=== PATIENT | female | born 1955 | race Caucasian/White ===

== ENCOUNTER 2018-10-10 10:03 | Inpatient (IN) ==
[2018-10-10] MEDS ORDERED: methylPREDNISolone 125 MG/2 ML VIAL IV STA (10:51)
[2018-10-10] MEDS ORDERED: SODIUM CHLORIDE 0.9% 1000ML 1,000 ML IV ONE (10:51)
--- NOTE | 2018-10-10 10:59 | XRay Report ---
XR chest 1V portable CLINICAL HISTORY: rule out difficulty breathing dyspnea COMPARISON STUDY: 10/27/2013 FINDINGS: Mild cardia megaly. Small hiatal hernia. Lungs are clear. IMPRESSION: No acute process. The lungs are clear. The above report was generated using voice recognition software. It may contain grammatical, syntax or spelling errors. Electronically signed by: Kody Molina M.D. 10/10/2018 10:58 AM
[2018-10-10 11:04] LABS: Partial Thromboplastin Time 27.6 Seconds (21.0-31.0); Prothrombin Time 10.6 Seconds (9.0-12.0)
[2018-10-10 11:09] LABS: Alanine Aminotransferase 10 U/L (12-78); Albumin Level 3.2 gm/dl (3.4-5.0); Aspartate Aminotransferase 7 U/L (15-37); BUN Creatinine Ratio 11.6 (10-20); Blood Urea Nitrogen 5 mg/dl (7-18); Calcium 8.3 mg/dl (8.5-10.1); Carbon Dioxide 34 mmol/L (21-32); Chloride 100 mmol/L (98-107); Creatinine Clr Calc Pharmacy 128.2 ml/min; Est GFR (African American) 125.3; Est GFR (Non-African American) 108.1; Glucose 105 mg/dl (70-99); Potassium 3.4 mmol/L (3.5-5.1); Sodium 136 mmol/L (136-145)
[2018-10-10 11:14] LABS: Albumin Globulin Ratio 0.8 (0.9-2); Alkaline Phosphatase 116 U/L (45-117); Bilirubin,Total 0.5 mg/dl (0.2-1); Globulin 3.8 gm/dl (2.5-4.0); Troponin I < 0.015 ng/ml (0-0.045)
[2018-10-10 11:23] LABS: Hematocrit (blood only) 31.2 % (37-47); Hemoglobin 7.7 g/dL (12.0-16.0); Mean Corpuscular Hgb Conc 24.7 g/dL (32-36); Mean Corpuscular Volume 62.7 fL (80-100); Platelet Count 250 K/uL (130-400); RDW Coefficient of Variation 20.6 % (11.5-14.5); RDW Standard Deviation 46.1 fL (36.4-46.3); Red Blood Count 4.98 M/uL (4.2-5.4); White Blood Count 6.99 K/uL (4.8-10.8)
[2018-10-10 11:25] LABS: Anisocytosis Present; Basophils # (auto) 0.01 K/uL (0-0.2); Basophils % (auto) 0.1 %; Eosinophils # (auto) 0.04 K/uL (0-0.5); Eosinophils % (auto) 0.6 %; Hypochromasia Present; Immature Granulocytes # (auto) 0.03 K/uL (0.00-0.02); Immature Granulocytes % (auto) 0.4 %; Lymphocytes # (auto) 0.85 K/uL (1.2-3.4); Lymphocytes % (auto) 12.2 %; Microcytosis Present; Monocytes % (auto) 8.6 %; Neutrophils # (auto) 5.46 K/uL (1.4-6.5); Neutrophils % (auto) 78.1 %; Ovalocytes 2+
[2018-10-10] MEDS ORDERED: ALBUT/IPRATROP 3MG/0.5MG NEB 3 ML VIAL NEB ONE ×2 (11:58→13:20)
[2018-10-10] MEDS ORDERED: ONDANSETRON INJ 2 MG/ML 2 ML VIAL IV STA (12:10)
[2018-10-10 13:33] LABS: HCO3 ABG 32 mmol/L (19-24); Oxygen Saturation ABG 85.5 % (90-95); PCO2 ABG 65 mmHg (35-46); PO2 ABG 59 mm/Hg (80-95); pH ABG 7.31 (7.35-7.45)
[2018-10-10 13:36] LABS: Allen Test Pos (Pos)
[2018-10-10] MEDS ORDERED: ACETAMINOPHEN 325 MG TAB PO PRN (14:04)
[2018-10-10] MEDS ORDERED: SODIUM CHLORIDE 0.9% 250 ML IV PRN (14:04)
[2018-10-10] MEDS: SODIUM CHLORIDE 0.9% 1000ML 1,000 ML IV SCH (14:22)
[2018-10-10 14:28] LABS: Reticulocytes # 0.1 10^6/uL (0.02-0.10)
[2018-10-10] MEDS: ALBUT/IPRATROP 3MG/0.5MG NEB 3 ML VIAL NEB SCH ×3 (14:33→23:08)
--- NOTE | 2018-10-10 14:36 | Emergency Department Note ---
History of Present Illness General Chief Complaint: Respiratory Problems Stated Complaint: cough/congestion Source: patient Mode of arrival: ambulatory Limitations: no limitations History of Present Illness Provider Complaint: shortness of breath Onset (ago): week(s) (2) Severity: severe Consistency/Duration: + constant and + progressively worsening Current Pain Intensity: 0 Relieved By: + rest, + bronchodilators and + upright position Exacerbated By: + lying flat, + exertion, + movement, + coughing, + inspiration and + talking Context: + recent illness Known history of: COPD Associated symptoms: + chest pain, + pain with inspiration, + fever (s ubjective), + cough, + wheezing and + orthopnea Treatment prior to arrival: bronchodilator This 62-year-old female patient presents emergency department today via ambulance complaining of 2-week long history of cough, congestion, difficulty breathing, and subjective fever. The patient states 5 days ago, she began feeling worse, and states the dyspnea, weakness, and fatigue have been progre ssively worsening throughout the week. She has been taking OTC Tessalon without relief. She does report a history of COPD, but has not seen her PCP or any other doctor in greater than 5 years. She states she has a history of chronic anemia, and reports history of needing blood transfusions, but states her hemoglobin was 4 when this occurred, and this was approximately 5 or 6 years ago. The patient did have a complete GI work-up at that time which was negative. The patient reports subjective fever in addition to her other symptoms as well as chest pain, worse with coughing. She states she is coughing up green sputum. She denies any lower extremity edema. The patient has a 1 to 1/2 pack/day smoker. She is on no chronic inhalers, nebulizers, or other medications. She denies abdominal pain, nausea, vomiting, headache, numbness or tingling, dizziness, weakness, or other associated symptoms. She denies any hemoptysis, hematochezia, or hematuria. Apparently, upon EMS arrival, the patient was attempting to meet the crew at the door. They noted she was having extreme difficulty breathing, checked her O2 sat and noted it was 83% on room air. EMS assisted the patient to the ambulance and provided a DuoNeb treatment prior to arrival, which did seem to help with the patient's symptoms. She was placed on 4 L of oxygen via nasal cannula at that time. Related Data Home oxygen amount: none Home Medications Home Medications Medication Instructions Recorded Confirmed Type No Known Home Medications 10/10/18 10/10/18 History Allergies Allergy/AdvReac Type Severity Reaction Status Date / Time No Known Allergies Allergy Unverified 10/10/18 10:47 Past Med/Surg History Medical History Tobacco abuse (Chronic) Anemia (Acute) COPD (chronic obstructive pulmonary disease) Surgical History History of cholecystectomy (Resolved) Hx of appendectomy (Resolved) S/P removal of right ovary (Resolved) H/O colonoscopy (Resolved) "2007, patient reports normal findings" Social History Preferred Language: [place] Communication Ability: Effective Media Executive Required: No Beliefs That Will Affect Care: None Current Living Situation: Alone Other Information That Helps Us Care for You: No Feels Safe at Home: Yes Safety Concerns: Feels Safe At This Time Smoking Status: Current every day smoker Tobacco Type: cigarettes Cigarettes Per Day: 25 Do You Dip or Chew Tobacco: No Second Hand Exposure: No Tobacco Cessation Education Requested by Patient: No Hx Alcohol Use: No Hx Substance Use: No Review of Systems A total of 10 systems reviewed and were otherwise negative Physical Exam Vital Signs: Vital Signs - 24 hr 10/10/18 10:02 10/10/18 10:18 10/10/18 10:36 Temperature 36.7 C Temperature Source Oral Sepsis Recent Feve r Within 48 Hours No Sepsis Action Take n by Nursing No Action Required Pulse Rate 95 H Pulse Rate [Apical ] Pulse Rhythm [Apic al] Pulse Strength [Ap ical] Respiratory Rate 24 Respiratory Effort / Characteristics Respiratory Depth Respiratory Patter n Blood Pressure 126/73 Blood Pressure [Le ft Arm] Blood Pressure Vielka n 90 Blood Pressure Vielka n [Left Arm] Blood Pressure Pos ition [Left Arm] Pulse Oximetry 100 83 L Oxygen Delivery Me thod Nebulizer Nasal Cannula Nasal Cannula Oxygen Flow Rate 4 Fraction of Inspir ed Oxygen 10/10/18 11:29 10/10/18 11:43 10/10/18 12:07 Temperature Temperature Source Sepsis Recent Feve r Within 48 Hours Sepsis Action Take n by Nursing Pulse Rate Pulse Rate [Apical ] 83 95 H Pulse Rhythm [Apic al] Pulse Strength [Ap ical] Respiratory Rate 22 18 Respiratory Effort / Characteristics Spontaneous Grunti ng Respiratory Depth Respiratory Patter n Blood Pressure Blood Pressure [Le ft Arm] 115/69 Blood Pressure Vielka n Blood Pressure Vielka n [Left Arm] 84 Blood Pressure Pos ition [Left Arm] Lying Pulse Oximetry 97 92 95 Oxygen Delivery Me thod Nasal Cannula Nasal Cannula Nasal Cannula Oxygen Flow Rate 4 2 2 Fraction of Inspir ed Oxygen 10/10/18 12:25 10/10/18 12:50 10/10/18 12:52 Temperature Temperature Source Sepsis Recent Feve r Within 48 Hours Sepsis Action Take n by Nursing Pulse Rate Pulse Rate [Apical ] 111 H Pulse Rhythm [Apic al] Pulse Strength [Ap ical] Respiratory Rate 22 Respiratory Effort / Characteristics Spontaneous SOB on Exertion Respiratory Depth Normal Respiratory Patter n Regular Blood Pressure Blood Pressure [Le ft Arm] 116/62 Blood Pressure Vielka n Blood Pressure Vielka n [Left Arm] 80 Blood Pressure Pos ition [Left Arm] Lying Pulse Oximetry 90 97 Oxygen Delivery Me thod Nasal Cannula Nasal Cannula Nebu lizer Nasal Cannula Nebu lizer Oxygen Flow Rate 2 2 4 Fraction of Inspir ed Oxygen 10/10/18 13:27 10/10/18 13:33 10/10/18 13:35 Temperature Temperature Source Sepsis Recent Feve r Within 48 Hours Sepsis Action Take n by Nursing Pulse Rate 103 H Pulse Rate [Apical ] 102 H Pulse Rhythm [Apic al] Pulse Strength [Ap ical] Respiratory Rate 26 H 22 Respiratory Effort / Characteristics Respiratory Depth Respiratory Patter n Blood Pressure Blood Pressure [Le ft Arm] 103/49 L Blood Pressure Vielka n Blood Pressure Vielka n [Left Arm] 67 Blood Pressure Pos ition [Left Arm] Pulse Oximetry 97 92 Oxygen Delivery Me thod BiPAP BiPAP Oxygen Flow Rate Fraction of Inspir ed Oxygen 30 10/10/18 13:56 Temperature 36.8 C Temperature Source Oral Sepsis Recent Feve r Within 48 Hours Sepsis Action Take n by Nursing Pulse Rate Pulse Rate [Apical ] 110 H Pulse Rhythm [Apic al] Regular Pulse Strength [Ap ical] Normal Respiratory Rate 18 Respiratory Effort / Characteristics Non-Labored Sponta neous Respiratory Depth Respiratory Patter n Regular Blood Pressure Blood Pressure [Le ft Arm] 128/64 Blood Pressure Vielka n Blood Pressure Vielka n [Left Arm] 85 Blood Pressure Pos ition [Left Arm] Sitting Pulse Oximetry 18 L Oxygen Delivery Me thod Nasal Cannula BiPA P Oxygen Flow Rate 5 Fraction of Inspir ed Oxygen Physical Exam: VITALS: Vitals are noted on the nurse's note and reviewed by myself. The patient is hypoxic and tachypneic, but no hypotension or tachycardia. GENERAL: This is a 62-year-old obese white female, tachypneic, but in no acute distress, nondiaphoretic, well-developed well-nourished. SKIN: The skin was without rashes, erythema, edema, or bruising. There is no tenting of the skin. Capillary reflex less than 2 seconds. HEAD: Normocephalic atraumatic. EARS: External auditory canals clear, tympanic membranes pearly pedersen without erythema or effusion bilaterally. EYES: Pupils equal round and reactive to light and accommodation. Conjunctivae without injection, sclerae without icterus. Extraocular movements intact. NOSE: Patent, turbinates without inflammation or discharge. No sinus tenderness. MOUTH: Mucous membranes moist. Tonsils are not enlarged. Pharynx without erythema or exudate. Uvula midline. Airway patent. Tongue does not deviate. NECK: Supple without nuchal rigidity. No lymphadenopathy. No thyromegaly. Cervical spine is nontender. No JVD. HEART: Regular rate and rhythm without murmurs gallops or rubs. LUNGS: Diffuse rhonchi noted throughout. Expiratory wheezing. No dullness to percussion. No retractions. Occasional accessory muscle use, worse after coughing spells. ABDOMEN: Positive bowel sounds x 4. Normal tympanic percussion. Soft, nontender, without masses or organomegaly. Prince sign negative. No guarding or rebound tenderness. MUSCULOSKELETAL: No muscle atrophy, erythema, or edema noted. Full range of motion without joint tenderness in all extremities. No tenderness to palpation. Normal gait. Strength 5/5 throughout. NEURO: Patient was alert and oriented to person place and time. Normal sensation to light and sharp touch. Deep tendon reflexes 2+ throughout. No focal neurological deficits. Course The patient was seen and evaluated as above. She notes significant improvement following DuoNeb treatment. She is feeling much better, however remains hypoxic on room air in the high 80s. IV access obtained, labs drawn. The patient was given 125 mg Solu-Medrol. Imaging performed and reviewed by myself and radiologist as above. Labs reviewed by myself. I discussed the findings with the patient at bedside. She was reassessed, and notes her breathing feels worse again. She was given hour-long DuoNeb treatmen t. I consulted with the [facility] hospitalist. I spoke with KIARRA Escamilla. She did agree to see and evaluate the patient. Influenza swab obtained. Please see hospitalist dictation regarding ongoing management care of this patient. Administered Medications Sodium Chloride (Nss 1000ml) 1,000 mls @ 80 mls/hr IV .[id number] NIDIA Stop: 10/11/18 15:03 Last Admin: 10/10/18 14:22 Dose: 80 mls/hr Documented by: [id number] Discontinued Medications Albuterol (Duoneb) 12 ml NEB ONE ONE Stop: 10/10/18 11:59 Last Admin: 10/10/18 12:06 Dose: 12 ml Documented by: [id number] Sodium Chloride (Nss 1000ml) 1,000 mls @ 999 mls/hr IV .Q1H1M ONE Stop: 10/10/18 11:51 Last Infusion: 10/10/18 12:23 Dose: 0 mls/hr Documented by: [id number] Admin: 10/10/18 11:17 Dose: 999 mls/hr Documented by: [id number] Methylprednisolone (Solumedrol) 125 mg IV NOW STA Stop: 10/10/18 10:52 Last Admin: 10/10/18 11:16 Dose: 125 mg Documented by: [id number] Ondansetron HCl (Zofran) 4 mg IV NOW STA Stop: 10/10/18 12:11 Last Admin: 10/10/18 12:23 Dose: 4 mg Documented by: [id number] Medical Decision Making Differential Diagnosis + acute exacerbation of chronic obstructive airways disease, + congestive heart failure, + community acquired pneumonia, + asthma with exacerbation, + pulmonary embolism, + COPD, + bronchitis, + pneumothorax, + pneumonia, + pleural effusion, + CHF, + ACS and + aspiration Medical Records Attestation: I reviewed the patient's medical records. Home Medications Current Medication List: was personally reviewed by me Laboratory Data Attestation: I reviewed the patient's lab results. The patient is anemic with hemoglobin of 7.7, hematocrit of 31.2. No leukocytosis or thrombocytopenia. The patient's coags are normal. Renal, hepatic function electrolytes without significant abnormality. Troponin negative. Influenza testing negative. Result diagrams: 10/10/18 09:20 10/10/18 09:20 Lab Results 10/10/18 10/10/18 10/10/18 Range/Units 09:20 09:20 09:20 WBC 6.99 (4.8-10.8) K/uL RBC 4.98 (4.2-5.4) M/uL Hgb 7.7 L (12.0-16.0) g/dL Hct 31.2 L (37-47) % MCV 62.7 L (80-100) fL MCH 15.5 L (25-34) pg MCHC 24.7 L (32-36) g/dL RDW Std Deviation 46.1 (36.4-46.3) fL RDW Coeff of Liz 20.6 H (11.5-14.5) % Plt Count 250 (130-400) K/uL Immature Gran % (Auto) 0.4 % Neut % (Auto) 78.1 % Lymph % (Auto) 12.2 % [place] % (Auto) 8.6 % Eos % (Auto) 0.6 % Baso % (Auto) 0.1 % Reticulocyte % (Auto) (0.5-2.0) % Immature Gran # (Auto) 0.03 H (0.00-0.02) K/uL Neut # (Auto) 5.46 (1.4-6.5) K/uL Lymph # (Auto) 0.85 L (1.2-3.4) K/uL [place] # (Auto) 0.60 H (0.11-0.59) K/uL Eos # (Auto) 0.04 (0-0.5) K/uL Baso # (Auto) 0.01 (0-0.2) K/uL Reticulocyte # (0.02-0.10) 10^6/uL Hypochromasia Present Anisocytosis Present Microcytosis Present Ovalocytes 2+ PT 10.6 (9.0-12.0) Seconds INR 1.0 (0.9-1.1) APTT 27.6 (21.0-31.0) Seconds PTT Ratio 1.0 ABG pH (7.35-7.45) ABG pCO2 (35-46) mmHg ABG pO2 (80-95) mm/Hg ABG HCO3 (19-24) mmol/L ABG O2 Saturation (90-95) % ABG Base Excess (-9-1.8) mEq/L [place] Test (Pos) Barometric Pressure mm/Hg Oxygen Given Sodium 136 (136-145) mmol/L Potassium 3.4 L (3.5-5.1) mmol/L Chloride 100 (98-107) mmol/L Carbon Dioxide 34 H (21-32) mmol/L Anion Gap 2.0 L (3-11) BUN 5 L (7-18) mg/dl Creatinine 0.46 L (0.6-1.2) mg/dl Est Cr Clr Drug Dosing 128.2 ml/min Est GFR ( Amer) 125.3 Est GFR (Non-Af Amer) 108.1 BUN/Creatinine Ratio 11.6 (10-20) Glucose 105 H (70-99) mg/dl Calcium 8.3 L (8.5-10.1) mg/dl Total Bilirubin 0.5 (0.2-1) mg/dl AST 7 L (15-37) U/L ALT 10 L (12-78) U/L Alkaline Phosphatase 116 (45-117) U/L Troponin I < 0.015 (0-0.045) ng/ml Total Protein 7.0 (6.4-8.2) gm/dl Albumin 3.2 L (3.4-5.0) gm/dl Globulin 3.8 (2.5-4.0) gm/dl Albumin/Globulin Ratio 0.8 L (0.9-2) Influenza Type A Ag (Neg) Influenza Type B Ag (Neg) Crossmatch 10/10/18 10/10/18 10/10/18 Range/Units 12:15 13:23 14:13 WBC (4.8-10.8) K/uL RBC (4.2-5.4) M/uL Hgb (12.0-16.0) g/dL Hct (37-47) % MCV (80-100) fL MCH (25-34) pg MCHC (32-36) g/dL RDW Std Deviation (36.4-46.3) fL RDW Coeff of Liz (11.5-14.5) % Plt Count (130-400) K/uL Immature Gran % (Auto) % Neut % (Auto) % Lymph % (Auto) % [place] % (Auto) % Eos % (Auto) % Baso % (Auto) % Reticulocyte % (Auto) 2.0 (0.5-2.0) % Immature Gran # (Auto) (0.00-0.02) K/uL Neut # (Auto) (1.4-6.5) K/uL Lymph # (Auto) (1.2-3.4) K/uL [place] # (Auto) (0.11-0.59) K/uL Eos # (Auto) (0-0.5) K/uL Baso # (Auto) (0-0.2) K/uL Reticulocyte # 0.10 (0.02-0.10) 10^6/uL Hypochromasia Anisocytosis Microcytosis Ovalocytes PT (9.0-12.0) Seconds INR (0.9-1.1) APTT (21.0-31.0) Seconds PTT Ratio ABG pH 7.31 L (7.35-7.45) ABG pCO2 65 H (35-46) mmHg ABG pO2 59 L (80-95) mm/Hg ABG HCO3 32 H (19-24) mmol/L ABG O2 Saturation 85.5 L (90-95) % ABG Base Excess 4.2 H (-9-1.8) mEq/L [place] Test Pos (Pos) Barometric Pressure 724.5 mm/Hg Oxygen Given 4 L Sodium (136-145) mmol/L Potassium (3.5-5.1) mmol/L Chloride (98-107) mmol/L Carbon Dioxide (21-32) mmol/L Anion Gap (3-11) BUN (7-18) mg/dl Creatinine (0.6-1.2) mg/dl Est Cr Clr Drug Dosing ml/min Est GFR ( Amer) Est GFR (Non-Af Amer) BUN/Creatinine Ratio (10-20) Glucose (70-99) mg/dl Calcium (8.5-10.1) mg/dl Total Bilirubin (0.2-1) mg/dl AST (15-37) U/L ALT (12-78) U/L Alkaline Phosphatase (45-117) U/L Troponin I (0-0.045) ng/ml Total Protein (6.4-8.2) gm/dl Albumin (3.4-5.0) gm/dl Globulin (2.5-4.0) gm/dl Albumin/Globulin Ratio (0.9-2) Influenza Type A Ag Neg for Influ A (Neg) Influenza Type B Ag Neg for Influ B (Neg) Crossmatch 10/10/18 Range/Units 14:13 WBC (4.8-10.8) K/uL RBC (4.2-5.4) M/uL Hgb (12.0-16.0) g/dL Hct (37-47) % MCV (80-100) fL MCH (25-34) pg MCHC (32-36) g/dL RDW Std Deviation (36.4-46.3) fL RDW Coeff of Liz (11.5-14.5) % Plt Count (130-400) K/uL Immature Gran % (Auto) % Neut % (Auto) % Lymph % (Auto) % [place] % (Auto) % Eos % (Auto) % Baso % (Auto) % Reticulocyte % (Auto) (0.5-2.0) % Immature Gran # (Auto) (0.00-0.02) K/uL Neut # (Auto) (1.4-6.5) K/uL Lymph # (Auto) (1.2-3.4) K/uL [place] # (Auto) (0.11-0.59) K/uL Eos # (Auto) (0-0.5) K/uL Baso # (Auto) (0-0.2) K/uL Reticulocyte # (0.02-0.10) 10^6/uL Hypochromasia Anisocytosis Microcytosis Ovalocytes PT (9.0-12.0) Seconds INR (0.9-1.1) APTT (21.0-31.0) Seconds PTT Ratio ABG pH (7.35-7.45) ABG pCO2 (35-46) mmHg ABG pO2 (80-95) mm/Hg ABG HCO3 (19-24) mmol/L ABG O2 Saturation (90-95) % ABG Base Excess (-9-1.8) mEq/L [place] Test (Pos) Barometric Pressure mm/Hg Oxygen Given Sodium (136-145) mmol/L Potassium (3.5-5.1) mmol/L Chloride (98-107) mmol/L Carbon Dioxide (21-32) mmol/L Anion Gap (3-11) BUN (7-18) mg/dl Creatinine (0.6-1.2) mg/dl Est Cr Clr Drug Dosing ml/min Est GFR ( Amer) Est GFR (Non-Af Amer) BUN/Creatinine Ratio (10-20) Glucose (70-99) mg/dl Calcium (8.5-10.1) mg/dl Total Bilirubin (0.2-1) mg/dl AST (15-37) U/L ALT (12-78) U/L Alkaline Phosphatase (45-117) U/L Troponin I (0-0.045) ng/ml Total Protein (6.4-8.2) gm/dl Albumin (3.4-5.0) gm/dl Globulin (2.5-4.0) gm/dl Albumin/Globulin Ratio (0.9-2) Influenza Type A Ag (Neg) Influenza Type B Ag (Neg) Crossmatch See Detail Imaging Data Radiologist's Impression: XR chest 1V portable CLINICAL HISTORY: rule out difficulty breathing dyspnea COMPARISON STUDY: 10/27/2013 FINDINGS: Mild cardia megaly. Small hiatal hernia. Lungs are clear. IMPRESSION: No acute process. The lungs are clear. The above report was generated using voice recognition software. It may contain grammatical, syntax or spelling errors. Electronically signed by: Kody Molina M.D. 10/10/2018 10:58 AM ECG Data Attestation: I personally reviewed and interpreted this ECG as follows: Prior ECG tracings: available for review (10/27/13) Interpretation: Normal sinus rhythm with ventricular rate of [address] changes. No T wave inversion. No ectopy. No significant change when compared to previous EKG. Blood Pressure Blood Pressure Findings: Normal blood pressure MDM Narrative This 62-year-old female patient presents emergency department today via ambulance complaining of severe shortness of breath, subjective fevers, and wheezing which is been ongoing for approximately 2 weeks. The patient's O2 saturation upon EMS arrival to her home was 83% on room air. The patient responded well to oxygen and a DuoNeb treatment. She was medicated in the ED with IV fluids, Solu-Medrol, and ultimately an hour-long DuoNeb treatment. The patient was doing well and maintaining O2 saturations on oxygen, but when oxygen was removed, sats dropped into the low 80s without exertion. While discussing lab results and imaging findings and reassessing the patient, she began complaining of worsening shortness of breath. This is when the repeat DuoNeb treatment was ordered. Because of the hypoxia, we did elect to admit the patient. I am suspicious of COPD exacerbation, as the patient has been untreated for several years since her diagnosis. She was anemic with a hemoglobin of 7.7 upon ER arrival, but was not tachycardic or hypotensive. She was not pale, diaphoretic, or complaining of any dizziness or weakness. The patient states the anemia is chronic, but she does not recall any recent labs, and states it has been at least 5 years. She did have a completely negative GI work-up in the past. Please see hospitalist dictation regarding ongoing management care of this patient. The chart was completed utilizing [employer] Speech voice recognition software. Grammatical errors, random word insertions, pronoun errors, and incomplete sentences are an occasional consequence of this system due to software limit ations, ambient noise, and hardware issues. Any formal questions or concerns about the content, text, or information contained within the body of this dictation should be directly addressed to the provider for clarification. Impression & Plan Anemia, Hypoxia, Bronchitis Discharge Plan Visit Data *Final* Discharge Date/Time: 10/10/18 13:35 Chief Complaint: Respiratory Problems Stated Complaint: cough/congestion ED Provider: Noel Thapa ED Midlevel Provider: Trina Chahal Discharge Problem: Anemia, Hypoxia, Bronchitis Patient Disposition: Admitted As Inpatient Condition: Fair Discharge Instructions Interventions: ED Discharge Assessment Last Done: 10/10/18 13:35
[2018-10-10 14:45] LABS: Ferritin 1.7 ng/ml (8-388)
--- NOTE | 2018-10-10 14:59 | History & Physical Report ---
Date of Service October 10, 2018 Assessment & Plan (1) COPD exacerbation: (2) Hypoxia: Pt with hx COPD, tobacco use presented to ER with complaint of increased SOB x 4 days with chills, productive cough, myalgias, headache, chest tightness/burning, wheezing. Reports chronic SOB In ER pt afebrile, P: 95, R: 24, BP: 126/73, 83% on RA up to 95% on 2L NC. WBC: 6.9. negative troponin. Negative influenza swab. CXR: no acute changes In ER Pt was given 1L NSS, solumedrol 125mg IV, 1 hour long duoneb. ABG:pH: 7.3, pO2: 59, pCOO2: 65, HCO3: 32 -Pt placed on bipap -Supplemental oxygen prn -Gentle IVF -Solumedrol 60mg IV Q6H -Duonebs scheduled -Doxycycline -Pulmonology consult, appreciate recommendations (3) Anemia: Hx iron deficiency anemia. Pt not taking iron supplements. Reported intermittent melena. Denies hematochezia. Hx EGD, colonoscopy in 2013 without noted source. Pt was to have further follow up however did not have completed -fecal occult pending -pending iron, ferritin, TIBC, transferrin, retic count -type and cross PRBC and transfuse 1 unit -monitor H&H -may need to consider GI consult if no improvement or worsening (4) Hypokalemia: K: 3.4 -replace and monitor (5) Gastroparesis: Not on medications (6) Tobacco abuse: -smoking cessation encouraged -nicotine patch DVT Prophylaxis -SCDs DNR/DNI as per discussion with pt Does not follow with PCP for routine care Pt was seen with Dr Hamm. See addendum Attending Addendum: care coordinated with DUANE Bhat please refer to her notes for full details, I agree with her notes patient seen and examined, records reviewed by myself as well on exam, patient seen sitting up in bed states she feels tired breathing somewhat better (+) dry cough no chest pain no other symptoms VS noted and reviewed oriented x3, not in distress, speaks in sentences with no effort nor accessory muscle use normal rate, regular rhythm, no murmurs (+) wheeze b/l non distended, soft, nontender no bipedal edema, erythema, warmth no neuro deficits WBC 7 Hg 7.5 Crea 0.46 ASSESSMENT AND PLAN COPD EXACERBATION continue Bipap- wean off accordingly, Solumedrol, Nebs ANEMIA 1 unit PRBC ordered anemia panel other diagnoses and plan of care as per DUANE Bhat notes Joe Hamm MD History of Present Illness Chief Complaint: SOB Primary Care Provider: NO PCP Pt is 62 y/o F with PMH gastroparesis, COPD, tobacco use, iron deficiency anemia presented to ER with complaint of shortness of breath. Patient reports chronic shortness of breath however 4 days ago started with increased shortness of breath. She states that she has had a cough for couple weeks intermittently productive white to yellow sputum. 4 days ago the cough increased and she started with chills, body aches, headache, chest tightness and burning, wheezing, and rhinorrhea. Patient states tried OTC cough suppressant without any relief. She states felt so weak 4 days ago that she didn't get out of bed much. States today no further myalgias however significant SOB and wheezing. Patient denies any ill contacts, recent travel. Did not have flu vaccine this season. Patient not on any inhalers. She has not followed up with PCP for several years. Patient with history of iron deficiency anemia. Hx hospitalization in 10/2013 for anemia. Last had EGD and colonoscopy in 2013 without any noted source. Patient has not been taking iron supplements. Patient states intermittent black stools which occur a couple of times a month. Denies any bright red blood per rectum. Denies N/V/D/C, dizziness, syncope, vision changes, neck pain, palpitations,sore throat, choking, otalgia, abdominal pain, paresthesias, extremity edema, rashes, urinary symptoms. Allergies Allergy/AdvReac Type Severity Reaction Status Date / Time No Known Allergies Allergy Unverified 10/10/18 10:47 Home Medications Home Medications Medication Instructions Recorded Confirmed Type No Known Home Medications 10/10/18 10/10/18 History Past Med/Surg History Medical History Gastroparesis (Chronic) Tobacco abuse (Chronic) Anemia (Chronic) COPD (chronic obstructive pulmonary disease) Surgical History History of esophagogastroduodenoscopy (EGD) (Chronic) History of cholecystectomy (Chronic) Hx of appendectomy (Chronic) S/P removal of right ovary (Chronic) H/O colonoscopy (Chronic) "2007, patient reports normal findings" 10/2013: poor prep, grossly normal exam Family History Other Cancer Depression Social History Preferred Language: [place] Communication Ability: Effective Psychiatric Security Nurse Required: No Beliefs That Will Affect Care: None Current Living Situation: Alone Other Information That Helps Us Care for You: No Feels Safe at Home: Yes Safety Concerns: Feels Safe At This Time Smoking Status: Current every day smoker Tobacco Type: cigarettes packs per day: 1 Years Smoked: 50 Cigarettes Per Day: 25 Do You Dip or Chew Tobacco: No Second Hand Exposure: No Tobacco Cessation Education Requested by Patient: No Hx Alcohol Use: No Hx Substance Use: No Review of Systems Review of Systems: All systems reviewed & are unremarkable except as noted in HPI & below Physical Exam Physical Exam: General: + respiratory distress, moderately developed, moderately nourished Head: normocephalic, atraumatic Eyes: PERRL, EOM's intact, conjunctiva non-injected, anicteric ENT: normal inspection external ears, nose, mucous membranes dry Neck: supple, trachea midline Lungs: +respiratory distress,R: 24 and labored, +diffuse inspiratory and expiratory wheezing, breath sounds diminished throughout CV: RRR, no murmur, no pretibial edema Abd: normal BS, soft, non-tender Ext: no cyanosis, no calf tenderness Neuro: A&O x 3, no focal deficits noted, normal affect Skin: warm, dry Results & Data Vital Signs (Past 12 Hours) Vital Signs Temp Pulse Pulse Resp BP BP Pulse Ox 10/10/18 14:33 105 H 19 95 10/10/18 13:56 36.8 C 110 H 18 128/64 18 L 10/10/18 13:33 102 H 22 103/49 L 92 10/10/18 13:27 103 H 26 H 97 10/10/18 12:52 97 10/10/18 12:50 111 H 22 116/62 90 10/10/18 12:07 95 H 18 95 10/10/18 11:43 92 10/10/18 11:29 83 22 115/69 97 10/10/18 10:36 83 L 10/10/18 10:02 36.7 C 95 H 24 126/73 100 Laboratory Results Short CBC 10/10/18 Range/Units 09:20 WBC 6.99 (4.8-10.8) K/uL Hgb 7.7 L (12.0-16.0) g/dL Hct 31.2 L (37-47) % Plt Count 250 (130-400) K/uL BMP 10/10/18 09:20 Sodium 136 Potassium 3.4 L Chloride 100 Carbon Dioxide 34 H BUN 5 L Creatinine 0.46 L Glucose 105 H Calcium 8.3 L Cardiac Enzymes 10/10/18 Range/Units 09:20 Troponin I < 0.015 (0-0.045) ng/ml Liver Function 10/10/18 Range/Units 09:20 Total Bilirubin 0.5 (0.2-1) mg/dl AST 7 L (15-37) U/L ALT 10 L (12-78) U/L Alkaline Phosphatase 116 (45-117) U/L Albumin 3.2 L (3.4-5.0) gm/dl Diagnostic Findings CXR: IMPRESSION: No acute process. The lungs are clear. ECG Rate (beats per minute): 88 Rhythm: sinus rhythm (1) Anemia Anemia type: unspecified type Qualified Code(s): D64.9 - Anemia, unspecified
--- NOTE | 2018-10-10 15:45 | Pulmonary Consultation ---
Date of Consultation October 10, 2018 Assessment & Plan (1) COPD exacerbation: Impression: 1. COPD, with acute exacerbation, gold level cannot be determined, patient does not follow with any physician, does not use any inhalers, and active smoker. 2. Nicotine addiction. 3. Chronic anemia. 4. Cor pulmonale with chronically elevated CO2. 5. History of peptic ulcer disease. Plan: 1. Continue with systemic steroids with Solu-Medrol. 2. Change BiPAP to nocturnal only and as needed during the daytime. 3. Continue bronchodilators. 4. Smoking cessation counseling. 5. Repeat the CBC, the labs are disproportionate between hemoglobin and hematocrit. Thank you, will follow. History of Present Illness Reason for Consultation: COPD exacerbation Requesting Physician: Dr. Hamm Attending Physician: Joe Hamm MD History of Present Illness Dear Dr. Hamm: Thank you for the kind referral of Mrs. Woodson to pulmonary service. This is 62-year-old female with a history of COPD, active smoker, does not use any rescue inhalers nor nebulizer and not using any controller medications, the patient has been feeling sick for the past few days where she started with cough according to her 2 weeks ago. On Friday she started becoming more tired and having increasing shortness of breath even with minimal exertion. She denies any rhinorrhea or sputum production. No hemoptysis reported. Patient did not have any abdominal pain no epigastric pain no heartburn no loss of consciousness or near syncopal episodes she has no swelling in her lower extremities. The patient was feeling even sicker yesterday and she was brought to the ED by her family member who called the ambulance and she was admitted via the ED. The patient was placed on the BiPAP for the pH on her blood gas that was shown to be 7.31. The patient did not have any medications at home, she does not use oxygen, she is active smoker. The rest of her review of system otherwise was unremarkable. Allergies Allergy/AdvReac Type Severity Reaction Status Date / Time No Known Allergies Allergy Unverified 10/10/18 10:47 Home Medications Home Medications Medication Instructions Recorded Confirmed Type No Known Home Medications 10/10/18 10/10/18 History Patient History Medical History Gastroparesis (Chronic) Tobacco abuse (Chronic) Anemia (Chronic) COPD (chronic obstructive pulmonary disease) Surgical History History of esophagogastroduodenoscopy (EGD) (Chronic) History of cholecystectomy (Chronic) Hx of appendectomy (Chronic) S/P removal of right ovary (Chronic) H/O colonoscopy (Chronic) "2007, patient reports normal findings" 10/2013: poor prep, grossly normal exam Family History Other Cancer Depression Social History Preferred Language: Tongan Communication Ability: Effective Photo Finish Photographer Required: No Beliefs That Will Affect Care: None Current Living Situation: Alone Other Information That Helps Us Care for You: No Feels Safe at Home: Yes Safety Concerns: Feels Safe At This Time Smoking Status: Current every day smoker Tobacco Type: cigarettes packs per day: 1 Years Smoked: 50 Cigarettes Per Day: 25 Do You Dip or Chew Tobacco: No Second Hand Exposure: No Tobacco Cessation Education Requested by Patient: No Hx Alcohol Use: No Hx Substance Use: No Review of Systems Review of Systems: Review of systems x10 systems were unremarkable except for the above. Physical Exam Physical Exam: Vital signs are stable, S1-S2 regular rate and rhythm, O2 saturation 99%, no JVD, hyperinflated chest, wheezing bilaterally, abdomen is benign, no edema, neurologically she is intact. No skin rash, no mucosal lesions, no visual disturbances. Results & Data Vital Signs (Past 12 Hours) Vital Signs Temp Pulse Pulse Resp BP BP Pulse Ox 10/10/18 15:29 36.6 C 102 H 23 119/68 99 10/10/18 14:33 105 H 19 95 10/10/18 13:56 36.8 C 110 H 18 128/64 18 L 10/10/18 13:33 102 H 22 103/49 L 92 10/10/18 13:27 103 H 26 H 97 10/10/18 12:52 97 10/10/18 12:50 111 H 22 116/62 90 10/10/18 12:07 95 H 18 95 10/10/18 11:43 92 10/10/18 11:29 83 22 115/69 97 10/10/18 10:36 83 L 10/10/18 10:02 36.7 C 95 H 24 126/73 100 Laboratory Results Her labs were reviewed which showed normal leukocytes, she does have chronic anemia. Diagnostic Findings Chest x-ray which I could not review but by report it was without any infiltrate.
[2018-10-10 16:27] LABS: Hematocrit (blood only) 30.3 % (37-47); Hemoglobin 7.5 g/dL (12.0-16.0); Mean Corpuscular Hgb Conc 24.8 g/dL (32-36); Mean Corpuscular Volume 63.7 fL (80-100); Platelet Count 222 K/uL (130-400); Red Blood Count 4.76 M/uL (4.2-5.4); White Blood Count 7.71 K/uL (4.8-10.8)
[2018-10-10] MEDS: DOXYCYCLINE HYCLATE 100 MG in DEXTROSE 5% 100 ML IV SCH (16:40)
[2018-10-10 16:52] LABS: Anisocytosis Present; Basophils # (auto) 0.01 K/uL (0-0.2); Basophils % (auto) 0.1 %; Giant Platelets 1+; Hypochromasia Present; Immature Granulocytes # (auto) 0.03 K/uL (0.00-0.02); Immature Granulocytes % (auto) 0.4 %; Lymphocytes # (auto) 0.31 K/uL (1.2-3.4); Microcytosis Present; Monocytes # (auto) 0.08 K/uL (0.11-0.59); Neutrophils # (auto) 7.28 K/uL (1.4-6.5); Neutrophils % (auto) 94.5 %
[2018-10-10] MEDS: methylPREDNISolone 40 MG in SYRINGE 0 ML IV SCH ×2 (17:04→23:52)
[2018-10-10] MEDS: NICOTINE 21 MG/24 HR TDSY TD SCH (17:04)
[2018-10-10] MEDS ORDERED: methylPREDNISolone 60 MG in SYRINGE 0 ML IV SCH (18:00)
[2018-10-10] MEDS ORDERED: POTASSIUM CHLORIDE 20 MEQ TABCR PO ONE (18:00)
[2018-10-10] MEDS: BUDESONIDE/FORMOTEROL FUMARATE 160/4.5 60 PUFFS/INHALER INH SCH (20:36)
[2018-10-10 23:52] LABS: Hematocrit (blood only) 33.2 % (37-47); Hemoglobin 8.7 g/dL (12.0-16.0)
[2018-10-11] MEDS: ALBUT/IPRATROP 3MG/0.5MG NEB 3 ML VIAL NEB SCH ×6 (03:36→23:01)
[2018-10-11] MEDS: DOXYCYCLINE HYCLATE 100 MG in DEXTROSE 5% 100 ML IV SCH ×2 (04:12→16:16)
[2018-10-11] MEDS: methylPREDNISolone 40 MG in SYRINGE 0 ML IV SCH ×4 (06:03→23:45)
[2018-10-11 06:11] LABS: Hematocrit (blood only) 33.3 % (37-47); Hemoglobin 8.9 g/dL (12.0-16.0); Mean Corpuscular Hgb Conc 26.7 g/dL (32-36); Mean Corpuscular Volume 66.6 fL (80-100); Platelet Count 203 K/uL (130-400); RDW Standard Deviation 53.2 fL (36.4-46.3); White Blood Count 7.28 K/uL (4.8-10.8)
[2018-10-11 06:29] LABS: BUN Creatinine Ratio 23.1 (10-20); Calcium 8.6 mg/dl (8.5-10.1); Creatinine Clr Calc Pharmacy 117.4 ml/min; Est GFR (African American) 121.9; Est GFR (Non-African American) 105.2; Magnesium 2.3 mg/dl (1.8-2.4); Potassium 4.2 mmol/L (3.5-5.1)
[2018-10-11] MEDS: BUDESONIDE/FORMOTEROL FUMARATE 160/4.5 60 PUFFS/INHALER INH SCH ×2 (07:48→20:25)
[2018-10-11] MEDS: NICOTINE 21 MG/24 HR TDSY TD SCH (07:49)
[2018-10-11] MEDS: SODIUM CHLORIDE 0.9% 1000ML 1,000 ML IV SCH (10:24)
--- NOTE | 2018-10-11 13:17 | Pulmonology Progress Note ---
Date of Service October 11, 2018 Assessment & Plan (1) COPD exacerbation: Impression: 1. COPD, with acute exacerbation, gold level cannot be determined, patient does not follow with any physician, does not use any inhalers, and active smoker. 2. Nicotine addiction. 3. Chronic anemia. 4. Cor pulmonale with chronically elevated CO2. 5. History of peptic ulcer disease. Plan: 1. Continue Solu-Medrol for additional day and then start prednisone 60 mg p.o. daily in the morning. 2. Use BiPAP as needed. 3. Continue bronchodilators. 4. Smoking cessation counseling. 5. Follow CBC and BMP. 6. Perform 2 steps to evaluate for home O2. 7. Discussed with the nursing staff. Thank you, will follow. Subjective No events overnight, she has been off the BiPAP, she continues to have persistent wheezing. Denies any chest pain, currently she is on oxygen, but she desaturated very easily with ambulation. Review of Systems Review of Systems: Review of system otherwise was unremarkable. Physical Exam Physical Exam: Vital signs are stable, 99% on 3 L, no JVD, scattered wheezing bilaterally, S1-S2, abdomen is benign, no edema. Neurologically she is intact. Results & Data Vital Signs (Past 12 Hours) Vital Signs Temp Pulse Pulse Resp BP Pulse Ox 10/11/18 11:29 37.0 C 96 H 18 121/63 99 10/11/18 11:10 105 H 18 96 10/11/18 07:09 36.4 C L 87 18 144/79 H 100 10/11/18 07:03 83 18 93 10/11/18 03:38 77 20 93 10/11/18 03:36 77 20 93 10/11/18 03:19 37.0 C 84 18 109/66 90 10/11/18 01:59 89 17 95 Laboratory Results Labs were reviewed, acceptable CBC and BMP, Diagnostic Findings No new imaging.
--- NOTE | 2018-10-11 14:05 | Hospitalist Progress Note ---
Date of Service October 11, 2018 Assessment & Plan (1) COPD exacerbation: (2) Hypoxia: Pt with hx COPD, tobacco use presented to ER with complaint of increased SOB x 4 days with chills, productive cough, myalgias, headache, chest tightness/burning, wheezing. Reports chronic SOB Improving Continue Solu-Medrol, nebs, doxycycline Appreciate pulmonary consultation (3) Anemia: Hx iron deficiency anemia. Pt not taking iron supplements. Reported inte rmittent melena. Denies hematochezia. Hx EGD, colonoscopy in 2013 without noted source. Pt was to have further follow up however did not have completed -fecal occult pending -pending iron, ferritin, TIBC, transferrin, retic count -type and cross PRBC and transfuse 1 unit -monitor H&H -may need to consider GI consult if no improvement or worsening Iron 10, ferritin low Start ferrous sulfate supplement (4) Hypokalemia: K: 3.4 -replace and monitor (5) Gastroparesis: Not on medications (6) Tobacco abuse: -smoking cessation encouraged -nicotine patch DVT Prophylaxis -SCDs in light of anemia iron deficiency DNR/DNI as per discussion with pt Does not follow with PCP for routine care Disposition Anticipate to discharge to medically stable Needs to establish with primary care physician Subjective Follow-up for COPD exacerbation Resting in bed, sitting up, comfortable States that she feels better today compared to yesterday Dyspnea is minimal, cough improving, dry No other symptoms Review of Systems Review of Systems: All systems reviewed & are unremarkable except as noted in HPI & below Physical Exam 2 Physical Exam: General- oriented x 3, not in distress, speaks in sentences with no effort or accessory muscle use Eyes- anicteric Neck- no JVD Lungs-mild wheeze bilaterally, no crackles Heart- normal rate, regular rhythm; no murmurs Abdomen- normal bowel sounds, nondistended, soft, nontender Extremities- no pretibial edema, no calf tenderness Neuro- alert, oriented x 3; no gross focal neurologic deficits Skin- warm & dry Results & Data Vital Signs (Past 12 Hours) Vital Signs Temp Pulse Pulse Resp BP Pulse Ox 10/11/18 11:29 37.0 C 96 H 18 121/63 99 10/11/18 11:10 105 H 18 96 10/11/18 07:09 36.4 C L 87 18 144/79 H 100 10/11/18 07:03 83 18 93 10/11/18 03:38 77 20 93 10/11/18 03:36 77 20 93 10/11/18 03:19 37.0 C 84 18 109/66 90 Laboratory Results Laboratory Results - last 24 hr 10/10/18 10/10/18 10/10/18 14:13 14:13 14:13 WBC RBC Hgb Hct MCV MCH MCHC RDW Std Deviation RDW Coeff of Liz Plt Count Immature Gran % (Auto) Neut % (Auto) Lymph % (Auto) [place] % (Auto) Eos % (Auto) Baso % (Auto) Reticulocyte % (Auto) 2.0 Immature Gran # (Auto) Neut # (Auto) Lymph # (Auto) [place] # (Auto) Eos # (Auto) Baso # (Auto) Reticulocyte # 0.10 Giant Platelets Hypochromasia Anisocytosis Microcytosis Sodium Potassium Chloride Carbon Dioxide Anion Gap BUN Creatinine Est Cr Clr Drug Dosing Est GFR ( Amer) Est GFR (Non-Af Amer) BUN/Creatinine Ratio Glucose Calcium Magnesium Iron 10 L TIBC 402 Transferrin 283 Ferritin 1.7 L Specimen Hemolysis Blood Type A Positive Antibody Screen NEGATIVE Crossmatch See Detail 10/10/18 10/10/18 10/11/18 15:58 23:36 05:20 WBC 7.71 7.28 RBC 4.76 5.00 Hgb 7.5 L 8.7 L 8.9 L Hct 30.3 L 33.2 L 33.3 L MCV 63.7 L 66.6 L MCH 15.8 L 17.8 L MCHC 24.8 L 26.7 L RDW Std Deviation 46.0 53.2 H RDW Coeff of Liz 20.0 H 22.0 H Plt Count 222 203 Immature Gran % (Auto) 0.4 Neut % (Auto) 94.5 Lymph % (Auto) 4.0 [place] % (Auto) 1.0 Eos % (Auto) 0.0 Baso % (Auto) 0.1 Reticulocyte % (Auto) Immature Gran # (Auto) 0.03 H Neut # (Auto) 7.28 H Lymph # (Auto) 0.31 L [place] # (Auto) 0.08 L Eos # (Auto) 0.00 Baso # (Auto) 0.01 Reticulocyte # Giant Platelets 1+ Hypochromasia Present Anisocytosis Present Microcytosis Present Sodium Potassium Chloride Carbon Dioxide Anion Gap BUN Creatinine Est Cr Clr Drug Dosing Est GFR ( Amer) Est GFR (Non-Af Amer) BUN/Creatinine Ratio Glucose Calcium Magnesium Iron TIBC Transferrin Ferritin Specimen Hemolysis Blood Type Antibody Screen Crossmatch 10/11/18 05:20 WBC RBC Hgb Hct MCV MCH MCHC RDW Std Deviation RDW Coeff of Liz Plt Count Immature Gran % (Auto) Neut % (Auto) Lymph % (Auto) [place] % (Auto) Eos % (Auto) Baso % (Auto) Reticulocyte % (Auto) Immature Gran # (Auto) Neut # (Auto) Lymph # (Auto) [place] # (Auto) Eos # (Auto) Baso # (Auto) Reticulocyte # Giant Platelets Hypochromasia Anisocytosis Microcytosis Sodium 140 Potassium 4.2 D Chloride 104 Carbon Dioxide 34 H Anion Gap 2.0 L BUN 12 D Creatinine 0.50 L Est Cr Clr Drug Dosing 117.4 Est GFR ( Amer) 121.9 Est GFR (Non-Af Amer) 105.2 BUN/Creatinine Ratio 23.1 H Glucose 146 H Calcium 8.6 Magnesium 2.3 Iron TIBC Transferrin Ferritin Specimen Hemolysis Blood Type Antibody Screen Crossmatch (1) Anemia Anemia type: unspecified type Qualified Code(s): D64.9 - Anemia, unspecified
[2018-10-11] MEDS: FERROUS SULFATE 325 MG TAB PO SCH (16:17)
[2018-10-12] MEDS: ALBUT/IPRATROP 3MG/0.5MG NEB 3 ML VIAL NEB SCH ×6 (03:20→23:12)
[2018-10-12] MEDS: DOXYCYCLINE HYCLATE 100 MG in DEXTROSE 5% 100 ML IV SCH ×2 (03:25→17:38)
[2018-10-12] MEDS: methylPREDNISolone 40 MG in SYRINGE 0 ML IV SCH (05:59)
[2018-10-12] MEDS: BUDESONIDE/FORMOTEROL FUMARATE 160/4.5 60 PUFFS/INHALER INH SCH ×2 (08:19→20:22)
[2018-10-12] MEDS: NICOTINE 21 MG/24 HR TDSY TD SCH (08:19)
[2018-10-12] MEDS: predniSONE 20 MG TAB PO SCH (08:20)
[2018-10-12] MEDS: FERROUS SULFATE 325 MG TAB PO SCH ×2 (08:20→17:36)
--- NOTE | 2018-10-12 13:24 | Hospitalist Progress Note ---
Date of Service October 12, 2018 Assessment & Plan (1) COPD exacerbation: Causing hypoxemia Management as outlined below Present on Admission?: Yes (2) Hypoxia: Pt with hx COPD, tobacco use presented to ER with complaint of increased SOB x 4 days with chills, productive cough, myalgias, headache, chest tightness/burning, wheezing. Reports chronic SOB Has been on steroids, nebulized bronchodilator and doxycycline History of pulmonary input and recommendation Has been getting better She will need to have 2 steps O2 saturation test before discharge (3) Anemia: Hx iron deficiency anemia. Pt not taking iron supplements. Reported intermittent melena. Denies hematochezia. Hx EGD, colonoscopy in 2013 without noted source. Pt was to have further follow up however did not have completed -fecal occult pending -S iron-lowat 19, ferritin-low at 1.7, TIBC-402, transferrin-283, retic count- 0.10 -Received 1 unit of PRBC -Hemoglobin is 8.9 today -Has been on iron therapy -Clinically better, will transfer to medical floor advised to have more ambulatory (4) Hypokalemia: K: 3.4 -replace and monitor - (5) Gastroparesis: Not on medications (6) Tobacco abuse: -smoking cessation encouraged -nicotine patch DVT Prophylaxis -SCDs in light of anemia iron deficiency DNR/DNI as per discussion with pt Does not follow with PCP for routine care Disposition Anticipate to discharge to medically stable Needs to establish with primary care physician Transferred to medical floor Subjective 10/12 Patient is seen and examined in the telemetry unit Pt is 62 y/o F with PMH gastroparesis, COPD, tobacco use, iron deficiency anemia presented to ER with complaint of shortness of breath. Patient reports chronic shortness of breath however 4 days ago started with increased shortness of breath. She has been feeling a lot better He still has wheezing and cough with some shortness of breath at rest Has been communicating normally Review of Systems Review of Systems: All systems reviewed and are unremarkable except as noted below Respiratory: + cough, + dyspnea on exertion and + wheezing Physical Exam Physical Exam: No apparent distress at rest Constitutional: well developed; no acute distress Eyes: PERRL, conjunctivae normal, anicteric sclerae ENMT: external ear and nose normal, oropharynx normal Neck: trachea midline, no thyromegaly Respiratory: + respiratory distress (Minimal) Auscultation: + diminished lung sounds and + wheezes (Moderate wheezing bilaterally) Cardiovascular: Rate/Rhythm: regular rate and regular rhythm Heart Sounds: normal S1 and normal S2 Gastrointestinal (Abdomen): Inspection/Auscultation: abdomen normal to inspection and normal bowel sounds Percussion/Palpation: abdomen soft; abdomen nontender Musculoskeletal: No acute arthritis involving any joints Neurologic: Alert, awake and oriented x3 Results & Data Vital Signs (Past 12 Hours) Vital Signs Temp Pulse Pulse Resp BP Pulse Ox 10/12/18 11:23 36.6 C 85 20 139/71 90 10/12/18 11:09 62 18 96 10/12/18 09:00 52 L 10/12/18 07:10 36.7 C 57 L 18 123/67 94 10/12/18 07:01 55 L 55 L 16 95 10/12/18 05:27 59 L 17 96 10/12/18 03:38 36.5 C 61 18 103/61 95 10/12/18 03:20 59 L 59 L 20 96 10/12/18 02:26 91 H 16 91 Medications Administered Current Inpatient Medications Acetaminophen (Tylenol) 650 mg PO Q4H PRN PRN Reason: Pain or Fever Stop: 11/09/18 14:03 Albuterol (Duoneb) 3 ml NEB Q4R [facility] Stop: 11/09/18 15:59 Last Admin: 10/12/18 11:09 Dose: 3 ml Documented by: Budesonide/Formoterol Fumarate (Symbicort 160mcg/4.5mcg) 2 puffs INH BID [facility] Stop: 11/09/18 20:59 Last Admin: 10/12/18 08:19 Dose: 2 puffs Documented by: Ferrous Sulfate (Feosol) 325 mg PO BIDM [facility] Stop: 11/10/18 16:59 Last Admin: 10/12/18 08:20 Dose: 325 mg Documented by: Doxycycline Hyclate 100 mg/ (Dextrose) 110 mls @ 50 mls/hr IV Q12H [facility] Stop: 10/17/18 15:59 Last Infusion: 10/12/18 05:37 Dose: Infused Documented by: Miscellaneous (Remove Nicoderm Patch) 1 ea N/A HS [facility] Stop: 11/09/18 20:59 Last Admin: 10/11/18 20:24 Dose: Not Given Documented by: Nicotine (Nicoderm Cq) 21 mg TD QAM [facility] Stop: 11/09/18 15:14 Last Admin: 10/12/18 08:19 Dose: Not Given Documented by: Prednisone (Prednisone) 60 mg PO DAILY [facility] Stop: 11/11/18 08:59 Last Admin: 10/12/18 08:20 Dose: 60 mg Documented by: (1) Anemia Anemia type: unspecified type Qualified Code(s): D64.9 - Anemia, unspecified
--- NOTE | 2018-10-12 14:10 | Pulmonology Progress Note ---
Date of Service October 12, 2018 Assessment & Plan (1) COPD exacerbation: COPD exacerbation improving but still with some wheezing moving air well continue steroids when discharged home will need albuterol MDI and and LAMA encouraged to quit smoking evaluate for home o2 need prior to discharge will need outpatient PFTs Subjective breathing improving. denies shortness of breath when walking to the bathroom. wants to go home Physical Exam Physical Exam: Constitutional: Comfortable NAD HEENT: normocephalic atraumatic. MMM. no cervical lymphadenopathy CV: RRR nl s1,s2 no murmurs rubs or gallops Lungs: wheezing bilaterally. good air movement. no accessory muscle use Abd: soft nontender nondistended. normal bowel sounds Ext: no edema. no cyanosis, no clubbing Skin: warm dry Neuro: alert and oriented. moving all extremities Psych: normal mood and affect Results & Data Vital Signs (Past 12 Hours) Vital Signs Temp Pulse Pulse Resp BP Pulse Ox 10/12/18 11:23 36.6 C 85 20 139/71 90 10/12/18 11:09 62 18 96 10/12/18 09:00 52 L 10/12/18 07:10 36.7 C 57 L 18 123/67 94 10/12/18 07:01 55 L 55 L 16 95 10/12/18 05:27 59 L 17 96 10/12/18 03:38 36.5 C 61 18 103/61 95 10/12/18 03:20 59 L 59 L 20 96 10/12/18 02:26 91 H 16 91
--- OUTSIDE RECORDS SUMMARY | 2018-10-12 22:36 | External Medical Summary | Continuity of Care Document ---
:1955 Author Name Kartik Espinosa, Provider Address Unavailable Unavailable , Care Team Providers Name Role Phone Unavailable Unavailable Unavailable PCP, UNKNOWN Unavailable Unavailable Problems Active medical history not documented Allergies and Adverse Reactions Allergy history not documented Medications Medications not documented Procedures Procedures not documented Immunizations Immunizations not documented Plan of Treatment Planned Observations Planned Goals not documented Results X-Ray Chest 1 View Portable (Pending) Laboratory: [facility] [address] [facility] 10-Oct-2018 10:57 X-Ray Chest 1 VW Portable (CXR1P) [place], [place] [phone] XRay Report Patien t: LORENZO POTTER Admit Date: MR#: [id number] [address] [facility] Acct ID:[id number] Addr ess2: Date: [address] [place] [address] Zip: [place] [address] Age: 62 Location: E D Sex: F Room/Bed: Att Phy: Diagnosi s: cough/congestion Pearl Phy: Mayte Del Castillo MD Service Da te: 10/10/18 Fam Phy: Interpreting Phy: Kody Molina MD Admit Phy: Ordering Phy: Noel Thapa D.O. cc: XR chest 1V portable CLINICAL HISTORY: rule out difficulty breathing dyspnea COMPARISON STUDY: 10/27/2013 FINDINGS: Mild cardia maximo amber. Small hiatal hernia. Lungs are clear. IMPRESSION: No acute process. The lungs are clear. The above repor t was generated using voice recognition [employer]. It may contain grammatical, syntax or spelling errors. [place] signed by: Kody Molina M.D. 9 10:58 AM Dictated: 10/10/18 105 7 Transcribed: 10/10/18 1057
[2018-10-13] MEDS: ALBUT/IPRATROP 3MG/0.5MG NEB 3 ML VIAL NEB SCH ×6 (03:31→23:15)
[2018-10-13] MEDS: DOXYCYCLINE HYCLATE 100 MG in DEXTROSE 5% 100 ML IV SCH ×2 (04:30→15:45)
[2018-10-13] MEDS: BUDESONIDE/FORMOTEROL FUMARATE 160/4.5 60 PUFFS/INHALER INH SCH ×2 (08:55→21:31)
[2018-10-13] MEDS: FERROUS SULFATE 325 MG TAB PO SCH ×2 (08:55→15:45)
[2018-10-13] MEDS: predniSONE 20 MG TAB PO SCH (08:55)
[2018-10-13] MEDS: NICOTINE 21 MG/24 HR TDSY TD SCH (08:56)
--- NOTE | 2018-10-13 12:19 | Hospitalist Progress Note ---
Date of Service October 13, 2018 Assessment & Plan (1) COPD exacerbation: Causing hypoxemia Management as outlined below (2) Hypoxia: Pt with hx COPD, tobacco use presented to ER with complaint of increased SOB x 4 days with chills, productive cough, myalgias, headache, chest tightness/burning, wheezing. Reports chronic SOB Has been on steroids, nebulized bronchodilator and doxycycline History of pulmonary input and recommendation Has been getting better She will need to have 2 steps O2 saturation test before discharge Clinically a lot better today he is ambulating without any difficulty Likely be discharged home this afternoon following 2 steps saturation test (3) Anemia: Hx iron deficiency anemia. Pt not taking iron supplements. Reported intermittent melena. Denies hematochezia. Hx EGD, colonoscopy in 2013 without noted source. Pt was to have further follow up however did not have completed -fecal occult pending -S iron-lowat 19, ferritin-low at 1.7, TIBC-402, transferrin-283, retic count- 0.10 -Received 1 unit of PRBC -Hemoglobin is 8.9 today -Has been on iron therapy -Clinically better, will transfer to medical floor advised to have more ambulatory (4) Hypokalemia: K: 3.4 -replace and monitor -Potassium is normal (5) Gastroparesis: Not on medications (6) Tobacco abuse: -smoking cessation encouraged -nicotine patch DVT Prophylaxis -SCDs in light of anemia iron deficiency DNR/DNI as per discussion with pt Does not follow with PCP for routine care Disposition Anticipate to discharge to medically stable Needs to establish with primary care physician Transferred to medical floor Likely discharge this afternoon Subjective 10/12 Patient is seen and examined in the telemetry unit Pt is 62 y/o F with PMH gastroparesis, COPD, tobacco use, iron deficiency anemia presented to ER with complaint of shortness of breath. Patient reports chronic shortness of breath however 4 days ago started with increased shortness of breath. She has been feeling a lot better He still has wheezing and cough with some shortness of breath at rest Has been communicating normally 10/13 Patient is seen and examined in the medical floor She has been feeling much better with minimal wheezing at rest Denies any significant problem with ambulation We need to have 2 steps O2 saturation before discharge Review of Systems Review of Systems: All systems reviewed and are unremarkable except as noted below Respiratory: + cough, + dyspnea on exertion and + wheezing Physical Exam Constitutional: well developed; no acute distress Eyes: PERRL, conjunctivae normal, anicteric sclerae ENMT: external ear and nose normal, oropharynx normal Neck: trachea midline, no thyromegaly Respiratory: + respiratory distress (Minimal) Auscultation: + diminished lung sounds and + wheezes (Moderate wheezing bilaterally) Cardiovascular: Rate/Rhythm: regular rate and regular rhythm Heart Sounds: normal S1 and normal S2 Gastrointestinal (Abdomen): Inspection/Auscultation: abdomen normal to inspection and normal bowel sounds Percussion/Palpation: abdomen soft; abdomen nontender Neurologic: PERRL, EOMI, accommodation nl, no face palsy, no dysarthria Results & Data Vital Signs (Past 12 Hours) Vital Signs Temp Pulse Resp BP Pulse Ox 10/13/18 11:16 89 18 95 10/13/18 07:14 57 L 18 98 10/13/18 07:09 36.6 C 56 L 18 128/74 97 Medications Administered Current Inpatient Medications Acetaminophen (Tylenol) 650 mg PO Q4H PRN PRN Reason: Pain or Fever Stop: 11/09/18 14:03 Albuterol (Duoneb) 3 ml NEB Q4R NIDIA Stop: 11/09/18 15:59 Last Admin: 10/13/18 11:14 Dose: 3 ml Documented by: Budesonide/Formoterol Fumarate (Symbicort 160mcg/4.5mcg) 2 puffs INH BID NIDIA Stop: 11/09/18 20:59 Last Admin: 10/13/18 08:55 Dose: 2 puffs Documented by: Ferrous Sulfate (Feosol) 325 mg PO BIDM NIDIA Stop: 11/10/18 16:59 Last Admin: 10/13/18 08:55 Dose: 325 mg Documented by: Doxycycline Hyclate 100 mg/ (Dextrose) 110 mls @ 50 mls/hr IV Q12H NIDIA Stop: 10/17/18 15:59 Last Infusion: 10/13/18 06:42 Dose: Infused Documented by: Miscellaneous (Remove Nicoderm Patch) 1 ea N/A HS NIDIA Stop: 11/09/18 20:59 Last Admin: 10/12/18 20:22 Dose: Not Given Documented by: Nicotine (Nicoderm Cq) 21 mg TD QAM NIDIA Stop: 05/27/19 15:14 Last Admin: 10/13/18 08:56 Dose: Not Given Documented by: Prednisone (Prednisone) 60 mg PO DAILY NIDIA Stop: 11/11/18 08:59 Last Admin: 10/13/18 08:55 Dose: 60 mg Documented by: (1) Anemia Anemia type: unspecified type Qualified Code(s): D64.9 - Anemia, unspecified
[2018-10-14] MEDS: ALBUT/IPRATROP 3MG/0.5MG NEB 3 ML VIAL NEB SCH ×3 (03:27→11:04)
[2018-10-14] MEDS: DOXYCYCLINE HYCLATE 100 MG in DEXTROSE 5% 100 ML IV SCH (04:27)
[2018-10-14] MEDS: predniSONE 20 MG TAB PO SCH (08:10)
[2018-10-14] MEDS: NICOTINE 21 MG/24 HR TDSY TD SCH (08:10)
[2018-10-14] MEDS: BUDESONIDE/FORMOTEROL FUMARATE 160/4.5 60 PUFFS/INHALER INH SCH (08:10)
[2018-10-14] MEDS: FERROUS SULFATE 325 MG TAB PO SCH (08:10)
--- NOTE | 2018-10-14 08:49 | Hospitalist Progress Note ---
Date of Service October 14, 2018 Assessment & Plan (1) COPD exacerbation: Causing hypoxemia Management as outlined below (2) Hypoxia: Pt with hx COPD, tobacco use presented to ER with complaint of increased SOB x 4 days with chills, productive cough, myalgias, headache, chest tightness/burning, wheezing. Reports chronic SOB Has been on steroids, nebulized bronchodilator and doxycycline History of pulmonary input and recommendation Has been getting better Nocturnal pulse oximetry suggested 2 liters of oxygen at night 2 steps O2 saturation- She did not qualify for any oxygen Clinical not better to be discharged (3) Anemia: Hx iron deficiency anemia. Pt not taking iron supplements. Reported intermittent melena. Denies hematochezia. Hx EGD, colonoscopy in 2013 without noted source. Pt was to have further follow up however did not have completed -fecal occult pending -S iron-lowat 19, ferritin-low at 1.7, TIBC-402, transferrin-283, retic count- 0.10 -Received 1 unit of PRBC -Hemoglobin is 8.9 today -Has been on iron therapy -Clinically better, will transfer to medical floor advised to have more ambulatory -Continue oral iron and preventive work-up as an outpatient (4) Hypokalemia: K: 3.4 -replace and monitor -Potassium is normal (5) Gastroparesis: Not on medications (6) Tobacco abuse: -smoking cessation encouraged -nicotine patch DVT Prophylaxis -SCDs in light of anemia iron deficiency DNR/DNI as per discussion with pt Does not follow with PCP for routine care Disposition Anticipate to discharge to medically stable Needs to establish with primary care physician Appointment and made with Dr. Vaughn at [facility] Subjective 10/12 Patient is seen and examined in the telemetry unit Pt is 62 y/o F with PMH gastroparesis, COPD, tobacco use, iron deficiency anemia presented to ER with complaint of shortness of breath. Patient reports chronic shortness of breath however 4 days ago started with increased shortness of breath. She has been feeling a lot better He still has wheezing and cough with some shortness of breath at rest Has been communicating normally 10/13 Patient is seen and examined in the medical floor She has been feeling much better with minimal wheezing at rest Denies any significant problem with ambulation We need to have 2 steps O2 saturation before discharge 10/14 The patient was seen and examined the medical floor He has been feeling a lot better Complaint history of occasional wheezing She has been ambulating without any significant symptoms and she does not did not need any oxygen on ambulation Review of Systems Respiratory: + cough, + dyspnea on exertion and + wheezing Physical Exam Constitutional: well developed; no acute distress Eyes: PERRL, conjunctivae normal, anicteric sclerae ENMT: external ear and nose normal, oropharynx normal Neck: trachea midline, no thyromegaly Respiratory: normal respiratory effort Auscultation: + diminished lung sounds and + wheezes (Moderate wheezing bilaterally) Cardiovascular: Rate/Rhythm: regular rate and regular rhythm Heart Sounds: normal S1 and normal S2 Gastrointestinal (Abdomen): Inspection/Auscultation: abdomen normal to inspection and normal bowel sounds Percussion/Palpation: abdomen soft; abdomen nontender Neurologic: PERRL, EOMI, accommodation nl, no face palsy, no dysarthria Results & Data Vital Signs (Past 12 Hours) Vital Signs Temp Pulse Resp BP BP Pulse Ox 10/14/18 07:17 35.7 C L 54 L 18 139/70 93 10/14/18 07:15 54 L 18 97 10/13/18 23:00 36.6 C 57 L 18 109/66 90 Medications Administered Current Inpatient Medications Acetaminophen (Tylenol) 650 mg PO Q4H PRN PRN Reason: Pain or Fever Stop: 11/09/18 14:03 Albuterol (Duoneb) 3 ml NEB Q4R NIDIA Stop: 11/09/18 15:59 Last Admin: 10/14/18 07:13 Dose: 3 ml Documented by: Budesonide/Formoterol Fumarate (Symbicort 160mcg/4.5mcg) 2 puffs INH BID NIDIA Stop: 11/09/18 20:59 Last Admin: 10/14/18 08:10 Dose: 2 puffs Documented by: Ferrous Sulfate (Feosol) 325 mg PO BIDM NIDIA Stop: 11/10/18 16:59 Last Admin: 10/14/18 08:10 Dose: 325 mg Documented by: Doxycycline Hyclate 100 mg/ (Dextrose) 110 mls @ 50 mls/hr IV Q12H NIDIA Stop: 10/17/18 15:59 Last Infusion: 10/14/18 06:45 Dose: Infused Documented by: Miscellaneous (Remove Nicoderm Patch) 1 ea N/A HS NIDIA Stop: 11/09/18 20:59 Last Admin: 10/13/18 21:31 Dose: Not Given Documented by: Nicotine (Nicoderm Cq) 21 mg TD QAM [facility] Stop: 11/09/18 15:14 Last Admin: 10/14/18 08:10 Dose: Not Given Documented by: Prednisone (Prednisone) 60 mg PO DAILY [facility] Stop: 11/11/18 08:59 Last Admin: 10/14/18 08:10 Dose: 60 mg Documented by: (1) Anemia Anemia type: unspecified type Qualified Code(s): D64.9 - Anemia, unspecified
--- NOTE | 2018-10-15 08:24 | Discharge Summary ---
Date of Service October 15, 2018 Admission HPI Per Admitting Provider Pt is 62 y/o F with PMH gastroparesis, COPD, tobacco use, iron deficiency anemia presented to ER with complaint of shortness of breath. Patient reports chronic shortness of breath however 4 days ago started with increased shortness of breath. She states that she has had a cough for couple weeks intermittently productive white to yellow sputum. 4 days ago the cough increased and she started with chills, body aches, headache, chest tightness and burning, wheezing, and rhinorrhea. Patient states tried OTC cough suppressant without any relief. She states felt so weak 4 days ago that she didn't get out of bed much. States today no further myalgias however significant SOB and wheezing. Patient denies any ill contacts, recent travel. Did not have flu vaccine this season. Patient not on any inhalers. She has not followed up with PCP for several years. Patient with history of iron deficiency anemia. Hx hospitalization in 10/2013 for anemia. Last had EGD and colonoscopy in 2013 without any noted source. Patient has not been taking iron supplements. Patient states intermittent black stools which occur a couple of times a month. Denies any bright red blood per rectum. Denies N/V/D/C, dizziness, syncope, v ision changes, neck pain, palpitations,sore throat, choking, otalgia, abdominal pain, paresthesias, extremity edema, rashes, urinary symptoms. Admission Exam Per Admitting Provider Physical Exam: General: + respiratory distress, moderately developed, moderately nourished Head: normocephalic, atraumatic Eyes: PERRL, EOM's intact, conjunctiva non-injected, anicteric ENT: normal inspection external ears, nose, mucous membranes dry Neck: supple, trachea midline Lungs: +respiratory distress,R: 24 and labored, +diffuse inspiratory and expiratory wheezing, breath sounds diminished throughout CV: RRR, no murmur, no pretibial edema Abd: normal BS, soft, non-tender Ext: no cyanosis, no calf tenderness Neuro: A&O x 3, no focal deficits noted, normal affect Skin: warm, dry Principal Diagnosis COPD Exacerbation Discharge Exam Constitutional well developed; no acute distress Eyes PERRL, conjunctivae normal, anicteric sclerae ENMT external ear and nose normal, oropharynx normal Neck trachea midline, no thyromegaly Respiratory normal respiratory effort Auscultation: + diminished lung sounds and + wheezes (Moderate wheezing bilaterally) Cardiovascular Rate/Rhythm: regular rate and regular rhythm Heart Sounds: normal S1 and normal S2 Gastrointestinal (Abdomen) Inspection/Auscultation: abdomen normal to inspection and normal bowel sounds Percussion/Palpation: abdomen soft; abdomen nontender Neurologic PERRL, EOMI, accommodation nl, no face palsy, no dysarthria Discharge Data Allergies Allergy/AdvReac Type Severity Reaction Status Date / Time No Known Allergies Allergy Unverified 10/10/18 10:47 Consultations 10/10/18 12:07 ED Decision to Admit Stat 10/10/18 14:04 Consult Pulmonology Routine Hospital Course (1) COPD exacerbation: Causing hypoxemia Management as outlined below (2) Hypoxia: Pt with hx COPD, tobacco use presented to ER with complaint of increased SOB x 4 days with chills, productive cough, myalgias, headache, chest tightness/burning, wheezing. Reports chronic SOB Has been on steroids, nebulized bronchodilator and doxycycline History of pulmonary input and recommendation Has been getting better Nocturnal pulse oximetry suggested 2 liters of oxygen at night 2 steps O2 saturation- She did not qualify for any oxygen Clinical not better to be discharged (3) Anemia: Hx iron deficiency anemia. Pt not taking iron supplements. Reported intermittent melena. Denies hematochezia. Hx EGD, colonoscopy in 2013 without noted source. Pt was to have further follow up however did not have completed -fecal occult pending -S iron-lowat 19, ferritin-low at 1.7, TIBC-402, transferrin-283, retic count- 0.10 -Received 1 unit of PRBC -Hemoglobin is 8.9 today -Has been on iron therapy -Clinically better, will transfer to medical floor advised to have more ambulatory -Continue oral iron and preventive work-up as an outpatient (4) Hypokalemia: K: 3.4 -replace and monitor -Potassium is normal (5) Gastroparesis: Not on medications (6) Tobacco abuse: -smoking cessation encouraged -nicotine patch DVT Prophylaxis -SCDs in light of anemia iron deficiency DNR/DNI as per discussion with pt Does not follow with PCP for routine care Disposition Anticipate to discharge to medically stable Needs to establish with primary care physician Appointment and made with Dr. Vaughn at [facility] Total Time Total Time Spent Total Time Spent (In Minutes): 35 minutes Total Time Includes: Examination of the Patient, Discharge Planning, Medication Reconciliation and Communication With Other Providers Discharge Plan Discharge Items Patient Disposition: Home - Self-Care Reason For Visit: SOB Discharge Diagnosis: COPD Exacerbation Condition: Fair Discharge Goals: Decrease discomfort, Improve function and Increase independence Activity: Resume your previous activity Non-emergency contact: Primary Care Provider Call non-emergency contact if: you have any medication questions and your symptoms worsen Follow-up/Referrals: PCPJANENE [Primary Care Provider] - 10/20/18 12:45 pm (Your Appointment is with Dr. Britton at [facility]) Diet: Regular Addtl Provider Instructions: STOP Smoking Prescriptions: New ipratropium-albuterol 0.5 mg-3 mg(2.5 mg base)/3 mL Solution For Nebulization 3 ml NEB Q4R 30 Days Qty: 50 RF: 0 prednisone 20 mg Tablet 20 mg PO UD 11 Days Qty: 18 RF: 0 nicotine [Nicoderm CQ] 21 mg/24 hr Patch 24 Hour 21 mg transdermal QAM 30 Days Qty: 30 RF: 0 ferrous sulfate 325 mg (65 mg iron) Tablet,Delayed Release (Dr/Ec) 325 mg PO BIDM 30 Days Qty: 60 RF: 0 Symbicort 160-4.5 mcg/actuation Hfa Aerosol Inhaler 2 puff inhalation BID 30 Days Qty: 1 RF: 0 doxycycline hyclate 100 mg capsule 100 mg PO BID 5 Days Qty: 10 RF: 0 No Action No Known Home Medications RF: 0 Stand-Alone Forms: [facility] Discharge Orders: Discharge Order (Routine); Ordered 10/14/18 Ordered By: Delfina Casey Admission Data Admit Date/Time: 10/10/18 13:03 Attending Provider: Delfina Casey Admit Provider: Joe Hamm Primary Care Provider: GEOVANNY,JANENE Other Providers: Joe Hamm ; Tawny Pruitt Service: Medical Other Interventions: Discharge Summary Assessment (RN) Last Done: 10/14/18 11:23 DC Date/Time DO NOT enter until pt leaves facility: 10/14/18 11:25
== END 2018-10-14 11:25 | disposition home or self-care (01) | DRG 192 ==
LOC: ED 10:03 → SUATTDRO 13:03 → 2E 13:03 → 4W 10-12 14:08

== ENCOUNTER 2020-12-25 11:32 | Inpatient (IN) ==
--- NOTE | 2020-12-25 14:05 | Emergency Department Note ---
Impression & Plan Acute hypoxemic respiratory failure, Tobacco abuse, Acute exacerbation of chronic obstructive pulmonary disease (COPD) ED Provider Note NAME: LORENZO POTTER AGE: 65 SEX: F : 1955 ARRIVES VIA: Walk-In INFORMANT: Patient, ED PROVIDER(S): Benjie Werner MD Chief Complaint: Shortness of breath, cough HPI: Patient does present with the above complaints. The patient states that she had increasing shortness of breath and dyspnea on exertion for the last 3 weeks. The patient states it does get worse with activity. The patient denies any prior history of known heart or lung disease but is a chronic smoker. The patient has required transfusions in the past for anemia. The patient denies any bright red blood per rectum or dark tarry stool. The patient does not take any blood thinning medications. The patient does smoke 1/2 to 2 packs/day. Patient has had an associated cough with yellow sputum. The patient is not vaccinated for Covid. No recent travel or sick contacts ROS: See HPI for pertinent positives and negatives. A total of 10 systems were reviewed and otherwise negative. Past medical history: See below Surgical history: See below Social history: See below Physical Exam: GENERAL: Nasal cannula in place, tachypneic. EYE EXAM: Normal conjunctiva. PERRL, no anisocoria and EOM's grossly intact w/o pain. NECK: Supple, no nuchal rigidity, no adenopathy, non-tender. No signs of m eningismus. LUNGS: Tachypnea noted, diffuse inspiratory next Tory wheezing throughout. HEART: Tachycardic and regular, no MRG. ABDOMEN: Abdomen soft, non-tender, normo-active bowel sounds, no masses, no rebound or guarding. BACK: No CVA TTP. SKIN: No rashes and no bruising. UPPER EXTREMITIES: Upper extremities are grossly normal. LOWER EXTREMITIES: Grossly normal, no edema. Negative Homans' sign. NEURO EXAM: A&O x3, cranial nerves II-XII grossly intact, normal speech, moves all 4 extremities on command w/o issue. Differential diagnoses: Reactive airway disease, pneumonia, pneumothorax, COPD, CHF, infections, cardiac ischemia, pulmonary embolism, musculoskeletal, gastrointestinal, as well as other pathologies. Course: Patient was seen and evaluated the bedside. Full history physical exam was performed. EKG interpreted by me Sinus tachycardia, rate of 108, normal intervals, possible right axis deviation, no obvious ST changes. Imaging Studies: See below Cardiac monitoring: An order was placed for continuous cardiac monitoring. The monitor shows a rate of 95 with sinus rhythm. MDM: Patient was seen due to concern for shortness of breath cough. The patient was tachypneic and hypoxic upon presentation. The patient was placed on nasal cannula. Patient does have inspiratory and expiratory wheezing and is a chronic smoker. The patient was treated symptomatically and blood works obtained. Blood work shows a normal white count and hemoglobin. Platelet count is normal. The patient's VBG does show some acute hypercarbia with a PCO2 of 76. BiPAP was ordered. Elevated bicarb likely secondary to chronic COPD. The patient does have mild elevation alk phos troponin and BNP are not elevated. Chest x- ray does show hiatal hernia but no evidence of consolidation. I did speak with the on-call hospitalist Dr. Grant and the patient was admitted to the medicine service. Critical Care: I have personally spent 65 minutes of critical care time in direct management of this patient. This includes bedside care, interpretation of diagnostic studies, and testing, discussion with consultants, patient, and family members, and other require inpatient management activities. This 65 minutes is in excess of all separately billable procedures. Past Med/Surg History Medical History (Updated 12/25/20 @ 17:29 by Toney Grant) Anemia COPD (chronic obstructive pulmonary disease) Gastroparesis Tobacco abuse Surgical History H/O colonoscopy "2007, patient reports normal findings" 10/2013: poor prep, grossly normal exam History of cholecystectomy History of esophagogastroduodenoscopy (EGD) Hx of appendectomy S/P removal of right ovary Family History Other Cancer Depression Social History Smoking Status: Current every day smoker Tobacco Type: Cigarettes packs per day: 1; Years Smoked: 50; Cigarettes Per Day: 25; Second Hand Exposure: No; Hx Alcohol Use: No Hx Substance Use: No Preferred Language: Guatemalan Communication Ability: Effective Coding Director Required: No Beliefs That Will Affect Care: None Current Living Situation: Alone Feels Safe at Home: Yes Assistive Devices: None Allergies Allergies Allergy/AdvReac Type Severity Reaction Status Date / Time No Known Allergies Allergy Unverified 12/25/20 14:27 Home Meds Home Medications Medication Instructions Recorded Confirmed No Known Home Medications 10/10/18 12/25/20 Results & Data (ED) Vital Signs Vital Signs - 24 hr 12/25/20 11:59 12/25/20 12:03 12/25/20 12:12 Temperature 37.0 C Temperature Source Oral Pulse Rate 114 H Pulse Rate [Right Finger] Pulse Rate from SpO2 Sensor Pulse Rhythm Regular Pulse Strength Normal Respiratory Rate 28 H Respiratory Effort / Characteristics Non-Labored Spontaneous Spontaneous Labored Short of Breath SOB on Exertion Respiratory Depth Normal Normal Respiratory Pattern Regular Rapid/Shallow Tachypnea Blood Pressure 124/68 Blood Pressure [Right Arm] Blood Pressure Mean 86 Blood Pressure Mean [Right Arm] Pulse Oximetry 83 L 92 Oxygen Delivery Method Room Air Room Air Nasal Cannula Oxygen Flow Rate 2 Fraction of Inspired Oxygen Sepsis Recent Fever Within 48 Hours No Sepsis New/Unexplained Change in Mental Status N/A Sepsis Action Taken by Nursing No Action Required Oxygen Flow Rate - Titration Pulse Oximetry Post Tiitration 12/25/20 13:45 12/25/20 13:49 12/25/20 14:00 Temperature Temperature Source Pulse Rate 85 108 H Pulse Rate [Right Finger] Pulse Rate from SpO2 Sensor 102 H 109 H Pulse Rhythm Pulse Strength Respiratory Rate 25 H 26 H Respiratory Effort / Characteristics Respiratory Depth Respiratory Pattern Blood Pressure 152/81 H 125/75 Blood Pressure [Right Arm] Blood Pressure Mean 104 91 Blood Pressure Mean [Right Arm] Pulse Oximetry 84 L 94 97 Oxygen Delivery Method Nasal Cannula Oxygen Flow Rate 2 4 4 Fraction of Inspired Oxygen Sepsis Recent Fever Within 48 Hours Sepsis New/Unexplained Change in Mental Status Sepsis Action Taken by Nursing Oxygen Flow Rate - Titration 4 Pulse Oximetry Post Tiitration 94 12/25/20 14:06 12/25/20 14:16 12/25/20 14:18 Temperature Temperature Source Pulse Rate Pulse Rate [Right Finger] 102 H Pulse Rate from SpO2 Sensor Pulse Rhythm Pulse Strength Respiratory Rate 24 Respiratory Effort / Characteristics Respiratory Depth Respiratory Pattern Blood Pressure Blood Pressure [Right Arm] 128/79 Blood Pressure Mean Blood Pressure Mean [Right Arm] 95 Pulse Oximetry 94 94 Oxygen Delivery Method Nasal Cannula Nasal Cannula Nasal Cannula Oxygen Flow Rate 4 4 4 Fraction of Inspired Oxygen Sepsis Recent Fever Within 48 Hours Sepsis New/Unexplained Change in Mental Status Sepsis Action Taken by Nursing Oxygen Flow Rate - Titration Pulse Oximetry Post Tiitration 94 12/25/20 14:32 12/25/20 14:44 12/25/20 15:02 Temperature Temperature Source Pulse Rate 103 H 124 H Pulse Rate [Right Finger] 104 H Pulse Rate from SpO2 Sensor 106 H 124 H Pulse Rhythm Pulse Strength Respiratory Rate 30 H 26 H 25 H Respiratory Effort / Characteristics Spontaneous Labored Respiratory Depth Respiratory Pattern Blood Pressure Blood Pressure [Right Arm] Blood Pressure Mean Blood Pressure Mean [Right Arm] Pulse Oximetry 93 95 97 Oxygen Delivery Method Nasal Cannula Oxygen Flow Rate 4 Fraction of Inspired Oxygen Sepsis Recent Fever Within 48 Hours Sepsis New/Unexplained Change in Mental Status Sepsis Action Taken by Nursing Oxygen Flow Rate - Titration Pulse Oximetry Post Tiitration 12/25/20 15:21 12/25/20 15:30 12/25/20 16:00 Temperature Temperature Source Pulse Rate 116 H 116 H 128 H Pulse Rate [Right Finger] Pulse Rate from SpO2 Sensor 116 H 129 H Pulse Rhythm Pulse Strength Respiratory Rate 26 H 29 H 29 H Respiratory Effort / Characteristics Spontaneous Labored Respiratory Depth Normal Respiratory Pattern Blood Pressure 119/72 Blood Pressure [Right Arm] Blood Pressure Mean 87 Blood Pressure Mean [Right Arm] Pulse Oximetry 100 100 97 Oxygen Delivery Method Oxygen Flow Rate Fraction of Inspired Oxygen 40 Sepsis Recent Fever Within 48 Hours Sepsis New/Unexplained Change in Mental Status Sepsis Action Taken by Nursing Oxygen Flow Rate - Titration Pulse Oximetry Post Tiitration 12/25/20 16:32 12/25/20 17:00 12/25/20 17:32 Temperature Temperature Source Pulse Rate 127 H 127 H 119 H Pulse Rate [Right Finger] Pulse Rate from SpO2 Sensor 127 H 127 H 119 H Pulse Rhythm Pulse Strength Respiratory Rate 30 H 37 H 22 Respiratory Effort / Characteristics Respiratory Depth Respiratory Pattern Blood Pressure Blood Pressure [Right Arm] Blood Pressure Mean Blood Pressure Mean [Right Arm] Pulse Oximetry 96 91 93 Oxygen Delivery Method Oxygen Flow Rate Fraction of Inspired Oxygen Sepsis Recent Fever Within 48 Hours Sepsis New/Unexplained Change in Mental Status Sepsis Action Taken by Nursing Oxygen Flow Rate - Titration Pulse Oximetry Post Tiitration Home Medications Current Medication List: was personally reviewed by me Laboratory Data Attestation: I reviewed the patient's lab results. Result diagrams: 12/25/20 14:35 12/25/20 14:35 Lab Results 12/25/20 12/25/2012/25/21 Range/Units 14:35 14:35 14:35 WBC 9.70 (4.8-10.8) K/uL RBC 6.09 H (4.2-5.4) M/uL Hgb 12.7 (12.0-16.0) g/dL Hct 45.3 (37-47) % MCV 74.4 L (80-100) fL MCH 20.9 L (25-34) pg MCHC 28.0 L (32-36) g/dL RDW Std Deviation 53.4 H (36.4-46.3) fL RDW Coeff of Liz 20.1 H (11.5-14.5) % Plt Count 328 (130-400) K/uL MPV 9.3 (7.4-10.4) fL Immature Gran % (Auto) 0.2 % Neut % (Auto) 83.8 % Lymph % (Auto) 7.2 % [place] % (Auto) 7.7 % Eos % (Auto) 1.0 % Baso % (Auto) 0.1 % Neut # (Auto) 8.12 H (1.4-6.5) K/uL Lymph # (Auto) 0.70 L (1.2-3.4) K/uL [place] # (Auto) 0.75 H (0.11-0.59) K/uL Eos # (Auto) 0.10 (0-0.5) K/uL Baso # (Auto) 0.01 (0-0.2) K/uL Immature Gran # (Auto) 0.02 (0.00-0.02) K/uL Polychromasia 1+ Hypochromasia Present Anisocytosis Present VBG pH 7.29 L (7.36-7.41) VBG pCO2 76 H (38-50) mmHg VBG pO2 33 mmHg VBG HCO3 36 mmol/L VBG O2 Saturation 61.6 % VBG Base Excess 6.8 mEq/L Barometric Pressure 734.9 mm/Hg Sodium 139 (136-145) mmol/L Potassium 4.1 (3.5-5.1) mmol/L Chloride 102 (98-107) mmol/L Carbon Dioxide 34 H (21-32) mmol/L Anion Gap 3.0 (3-11) BUN 8 (7-18) mg/dl Creatinine 0.60 (0.6-1.2) mg/dl Est Cr Clr Drug Dosing 92.8 ml/min Est GFR ( Amer) 112.4 ml/min Est GFR (Non-Af Amer) 97.0 ml/min BUN/Creatinine Ratio 12.9 (10-20) Glucose 125 H (70-99) mg/dl Calcium 8.8 (8.5-10.1) mg/dl Total Bilirubin 0.3 (0.2-1) mg/dl AST 9 L (15-37) U/L ALT 11 L (12-78) U/L Alkaline Phosphatase 125 H (45-117) U/L Troponin I < 0.015 (0-0.045) ng/ml NT-Pro-B Natriuret Pep 63 (0-900) pg/ml Total Protein 7.5 (6.4-8.2) gm/dl Albumin 3.5 (3.4-5.0) gm/dl Globulin 4.0 (2.5-4.0) gm/dl Albumin/Globulin Ratio 0.9 (0.9-2) COVID-19 Eval Order SARS-CoV-2 (PCR) (Negative) 12/25/20 12/25/20 Range/Units 15:06 15:06 WBC (4.8-10.8) K/uL RBC (4.2-5.4) M/uL Hgb (12.0-16.0) g/dL Hct (37-47) % MCV (80-100) fL MCH (25-34) pg MCHC (32-36) g/dL RDW Std Deviation (36.4-46.3) fL RDW Coeff of Liz (11.5-14.5) % Plt Count (130-400) K/uL MPV (7.4-10.4) fL Immature Gran % (Auto) % Neut % (Auto) % Lymph % (Auto) % [place] % (Auto) % Eos % (Auto) % Baso % (Auto) % Neut # (Auto) (1.4-6.5) K/uL Lymph # (Auto) (1.2-3.4) K/uL [place] # (Auto) (0.11-0.59) K/uL Eos # (Auto) (0-0.5) K/uL Baso # (Auto) (0-0.2) K/uL Immature Gran # (Auto) (0.00-0.02) K/uL Polychromasia Hypochromasia Anisocytosis VBG pH (7.36-7.41) VBG pCO2 (38-50) mmHg VBG pO2 mmHg VBG HCO3 mmol/L VBG O2 Saturation % VBG Base Excess mEq/L Barometric Pressure mm/Hg Sodium (136-145) mmol/L Potassium (3.5-5.1) mmol/L Chloride (98-107) mmol/L Carbon Dioxide (21-32) mmol/L Anion Gap (3-11) BUN (7-18) mg/dl Creatinine (0.6-1.2) mg/dl Est Cr Clr Drug Dosing ml/min Est GFR ( Amer) ml/min Est GFR (Non-Af Amer) ml/min BUN/Creatinine Ratio (10-20) Glucose (70-99) mg/dl Calcium (8.5-10.1) mg/dl Total Bilirubin (0.2-1) mg/dl AST (15-37) U/L ALT (12-78) U/L Alkaline Phosphatase (45-117) U/L Troponin I (0-0.045) ng/ml NT-Pro-B Natriuret Pep (0-900) pg/ml Total Protein (6.4-8.2) gm/dl Albumin (3.4-5.0) gm/dl Globulin (2.5-4.0) gm/dl Albumin/Globulin Ratio (0.9-2) COVID-19 Eval Order Covid19 at [facility] SARS-CoV-2 (PCR) NEGATIVE (Negative) Administered Medications Discontinued Medications Albuterol (Albut/Ipratrop 3mg/0.5mg Neb 3 Ml Vial) 12 ml INH ONE STA Stop: 12/25/20 14:25 Last Admin: 12/25/20 14:44 Dose: 12 ml Documented by: [id number] Sodium Chloride (Nss) 500 mls @ 999 mls/hr IV .Q31M STA Stop: 12/25/20 14:54 Last Infusion: 12/25/20 15:33 Dose: 999 mls/hr Documented by: [id number] Admin: 12/25/20 14:58 Dose: 999 mls/hr Documented by: [id number] Magnesium Sulfate/Dextrose (Magnesium Sulfate / D5w) 1 gm in 100 mls @ 100 mls/hr IV Q1H NIDIA Stop: 12/25/20 16:29 Last Infusion: 12/25/20 17:02 Dose: 100 mls/hr Documented by: [id number] Admin: 12/25/20 16:01 Dose: 100 mls/hr Documented by: [id number] Infusion: 12/25/20 15:59 Dose: 100 mls/hr Documented by: [id number] Admin: 12/25/20 14:59 Dose: 100 mls/hr Documented by: [id number] Levofloxacin/Dextrose (Levaquin/D5w) 750 mg in 150 mls @ 100 mls/hr IV NOW STA Stop: 12/25/20 15:58 Last Infusion: 12/25/20 16:40 Dose: 100 mls/hr Documented by: [id number] Admin: 12/25/20 15:00 Dose: 100 mls/hr Documented by: [id number] Methylprednisolone (Methylprednisolone 125 Mg/2 Ml Vial) 125 mg IV NOW STA Stop: 12/25/20 14:25 Last Admin: 12/25/20 14:58 Dose: 125 mg Documented by: [id number] Imaging Data Radiologist's Impression: Chest X-Ray 12/25/20 14:04 XR chest 1V portable CLINICAL HISTORY: Dyspnea COMPARISON STUDY: 10/10/2018 FINDINGS: The heart is normal in size. There is a retrocardiac opacity consistent with a hiatal hernia. There is no failure. There is no focal pulmonary consolidation. There are no pleural effusions.[ IMPRESSION: 1. Moderate to large hiatal hernia 2. No evidence of focal pulmonary consolidation. No evidence of failure ACT 112: Negative or not required by law. Electronically signed by: Daren Sotomayor M.D. 12/25/2020 2:47 PM Discharge Plan Visit Data Chief Complaint: Respiratory Problems Stated Complaint: NOT BREATHING WELL,SEVERE COPD ED Provider: Benjie Werner Discharge Problem: Acute hypoxemic respiratory failure, Tobacco abuse, Acute exacerbation of chronic obstructive pulmonary disease (COPD) Forms Stand Alone Forms: [employer] Prescriptions Prescriptions: No Action No Known Home Medications RF: 0
[2020-12-25] MEDS ORDERED: methylPREDNISolone 125 MG/2 ML VIAL IV STA (14:24)
[2020-12-25] MEDS ORDERED: ALBUT/IPRATROP 3MG/0.5MG NEB 3 ML VIAL INH STA (14:24)
[2020-12-25] MEDS ORDERED: SODIUM CHLORIDE 0.9% 500 ML IV STA (14:24)
[2020-12-25] MEDS ORDERED: levoFLOXacin/D5W 750 MG/150 ML BAG IV STA (14:29)
--- NOTE | 2020-12-25 14:49 | XRay Report ---
XR chest 1V portable CLINICAL HISTORY: Dyspnea COMPARISON STUDY: 10/10/2018 FINDINGS: The heart is normal in size. There is a retrocardiac opacity consistent with a hiatal herni a. There is no failure. There is no focal pulmonary consolidation. There are no pleural effusions.[ IMPRESSION: 1. Moderate to large hiatal hernia 2. No evidence of focal pulmonary consolidation. No evidence of failure ACT 112: Negative or not required by law. Electronically signed by: Daren Sotomayor M.D. 12/25/2020 2:47 PM
[2020-12-25 14:54] LABS: Base Excess VBG 6.8 mEq/L; Oxygen Saturation VBG 61.6 %; pH VBG 7.29 (7.36-7.41)
[2020-12-25 14:56] LABS: Hematocrit (blood only) 45.3 % (37-47); Hemoglobin 12.7 g/dL (12.0-16.0); Mean Corpuscular Hemoglobin 20.9 pg (25-34); Mean Corpuscular Volume 74.4 fL (80-100); Mean Platelet Volume 9.3 fL (7.4-10.4); Platelet Count 328 K/uL (130-400); RDW Coefficient of Variation 20.1 % (11.5-14.5); RDW Standard Deviation 53.4 fL (36.4-46.3); Red Blood Count 6.09 M/uL (4.2-5.4)
[2020-12-25] MEDS: MAGNESIUM SULFATE / D5W 1 GM/100 ML BAG IV SCH ×2 (14:59→16:01)
[2020-12-25 15:01] LABS: Albumin Level 3.5 gm/dl (3.4-5.0); BUN Creatinine Ratio 12.9 (10-20); Blood Urea Nitrogen 8 mg/dl (7-18); Calcium 8.8 mg/dl (8.5-10.1); Carbon Dioxide 34 mmol/L (21-32); Chloride 102 mmol/L (98-107); Creatinine Clr Calc Pharmacy 92.8 ml/min; Est GFR (African American) 112.4 ml/min; Glucose 125 mg/dl (70-99); Potassium 4.1 mmol/L (3.5-5.1); Sodium 139 mmol/L (136-145)
[2020-12-25 15:06] LABS: Alanine Aminotransferase 11 U/L (12-78); Albumin Globulin Ratio 0.9 (0.9-2); Alkaline Phosphatase 125 U/L (45-117); Aspartate Aminotransferase 9 U/L (15-37); Bilirubin,Total 0.3 mg/dl (0.2-1); NT Pro B Type Natriuretic Pept 63 pg/ml (0-900); Total Protein 7.5 gm/dl (6.4-8.2); Troponin I < 0.015 ng/ml (0-0.045)
[2020-12-25 15:24] LABS: Anisocytosis Present; Basophils # (auto) 0.01 K/uL (0-0.2); Basophils % (auto) 0.1 %; Hypochromasia Present; Immature Granulocytes # (auto) 0.02 K/uL (0.00-0.02); Immature Granulocytes % (auto) 0.2 %; Lymphocytes % (auto) 7.2 %; Monocytes # (auto) 0.75 K/uL (0.11-0.59); Monocytes % (auto) 7.7 %; Neutrophils # (auto) 8.12 K/uL (1.4-6.5); Neutrophils % (auto) 83.8 %; Polychromasia 1+
--- NOTE | 2020-12-25 17:22 | History & Physical Report ---
Date of Service December 25, 2020 Assessment & Plan (1) Acute exacerbation of chronic obstructive pulmonary disease (COPD): Patient admitted for COPD exacerbation Noncompliant and patient does not followup with any PCP. Patient does not take any medications at home. She also does not believe in vaccinations: se feels risk outweigh benefits. will place on LABA/inh steroids and LAMA will continue levofloxacin. will place on IV steroids. patient is refusing bipap. Patient is a DNR/DNI Patient will be transferred to [facility] in AM as patient wants to followup with a [facility] PCP as an outpatient. (2) Tobacco abuse: place on nicotine patch (3) Obesity: will check A1C, FLP will place on History of Present Illness Chief Complaint: COPD exacerbation Primary Care Provider: NO PCP 65 yo female who has history of COPD, does not followup with any doctors as an outpatient. But states that if she did, she would prefer [facility] [address] doctors as they are close to her home. She reports for the past 3 weeks, as the weather has been changing she has become more and more short of breath. This was accompanied by a cough and SOB upon exertion. She reports she does not take any mediciations at home,. Se reports she does not take any vaccines either. Allergies Allergy/AdvReac Type Severity Reaction Status Date / Time No Known Allergies Allergy Unverified 12/25/20 14:27 Home Medications Medication Instructions Recorded Confirmed Type No Known Home Medications 10/10/18 12/25/20 History Past Med/Surg History Medical History (Updated 12/25/20 @ 17:29 by Toney Grant) Anemia COPD (chronic obstructive pulmonary disease) Gastroparesis Tobacco abuse Surgical History H/O colonoscopy "2007, patient reports normal findings" 10/2013: poor prep, grossly normal exam History of cholecystectomy History of esophagogastroduodenoscopy (EGD) Hx of appendectomy S/P removal of right ovary Family History Other Cancer Depression Social History Smoking Status: Current every day smoker Tobacco Type: Cigarettes packs per day: 1; Years Smoked: 50; Cigarettes Per Day: 30; Second Hand Exposure: Yes; Do You Dip or Chew Tobacco: No; Tobacco Cessation Education Requested by Patient: No Hx Alcohol Use: No Hx Substance Use: No Preferred Language: French Communication Ability: Effective Display And Banner Designer Required: No Beliefs That Will Affect Care: None Current Living Situation: Alone Current Living Situation Comment: LIVES AT HOME WITH A FRIEND Other Information That Helps Us Care for You: Yes Feels Safe at Home: Yes Safety Concerns: Feels Safe At This Time Assistive Devices: Denture - Upper and Oxygen - Continuous Assistive Devices Comment: WAS ON OXYGEN YEARS AGO; DISCONTINUED USING ON OWN. Review of Systems Constitutional: no fever and no sweats Eyes: no blind spots and no diplopia Ear, Nose, Mouth, Throat: no ear pain and no ear trauma Respiratory: + cough and + dyspnea Cardiovascular: no chest pain and no chest pain with activity Gastrointestinal: no abdominal pain and no bloating Genitourinary: no dysuria and no urinary frequency Musculoskeletal: no back pain Integumentary: no acne and no rash Neurologic: no gait abnormality and no falls Psychiatric: no behavioral changes Endocrine: no fatigue Hematologic / Lymphatic: no easy bleeding Allergy / Immunological: no GI upset with certain foods Physical Exam Constitutional: WD/WN, vitals as above Eyes: PERRL, conjunctivae normal, anicteric sclerae ENMT: external ear and nose normal, oropharynx normal Neck: trachea midline, no thyromegaly Respiratory: + labored breathing and + uses accessory muscles Auscultation: + diminished lung sounds and + wheezes Cardiovascular: RRR, no murmur, no edema Gastrointestinal (Abdomen): normal bowel sounds, soft, nontender, no hepatosplenomegaly Musculoskeletal: no cyanosis or clubbing, extremities motor strength 5/5 Skin: no rashes, warm and dry Neurologic: PERRL, EOMI, accommodation nl, no face palsy, no dysarthria Psychiatric: A+Ox3, euthymic affect Lymphatic: no cervical or axillary lymphadenopathy Results & Data Results & Data ([facility]) Vital Signs (Past 12 Hours) Vital Signs Temp Pulse Pulse Resp BP BP Pulse Ox 12/25/20 16:32 127 H 30 H 96 12/25/20 16:00 128 H 29 H 119/72 97 12/25/20 15:30 116 H 29 H 100 12/25/20 15:21 116 H 26 H 100 12/25/20 15:02 124 H 25 H 97 12/25/20 14:44 104 H 26 H 95 12/25/20 14:32 103 H 30 H 93 12/25/20 14:16 102 H 24 128/79 94 12/25/20 14:06 94 12/25/20 14:00 108 H 26 H 125/75 97 12/25/20 13:49 85 25 H 152/81 H 94 12/25/20 13:45 84 L 12/25/20 12:12 92 12/25/20 11:59 37.0 C 114 H 28 H 124/68 83 L PG Care Time/CCT Total # of Minutes Spent Total Time Spent with Patient: Total time spent is greater than 50% in coordination of care (as documented) at patient's floor/unit and/or counseling patient: Coding Level of Care Code 32962 Initial Inpt Care Lvl 3 Diagnoses Acute exacerbation of chronic obstructive pulmonary disease (COPD) J44.1 Tobacco abuse Z72.0 Obesity E66.9
--- NOTE | 2020-12-25 17:50 | Electrocardiogram Report ---
Test Reason : Blood Pressure : / mmHG Vent. Rate : 108 BPM Atrial Rate : 108 BPM P-R Int : 134 ms QRS Dur : 078 ms QT Int : 340 ms P-R-T Axes : 071 087 052 degrees QTc Int : 455 ms Poor data quality, interpretation may be adversely affected Sinus tachycardia Otherwise normal ECG When compared with ECG of 10-OCT-2018 11:28, No significant change was found Confirmed by Franklin Kasper ([id number]) on 12/25/2020 5:50:11 PM Referred By: REFERRED SELF Confirmed By:Dante Kasper
--- NOTE | 2020-12-25 17:51 | Electrocardiogram Report ---
Test Reason : Blood Pressure : / mmHG Vent. Rate : 103 BPM Atrial Rate : 103 BPM P-R Int : 136 ms QRS Dur : 080 ms QT Int : 348 ms P-R-T Axes : 079 079 049 degrees QTc Int : 455 ms Poor data quality, interpretation may be adversely affected Sinus tachycardia Otherwise normal ECG When compared with ECG of 25-DEC-2020 12:12, (unconfirmed) No significant change was found Confirmed by Franklin Kasper ([id number]) on 12/25/2020 5:51:13 PM Referred By: REFERRED SELF Confirmed By:Dante Kasper
[2020-12-25] MEDS ORDERED: LEVALBUTEROL 1.25MG/0.5ML NEB ONE (18:58)
[2020-12-25] MEDS: LEVALBUTEROL HCL 1.25 MG/3 ML NEB NEB SCH (20:22)
[2020-12-25] MEDS: FLUTICASONE/VILANTEROL 200/25MCG 14 PUFFS/INHALER INH SCH (22:34)
[2020-12-25] MEDS: HEPARIN SOD 5,000 UNIT/0.5 ML VIAL SQ SCH (22:34)
[2020-12-25] MEDS: UMECLIDINIUM BROMIDE 62.5MCG/BLISTER 7 PUFFS/INHALER INH SCH (22:34)
[2020-12-26] MEDS: LEVALBUTEROL HCL 1.25 MG/3 ML NEB NEB SCH ×4 (01:04→19:08)
[2020-12-26] MEDS: HEPARIN SOD 5,000 UNIT/0.5 ML VIAL SQ SCH ×3 (06:19→22:06)
[2020-12-26 06:28] LABS: Hematocrit (blood only) 38.8 % (37-47); Hemoglobin 10.9 g/dL (12.0-16.0); Mean Corpuscular Hemoglobin 20.7 pg (25-34); Mean Corpuscular Hgb Conc 28.1 g/dL (32-36); Mean Corpuscular Volume 73.6 fL (80-100); Mean Platelet Volume 9.3 fL (7.4-10.4); Platelet Count 298 K/uL (130-400); RDW Coefficient of Variation 20.1 % (11.5-14.5); RDW Standard Deviation 53.4 fL (36.4-46.3); Red Blood Count 5.27 M/uL (4.2-5.4); White Blood Count 8.23 K/uL (4.8-10.8)
[2020-12-26 07:00] LABS: Calcium 8.8 mg/dl (8.5-10.1); Creatinine Clr Calc Pharmacy 129.3 ml/min; Est GFR (African American) 125.5 ml/min; Est GFR (Non-African American) 108.2 ml/min; Potassium 4.5 mmol/L (3.5-5.1)
[2020-12-26] MEDS: NICOTINE 21 MG/24 HR TDSY TD SCH (07:39)
[2020-12-26] MEDS: methylPREDNISolone 60 MG in SYRINGE 0 ML IV SCH (07:39)
[2020-12-26 08:10] LABS: Estimated Average Glucose 123 mg/dl; Hemoglobin A1C 5.9 % (4.5-5.6)
[2020-12-26] MEDS ORDERED: methylPREDNISolone 125 MG/2 ML VIAL IV SCH (09:00)
[2020-12-26] MEDS: levoFLOXacin 750 MG TAB PO SCH (10:19)
--- NOTE | 2020-12-26 18:30 | Hospitalist Progress Note ---
Date of Service December 26, 2020 Assessment & Plan (1) Acute exacerbation of chronic obstructive pulmonary disease (COPD): Patient admitted for COPD exacerbation Noncompliant and patient does not followup with any PCP. Patient does not take any medications at home. She also does not believe in vaccinations: se feels risk outweigh benefits. She has been getting intravenous Solu-Medrol and nebulized bronchodilator She was a started with Levaquin for infective exacerbation of COPD without any lobar pneumonia and that will be continued Clinically much better Will need prednisone taper, inhaled bronchodilators and corticosteroid and 2 steps O2 saturation prior to discharge She is requesting a [facility] PCP at [facility] on discharge Patient will be transferred to [facility] in AM as patient wants to followup with a [facility] PCP as an outpatient. (2) Tobacco abuse: place on nicotine patch (3) Obesity: will check A1C, FLP will place on Admission and Anticipated Discharge Date Admission Date: December 25, 2020 Subjective 12/26/2020 The patient was seen and examined in medical floor She has not been to a doctor for many years and has been a smoker with history of COPD Admitted with acute infective exacerbation of COPD Has been feeling better since admission Wants to have a [facility] physician at [facility] in [place] on discharge Review of Systems Review of Systems: All systems reviewed and are unremarkable except as noted below Respiratory: + cough and + dyspnea on exertion Physical Exam Physical Exam: Lying in bed with minimal discomfort Constitutional: well developed, well nourished, + ill appearing and + obese Eyes: PERRL, conjunctivae normal, anicteric sclerae ENMT: external ear and nose normal, oropharynx normal Neck: trachea midline, no thyromegaly Respiratory: + respiratory distress (Minimal distress at rest) Auscultation: + diminished lung sounds, + crackles and + wheezes Cardiovascular: Rate/Rhythm: regular rate and regular rhythm Heart Sounds: no murmur Extremities: + edema Gastrointestinal (Abdomen): Inspection/Auscultation: normal bowel sounds; abdomen not distended Percussion/Palpation: abdomen soft; abdomen nontender Musculoskeletal: No acute arthritis in any joint Neurologic: Alert, awake and oriented x3 No focal sensory and motor deficit appreciated Lymphatic: no cervical or axillary lymphadenopathy Results & Data Results & Data ([facility]) Vital Signs (Past 12 Hours) Vital Signs Temp Pulse Resp BP Pulse Ox 12/26/20 14:00 36.7 C 95 H 18 116/71 90 12/26/20 13:11 101 H 18 93 12/26/20 07:32 92 H 18 94 12/26/20 07:07 36.6 C 86 20 100/63 90 Laboratory Results Short CBC 12/26/20 Range/Units 05:41 WBC 8.23 (4.8-10.8) K/uL Hgb 10.9 L (12.0-16.0) g/dL Hct 38.8 (37-47) % Plt Count 298 (130-400) K/uL BMP 12/26/20 05:41 Sodium 138 Potassium 4.5 Chloride 104 Carbon Dioxide 35 H BUN 10 Creatinine 0.43 L Glucose 124 H Calcium 8.8 Medications Administered Current Inpatient Medications Fluticasone/Vilanterol (Fluticasone/Vilanterol 200/25mcg 14 Puffs/Inhaler) 1 puffs INH QPM [facility] Stop: 01/24/21 20:59 Last Admin: 12/25/20 22:34 Dose: 1 puffs Documented by: Heparin Sodium (Porcine) (Heparin Sod 5,000 Unit/0.5 Ml Vial) 5,000 units SQ Q8 [facility] Stop: 01/24/21 21:59 Last Admin: 12/26/20 13:29 Dose: Not Given Documented by: Methylprednisolone 60 mg/ (Syringe) 0.96 mls @ 1.5 mls/min IV DAILY [facility] Stop: 01/25/21 08:59 Last Admin: 12/26/20 07:39 Dose: 1.5 mls/min Documented by: Levalbuterol HCl (Levalbuterol Hcl 1.25 Mg/3 Ml Neb) 1.25 mg NEB Q6R [facility] Stop: 01/24/21 18:59 Last Admin: 12/26/20 13:11 Dose: 1.25 mg Documented by: Levofloxacin (Levofloxacin 750 Mg Tab) 750 mg PO DAILY@1100 [facility] Stop: 01/01/21 10:59 Last Admin: 12/26/20 10:19 Dose: 750 mg Documented by: Miscellaneous (Remove Nicoderm Patch) 1 ea N/A DAILY@0859 [facility] Stop: 01/25/21 08:58 Last Admin: 12/26/20 07:38 Dose: Not Given Documented by: Nicotine (Nicotine 21 Mg/24 Hr Tdsy) 21 mg TD QAM [facility] Stop: 01/25/21 08:59 Last Admin: 12/26/20 07:39 Dose: Not Given Documented by: Umeclidinium Carmichaels (Umeclidinium Carmichaels 62.5mcg/Blister 7 Puffs/Inhaler) 1 puffs INH QPM [facility] Stop: 01/24/21 20:59 Last Admin: 12/25/20 22:34 Dose: 1 puffs Documented by:
[2020-12-26] MEDS: UMECLIDINIUM BROMIDE 62.5MCG/BLISTER 7 PUFFS/INHALER INH SCH (21:55)
[2020-12-26] MEDS: FLUTICASONE/VILANTEROL 200/25MCG 14 PUFFS/INHALER INH SCH (21:55)
[2020-12-27] MEDS: LEVALBUTEROL HCL 1.25 MG/3 ML NEB NEB SCH ×4 (00:51→17:55)
[2020-12-27] MEDS: HEPARIN SOD 5,000 UNIT/0.5 ML VIAL SQ SCH ×3 (05:56→21:14)
[2020-12-27] MEDS: methylPREDNISolone 60 MG in SYRINGE 0 ML IV SCH (08:54)
[2020-12-27] MEDS: NICOTINE 21 MG/24 HR TDSY TD SCH (08:54)
[2020-12-27] MEDS: levoFLOXacin 750 MG TAB PO SCH (12:44)
--- NOTE | 2020-12-27 18:56 | Hospitalist Progress Note ---
Date of Service December 27, 2020 Assessment & Plan (1) Acute exacerbation of chronic obstructive pulmonary disease (COPD): Plan: improving overall continue Levaquin, Nebs, Breo, Incruse wean off O2 will need 2 step exercise (2) Tobacco abuse: Plan: counselling (3) Obesity: Plan: counselling Plan: anticipate d/c home tomorrow Admission and Anticipated Discharge Date Admission Date: December 25, 2020 Subjective seen for COPD exacerbation seen resting in chair, comfortable states she feels improving overall breathing also improving has occasional sputum productive of yellow phlegm no chest pain denies other symptoms Review of Systems Review of Systems: all negative except for above Results & Data Results & Data ([facility]) Vital Signs (Past 12 Hours) Vital Signs Temp Pulse Resp BP Pulse Ox 12/27/20 17:55 101 H 18 93 12/27/20 16:11 37.1 C 86 16 105/69 94 12/27/20 13:09 98 H 18 92 12/27/20 07:30 60 18 92 Laboratory Results all noted and reviewed including below
[2020-12-27] MEDS: FLUTICASONE/VILANTEROL 200/25MCG 14 PUFFS/INHALER INH SCH (20:33)
[2020-12-27] MEDS: UMECLIDINIUM BROMIDE 62.5MCG/BLISTER 7 PUFFS/INHALER INH SCH (20:34)
[2020-12-28] MEDS: LEVALBUTEROL HCL 1.25 MG/3 ML NEB NEB SCH ×3 (02:00→13:38)
[2020-12-28] MEDS: HEPARIN SOD 5,000 UNIT/0.5 ML VIAL SQ SCH ×2 (05:09→14:22)
[2020-12-28] MEDS: NICOTINE 21 MG/24 HR TDSY TD SCH (08:04)
[2020-12-28] MEDS ORDERED: predniSONE 20 MG TAB PO SCH (09:00)
[2020-12-28] MEDS: levoFLOXacin 750 MG TAB PO SCH (11:23)
--- NOTE | 2020-12-28 20:17 | Hospitalist Progress Note ---
Date of Service December 28, 2020 Assessment & Plan (1) Acute exacerbation of chronic obstructive pulmonary disease (COPD): Plan: Acute hypoxic respiratory failure Chest x-ray: IMPRESSION: 1. Moderate to large hiatal hernia 2. No evidence of focal pulmonary consolidation. No evidence of failure Started on Breo Ellipta, Incruse Ellipta, Levaquin, IV Solu-Medrol, nebs Patient improved while admitted Requiring oxygen supplementation 2 L at rest, 3 L with ambulation Discharged on: Breo and Incruse Ellipta Prednisone taper Levaquin x5 more days Nebs and albuterol as needed Follow-up closely with PCP Follow-up large hiatal hernia (2) Tobacco abuse: Plan: counselling Nicotine patch (3) Obesity: Plan: counselling Outpatient follow-up Plan: DC home Follow-up with PCP in 1 week plan of care discussed with patient in detail and at length all questions answered She is understanding, agreeable, comfortable with the plan of care Admission and Anticipated Discharge Date Admission Date: December 25, 2020 Subjective ff up for COPD exacerbation, etc. Seen sitting up in bed, comfortable, not in distress, in good spirits States breathing is much better Cough is minimal, dry No chest pain Denies other symptoms States she is ready and like to be discharged today Review of Systems Review of Systems: All noted negative except for above Physical Exam Physical Exam: General- oriented x 3, not in distress, speaks in sentences with no effort or accessory muscle use Eyes- anicteric Neck- no JVD Lungs- minimal wheeze bilateral bases Good air entry bilaterally Heart- normal rate, regular rhythm; no murmurs Abdomen- normal bowel sounds, nondistended, soft, nontender Extremities- no pretibial edema, no calf tenderness Neuro- alert, oriented x 3; no gross focal neurologic deficits Skin- warm & dry Results & Data Results & Data ([facility]) Vital Signs (Past 12 Hours) Vital Signs Temp Pulse Pulse Pulse Pulse Pulse Pulse 12/28/20 14:32 36.6 C 12/28/20 13:38 12/28/20 08:24 65 95 H 102 H 84 63 75 Pulse Resp Resp Resp Resp Resp Resp 12/28/20 14:32 86 16 12/28/20 13:38 86 16 12/28/20 08:24 18 20 20 20 18 Resp BP BP Pulse Ox Pulse Ox Pulse Ox Pulse Ox 12/28/20 14:32 113/74 99/63 L 95 12/28/20 13:38 95 12/28/20 08:24 18 90 86 L 91 Pulse Ox Pulse Ox Pulse Ox 12/28/20 14:32 12/28/20 13:38 12/28/20 08:24 83 L 90 86 L Laboratory Results all noted and reviewed including below
--- NOTE | 2020-12-28 20:20 | Discharge Summary ---
Date of Service December 28, 2020 Admission HPI Per Admitting Provider 65 yo female who has history of COPD, does not followup with any doctors as an outpatient. But states that if she did, she would prefer [facility] doctors as they are close to her home. She reports for the past 3 weeks, as the weather has been changing she has become more and more short of breath. This was accompanied by a cough and SOB upon exertion. She reports she does not take any mediciations at home,. Se reports she does not take any vaccines either. Admission Exam Per Admitting Provider Constitutional: WD/WN, vitals as above Eyes: PERRL, conjunctivae normal, anicteric sclerae ENMT: external ear and nose normal, oropharynx normal Neck: trachea midline, no thyromegaly Respiratory: + labored breathing and + uses accessory muscles Auscultation: + diminished lung sounds and + wheezes Cardiovascular: RRR, no murmur, no edema Gastrointestinal (Abdomen): normal bowel sounds, soft, nontender, no hepatosplenomegaly Musculoskeletal: no cyanosis or clubbing, extremities motor strength 5/5 Skin: no rashes, warm and dry Neurologic: PERRL, EOMI, accommodation nl, no face palsy, no dysarthria Psychiatric: A+Ox3, euthymic affect Lymphatic: no cervical or axillary lymphadenopathy Principal Diagnosis Acute hypoxic respiratory failure, acute exacerbation of COPD Discharge Exam General- oriented x 3, not in distress, speaks in sentences with no effort or accessory muscle use Eyes- anicteric Neck- no JVD Lungs- minimal wheeze bilateral bases Good air entry bilaterally Heart- normal rate, regular rhythm; no murmurs Abdomen- normal bowel sounds, nondistended, soft, nontender Extremities- no pretibial edema, no calf tenderness Neuro- alert, oriented x 3; no gross focal neurologic deficits Skin- warm & dry Discharge Data Allergies Allergy/AdvReac Type Severity Reaction Status Date / Time No Known Allergies Allergy Unverified 12/25/20 14:27 Consultations 12/25/20 15:56 ED Decision to Admit Stat Hospital Course (1) Acute exacerbation of chronic obstructive pulmonary disease (COPD): (1) Acute exacerbation of chronic obstructive pulmonary disease (COPD): Plan: Acute hypoxic respiratory failure Chest x-ray: IMPRESSION: 1. Moderate to large hiatal hernia 2. No evidence of focal pulmonary consolidation. No evidence of failure Started on Breo Ellipta, Incruse Ellipta, Levaquin, IV Solu-Medrol, nebs Patient improved while admitted Requiring oxygen supplementation 2 L at rest, 3 L with ambulation Discharged on: Breo and Incruse Ellipta Prednisone taper Levaquin x5 more days Nebs and albuterol as needed Follow-up closely with PCP Follow-up large hiatal hernia (2) Tobacco abuse: Plan: counselling Nicotine patch (3) Obesity: Plan: counselling Outpatient follow-up Plan: DC home Follow-up with PCP in 1 week plan of care discussed with patient in detail and at length all questions answered She is understanding, agreeable, comfortable with the plan of care (2) Tobacco abuse: place on nicotine patch (3) Obesity: Outpatient follow-up Total Time Total Time Spent Total Time Spent (In Minutes): 55 minutes Discharge Plan Discharge Items Patient Disposition: Home - Self-Care Reason For Visit: COPD EXACERBATION Discharge Diagnosis: COPD EXACERBATION Activity: As commented below Activity Comment: RESUME ACTIVITY GRADUALLY TOLERATED Lifting: Wait until after follow-up appointment Exercise/Sports: Wait until after follow-up appointment Driving/Machine Use: NO DRIVING UNTIL RE-EVALUATED AND ALLOWED BY PRIMARY CARE PHYSICIAN Non-emergency contact: Primary Care Provider Call non-emergency contact if: you have any medication questions, your symptoms worsen and you have a fever Follow-up/Referrals: Harper Iraheta MD [Primary Care Provider] - (Date & Time 01/01/2021 1:00 PM Provider William Iraheta MD Department Family Medicine [facility] ) Diet: Heart Healthy Addtl Attending Provider Instructions: PLEASE REVIEW YOUR NEW MEDICATION LIST AND FOLLOW INSTRUCTIONS CAREFULLY. 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 Call primary care physician or return to the ER immediately if with worsening of symptoms. Always take your medications daily as instructed. Call your physician immediately if you have any questions regarding medications. Follow-up with primary care physician as scheduled above. Pending Studies at Discharge: No Stand-Alone Forms: My [facility], Smoking Cessation Medications and DC Order Prescriptions: New levalbuterol HCl 1.25 mg/3 mL Solution For Nebulization 1.25 mg NEB Q4H PRN (Reason: Shortness Of Breath Or Wheezing) Qty: 75 RF: 2 levofloxacin 750 mg Tablet 750 mg PO DAILY@1100 Qty: 4 RF: 0 nicotine [Nicoderm CQ] 21 mg/24 hr Patch 24 Hour 21 mg transdermal QAM Qty: 11 RF: 0 Incruse Ellipta 62.5 mcg/actuation Blister With Device 1 puff inhalation QPM Qty: 1 RF: 2 prednisone 10 mg tablet 10 mg PO UD Qty: 26 RF: 0 Breo Ellipta 200-25 mcg/dose Blister With Device 1 puff inhalation QPM Qty: 1 RF: 2 albuterol sulfate 90 mcg/actuation HFA aerosol inhaler 2 inh inhalation Q4H PRN (Reason: shortness of breath or wheezing) Qty: 8.5 RF: 2 ipratropium bromide 0.02 % solution 2.5 ml inhalation Q4H PRN (Reason: shortness of breath or wheezing) Qty: 62.5 RF: 2 No Action No Known Home Medications RF: 0 Discharge Orders: Discharge Order (Routine); Ordered 12/28/20 Ordered By: Joe Hamm Admission Data Admit Date/Time: 12/25/20 17:44 Attending Provider: Joe Hamm Admit Provider: Quinton Joyner Primary Care Provider: Harper Iraheta Other Providers: Toney Grant ; Quinton Joyner ; Jose Luis Hi Other Interventions: Discharge Summary Assessment (RN) Last Done: 12/28/20 14:32
== END 2020-12-28 18:29 | disposition home or self-care (01) | DRG 190 ==
LOC: ED 11:32 → SUATTDRO 17:44 → 3W 17:44

== ENCOUNTER 2023-10-14 17:13 | Inpatient (IN) ==
--- NOTE | 2023-10-14 17:27 | Emergency Department Note ---
Impression & Plan SOB (shortness of breath), COPD exacerbation, MARTINEZ (dyspnea on exertion), Acute bronchitis ED Provider Note NAME: LORENZO POTTER AGE: 67 SEX: F : 1955 ARRIVES VIA: Ambulance INFORMANT: [Patient][ems] ED PROVIDER(S): [Ronald Moon MD] CHIEF COMPLAINT: Shortness of breath HISTORY OF PRESENT ILLNESS: The patient is a 67-year-old female presents to the ED with 5 days of cough, fever, congestion and some shortness of breath. The patient does wear 2 L of oxygen at all times. Patient has worsened every day and finally called the ambulance. There has been no recent sick contact. No chest pain, no vomiting or diarrhea. The patient is not currently on any antibiotic or steroid. On the way here, EMS administered 2 DuoNeb's. PMHx/PSHx/Social Hx: See Below PHYSICAL EXAM: GENERAL: Patient is in no acute distress. HEENT: No acute trauma, normocephalic atraumatic, mucous membranes moist, no nasal congestion. NECK: No stridor, no adenopathy, no meningismus, trachea is midline. LUNGS: Markedly diminished breath sounds with a slightly increased respiratory rate. There are some wheezes and crackles bilaterally. No obvious respiratory distress. Wet cough noted. HEART: Without murmurs gallops or rubs, regular rate and rhythm. ABDOMEN: Soft, nontender, no peritonitis. EXTREMITIES: No cyanosis, full range of motion of all the joints without pain or difficulty. NEUROLOGIC: Oriented x 3, no acute motor or sensory deficits, no focal weakness. SKIN: No jaundice, no diaphoresis. DIFFERENTIAL DIAGNOSIS: Bronchitis or pneumonia, viral illness, CHF, hypoxia, electrolyte imbalance, anemia, cardiac ischemia, among others. EMERGENCY DEPARTMENT PROCEDURES: MEDICAL DECISION MAKING: There is no leukocytosis. No concerning anemia. Platelet count was somewhat low at 108. No concerning coagulopathy. VBG showed some very subtle CO2 retention, no acidosis. Renal panel testing did not show any significant electrolyte abnormality or renal failure. There was no concerning liver enzyme elevation. Cardiac enzyme testing did not suggest acute cardiac ischemia. Urinalysis showed some dehydration, no infection. Respiratory bio fire was negative. Chest film did not show pneumonia or CHF. On exam, the patient was wheezing with diminished breath sounds. The patient had received 2 nebulizer treatments prior to arrival. A third nebulizer was given here in the ED. She was given IV Solu-Medrol to help with her bronchospasm. The patient has a history of COPD. She presents with increasing dyspnea. She has required 3 nebulizer treatments. She will require a hospital stay for her bronchitis with COPD flare. I spoke with the patient and case management, the on-call hospitalist was consulted. Prior/Outside records/notes reviewed: Today's EMS notes describing her presentation and transport to this hospital. Imaging/x-ray results per my interpretation: Chest x-ray does not show mediastinal widening, pneumonia or pneumothorax. Chronic Medical/Social conditions affecting care: History of COPD and chronic O2 use. Care/Management discussed with: Case management, the on-call hospitalist. Level of care consideration(s): After review of the information above and other included data: --I believe the patient requires escalation of care to admission DISPOSITION: Admission Past Med/Surg History Medical History Chronic back pain Mood disorder Medical non-compliance Chronic respiratory failure with hypoxia and hypercapnia Cor pulmonale COPD (chronic obstructive pulmonary disease) Anemia Tobacco abuse Gastroparesis Surgical History History of esophagogastroduodenoscopy (EGD) H/O colonoscopy "2007, patient reports normal findings" 10/2013: poor prep, grossly normal exam S/P removal of right ovary Hx of appendectomy History of cholecystectomy Family History Other Cancer Depression Social History Smoking Status: Current every day smoker Tobacco Type: Cigarettes packs per day: 1; Cigarettes Per Day: 1 PPD; Second Hand Exposure: No; Do You Dip or Chew Tobacco: No; Tobacco Cessation Education Requested by Patient: No Hx Alcohol Use: No Hx Substance Use: No Preferred Language: Finnish Communication Ability: Effective Driver'S Education Instructor Required: No Beliefs That Will Affect Care: None Current Living Situation: Other Current Living Situation Comment: Patient has a tenant living with her Other Information That Helps Us Care for You: No Feels Safe at Home: Yes Safety Concerns: Feels Safe At This Time Assistive Devices: Glasses and Oxygen - Continuous Allergies Allergies Allergy/AdvReac Type Severity Reaction Status Date / Time gluten AdvReac Severe GI Verified 10/14/23 18:27 problems from celiac disease Home Meds Home Medications Medication Instructions Recorded Confirmed cyclobenzaprine 10 mg tablet 10 mg PO AMHS 04/04/23 10/14/23 ipratropium 0.5 mg-albuterol 3 mg 3 ml inhalation TID PRN COPD FLARE 04/04/23 10/14/23 (2.5 mg base)/3 mL nebulization UPS soln acetaminophen 500 mg tablet 1,000 mg PO BID 10/14/23 10/14/23 (Tylenol Extra Strength) albuterol sulfate 90 mcg/actuation 2 puff inhalation Q6H PRN 10/14/23 10/14/23 aerosol inhaler Shortness Of Breath Or Wheezing bupropion HCl 150 mg tablet,12 hr 100 mg PO BID 10/14/23 10/14/23 sustained-release cholecalciferol (vitamin D3) 25 50 mcg PO BID 10/14/23 10/14/23 mcg (1,000 unit) capsule (Vitamin D3) ferrous sulfate 325 mg (65 mg 325 mg PO BID 10/14/23 10/14/23 iron) tablet (iron) fluticasone 250 mcg-salmeterol 50 1 inh inhalation BID 10/14/23 10/14/23 mcg/dose blistr powdr for inhalation lidocaine HCl 4 %-menthol 1 % 1 applic topical BID PRN Pain 10/14/23 10/14/23 topical cream (Icy Hot Max (lidocaine HCl-menthol)) meloxicam 7.5 mg tablet 7.5 mg PO DAILY 10/14/23 10/14/23 omeprazole 20 mg capsule,delayed 20 mg PO DAILYBB 10/14/23 10/14/23 release ondansetron HCl 4 mg tablet 4 mg PO Q8H PRN NAUSEA/VOMITING 10/14/23 10/14/23 pregabalin 25 mg capsule See Rx Instructions .Route .COMPLEX 10/14/23 10/14/23 sennosides 8.6 mg-docusate sodium 1 tab-cap PO QAM 10/14/23 10/14/23 50 mg tablet (Colace 2-In-1) tiotropium bromide 1.25 2 puff inhalation QPM 10/14/23 10/14/23 mcg/actuation mist for inhalation (Spiriva Respimat) Results & Data (ED) Vital Signs Vital Signs - 24 hr 10/14/23 17:30 10/14/23 17:30 10/14/23 17:30 Temperature 36.8 C Temperature Source Oral Pulse Rate 104 H Pulse Rate [Apical] Pulse Rhythm Regular Respiratory Rate 24 Respiratory Effort / Characteristics Non-Labored Spontaneous Short of Breath Respiratory Depth Normal Blood Pressure 168/105 H Blood Pressure [Right Arm] Blood Pressure Mean 126 Blood Pressure Mean [Right Arm] Pulse Oximetry 95 95 Oxygen Delivery Method Nasal Cannula Nasal Cannula Oxygen Flow Rate 2 2 Sepsis Recent Fever Within 48 Hours No Sepsis New/Unexplained Change in Mental Status No Sepsis Action Taken by Nursing No Action Required 10/14/23 17:31 10/14/23 18:12 10/14/23 18:12 Temperature Temperature Source Pulse Rate 107 H Pulse Rate [Apical] 111 H Pulse Rhythm Respiratory Rate 24 Respiratory Effort / Characteristics Respiratory Depth Blood Pressure Blood Pressure [Right Arm] 145/88 H Blood Pressure Mean Blood Pressure Mean [Right Arm] 107 Pulse Oximetry 92 Oxygen Delivery Method Nasal Cannula Nasal Cannula Oxygen Flow Rate 2 Sepsis Recent Fever Within 48 Hours Sepsis New/Unexplained Change in Mental Status Sepsis Action Taken by Nursing 10/14/23 19:00 Temperature Temperature Source Pulse Rate Pulse Rate [Apical] 107 H Pulse Rhythm Respiratory Rate 20 Respiratory Effort / Characteristics Respiratory Depth Blood Pressure Blood Pressure [Right Arm] 158/86 H Blood Pressure Mean Blood Pressure Mean [Right Arm] 110 Pulse Oximetry 92 Oxygen Delivery Method Nasal Cannula Oxygen Flow Rate 2 Sepsis Recent Fever Within 48 Hours Sepsis New/Unexplained Change in Mental Status Sepsis Action Taken by Usp Medications Current Medication List: was personally reviewed by me Laboratory Data Attestation: I reviewed the patient's lab results. 10/14/23 17:20 10/14/23 17:20 Lab Results 10/14/23 10/14/23 Range/Units 17:20 17:41 WBC 10.32 (4.8-10.8) K/ul RBC 5.55 H (4.20-5.40) M/uL Hgb 17.7 H (12.0-16.0) g/dl Hct 54.2 H (37.0-47.0) % MCV 97.7 (80.0-100.0) fL MCH 31.9 (25.0-34.0) pg MCHC 32.7 (32.0-36.0) g/dL RDW Std Deviation 63.0 H (36.4-46.3) fL RDW Coeff of Liz 17.5 H (11.5-14.5) % Plt Count 108 L (130-400) K/uL MPV 9.1 L (9.4-12.4) fL Immature Gran % (Auto) 0.4 % Neut % (Auto) 86.3 % Lymph % (Auto) 6.9 % [place] % (Auto) 6.1 % Eos % (Auto) 0.1 % Baso % (Auto) 0.2 % Neut # (Auto) 8.91 H (1.40-6.50) K/uL Lymph # (Auto) 0.71 L (1.20-3.40) K/uL [place] # (Auto) 0.63 H (0.11-0.59) K/uL Eos # (Auto) 0.01 (0.00-0.50) K/uL Baso # (Auto) 0.02 (0.00-0.20) K/uL Immature Gran # (Auto) 0.04 (0.01-0.20) K/uL PT 11.2 (9.0-12.0) Seconds INR 1.0 (0.9-1.1) APTT 32 H (21-31) Seconds PTT Ratio 1.1 VBG pH 7.38 (7.36-7.41) VBG pCO2 56 H (38-50) mmHg VBG pO2 53 mmHg VBG HCO3 33 mmol/L VBG O2 Saturation 100.0 % VBG Base Excess 6.3 mEq/L Sodium 135 L (136-145) mmol/L Potassium 3.9 (3.5-5.1) mmol/L Chloride 95 L (98-107) mmol/L Carbon Dioxide 31 (21-32) mmol/L Anion Gap 9 (3-11) BUN 12 (6-23) mg/dl Creatinine 0.53 L (0.6-1.2) mg/dl Est Cr Clr Drug Dosing 93.6 ml/min Est GFR ( Amer) 115.5 ml/min Est GFR (Non-Af Amer) 99.6 ml/min BUN/Creatinine Ratio 22.6 H (10-20) Glucose 109 H (70-99(Fasting)) mg/dl Calcium 9.1 (8.6-10.3) mg/dl Magnesium 1.8 (1.7-2.4) mg/dl Total Bilirubin 0.6 (0.2-1.0) mg/dl AST 10 L (13-39) U/L ALT 5 L (7-52) U/L Alkaline Phosphatase 86 (34-104) U/L Troponin I High Sens 6.3 (0-14) pg/ml Total Protein 6.9 (6.0-8.3) gm/dl Albumin 4.1 (3.4-5.0) gm/dl Globulin 2.8 (2.5-4.0) gm/dl Albumin/Globulin Ratio 1.5 (0.9-2) Procalcitonin 0.10 (0-0.5) ng/ml Adenovirus (PCR) Not Detected (NotDetected) B. pertussis DNA (PCR) Not Detected (NotDetected) B.parapertussis DNA PCR Not Detected (NotDetected) C. pneumoniae DNA (PCR) Not Detected (NotDetected) Coronavirus OC43 (PCR) Not Detected (NotDetected) Coronavirus HKU1 (PCR) Not Detected (NotDetected) Coronavirus 229E (PCR) Not Detected (NotDetected) SARS-CoV-2 (PCR) Not Detected (NotDetected) Coronavirus NL63 (PCR) Not Detected (NotDetected) Human Metapneumovir PCR Not Detected (NotDetected) Influenza Type A (PCR) Not Detected (NotDetected) Influenza Type B (PCR) Not Detected (NotDetected) M. pneumoniae (PCR) Not Detected (NotDetected) Parainfluenza 1 (PCR) Not Detected (NotDetected) Parainfluenza 2 (PCR) Not Detected (NotDetected) Parainfluenza 3 (PCR) Not Detected (NotDetected) Parainfluenza 4 (PCR) Not Detected (NotDetected) RSV (PCR) Not Detected (NotDetected) Entero/Rhino (PCR) Not Detected (NotDetected) Administered Medications Acetaminophen (Acetaminophen 500 Mg Tab) 1,000 mg PO BID NIDIA Stop: 05/30/24 22:26 Last Admin: 10/15/23 00:13 Dose: 1,000 mg Documented By: MARYLU Bupropion HCl (Bupropion Sr 100 Mg Tabcr) 100 mg PO BID NIDIA Stop: 11/13/23 22:26 Last Admin: 10/15/23 00:14 Dose: 100 mg Documented By: MARYLU Cyclobenzaprine HCl (Cyclobenzaprine Hcl 10 Mg Tab) 10 mg PO AMHS NIDIA Stop: 11/13/23 22:26 Last Admin: 10/15/23 00:13 Dose: 10 mg Documented By: MARYLU Enoxaparin Sodium (Enoxaparin Inj 40 Mg/0.4 Ml Syr) 40 mg SQ Q24H NIDIA Stop: 11/13/23 22:59 Last Admin: 10/15/23 00:15 Dose: 40 mg Documented By: MARYLU Ferrous Sulfate (Ferrous Sulfate 325 Mg Tab) 325 mg PO BIDM NIDIA Stop: 11/13/23 22:26 Last Admin: 10/15/23 00:14 Dose: 325 mg Documented By: MARYLU Azithromycin 500 mg/ Dextrose 255 mls @ 127.5 mls/hr IV Q24H NIDIA Stop: 10/21/23 21:59 Last Infusion: 10/15/23 00:31 Dose: Infused Documented By: Admin: 10/14/23 22:31 Dose: 127.5 mls/hr Documented By: MARYLU Umeclidinium [place] (Umeclidinium [place] 62.5mcg/Blister 7 Puffs/Inhaler) 1 puffs INH QPM NIDIA Stop: 11/13/23 22:59 Last Admin: 10/15/23 00:16 Dose: 1 puffs Documented By: MARYLU Vitamin D (Cholecalciferol 25 Mcg (1000 Units) Tab) 50 mcg PO BID NIDIA Stop: 11/13/23 22:26 Last Admin: 10/15/23 00:14 Dose: 50 mcg Documented By: MARYLU Discontinued Medications Albuterol (Albut/Ipratrop 3mg/0.5mg Neb 3 Ml Vial) 3 ml NEB NOW STA; Protocol Stop: 10/14/23 17:23 Last Admin: 10/14/23 17:40 Dose: 3 ml Documented By: BRIA Methylprednisolone (Methylprednisolone 125 Mg/2 Ml Vial) 60 mg IV NOW STA Stop: 10/14/23 17:23 Last Admin: 10/14/23 17:41 Dose: 60 mg Documented By: E Imaging Data Radiologist's Impression: Chest X-Ray 10/14/23 17:23 XR chest 1V portable HISTORY: Dyspnea COMPARISON: Chest 04/05/2023. FINDINGS: No pneumothorax. No pleural effusions. No focal lung consolidations to suggest a pneumonia. Mild interstitial thickening. This is likely chronic. No evidence for pulmonary edema. The cardiac silhouette is top normal in size. There is a large hiatus hernia again noted. No acute fractures. IMPRESSION: 1. No acute process within the chest. 2. Large hiatus hernia, unchanged. ACT 112: Negative or not required by law. Electronically signed by: Kuldip Tuttle M.D. 10/14/2023 6:09 PM Discharge Plan Visit Data Chief Complaint: Shortness of Breath/Dyspnea Stated Complaint: SOB,COUGH,FEVER ED Provider: Ronald Moon Discharge Problem: SOB (shortness of breath), COPD exacerbation, MARTINEZ (dyspnea on exertion), Acute bronchitis Patient Disposition: Admitted As Inpatient Condition: Fair Discharge Instructions Interventions: ED Discharge Assessment Last Done: 10/14/23 21:18 Discharge Problem: Acute bronchitis Qualifiers: Bronchitis organism: unspecified organism Qualified Code(s): J20.9 - Acute bronchitis, unspecified
[2023-10-14] MEDS: ALBUT/IPRATROP 3MG/0.5MG NEB 3 ML VIAL NEB STA (17:40)
[2023-10-14] MEDS: methylPREDNISolone 125 MG/2 ML VIAL IV STA (17:41)
[2023-10-14 17:48] LABS: Basophils # (auto) 0.02 K/uL (0.00-0.20); Basophils % (auto) 0.2 %; Eosinophils # (auto) 0.01 K/uL (0.00-0.50); Eosinophils % (auto) 0.1 %; Hematocrit (blood only) 54.2 % (37.0-47.0); Hemoglobin 17.7 g/dl (12.0-16.0); Immature Granulocytes # (auto) 0.04 K/uL (0.01-0.20); Immature Granulocytes % (auto) 0.4 %; Lymphocytes # (auto) 0.71 K/uL (1.20-3.40); Lymphocytes % (auto) 6.9 %; Mean Corpuscular Hemoglobin 31.9 pg (25.0-34.0); Mean Corpuscular Hgb Conc 32.7 g/dL (32.0-36.0); Mean Corpuscular Volume 97.7 fL (80.0-100.0); Mean Platelet Volume 9.1 fL (9.4-12.4); Monocytes # (auto) 0.63 K/uL (0.11-0.59); Monocytes % (auto) 6.1 %; Neutrophils # (auto) 8.91 K/uL (1.40-6.50); Neutrophils % (auto) 86.3 %; Platelet Count 108 K/uL (130-400); RDW Coefficient of Variation 17.5 % (11.5-14.5); Red Blood Count 5.55 M/uL (4.20-5.40); White Blood Count 10.32 K/ul (4.8-10.8)
[2023-10-14 17:51] LABS: Base Excess VBG 6.3 mEq/L; HCO3 VBG 33 mmol/L; PCO2 VBG 56 mmHg (38-50); PO2 VBG 53 mmHg; pH VBG 7.38 (7.36-7.41)
[2023-10-14 17:57] LABS: Albumin Globulin Ratio 1.5 (0.9-2); Albumin Level 4.1 gm/dl (3.4-5.0); BUN Creatinine Ratio 22.6 (10-20); Bilirubin,Total 0.6 mg/dl (0.2-1.0); Calcium 9.1 mg/dl (8.6-10.3); Creatinine Clr Calc Pharmacy 93.6 ml/min; Est GFR (African American) 115.5 ml/min; Est GFR (Non-African American) 99.6 ml/min; Globulin 2.8 gm/dl (2.5-4.0); Magnesium 1.8 mg/dl (1.7-2.4); Potassium 3.9 mmol/L (3.5-5.1); Total Protein 6.9 gm/dl (6.0-8.3)
[2023-10-14 18:04] LABS: Troponin I High Sensitivity 6.3 pg/ml (0-14)
[2023-10-14 18:07] LABS: Partial Thromboplastin Ratio 1.1; Partial Thromboplastin Time 32 Seconds (21-31); Prothrombin Time 11.2 Seconds (9.0-12.0)
--- NOTE | 2023-10-14 18:10 | XRay Report ---
XR chest 1V portable HISTORY: Dyspnea COMPARISON: Chest 04/05/2023. FINDINGS: No pneumothorax. No pleural effusions. No focal lung consolidations to suggest a pneumonia. Mild interstitial thickening. This is likely chronic. No evidence for pulmonary edema. The cardiac s ilhouette is top normal in size. There is a large hiatus hernia again noted. No acute fractures. IMPRESSION: 1. No acute process within the chest. 2. Large hiatus hernia, unchanged. ACT 112: Negative or not required by law. Electronically signed by: Kuldip Tuttle M.D. 10/14/2023 6:09 PM
[2023-10-14 18:29] LABS: Adenovirus PCR Not Detected (NotDetected); Bordetella parapertussis PCR Not Detected (NotDetected); Bordetella pertussis PCR Not Detected (NotDetected); Chlamydia pneumoniae PCR Not Detected (NotDetected); Coronavirus 229E PCR Not Detected (NotDetected); Coronavirus CoV-2 (COVID19)PCR Not Detected (NotDetected); Coronavirus HKU1 PCR Not Detected (NotDetected); Coronavirus NL63 PCR Not Detected (NotDetected); Coronavirus OC43PCR Not Detected (NotDetected); Human Metapneumovirus PCR Not Detected (NotDetected); Influenza A PCR Not Detected (NotDetected); Influenza B PCR Not Detected (NotDetected); Mycoplasma pneumoniae PCR Not Detected (NotDetected); Parainfluenza Virus 1 PCR Not Detected (NotDetected); Parainfluenza Virus 2 PCR Not Detected (NotDetected); Parainfluenza Virus 3 PCR Not Detected (NotDetected); Parainfluenza Virus 4 PCR Not Detected (NotDetected); Respiratory Syncytial VirusPCR Not Detected (NotDetected); Rhinovirus/Enterovirus PCR Not Detected (NotDetected)
--- NOTE | 2023-10-14 18:35 | History & Physical Report ---
Date of Service October 14, 2023 Assessment & Plan (1) Acute exacerbation of chronic obstructive pulmonary disease (COPD): (2) Chronic respiratory failure with hypoxia and hypercapnia: (3) Tobacco use: (4) Medical non-compliance: Plan: This is a 67yo F with a PMH of COPD, tobacco use, chronic hypoxic resp failure on 2L [place] O2, mood disorder and other medical problems listed below who presents with cough and congestion that has worsened over the past few weeks and was found to have a COPD exacerbation. Cough and congestion x 5 days VSS, on baseline 92% on 2L [place] O2 No leukocytosis, vbg pH 7.38, procal pending Resp viral panel negative CXR with no acute process within the chest. Large hiatus hernia, unchanged Given solumedrol 60mg x 1 in ED, albuterol neb Continue Solumedrol 40mg IV daily, Duonebs QIDR, azithromycin 500mg x 3 days, home inhalers Discussed importance of smoking cessation - has reduced to 1 ppd (5) Cor pulmonale: Plan: Appears euvolemic. Monitor volume status closely (6) Mood disorder: Plan: Continue bupropion (7) Chronic back pain: Plan: Continue lyrica, cyclobenzaprine, tylenol DVT Ppx: SQ lovenox (plt count 108 - continue to monitor with daily CBC) Code status: FULL PCP: Sapna Dispo: Admitted to med/tele Patient seen in collaboration with Dr. Barnes. Please see addendum. I spent a total of 75 minutes coordinating, documenting, and providing care for this patient excluding time spent in the performance of separately billed services. History of Present Illness Chief Complaint: SOB Primary Care Provider: Rubi Alejo MD This is a 67yo F with a PMH of COPD, tobacco use, chronic hypoxic resp failure on 2L [place] O2, mood disorder and other medical problems listed below who presents with cough and congestion that has worsened over the past few weeks. Had an episode a few weeks ago with nausea and vomiting while driving in a car with her family. Has continued to feel poorly ever since then with cough, congestion and fatigue. Cough is productive, clear and foamy. Has been using her rescue inhaler and nebulizer. Smokes 1 ppd, down from 2. Has been smoking less over the past week due to feeling poorly. No F/C, CP, N/V, abd pain, dysuria, diarrhea. Chronic constipation, only has 1-2 bowel movements per week at baseline. Rec eived nebs, solu-medrol in ED with improvement to SOB. History of chronic back pain newly on Lyrica and cyclobenzaprine. Allergies Allergy/AdvReac Type Severity Reaction Status Date / Time gluten AdvReac Severe GI Verified 10/14/23 18:27 problems from celiac disease Home Medications Medication Instructions Recorded Confirmed Type cyclobenzaprine 10 mg tablet 10 mg PO AMHS 04/04/23 10/14/23 History ipratropium 0.5 mg-albuterol 3 mg 3 ml inhalation TID PRN COPD FLARE 04/04/23 10/14/23 History (2.5 mg base)/3 mL nebulization UPS soln acetaminophen 500 mg tablet 1,000 mg PO BID 10/14/23 10/14/23 History (Tylenol Extra Strength) albuterol sulfate 90 mcg/actuation 2 puff inhalation Q6H PRN 10/14/23 10/14/23 History aerosol inhaler Shortness Of Breath Or Wheezing bupropion HCl 150 mg tablet,12 hr 100 mg PO BID 10/14/23 10/14/23 History sustained-release cholecalciferol (vitamin D3) 25 50 mcg PO BID 10/14/23 10/14/23 History mcg (1,000 unit) capsule (Vitamin D3) ferrous sulfate 325 mg (65 mg 325 mg PO BID 10/14/23 10/14/23 History iron) tablet (iron) fluticasone 250 mcg-salmeterol 50 1 inh inhalation BID 10/14/23 10/14/23 History mcg/dose blistr powdr for inhalation lidocaine HCl 4 %-menthol 1 % 1 applic topical BID PRN Pain 10/14/23 10/14/23 History topical cream (Icy Hot Max (lidocaine HCl-menthol)) meloxicam 7.5 mg tablet 7.5 mg PO DAILY 10/14/23 10/14/23 History omeprazole 20 mg capsule,delayed 20 mg PO DAILYBB 10/14/23 10/14/23 History release ondansetron HCl 4 mg tablet 4 mg PO Q8H PRN NAUSEA/VOMITING 10/14/23 10/14/23 History pregabalin 25 mg capsule See Rx Instructions .Route .COMPLEX 10/14/23 10/14/23 History sennosides 8.6 mg-docusate sodium 1 tab-cap PO QAM 10/14/23 10/14/23 History 50 mg tablet (Colace 2-In-1) tiotropium bromide 1.25 2 puff inhalation QPM 10/14/23 10/14/23 History mcg/actuation mist for inhalation (Spiriva Respimat) Past Med/Surg History Medical History (Updated 10/14/23 @ 19:59 by Mary Grace Frazier PA-C) Chronic back pain Mood disorder Medical non-compliance Chronic respiratory failure with hypoxia and hypercapnia Cor pulmonale COPD (chronic obstructive pulmonary disease) Anemia Tobacco abuse Gastroparesis Surgical History History of esophagogastroduodenoscopy (EGD) H/O colonoscopy "2007, patient reports normal findings" 10/2013: poor prep, grossly normal exam S/P removal of right ovary Hx of appendectomy History of cholecystectomy Family History Other Cancer Depression Social History Smoking Status: Current every day smoker Tobacco Type: Cigarettes packs per day: 1; Cigarettes Per Day: 30; Second Hand Exposure: No; Do You Dip or Chew Tobacco: No; Hx Alcohol Use: No Hx Substance Use: No Preferred Language: Mongolian Communication Ability: Effective Pan Helper Required: No Beliefs That Will Affect Care: None Current Living Situation: Alone Current Living Situation Comment: patient rents a room to a friend Feels Safe at Home: Yes Assistive Devices: Cane, Scooter/Electric Scooter and Walker Review of Systems Review of Systems: At least ten systems reviewed and negative except as noted in the HPI. Physical Exam Physical Exam: Please see Dr. Barnes' addendum for physical exam. Results & Data Results & Data Vital Signs (Past 12 Hours) Vital Signs Temp Pulse Pulse Resp BP BP Pulse Ox 10/14/23 18:12 10/14/23 18:12 111 H 24 145/88 H 92 10/14/23 17:31 107 H 10/14/23 17:30 95 10/14/23 17:30 36.8 C 104 H 24 168/105 H 95 O2 Del Method O2 Flow Rate 04/30/24 18:12 Nasal Cannula 10/14/23 18:12 Nasal Cannula 2 10/14/23 17:31 10/14/23 17:30 Nasal Cannula 2 10/14/23 17:30 Nasal Cannula 2 Laboratory Results Short CBC 10/14/23 Range/Units 17:20 WBC 10.32 (4.8-10.8) K/ul Hgb 17.7 H (12.0-16.0) g/dl Hct 54.2 H (37.0-47.0) % Plt Count 108 L (130-400) K/uL BMP 10/14/23 17:20 Sodium 135 L Potassium 3.9 Chloride 95 L Carbon Dioxide 31 BUN 12 Creatinine 0.53 L Glucose 109 H Calcium 9.1 Liver Function 10/14/23 Range/Units 17:20 Total Bilirubin 0.6 (0.2-1.0) mg/dl AST 10 L (13-39) U/L ALT 5 L (7-52) U/L Alkaline Phosphatase 86 (34-104) U/L Albumin 4.1 (3.4-5.0) gm/dl Diagnostic Findings Chest X-Ray 10/14/23 17:23 XR chest 1V portable HISTORY: Dyspnea COMPARISON: Chest 04/05/2023. FINDINGS: No pneumothorax. No pleural effusions. No focal lung consolidations to suggest a pneumonia. Mild interstitial thickening. This is likely chronic. No evidence for pulmonary edema. The cardiac silhouette is top normal in size. There is a large hiatus hernia again noted. No acute fractures. IMPRESSION: 1. No acute process within the chest. 2. Large hiatus hernia, unchanged. ACT 112: Negative or not required by law. Electronically signed by: Kuldip Tuttle M.D. 10/14/2023 6:09 PM Supervising Physician Co-Signing Physician Notes I have seen and discussed the case with the collaborating advanced practitioner. I agree with the above H&P. I have reviewed and confirmed the patients medical history, the findings on physical examination, and the patients diagnosis and treatment plan with Freddie PLUNKETT and agree with the information documented. In short, Ms. Woodson is a 67yo woman with a PMH of COPD, tobacco use, chronic hypoxic resp failure on 2L [place] O2, mood disorder who is admitted for acute COPD exacerbation. She reports GI like illness over 2 weeks ago and has experienced worsening cough and wheezing, more progressive over last few days--prompting presentation to ED. She declines any fevers, chills. She reports increase in baseline cough, sputum production. She doesn't really use her rescue inhaler, and couldn't seem to quantity how many puffs weekly--and not using it any more in this current setting. She states she already feels improved with the steroid GENERAL APPEARANCE: AxOx4, no acute distress. HEENT: NC, AT. MMM. EOMI, clear conjunctiva, oropharynx clear. NECK: Supple without lymphadenopathy. No stiffness or restricted ROM. HEART: Normal rate and regular rhythm, normal S1/S1, no m/r/g LUNGS: expiratory wheezing R>L , scattered ABDOMEN: Soft, nontender, nondistended with good bowel sounds heard. BACK: No CVAT, no obvious deformity. EXTREMITIES: Without cyanosis, clubbing or edema. NEUROLOGICAL: Grossly nonfocal. Alert and oriented, moving all 4 extremities. CN not formally tested but appear grossly intact Skin: skin hyperpigmentation on back from sleeping on heating pad : #COPD exacerbation #Tobacco Use #Chronic hypoxic resp failure - Reports 2 week of days of worsening dyspnea, increased sputum, increased cough - 1 ppd current smoker - On 2L home O2 - During prior admissions declined BiPAP - VB.38/56/53 serum HCO3 31 - CXR: w/o consolidation - Duonebs q4h - Prednisone x5 d 40mg IV tomorrow - Three day Azithromycin 500mg IV -NO WBC, follow up procal -will hold CAP coverage at this time -Declined nicotine patch/encouraged cessation I spent a total of 35 minutes coordinating, documenting, and providing care for this patient excluding time spent in the performance of separately billed services. All of the aforementioned completed outside of collaborating with the assigned advanced practitioner for a full treatment plan. I have reviewed the advanced practitioner's documentation, and I agree with, and take responsibility for the plan of care
[2023-10-14 21:53] LABS: Appearance Urine Clear (Clear); Bacteria Urine Automated None Seen (None Seen); Bilirubin Urine Negative (Negative); Blood Urine Negative (Negative); Cast Urine Automated 0-2 /lpf (0-2); Color Urine Dark Yellow; Epithelial Cell Urine Auto 0-2 /hpf (0-2); Glucose Urine UA 3+ (Negative); Ketones Urine 3+ (Negative); Leukocyte Esterase Urine Negative (Negative); Nitrite Urine Negative (Negative); Protein Urine Trace (Negative); RBC Urine Automated 0-2 /hpf (0-2); Specific Gravity Urine 1.023 (1.000-1.030); Urobilinogen Urine Negative (Negative); WBC Urine Automated 0-5 /hpf (0-5); pH Urine 5.5 (4.5-7.5)
[2023-10-14] MEDS ORDERED: ALBUT/IPRATROP 3MG/0.5MG NEB 3 ML VIAL INH PRN (22:27)
[2023-10-14] MEDS ORDERED: POLYETHYLENE (MIRALAX) 17 GM PACK PO PRN (22:27)
[2023-10-14] MEDS ORDERED: ALBUTEROL HFA 8 GM INHALER INH PRN (22:27)
[2023-10-14] MEDS: AZITHROMYCIN 500 MG in DEXTROSE 5% 250 ML IV SCH (22:31)
[2023-10-15] MEDS: ACETAMINOPHEN 500 MG TAB PO SCH (00:13)
[2023-10-15] MEDS: CYCLOBENZAPRINE HCL 10 MG TAB PO SCH (00:13)
[2023-10-15] MEDS: FERROUS SULFATE 325 MG TAB PO SCH (00:14)
[2023-10-15] MEDS: CHOLECALCIFEROL 25 MCG (1000 UNITS) TAB PO SCH (00:14)
[2023-10-15] MEDS: buPROPion SR 100 MG TABCR PO SCH (00:14)
[2023-10-15] MEDS: ENOXAPARIN INJ 40 MG/0.4 ML SYR SQ SCH (00:15)
[2023-10-15] MEDS: UMECLIDINIUM BROMIDE 62.5MCG/BLISTER 7 PUFFS/INHALER INH SCH (00:16)
[2023-10-15 06:09] LABS: Hematocrit (blood only) 51.1 % (37.0-47.0); Hemoglobin 17.1 g/dl (12.0-16.0); Mean Corpuscular Hemoglobin 32.1 pg (25.0-34.0); Mean Corpuscular Hgb Conc 33.5 g/dL (32.0-36.0); Mean Corpuscular Volume 95.9 fL (80.0-100.0); Mean Platelet Volume 9.5 fL (9.4-12.4); Platelet Count 118 K/uL (130-400); RDW Standard Deviation 59.3 fL (36.4-46.3); Red Blood Count 5.33 M/uL (4.20-5.40); White Blood Count 9.14 K/ul (4.8-10.8)
[2023-10-15] MEDS: PANTOprazole 40 MG TAB PO SCH (06:10)
[2023-10-15 06:19] LABS: BUN Creatinine Ratio 30.9 (10-20); Calcium 9.4 mg/dl (8.6-10.3); Creatinine Clr Calc Pharmacy 91.5 ml/min; Est GFR (African American) 114.1 ml/min; Est GFR (Non-African American) 98.4 ml/min; Potassium 4.6 mmol/L (3.5-5.1)
[2023-10-15] MEDS: ALBUT/IPRATROP 3MG/0.5MG NEB 3 ML VIAL NEB SCH (07:17)
[2023-10-15] MEDS: FLUTICASONE/VILANTEROL 100/25MCG 14 PUFFS/INHALER INH SCH (08:25)
[2023-10-15] MEDS: MELOXICAM 7.5 MG TAB PO SCH (08:25)
[2023-10-15] MEDS: DOCUSATE SODIUM/SENNA 50/8.6MG TAB PO SCH (08:26)
[2023-10-15] MEDS: methylPREDNISolone 40 MG in SYRINGE 0 ML IV SCH (08:26)
[2023-10-15] MEDS: PREGABALIN 25 MG CAP PO SCH (08:27)
[2023-10-15] MEDS: TROLAMINE SALICYLATE 10% CRM 255 APPLN/85 GM TUBE EXT PRN (11:03)
--- NOTE | 2023-10-15 22:49 | Hospitalist Progress Note ---
Date of Service October 15, 2023 Assessment & Plan (1) COPD exacerbation: (2) Chronic back pain: (3) Mood disorder: (4) Tobacco use: Plan This is a 67yo F with PMHx significant for COPD, tobacco use, chronic hypoxic resp failure on 2L NC O2, mood disorder who presented with cough and congestion that has worsened over the past few weeks and was found to have a COPD exacerbation. Acute exacerbation of chronic obstructive pulmonary disease (COPD) Chronic respiratory failure with hypoxia and hypercapnia Tobacco use Medical non-compliance Cough and congestion x 5 days On baseline 92% on 2L NC O2 No leukocytosis, vbg pH 7.38, procal normal Resp viral panel negative CXR with no acute process within the chest. Large hiatus hernia, unchanged Given solumedrol 60mg x 1 in ED, albuterol neb Continue Solumedrol 40mg IV daily, Duonebs QIDR, azithromycin 500mg x 3 days, home inhalers Smoking cessation - has reduced to 1 ppd Consider pulmonology consult Cor pulmonale Appears euvolemic Monitor volume status closely Mood disorder Continue bupropion Chronic back pain Continue lyrica, cyclobenzaprine, tylenol Diet: HH DVT Ppx: SQ lovenox (plt count 118 - continue to monitor with daily CBC) Dispo: PT/OT ordered Admission and Anticipated Discharge Date Admission Date: October 14, 2023 Subjective Pt was seen while laying in bed. Notes symptoms of SOB improved but still not back to baseline. Still wheezing. Review of Systems Review of Systems: All systems reviewed & are unremarkable except as noted in Subjective Physical Exam Physical Exam: General: Alert, oriented. No acute distress Skin: No noted rashes or bruises Psych: Appropriate mood and affect Neuro: No gross deficits HEENT: NC/AT CV: RRR Resp: Breath sounds with wheezing bilaterally, no increased effort of breathing. Abdomen: Soft, nontender, nondistended. No guarding. Extremities: No edema in lower extremities bilaterally. Results & Data Results & Data Vital Signs (Past 12 Hours) Vital Signs Temp Pulse Pulse Resp BP BP Pulse Ox 10/15/23 11:06 36.4 C L 86 19 145/82 H 96 10/15/23 10:57 87 14 91 10/15/23 08:22 10/15/23 07:58 36.6 C 86 16 144/87 H 93 10/15/23 07:23 57 L 14 95 05/01/24 06:57 68 10/15/23 03:24 36.4 C L 78 20 124/81 94 O2 Del Method O2 Flow Rate 10/15/23 11:06 Nasal Cannula, Nebulizer 2 10/15/23 10:57 Nasal Cannula 2 10/15/23 08:22 Nasal Cannula 2 10/15/23 07:58 Room Air 10/15/23 07:23 Nasal Cannula 2 10/15/23 06:57 10/15/23 03:24 Nasal Cannula
--- OUTSIDE RECORDS SUMMARY | 2023-10-16 01:02 | External Medical Summary | Summary of Care ---
Author Name Unknown Organization [facility] Address [address] [place] [address] Phone [phone] Care Team Providers Care Music Pastor Name Role Phone Rubi Alejo MD Primary Care Provider [phone] Reason for Visit * Reason Comments Back Pain Encounter Details Date Type Department Care Team (Late st Contact Info) Description 10/01/2023 9:00 AM EDT Telemedicine General Internal Medicine [facility] [address] [place] [address] Rubi Alejo MD [address] [place] [address] Chronic right-sided low back pain without sciatica*; Tobacco use disorder; Chronic hypoxemic respiratory failure (HCC); COPD, moderate (HCC); Cor pulmonale, chronic (HCC); DDD (degenerative disc disease), lumbar; Gastroparesis; Hiatal hernia; Incidental lung nodule, less than or equal to 3mm; Iron deficiency anemia, unspecified iron deficiency anemia type; On supplemental oxygen by nasal cannula; Acute left-sided low back pain without sciatica Allergies Active Allergy Reactions Criticality Noted Date Comments Gluten Meal 05/25/2014 Celiac disease documented as of this encounter (statuses as of 10/01/2023) Medications Medication Sig Dispensed Refills Start Date End Date Status NEBULIZER COMPRESSOR MISCIndications: COPD, severity to be determined (HCC) Use as directed 1 Each 0 4 Active oxygen GAS Use as directed. 0 Active Albuterol Sulfate HFA 108 (90 Base) MCG/ACT Inhalation Aerosol Solution Inhale 2 Puffs by mouth every 6 hours as needed for Shortness of Breath or Wheezing. 18 g 5 3 Active Vitamin D3 1.25 MG (32379 UT) Oral CapsuleIndicatio ns:Vitamin D deficiency TAKE 1 CAPSULE BY MOUTH ONE TIME PER WEEK 12 Capsule 0 4 Active Tiotropium [place] Monohydrate 1.25 MCG/ACT Inhalation Aerosol Solution (Spiriva Respimat) Inhale 2 Puffs by mouth every evening. 4 g 5 4 Active Fluticasone-Salm eterol 250-50 MCG/ACT Inhalation Aerosol Powder Breath Activated (Advair Diskus) Inhale 1 Puff by mouth in the morning and 1 Puff before bedtime. 1 Each 5 4 Active Ipratropium-Albu terol 0.5-2.5 (3) MG/3ML Inhalation Solution (Duoneb)Indicati ons:COPD, moderate (HCC) Inhale 3 mL via nebulizer in the morning and 3 mL at noon and 3 mL in the evening and 3 mL before bedtime. Take instead of spiriva when COPD flares up. 0 4 Active Ondansetron HCl 4 MG Oral TabletIndication s:Nausea and vomiting, unspecified vomiting type Take 1 Tablet by mouth every 8 hours as needed for Nausea. 30 Tablet 1 4 Active Sennosides-Docus ate Sodium 8.6-50 MG Oral Tablet (Colace 2-IN-1)Indicatio ns:Other constipation Take 1 Tablet by mouth in the morning. 0 4 Active Cyclobenzaprine HCl 10 MG Oral Tablet (Flexeril)Indica tions:Myositis of right shoulder, unspecified myositis type TAKE 1 TABLET BY MOUTH IN THE MORNING AND BEFORE BEDTIME 20 Tablet 1 4 Active Acetaminophen 500 MG Oral Tablet (Tylenol Extra Strength) Take 2 Tablets by mouth 2 times a day. 0 Active Icy Hot Max Lidocaine 4-1 % External Cream (Lidocaine-Menth ol) Apply topically to affected area. Apply to back 0 Active buPROPion HCl ER (SR) 150 MG Oral Tablet Extended Release 12 Hour (Wellbutrin SR)Indications:T obacco use disorder Take 1 Tablet by mouth in the morning and 1 Tablet before bedtime. 60 Tablet 5 4 Active Pregabalin 25 MG Oral Capsule (Lyrica)Indicati ons:Chronic right-sided low back pain without sciatica Take 1 Capsule by mouth in the morning and 1 Capsule before bedtime. In 1 week can increase 1 in am and 2 tab at night. 90 Capsule 1 4 Active Meloxicam 7.5 MG Oral TabletIndication s:Chronic right-sided low back pain without sciatica,Acute left-sided low back pain without sciatica Take 1 Tablet by mouth in the morning and 1 Tablet before bedtime. With food for pain. One pain better go down to once a day. 40 Tablet 3 4 Active Diclofenac Sodium 3 % External GelIndications:C hronic right-sided thoracic back pain Apply topically to affected area 3 times a day as needed for Pain, Breakthrough or Pain. Apply to Rt mid back 100 g 5 4 10/01/19 24 Discontinued(Me dication List Clean Up) buPROPion HCl ER (SR) 100 MG Oral Tablet Extended Release 12 Hour (Wellbutrin SR)Indications:T obacco abuse Take 1 Tablet by mouth in the morning and 1 Tablet before bedtime. 180 Tablet 3 4 10/01/19 24 Discontinued(Me dication/Dose Changed) Omeprazole 20 MG Oral Capsule Delayed Release (PriLOSEC)Indica tions:Hiatal hernia Take 1 Capsule by mouth in the morning. 1 hour before the first meal of the day and at bedtime. 180 Capsule 3 4 10/01/19 24 Discontinued(Me dication List Clean Up) Meloxicam 7.5 MG Oral TabletIndication s:Acute left-sided low back pain without sciatica Take 1 Tablet by mouth in the morning. With food for pain. After after medrol pack over. 30 Tablet 3 4 10/01/19 24 Discontinued methylPREDNISolo ne 4 MG Oral Tablet Therapy Pack (Medrol Dosepack)Indicat ions:Acute left-sided low back pain without sciatica follow package directions 21 Tablet 0 4 10/01/19 24 Discontinued(Me dication List Clean Up) documented as of this encounter (statuses as of 10/01/2023) Active Problems Problem Noted Date Diagnosed Date Cor pulmonale, chronic 09/05/2023 DDD (degenerative disc disease), lumbar 02/12/20 23 Chronic right-sided low back pain without sciati ca 02/11/2023 Chronic hypoxemic respiratory failure 11/29/2022 Incidental lung nodule, less than or equal to 3m m 02/28/2021 COPD, moderate 01/01/2021 On supplemental oxygen by nasal cannula 01/02/20 21 Hiatal hernia 01/01/2021 Iron deficiency anemia 10/20/2018 Tobacco use disorder 09/17/2007 ADVANCE DIRECTIVE INFORMATION 03/18/2007 Overview: No, Advance Directive brochure given to patient. Gastroparesis 10/10/2004 documented as of this encounter (statuses as of 10/01/2023) Resolved Problems Problem Noted Date Diagnosed Date Resolved Date Prediabetes 01/01/2021 07/31/2023 COPD exacerbation 03/28/2014 01/01/2021 Alcohol dependence 04/14/2008 Overview: ICD-10 update of inactive term documented as of this encounter (statuses as of 10/01/2023) Immunizations Name Administration Dates Next Due Pneumococcal Polysaccharide PPV23 (Pneumovax) documented as of this encounter Social History Tobacco Use Types Packs/Day Years Used Date Smoking Tobacco: Every Day Cigarettes 1 53 Smokeless Tobacco: Never Comments:used to be 2.5ppd, down to 7 cigarettes per day Alcohol Use Standard Drinks/Week Comments Yes 0 (1 standard drink = 0.6 oz pure alcohol) DRINKING HEAVILY/quit drinking 1 yr ago PHQ-2 Answer Date Recorded PHQ-2 Score -1 10/20/2018 Sex and Gender Information Value Date Recorded Sex Assigned at Not on file Gender Identity Not on file Sexual Orientation Not on file Job Start Date Occupation Industry Not on file Not on file Not on file documented as of this encounter Progress Notes * Rubi Alejo MD - 10/01/2023 9:27 AM EDT Images from the original note were not included. History of Present Illness Demi Woodson is a 67 year old female that presents for Back Pain 67 year oldYOfemale with PMH significant for COPD on oxygen continues, hiatal hernia, tobacco abuse, lumbar DDD and gastroparesis presents here recheck Back Pain This is a chronic problem. The current episode started more than 1 month ago (Six month or more). The problem occurs constantly. The problem has been waxing and waning (was getting better after steroid and muscle relaxant but then gradually coming back specially worse last 1 week) since onset. The pain is present in the lumbar spine and thoracic spine (in right mid back /shoulder blade and left lower back). The pain does not radiate. The pain is at a severity of 5/10. The pain is moderate. The pain is The same all the time. The symptoms are aggravated by bending, sitting, twisting and position. Stiffness is present All day. Pertinent negatives include no abdominal pain, bladder incontinence, bowel incontinence, chest pain, dysuria, fever, numbness, paresis, paresthesias, perianal numbnessor weakness. Risk factors include lack of exercise and sedentary lifestyle (smoker and has chronic cough). She has tried muscle relaxant, heat and NSAIDs (taking meloxicam Mobic once a day and musclerelaxant as needed. Did not tolerate gabapentin in past) for the symptoms. The treatment provided mild relief. Physical Exam There were no vitals filed for this visit. Physical Exam Vitals reviewed: exam done with the help of patient and may not be accurate due to video quality. Constitutional: General: She is not in acute distress. Appearance: Normal appearance. She is normal weight. HENT: Head: Normocephalic. Pulmonary: Effort: No respiratory distress. Musculoskeletal: Comments: Tenderness in the right mid back and also in left lower back per patient I have reviewed the following results: Assessment and Plan Chronic right-sided low back pain without sciatica I have reviewed the patients controlled substance dispensing history in the Prescription Drug Monitoring Program in compliance with the [employer] regulations before prescribing a controlled substance. - Pregabalin 25 MG Oral Capsule (Lyrica); Take 1 Capsule by mouth in the morning and 1 Capsule before bedtime. In 1 week can increase 1 in am and 2 tab at night. - Meloxicam 7.5 MG Oral Tablet; Take 1 Tablet by mouth in the morning and 1 Tablet before bedtime. With food for pain. One pain better go down to once a day. Increase for few weeks and then go down to once a day Heat and OTC topical Suggest to try physical therapy again Tobacco use disorder Counseling done for smoking cessation - buPROPion HCl ER (SR) 150 MG Oral Tablet Extended Release 12 Hour (Wellbutrin SR); Take 1 Tablet by mouth in the morning and 1 Tablet before bedtime. - increased Chronic hypoxemic respiratory failure (HCC) COPD, moderate (HCC) Cor pulmonale, chronic (HCC) DDD (degenerative disc disease), lumbar Gastroparesis Hiatal hernia Incidental lung nodule, less than or equal to 3mm Iron deficiency anemia, unspecified iron deficiency anemia type On supplemental oxygen by nasal cannula Acute left-sided low back pain without sciatica - Meloxicam 7.5 MG Oral Tablet; Take 1 Tablet by mouth in the morning and 1 Tablet before bedtime. With food for pain. One pain better go down to once a day. Wrap-Up Time: I spent a total of 30-39 minutes (exact time 34 mins) on the date of service in preparation, delivery, and documentation of the care provided to Demi Woodson excluding any time spent in the performance of separately billed services. Telemedicine: Patient location: HOME. I was in a hospital or clinic location. After connecting through televideo,patient was verified with two unique identifiers. Patient (or authorized legal account retention representative) was then informed that this was a Telemedicine visit and being conducted confidentially over secure lines. Methods to assure confidentiality were taken. Patient acknowledged consent and understanding of pr ivacy and security of the Telemedicine visit. The patient agreed to participate. documented in this encounter Nursing Notes * Ximena Quintanilla LPN - 10/01/2023 9:08 AM EDT Patient c/o worsening back pain. She's been trying icy hot cream (voltaren gel was too expensive) and taking 1000mg ES tylenol twice daily but it doesn't really touch the pain. documented in this encounter Plan of Treatment Upcoming Encounters Date Type Department Care Team (Late st Contact Info) Description 10/16/2023 9:40 AM EDT Office Visit General Internal Medicine [address] [place], [place] [address] Rubi Alejo MD [address] [place] [address] 02/06/2024 12:30 PM EDT Imaging Radiology [facility] [place] [address] [place] [address] Health Maintenance Due Date Last Done Comments DISCUSS TOBACCO CESSATION (REFER TO SMARTSET #0241) 1957 HIV Screening 1972 Alpha-1 Antitrypsin 11/13/1975 Hepatitis C Screening 11/13/1975 DTaP,Tdap,and Td Vaccines (1 - Tdap) 1976 Cologuard 2002 Sigmoidoscopy 2002 Fecal Occult Blood Test 09/19/2005 09/19/2004 Zoster Vaccines (1 of 2) 11/13/2007 Pneumococcal Vaccine: 65+ Years (2 of 2 - PCV) 08/14/2008 08/15/2007 Depression Screening 10/21/2019 10/20/2018 COVID-19 Vaccine (1 - season) 2023 Colonoscopy 10/30/2023 10/29/2013 Colorectal Cancer Screening 10/30/2023 Mammogram 12/05/2023 12/04/2022, 11/15, 08/31/2008, Additional history exists DXA Scan 12/09/2023 12/08/2013 Influenza Vaccine (FLU shot) (Season Ended) 2024 O2 ASSESSMENT COMPLETED IN PAST YEAR FOR COPD 09/04/2024 09/05/2023 Diabetes Screening 07/10/2026 07/10/2023, 0 07/10/2023, 04/03/2023, Additional history exists Lipid Panel 04/03/2028 04/03/2023, 11/14, 12/26/2020, Additional history exists Pap Smear Discontinued 08/26/2008, 08/14, 10/24/2004, Additional history exists Lung Cancer Screening Completed 02/05/2023, 021 GARDASIL-HPV IMMUNIZATION SERIES Aged Out No longer eligible based on patient's age to complete this topic Hepatitis B Aged Out No longer eligi ble based on patient's age to complete this topic MENINGOCOCCAL (MENACTRA/MENVEO) Aged Out No longer eligible based on patient's age to complete this topic documented as of this encounter Medical Devices Not on filedocumented as of this encounter Visit Diagnoses Diagnosis Chronic right-sided low back pain without sciatica- Primary Tobacco use disorder Chronic hypoxemic respiratory failure (HCC) Chronic respiratory failure COPD, moderate (HCC) Chronic airway obstruction, not elsewhere classified Cor pulmonale, chronic (HCC) Chronic pulmonary heart disease, unspecified DDD (degenerative disc disease), lumbar Degeneration of lumbar or lumbosacral intervertebral disc Gastroparesis Hiatal hernia Diaphragmatic hernia without mention of obstruction or gangrene Incidental lung nodule, less than or equal to 3mm Solitary pulmonary nodule Iron deficiency anemia, unspecified iron deficiency anemia type On supplemental oxygen by nasal cannula Acute left-sided low back pain without sciatica documented in this encounter Care Teams Music Pastor Relationship Specialty Start Date End Date Rubi Alejo MD [address] [place] [address] PCP - General Internal Medicine 04/03/23 documented as of this encounter
--- OUTSIDE RECORDS SUMMARY | 2023-10-16 01:02 | External Medical Summary | Summary of Care ---
Author Name Unknown Organization [facility] Address [address] [place] [address] Phone [phone] Care Team Providers Care Fashion Designer Name Role Phone Genesis Alejo MD Primary Care Provider [phone] Reason for Visit * Reason Onset Date Comments Medication Question 10/08/2023 Encounter Details Date Type Department Care Team (Late st Contact Info) Description 10/08/2023 Refill General Internal Medicine [facility] [address] [place] [address] Genesis Alejo MD [address] [place] [address] Chronic right-sided low back pain without sciatica; Acute left-sided low back pain without sciatica Allergies Active Allergy Reactions Criticality Noted Date Comments Gluten Meal 05/25/2014 Celiac disease documented as of this encounter (statuses as of 10/08/2023) Medications Medication Sig Dispensed Refills Start Date End Date Status NEBULIZER COMPRESSOR MISCIndications:CO PD, 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 0 Active Albuterol Sulfate HFA 108 (90 Base) MCG/ACT Inhalation Aerosol Solution Inhale 2 Puffs by mouth every 6 hours as needed for Shortness of Breath or Wheezing. 18 g 5 04/18/2023 Active Vitamin D3 1.25 MG (12929 UT) Oral CapsuleIndications :Vitamin D deficiency TAKE 1 CAPSULE BY MOUTH ONE TIME PER WEEK 12 Capsule 0 06/17/2023 Active Tiotropium [place] Monohydrate 1.25 MCG/ACT Inhalation Aerosol Solution (Spiriva Respimat) Inhale 2 Puffs by mouth every evening. 4 g 5 07/25/2023 Active Fluticasone-Salmet mignon 250-50 MCG/ACT Inhalation Aerosol Powder Breath Activated (Advair Diskus) Inhale 1 Puff by mouth in the morning and 1 Puff before bedtime. 1 Each 5 07/25/2023 Active Ipratropium-[place] rol 0.5-2.5 (3) MG/3ML Inhalation Solution (Duoneb)Indication s:COPD, moderate (HCC) Inhale 3 mL via nebulizer in the morning and 3 mL at noon and 3 mL in the evening and 3 mL before bedtime. Take instead of spiriva when COPD flares up. 0 07/25/2023 Active Ondansetron HCl 4 MG Oral TabletIndications: Nausea and vomiting, unspecified vomiting type Take 1 Tablet by mouth every 8 hours as needed for Nausea. 30 Tablet 1 09/05/2023 Active Sennosides-Docusat e Sodium 8.6-50 MG Oral Tablet (Colace 2-IN-1)Indications :Other constipation Take 1 Tablet by mouth in the morning. 0 09/05/2023 Active Cyclobenzaprine HCl 10 MG Oral Tablet (Flexeril)Indicati ons:Myositis of right shoulder, unspecified myositis type TAKE 1 TABLET BY MOUTH IN THE MORNING AND BEFORE BEDTIME 20 Tablet 1 09/19/2023 Active Acetaminophen 500 MG Oral Tablet (Tylenol Extra Strength) Take 2 Tablets by mouth 2 times a day. 0 Active Icy Hot Max Lidocaine 4-1 % External Cream (Lidocaine-Menthol ) Apply topically to affected area. Apply to back 0 Active buPROPion HCl ER (SR) 150 MG Oral Tablet Extended Release 12 Hour (Wellbutrin SR)Indications:Tob acco use disorder Take 1 Tablet by mouth in the morning and 1 Tablet before bedtime. 60 Tablet 10/01/2023 Active Pregabalin 25 MG Oral Capsule (Lyrica)Indication s:Chronic right-sided low back pain without sciatica Take 1 Capsule by mouth in the morning and 1 Capsule before bedtime. In 1 week can increase 1 in am and 2 tab at night. 90 Capsule 1 10/01/2023 Active Meloxicam 7.5 MG Oral TabletIndications: Chronic right-sided low back pain without sciatica,Acute left-sided low back pain without sciatica Take 1 Tablet by mouth in the morning and 1 Tablet before bedtime. With food for pain for 2 weeks then once daily.. 40 Tablet 3 10/08/2023 Active Meloxicam 7.5 MG Oral TabletIndications: Chronic right-sided low back pain without sciatica,Acute left-sided low back pain without sciatica Take 1 Tablet by mouth in the morning and 1 Tablet before bedtime. With food for pain. One pain better go down to once a day. 40 Tablet 3 10/01/2023 Discontinue d(Refill) documented as of this encounter (statuses as of 10/08/2023) Active Problems Problem Noted Date Diagnosed Date [...] as of this encounter (statuses as of 10/08/2023) Resolved Problems Problem Noted Date Diagnosed Date Resolved Date Prediabetes 01/01/2021 07/31/2023 COPD exacerbation 03/28/2014 01/01/2021 Alcohol dependence 04/14/2008 Overview: ICD-10 update of inactive term documented as of this encounter (statuses as of 10/08/2023) Immunizations Name Administration Dates Next Due Pneumococcal [...] on file documented as of this encounter Miscellaneous Notes * Telephone Encounter - Genesis Alejo MD - 10/08/2023 12:53 PM EDTSigned Prescriptions: Disp Refills Meloxicam 7.5 MG Oral Tablet 40 Tab*3 Sig: Take 1 Tablet by mouth in the morning and 1 Tablet before bedtime. With food for pain for 2 weeks then once daily..Authorizing Provider: GENESIS ALEJO * Telephone Encounter - Genesis Alejo MD - 10/08/2023 12:52 PM EDT -sent * Telephone Encounter - Aicha Sandoval LPN - 10/08/2023 11:43 AM EDT Received fax from [employer] requesting clarification of meloxicam script. Taking once or twice daily? documented in this encounter Plan of Treatment Upcoming Encounters Date Type Department Care Team (Late st Contact Info) Description 10/16/2023 9:40 AM EDT Office Visit General Internal Medicine [address] [place] [address] [place], [place] [address] Genesis Alejo MD [address] [place] [address] 02/06/2024 12:30 PM EDT Imaging Radiology [facility] [address] [facility], [place] [address] [place] [address] Health Maintenance Due Date Last Done Comments DISCUSS TOBACCO CESSATION (REFER TO SMARTSET #4194) 1957 HIV Screening 1972 Alpha-1 Antitrypsin 11/13/1975 Hepatitis C Screening 11/13/1975 DTaP,Tdap,and Td Vaccines (1 - Tdap) 1976 Cologuard 2002 Sigmoidoscopy 2002 Fecal Occult Blood Test 09/19/2005 09/19/2004 Zoster Vaccines (1 of 2) 11/13/2007 Pneumococcal Vaccine: 65+ Years (2 of 2 - PCV) 08/14/2008 08/15/2007 Depression Screening 10/21/2019 10/20/2018 COVID-19 Vaccine ( - season) 2023 Colonoscopy 10/30/2023 10/29/2013 Colorectal [...] Diagnosis Chronic right-sided low back pain without sciatica Acute left-sided low back pain without sciatica documented in this encounter Care Teams Fashion Designer Relationship Specialty Start Date End Date Genesis Alejo MD [address] [place] [address] PCP - General Internal Medicine 04/03/23 documented as of this encounter
--- OUTSIDE RECORDS SUMMARY | 2023-10-16 01:02 | External Medical Summary | Summary of Care ---
Author Name Unknown Organization [facility] Address [address] [place] [address] Phone [phone] Care Team Providers Care Equipment Associate Name Role Phone Genesis Alejo MD Primary Care Provider [phone] Reason for Visit * Reason Onset Date Comments Medication Refill 09/02/2023 Encounter Details Date Type Department Care Team (Late st Contact Info) Description 09/02/2023 Refill General Internal Medicine [facility] [address] [place] [address] Genesis Alejo MD [address] [place] [address] Tobacco abuse Allergies Active Allergy Reactions Criticality Noted Date Comments Gluten Meal 05/25/2014 Celiac disease documented as of this encounter (statuses as of 09/04/2023) Medications Medication Sig Dispensed Refills Start Date [...] or Wheezing. 18 g 5 04/18/2023 Active Gabapentin 300 MG Oral Capsule (Neurontin)Indic ations:Chronic right-sided low back pain without sciatica,DDD (degenerative disc disease), lumbar Take 1 Capsule by mouth in the morning and 1 Capsule before bedtime. 180 Capsule 3 05/26/2023 Active Vitamin D3 1.25 MG (06348 UT) Oral CapsuleIndicatio ns:Vitamin D deficiency TAKE 1 CAPSULE BY MOUTH ONE TIME PER WEEK 12 Capsule 0 06/17/2023 Active Diclofenac Sodium 3 % External GelIndications:C hronic right-sided thoracic back pain Apply topically to affected area 3 times a day as needed for Pain, Breakthrough or Pain. Apply to Rt mid back 100 g 5 07/10/2023 Active Tiotropium [place] Monohydrate 1.25 MCG/ACT Inhalation Aerosol Solution (Spiriva Respimat) Inhale 2 Puffs by mouth every evening. 4 g 5 07/25/2023 Active Fluticasone-Salm eterol 250-50 MCG/ACT Inhalation Aerosol Powder Breath Activated (Advair Diskus) Inhale 1 Puff by mouth in the morning and 1 Puff before bedtime. 1 Each 5 07/25/2023 Active Ipratropium-Albu terol 0.5-2.5 (3) MG/3ML Inhalation Solution (Duoneb)Indicati ons:COPD, moderate (HCC) Inhale 3 mL via nebulizer in the morning and 3 mL at noon and 3 mL in the evening and 3 mL before bedtime. Take instead of spiriva when COPD flares up. 0 07/25/2023 Active Omeprazole 20 MG Oral Capsule Delayed Release (PriLOSEC) Take 1 Capsule by mouth in the morning. 1 hour before the first meal of the day. 90 Capsule 3 08/15/2023 Active Cyclobenzaprine HCl 10 MG Oral Tablet (Flexeril)Indica tions:Myositis of right shoulder, unspecified myositis type TAKE 1 TABLET BY MOUTH IN THE MORNING AND BEFORE BEDTIME 20 Tablet 1 08/29/2023 Active buPROPion HCl ER (SR) 100 MG Oral Tablet Extended Release 12 Hour (Wellbutrin SR)Indications:T obacco abuse Take 1 Tablet by mouth in the morning and 1 Tablet before bedtime. 180 Tablet 3 09/04/2023 Active buPROPion HCl ER (SR) 100 MG Oral Tablet Extended Release 12 Hour (Wellbutrin SR)Indications:T obacco abuse Take 1 Tablet by mouth in the morning and 1 Tablet before bedtime. 60 Tablet 5 08/05/2023 4 Discontinue d(Refill) documented as of this encounter (statuses as of 09/04/2023) Active Problems Problem Noted Date Diagnosed Date DDD (degenerative disc disease), lumbar 02/12/20 23 Chronic right-sided low back pain without sciati ca 02/11/2023 Chronic hypoxemic respiratory failure 11/29/2022 Incidental lung nodule, less than or equal to 3m m 02/28/2021 COPD, moderate 01/01/2021 On supplemental oxygen by nasal cannula 01/02/20 Hiatal hernia 01/01/2021 Iron deficiency anemia 10/20/2018 Tobacco use disorder 09/17/2007 ADVANCE DIRECTIVE INFORMATION 03/18/2007 Overview: No, Advance Directive brochure given to patient. Gastroparesis 10/10/2004 documented as of this encounter (statuses as of 09/04/2023) Resolved Problems Problem Noted Date Diagnosed Date Resolved Date Prediabetes 01/01/2021 07/31/2023 COPD exacerbation 03/28/2014 01/01/2021 Alcohol dependence 04/14/2008 Overview: ICD-10 update of inactive term documented as of this encounter (statuses as of 09/04/2023) Immunizations Name Administration Dates Next Due Pneumococcal [...] Telephone Encounter - Genesis Alejo MD - 09/04/2023 8:57 AM EDTSigned Prescriptions: Disp Refills buPROPion HCl ER (SR) 100 MG Oral Tablet E*180 Ta*3 Sig: Take 1 Tablet by mouth in the morning and 1 Tablet before bedtime. Authorizing Provider: GENESIS ALEJO * Telephone Encounter - Jemima Golden LPN - 09/04/2023 8:39 AM EDTPending Prescriptions: Disp Refills buPROPion HCl ER (SR) 100 MG Oral Tablet E*180 Ta*1 Sig: Take 1 Tablet by mouth in the morning and 1 Tablet before bedtime. * Telephone Encounter - Jemima Golden LPN - 09/04/2023 8:38 AM EDT 90 day supply pended if agreeable * Telephone Encounter - Alexandra Mehta OSA - 09/02/2023 5:16 PM EDT Did you pend patient's preferred pharmacy and medication before forwarding?yes Pharmacy: [id number] [id number] [facility] Pending Prescriptions: Disp Refills buPROPion HCl ER (SR) 100 MG Oral Tablet *60 Tab*5 Sig: Take 1 Tablet by mouth in the morning and 1 Tablet before bedtime. Last Visit: 07/10/2023 (in office), Visit date not found (telemedicine) Next Visit: 10/16/2023 If no future appointments scheduled, and last appointment is greater than a year ago, please schedule patient for a follow-up appointment Last date the medication was ordered: [id number] Is this request for a controlled substance?No Urine Drug Screen:No results found for this or any previous visit. Patient Phone Numbers Labs: Lab Results Component Value Date/Time CREAT 0.6 07/10/2023 11:09 AM CREAT 0.43 (A) 12/26/2020 12:00 AM CREAT 0.6 10/26/2013 02:38 PM POTASSIUM 4.2 07/10/2023 11:09 AM POTASSIUM 4.5 12/26/2020 12:00 AM POTASSIUM 3.9 10/26/2013 02:38 PM TSH 1.28 07/10/2023 11:09 AM TSH 1.20 10/26/2013 02:38 PM LDLCALC 66 04/03/2023 12:04 PM LDLCALC 93 12/26/2020 12:00 AM LDLCALC 96 12/14/2008 12:57 PM ALT 9 (L) 07/10/2023 11:09 AM ALT 9 (L) 12/14/2008 12:57 PM HGBA1C 5.2 07/10/2023 11:09 AM HGBA1C 5.9 (A) 12/26/2020 12:00 AM documented in this encounter Plan of Treatment Upcoming Encounters Date Type Department Care Team (Late st Contact Info) Description 10/16/2023 9:40 AM EDT Office Visit General Internal Medicine [facility] [address] [place] [address] Genesis Alejo MD [address] [place] [address] 02/06/2024 12:30 PM EDT Imaging Radiology [facility] [address] [facility] [address] [facility] [place] [address] Health Maintenance Due Date Last Done Comments DISCUSS TOBACCO CESSATION (REFER TO SMARTSET #3833) 1957 HIV Screening 1972 Alpha-1 Antitrypsin 11/13/1975 Hepatitis C Screening 11/13/1975 DTaP,Tdap,and Td Vaccines (1 - Tdap) 1976 Cologuard 2002 Sigmoidoscopy 2002 Fecal Occult Blood Test 09/19/2005 09/19/2004 Zoster Vaccines (1 of 2) 11/13/2007 Pneumococcal Vaccine: 65+ Years (2 of 2 - PCV) 08/14/2008 08/15/2007 Depression Screening 10/21/2019 10/20/2018 COVID-19 Vaccine (1 - 2022- season) 2023 Influenza Vaccine (FLU shot) (#1) 2023 Colonoscopy 10/30/2023 10/29/2013 Colorectal Cancer Screening 10/30/2023 Mammogram 12/05/2023 12/04/2022, 11/15, 08/31/2008, Additional history exists DXA Scan 12/09/2023 12/08/2013 O2 ASSESSMENT COMPLETED IN PAST YEAR FOR COPD 07/10/2024 07/10/2023 Diabetes Screening 07/10/2026 07/10/2023, 0 07/10/2023, 04/03/2023, Additional history exists Lipid Panel 04/03/2028 04/03/2023, 11/14, 12/26/2020, Additional history exists Pap Smear Discontinued 08/26/2008, 08/14, 10/24/2004, Additional history exists LUNG CANCER SCREENING - USE SMARTSET 83980 Completed 02/05/2023, 01/10/2021 GARDASIL-HPV IMMUNIZATION SERIES Aged Out No longer [...] as of this encounter Visit Diagnoses Diagnosis Tobacco abuse Tobacco use disorder documented in this encounter Care Teams Equipment Associate Relationship Specialty Start Date End Date Genesis Alejo MD [address] [place] [address] PCP - General Internal Medicine 04/03/23 documented as of this encounter
--- OUTSIDE RECORDS SUMMARY | 2023-10-16 01:02 | External Medical Summary | Summary of Care ---
Author Name Unknown Organization [facility] Address [address] [place] [address] Phone [phone] Care Team Providers Care Prover Name Role Phone Rubi Alejo MD Primary Care Provider [phone] Reason for Visit * Reason Comments Emergency Department Follow-Up [facility] [place] er 0 09/04/2023 Encounter Details Date Type Department Care Team (Late st Contact Info) Description 09/05/2023 11:00 AM EDT Office Visit General Internal Medicine [facility] [address] [facility] [place] [address] Rubi Alejo MD [address] [facility] [place] [address] Acute left-sided low back pain without sciatica*; Nausea and vomiting, unspecified vomiting type; Other constipation; Cor pulmonale, chronic (HCC); On supplemental oxygen by nasal cannula; Hiatal hernia; Gastroparesis; COPD, moderate (HCC); Chronic right-sided low back pain without sciatica; Chronic hypoxemic respiratory failure (HCC); Iron deficiency anemia, unspecified iron deficiency anemia type; Tobacco use disorder Allergies Active Allergy Reactions Criticality Noted Date Comments Gluten Meal 05/25/2014 Celiac disease documented as of this encounter (statuses as of 09/19/2023) Medications Medication Sig Dispensed Refills Start Date [...] 5 3 Active Vitamin D3 1.25 MG (31335 UT) Oral CapsuleIndicatio ns:Vitamin D deficiency TAKE 1 CAPSULE BY MOUTH ONE TIME PER WEEK 12 Capsule 0 4 Active Diclofenac Sodium 3 % External GelIndications:C hronic right-sided thoracic back pain Apply topically to affected area 3 times a day as needed for Pain, Breakthrough or Pain. Apply to Rt mid back 100 g 5 4 Active Tiotropium [place] Monohydrate 1.25 MCG/ACT Inhalation Aerosol Solution (Spiriva [...] when COPD flares up. 0 4 Active buPROPion HCl ER (SR) 100 MG Oral Tablet Extended Release 12 Hour (Wellbutrin SR)Indications:T obacco abuse Take 1 Tablet by mouth in the morning and 1 Tablet before bedtime. 180 Tablet 3 4 Active Ondansetron HCl 4 MG Oral TabletIndication s:Nausea and vomiting, unspecified vomiting type Take 1 Tablet by mouth every 8 hours as needed for Nausea. 30 Tablet 1 4 Active Omeprazole 20 MG Oral Capsule Delayed Release (PriLOSEC)Indica tions:Hiatal hernia Take 1 Capsule by mouth in the morning. 1 hour before the first meal of the day and at bedtime. 180 Capsule 3 4 Active Meloxicam 7.5 MG Oral TabletIndication s:Acute left-sided low back pain without sciatica Take 1 Tablet by mouth in the morning. With food for pain. After after medrol pack over. 30 Tablet 3 4 Active methylPREDNISolo ne 4 MG Oral Tablet Therapy Pack (Medrol Dosepack)Indicat ions:Acute left-sided low back pain without sciatica follow package directions 21 Tablet 0 4 Active Sennosides-Docus ate Sodium 8.6-50 MG Oral Tablet (Colace 2-IN-1)Indicatio ns:Other constipation Take 1 Tablet by mouth in the morning. 0 4 Active Gabapentin 300 MG Oral Capsule (Neurontin)Indic ations:Chronic right-sided low back pain without sciatica,DDD (degenerative disc disease), lumbar Take 1 Capsule by mouth in the morning and 1 Capsule before bedtime. 180 Capsule 3 3 09/05/19 24 Discontinued(Pa madelyn preference/disc ontinuation) Omeprazole 20 MG Oral Capsule Delayed Release (PriLOSEC) Take 1 Capsule by mouth in the morning. 1 hour before the first meal of the day. 90 Capsule 3 4 09/05/19 24 Discontinued Cyclobenzaprine HCl 10 MG Oral Tablet (Flexeril)Indica tions:Myositis of right shoulder, unspecified myositis type TAKE 1 TABLET BY MOUTH IN THE MORNING AND BEFORE BEDTIME 20 Tablet 1 4 09/19/19 24 Discontinued(Re fill) documented as of this encounter (statuses as of 09/19/2023) Active Problems Problem Noted Date Diagnosed Date [...] as of this encounter (statuses as of 09/19/2023) Resolved Problems Problem Noted Date Diagnosed Date Resolved Date Prediabetes 01/01/2021 07/31/2023 COPD exacerbation 03/28/2014 01/01/2021 Alcohol dependence 04/14/2008 Overview: ICD-10 update of inactive term documented as of this encounter (statuses as of 09/19/2023) Immunizations Name Administration Dates Next Due Pneumococcal Polysaccharide PPV23 (Pneumovax) documented as of this encounter Social History Tobacco Use Types Packs/Day Years Used Date Smoking Tobacco: Every Day Cigarettes 1 53 Smokeless Tobacco: Never Tobacco Cessation:Ready to Q uit: Not Asked; Counseling Given: Not Answered Comments:used to be 2.5ppd, down to 7 [...] on file documented as of this encounter Last Filed Vital Signs Vital Sign Reading Time Taken Comments Blood Pressure 138/80 09/05/2023 11:03 AM EDT Pulse 75 09/05/2023 11:03 AM EDT Temperature 36.4 C (97.6 F) 09/05/2023 11:03 AM E DT Respiratory Rate 16 09/05/2023 11:03 AM EDT Oxygen Saturation 96% 09/05/2023 11:03 AM EDT Inhaled Oxygen Concentration - - Weight - - Height - - Body Mass Index - - documented in this encounter Progress Notes * Rubi Alejo MD - 09/05/2023 11:25 AM EDT SUBJECTIVE: Demi Woodson is a 67 year old female. Chief Complaint Patient presents with Emergency Department Follow-Up [facility] [place] er 09/04/2023 HPI: 67 year oldYOfemale with PMH significant for COPD on oxygen continues, hiatal hernia, tobacco abuse, lumbar DDD and gastroparesis presents here for ER follow up. Pt went to ER Yesterday with left upper abdomen pain radiating to left back associated with nausea and vomiting and found to have normal labs, CT of abdomen /pelvis and treated with IV fluids, pain medication, Zofran and reassurance. Since discharge feeling better . Hospital records reviewed and updated. New issue now - frustrated of having the symptoms again and again - seems like usually symptoms starts either half an hour to hours after meal and once she vomits feels better. - Continues to smoke which daughter is also not happy about and patient feels that she needs to quit now. Wellbutrin was sent which is has not started yet Patient Active Problem List Diagnosis Code Gastroparesis K31.84 ADVANCE DIRECTIVE INFORMATION Tobacco use disorder F17.200 Iron deficiency anemia D50.9 COPD, moderate (HCC) J44.9 On supplemental oxygen by nasal cannula Z78.9 Hiatal hernia K44.9 Incidental lung nodule, less than or equal to 3mm R91.1 Chronic hypoxemic respiratory failure (HCC) J96.11 DDD (degenerative disc disease), lumbar M51.36 Chronic right-sided low back pain without sciatica M54.50, G89.29 Current Outpatient Medications Medication Sig Dispense Refill NEBULIZER COMPRESSOR MISC Use as directed 1 Each 0 oxygen GAS Use as directed. Albuterol Sulfate HFA 108 (90 Base) MCG/ACT Inhalation Aerosol Solution Inhale 2 Puffs by mouth every 6 hours as needed for Shortness of Breath or Wheezing. 18 g 5 Gabapentin 300 MG Oral Capsule (Neurontin) Take 1 Capsule by mouth in the morning and 1 Capsule before bedtime. 180 Capsule 3 Vitamin D3 1.25 MG (93483 UT) Oral Capsule TAKE 1 CAPSULE BY MOUTH ONE TIME PER WEEK 12 Capsule 0 Diclofenac Sodium 3 % External Gel Apply topically to affected area 3 times a day as needed for Pain, Breakthrough or Pain. Apply to Rt mid back 100 g [address] [place] Monohydrate 1.25 MCG/ACT Inhalation Aerosol Solution (Spiriva Respimat) Inhale 2Puffs by mouth every evening. 4 g 5 Fluticasone-Salmeterol 250-50 MCG/ACT Inhalation Aerosol Powder Breath Activated (Advair Diskus) Inhale 1 Puff by mouth in the morning and 1 Puff before bedtime. 1 Each 5 Ipratropium-Albuterol 0.5-2.5 (3) MG/3ML Inhalation Solution (Duoneb) Inhale 3 mL via nebulizer in the morning and 3 mL at noon and 3 mL in the evening and 3 mL before bedtime. Take instead of spiriva when COPD flares up. Omeprazole 20 MG Oral Capsule Delayed Release (PriLOSEC) Take 1 Capsule by mouth in the morning. 1 hour before the first meal of the day. 90 Capsule 3 Cyclobenzaprine HCl 10 MG Oral Tablet (Flexeril) TAKE 1 TABLET BY MOUTH IN THE MORNING AND BEFORE BEDTIME 20 Tablet 1 buPROPion HCl ER (SR) 100 MG Oral Tablet Extended Release 12 Hour (Wellbutrin SR) Take 1 Tablet by mouth in the morning and 1 Tablet before bedtime. 180 Tablet 3 No current facility-administered medications for this visit. The patient's medication list was reviewed and updated as needed. 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 Tobacco Use Smoking status: Every Day Current packs/day: 1.00 Average packs/day: 1 pack/day for 53.0 years (53.0 ttl pk-yrs) Types: Cigarettes Smokeless tobacco: Never Tobacco comments: used to be 2.5ppd, down to 7 cigarettes per day Substance and Sexual Activity Alcohol use: Yes Comment: DRINKING HEAVILY/quit drinking 1 yr ago Drug use: No Comment: Marijuana yrs ago Review of patient's allergies indicates: Allergen Reactions Gluten Meal Celiac disease Family History Problem Relation Age of Onset Heart Disorder Father Other (Depression [Other]) Brother Cancer Grandmother (Maternal) in bone Breast Cancer Grandmother (Paternal) Cancer Grandmother (Paternal) breast Family Status Relation Status Fa (Not Specified) Bro (Not Specified) Bro (Not Specified) MGMA (Not Specified) PGMA (Not Specified) REVIEW OF SYSTEMS: All 10 systems reviewed and negative except mentioned in HPI OBJECTIVE: BP 138/80 (BP Site: Left Arm, BP Position: Sitting, BP Cuff Size: Regular) | Pulse 75 | Temp 36.4 C (97.6 F) (Tympanic) | Resp 16 | LMP 03/16/2004 | SpO2 96% PHYSICAL EXAM: General: alert, healthy, anxious, and mild distress Head: Normocephalic, No masses, lesions, tenderness or abnormalities Oropharynx: no exudate, lips, buccal mucosa, and tongue normal, mucous membranes are moist, and mild erythema Neck: supple, no adenopathy, no bruits, thyroid normal size, non-tender, without nodularity Heart: regular rate & rhythm, no murmur, and no gallops Lungs: chest symmetric with normal AP diameter, no chest deformities noted, no chest wall tenderness, coarse sounds heard, decreased breath sounds Abdomen: abdomen soft, normal bowel sounds, no masses or organomegaly, and tenderness in left upperabdomen and left flank Extremities: less than 2 second capillary refill, no joint deformities, effusion, or inflammation Skin: skin color, texture, turgor are normal, no rashes or significant lesions ASSESSMENT AND PLAN Acute left-sided low back pain without sciatica (Primary) - Meloxicam 7.5 MG Oral Tablet; Take 1 Tablet by mouth in the morning. With food for pain. After after medrol pack over. - methylPREDNISolone 4 MG Oral Tablet Therapy Pack (Medrol Dosepack); follow package directions Continue muscle relaxant Nausea and vomiting, unspecified vomiting type - Ondansetron HCl 4 MG Oral Tablet; Take 1 Tablet by mouth every 8 hours as needed for Nausea. Other constipation Cor pulmonale, chronic (HCC) On supplemental oxygen by nasal cannula Hiatal hernia - Omeprazole 20 MG Oral Capsule Delayed Release (PriLOSEC); Take 1 Capsule by mouth in the morning.1 hour before the first meal of the day and at bedtime. Increased Very important to quit smoking Gastroparesis COPD, moderate (HCC) Chronic right-sided low back pain without sciatica Chronic hypoxemic respiratory failure (HCC) Iron deficiency anemia, unspecified iron deficiency anemia type Tobacco use disorder Counseling done for smoking cessation Recommend patient to start Wellbutrin as given before . More than 40 min ( 45 ) spent on reviewing records, previous notes , labs and face to face counselling on different aspect of disease and formulating plan Rubi Alejo MD 11:25 AM 09/05/2023 documented in this encounter Nursing Notes * Aquilino Egan, MED ASSIST - 09/05/2023 10:59 AM EDT Patient got sick a week ago and stopped taking all of her meds and was taken to the ER. Patient wasvomiting for a while and this morning before coming to the Office. Patient is complaining of pain in the side, went to the ER recently to get checked out. Patient got a CT scan had blood work done. Received a dose of morphine and now the pain is back. documented in this encounter Plan of Treatment Upcoming Encounters Date Type Department Care Team (Late st Contact Info) Description 10/01/2023 9:00 AM EDT Telemedicine General Internal Medicine [facility] [address] [place] [address] Rubi Alejo MD [address] [facility] [place] [address] 10/16/2023 9:40 AM EDT Office Visit General Internal Medicine [facility] [address] [facility] [place] [address] Rubi Alejo MD [address] [facility] [place] [address] 02/06/2024 12:30 PM EDT Imaging Radiology [facility] [facility] [place] [address] [facility] [place] [address] Health Maintenance Due Date Last Done Comments DISCUSS TOBACCO CESSATION (REFER TO SMARTSET #6852) 1957 HIV Screening 1972 Alpha-1 Antitrypsin 11/13/1975 Hepatitis C Screening 11/13/1975 DTaP,Tdap,and Td Vaccines (1 - Tdap) 1976 Cologuard 2002 Sigmoidoscopy 2002 Fecal Occult Blood Test 09/19/2005 09/19/2004 Zoster Vaccines (1 of 2) 11/13/2007 Pneumococcal Vaccine: 65+ Years (2 of 2 - PCV) 08/14/2008 08/15/2007 Depression Screening 10/21/2019 10/20/2018 COVID-19 Vaccine ( - 2022- season) 2023 Colonoscopy 10/30/2023 10/29/2013 Colorectal Cancer Screening 10/30/2023 Mammogram 12/05/2023 12/04/2022, 0606/2022, 08/31/2008, Additional history exists DXA Scan 12/09/2023 12/08/2013 Influenza Vaccine (FLU shot) (Season Ended) 2024 O2 ASSESSMENT COMPLETED IN PAST YEAR FOR COPD 09/04/2024 09/05/2023 Diabetes Screening 07/10/2026 07/10/2023, 0 07/10/2023, 04/03/2023, Additional history exists Lipid Panel 04/03/2028 04/03/2023, 11/14, 12/26/2020, Additional history exists Pap Smear Discontinued 08/26/2008, 08/14, 10/24/2004, Additional history exists LUNG CANCER SCREENING - USE SMARTSET 95090 Completed 02/05/2023, 01/10/2021 GARDASIL-HPV IMMUNIZATION SERIES Aged [...] as of this encounter Visit Diagnoses Diagnosis Acute left-sided low back pain without sciatica- Primary Nausea and vomiting, unspecified vomiting type Other constipation Cor pulmonale, chronic (HCC) Chronic pulmonary heart disease, unspecified On supplemental oxygen by nasal cannula Hiatal hernia Diaphragmatic hernia without mention of obstruction or gangrene Gastroparesis COPD, moderate (HCC) Chronic airway obstruction, not elsewhere classified Chronic right-sided low back pain without sciatica Chronic hypoxemic respiratory failure (HCC) Chronic respiratory failure Iron deficiency anemia, unspecified iron deficiency anemia type Tobacco use disorder documented in this encounter Care Teams Prover Relationship Specialty Start Date End Date Rubi Alejo MD [address] [place] [address] PCP - General Internal Medicine 04/03/23 documented as of this encounter"
--- OUTSIDE RECORDS SUMMARY | 2023-10-16 01:02 | External Medical Summary | Summary of Care ---
Author Name Unknown Organization [facility] Address [address] [place] [address] Phone [phone] Care Team Providers Care Glassblower Name Role Phone Genesis Alejo MD Primary Care Provider [phone] Reason for Visit * Reason Onset Date Comments Medication Refill 09/19/2023 Encounter Details Date Type Department Care Team (Late st Contact Info) Description 09/19/[address]ill General Internal Medicine [facility] [address] [place] [address] Genesis Alejo MD [address] [place] [address] Myositis of right shoulder, unspecified myositis type Allergies Active Allergy Reactions Criticality Noted Date Comments Gluten Meal 05/25/2014 Celiac disease documented as of this encounter (statuses as of 09/19/2023) Medications Medication Sig Dispensed Refills Start Date End Date Status NEBULIZER COMPRESSOR MISCIndications:C OPD, 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 0 Active Albuterol Sulfate HFA 108 (90 Base) MCG/ACT Inhalation Aerosol Solution Inhale 2 Puffs by mouth every 6 hours as needed for Shortness of Breath or Wheezing. 18 g 5 04/18/2023 Active Vitamin D3 1.25 MG (73853 UT) Oral CapsuleIndication s:Vitamin D deficiency TAKE 1 CAPSULE BY MOUTH ONE TIME PER WEEK 12 Capsule 0 06/17/2023 Active Diclofenac Sodium 3 % External GelIndications:Ch ronic right-sided thoracic back pain Apply topically to affected area 3 times a day as needed for Pain, Breakthrough or Pain. Apply to Rt mid back 100 g 5 07/10/2023 Active Tiotropium [place] Monohydrate 1.25 MCG/ACT Inhalation Aerosol Solution (Spiriva Respimat) Inhale 2 Puffs by mouth every evening. 4 g 5 07/25/2023 Active Fluticasone-Salme terol 250-50 MCG/ACT Inhalation Aerosol Powder Breath Activated (Advair Diskus) Inhale 1 Puff by mouth in the morning and 1 Puff before bedtime. 1 Each 5 07/25/2023 Active Ipratropium-Albut mignon 0.5-2.5 (3) MG/3ML Inhalation Solution (Duoneb)Indicatio ns:COPD, moderate (HCC) Inhale 3 mL via nebulizer in the morning and 3 mL at noon and 3 mL in the evening and 3 mL before bedtime. Take instead of spiriva when COPD flares up. 0 07/25/2023 Active buPROPion HCl ER (SR) 100 MG Oral Tablet Extended Release 12 Hour (Wellbutrin SR)Indications:To bacco abuse Take 1 Tablet by mouth in the morning and 1 Tablet before bedtime. 180 Tablet 3 09/04/2023 Active Ondansetron HCl 4 MG Oral TabletIndications :Nausea and vomiting, unspecified vomiting type Take 1 Tablet by mouth every 8 hours as needed for Nausea. 30 Tablet 1 09/05/2023 Active Omeprazole 20 MG Oral Capsule Delayed Release (PriLOSEC)Indicat ions:Hiatal hernia Take 1 Capsule by mouth in the morning. 1 hour before the first meal of the day and at bedtime. 180 Capsule 3 09/05/2023 Active Meloxicam 7.5 MG Oral TabletIndications :Acute left-sided low back pain without sciatica Take 1 Tablet by mouth in the morning. With food for pain. After after medrol pack over. 30 Tablet 3 09/05/2023 Active methylPREDNISolon e 4 MG Oral Tablet Therapy Pack (Medrol Dosepack)Indicati ons:Acute left-sided low back pain without sciatica follow package directions 21 Tablet 0 09/05/2023 Active Sennosides-Docusa te Sodium 8.6-50 MG Oral Tablet (Colace 2-IN-1)Indication s:Other constipation Take 1 Tablet by mouth in the morning. 0 09/05/2023 Active Cyclobenzaprine HCl 10 MG Oral Tablet (Flexeril)Indicat ions:Myositis of right shoulder, unspecified myositis type TAKE 1 TABLET BY MOUTH IN THE MORNING AND BEFORE BEDTIME 20 Tablet 1 09/19/2023 Active Cyclobenzaprine HCl 10 MG Oral Tablet (Flexeril)Indicat ions:Myositis of right shoulder, unspecified myositis type TAKE 1 TABLET BY MOUTH IN THE MORNING AND BEFORE BEDTIME 20 Tablet 1 08/29/2023 Discontinu ed(Refill) documented as of this encounter (statuses as [...] Telephone Encounter - Genesis Alejo MD - 09/19/2023 3:16 PM EDTSigned Prescriptions: Disp Refills Cyclobenzaprine HCl 10 MG Oral Tablet (Fle*20 Tab*1 Sig: TAKE 1 TABLET BY MOUTH IN THE MORNING AND BEFORE BEDTIME Authorizing Provider: GENESIS ALEJO * Telephone Encounter - Mandie Mancia, milk tanker driver - 09/19/2023 2:42 PM EDT Did you pend patient's preferred pharmacy and medication before forwarding?yes Pharmacy: [id number] Pending Prescriptions: Disp Refills Cyclobenzaprine HCl 10 MG Oral Tablet (Fl*20 Tab*1 Sig: TAKE 1 TABLET BY MOUTH IN THE MORNING AND BEFORE BEDTIME Last Visit: 09/05/2023 (in office), Visit date not found (telemedicine) Next Visit: 10/16/2023 If no future appointments scheduled, and last appointment is greater than a year ago, please schedule patient for a follow-up appointment Last date the medication was ordered: 08/29/2023 Is this request for a controlled substance?No [...] 9:00 AM EDT Telemedicine General Internal Medicine [facility] [address] [place] [address] Genesis Alejo MD [address] [facility] [place] [address] 10/16/2023 9:40 AM EDT Office Visit General Internal Medicine [facility] [address] [place] [address] Genesis Alejo MD [address] [facility] [place] [address] 02/06/2024 12:30 PM EDT Imaging Radiology [facility] [address] [facility] [place] [address] [facility] [place] [address] Health Maintenance Due Date Last Done Comments DISCUSS TOBACCO CESSATION (REFER TO SMARTSET #[id number]) 1955 HIV Screening 1972 Alpha-1 Antitrypsin 11/13/1975 [...] exists LUNG CANCER SCREENING - USE SMARTSET 02983 Completed 02/05/2023, 01/10/2021 GARDASIL-HPV IMMUNIZATION SERIES Aged [...] as of this encounter Visit Diagnoses Diagnosis Myositis of right shoulder, unspecified myositis type documented in this encounter Care Teams Glassblower Relationship Specialty Start Date End Date Genesis Alejo MD [address] [facility] [place] [address] PCP - General Internal Medicine 04/03/23 documented as of this encounter
[2023-10-16 06:20] LABS: BUN Creatinine Ratio 29.2 (10-20); Calcium 9.2 mg/dl (8.6-10.3); Est GFR (African American) 101.9 ml/min; Est GFR (Non-African American) 87.9 ml/min; Potassium 3.9 mmol/L (3.5-5.1)
[2023-10-16 06:27] LABS: Hemoglobin 16.6 g/dl (12.0-16.0); Mean Corpuscular Hemoglobin 31.8 pg (25.0-34.0); Mean Corpuscular Hgb Conc 33.2 g/dL (32.0-36.0); Mean Corpuscular Volume 95.8 fL (80.0-100.0); Platelet Count 143 K/uL (130-400); RDW Coefficient of Variation 17.1 % (11.5-14.5); RDW Standard Deviation 60.1 fL (36.4-46.3); Red Blood Count 5.22 M/uL (4.20-5.40); White Blood Count 8.38 K/ul (4.8-10.8)
[2023-10-16 07:12] LABS: Estimated Average Glucose 111 mg/dl; Hemoglobin A1C 5.5 % (4.5-5.6)
[2023-10-16 11:21] VITALS: TEMP 97.7
[2023-10-16 11:47] VITALS: RESP 18
--- NOTE | 2023-10-16 12:16 | Discharge Summary ---
Discharge Summary Date of Service October 16, 2023 Notes For Next Care Provider Please ensure follow up with outpatient Pulmonology Medication Changes From Visit prednisone 40mg daily for 5 days Admission HPI Per Admitting Provider This is a 67yo F with a PMH of COPD, tobacco use, chronic hypoxic resp failure on 2L NC O2, mood disorder and other medical problems listed below who presents with cough and congestion that has worsened over the past few weeks. Had an episode a few weeks ago with nausea and vomiting while driving in a car with her family. Has continued to feel poorly ever since then with cough, congestion and fatigue. Cough is productive, clear and foamy. Has been using her rescue inhaler and nebulizer. Smokes 1 ppd, down from 2. Has been smoking less over the past week due to feeling poorly. No F/C, CP, N/V, abd pain, dysuria, diarrhea. Chronic constipation, only has 1-2 bowel movements per week at baseline. Received nebs, solu-medrol in ED with improvement to SOB. History of chronic back pain newly on Lyrica and cyclobenzaprine. Admission Exam Per Admitting Provider GENERAL APPEARANCE: AxOx4, no acute distress. HEENT: NC, AT. MMM. EOMI, clear conjunctiva, oropharynx clear. NECK: Supple without lymphadenopathy. No stiffness or restricted ROM. HEART: Normal rate and regular rhythm, normal S1/S1, no m/r/g LUNGS: expiratory wheezing R>L , scattered ABDOMEN: Soft, nontender, nondistended with good bowel sounds heard. BACK: No CVAT, no obvious deformity. EXTREMITIES: Without cyanosis, clubbing or edema. NEUROLOGICAL: Grossly nonfocal. Alert and oriented, moving all 4 extremities. CN not formally tested but appear grossly intact Skin: skin hyperpigmentation on back from sleeping on heating pad Principal Dx & Hospital Course #1 = Principal Diagnosis (1) COPD exacerbation: (2) Chronic back pain: (3) Mood disorder: (4) Tobacco use: Plan This is a 67yo F with PMHx significant for COPD, tobacco use, chronic hypoxic resp failure on 2L NC O2, mood disorder who presented with cough and congestion that has worsened over the past few weeks and was found to have a COPD exacerbation. Acute exacerbation of chronic obstructive pulmonary disease (COPD) Chronic respiratory failure with hypoxia and hypercapnia Tobacco use Medical non-compliance Cough and congestion x 5 days On baseline 92% on 2L NC O2 No leukocytosis, vbg pH 7.38, procal normal Resp viral panel negative CXR with no acute process within the chest. Large hiatal hernia, unchanged Given solumedrol 60mg x 1 in ED, albuterol neb Continued Solumedrol 40mg IV daily, Duonebs QIDR, azithromycin 500mg x 3 days, home inhalers Discharged with po prednisone 40mg daily for 5 days Completed azithromycin treatment while in the hospital Smoking cessation encouraged - has reduced to 1 ppd Per [facility] chart review, pt undergoes annual lung cancer screenings with CT scans, last in January 2023 Pt was able to maintain saturations greater than 90% with ambulation on 2L at time of discharge, continue Pulmonology followup strongly encouraged after discharge Cor pulmonale Appears euvolemic Monitor volume status closely PCP follow up Mood disorder Continue bupropion Chronic back pain Continue lyrica, cyclobenzaprine, tylenol Discharge Exam General: Alert, oriented. No acute distress Skin: No noted rashes or bruises Psych: Appropriate mood and affect Neuro: No gross deficits HEENT: NC/AT CV: RRR Resp: Breath sounds slightly coarse bilaterally, no increased effort of breathing. Abdomen: Soft, nontender, nondistended. No guarding. Extremities: No edema in lower extremities bilaterally. Updated Medication List Medication Instructions Recorded Confirmed Type cyclobenzaprine 10 mg tablet 10 mg PO AMHS 04/04/23 10/14/23 History ipratropium 0.5 mg-albuterol 3 mg 3 ml inhalation TID PRN COPD FLARE 04/04/23 10/14/23 History (2.5 mg base)/3 mL nebulization UPS soln acetaminophen 500 mg tablet 1,000 mg PO BID 10/14/23 10/14/23 History (Tylenol Extra Strength) albuterol sulfate 90 mcg/actuation 2 puff inhalation Q6H PRN 10/14/23 10/14/23 History aerosol inhaler Shortness Of Breath Or Wheezing bupropion HCl 150 mg tablet,12 hr 100 mg PO BID 10/14/23 10/14/23 History sustained-release cholecalciferol (vitamin D3) 25 50 mcg PO BID 10/14/23 10/14/23 History mcg (1,000 unit) capsule (Vitamin D3) ferrous sulfate 325 mg (65 mg 325 mg PO BID 10/14/23 10/14/23 History iron) tablet (iron) fluticasone 250 mcg-salmeterol 50 1 inh inhalation BID 10/14/23 10/14/23 History mcg/dose blistr powdr for inhalation lidocaine HCl 4 %-menthol 1 % 1 applic topical BID PRN Pain 10/14/23 10/14/23 History topical cream (Icy Hot Max (lidocaine HCl-menthol)) meloxicam 7.5 mg tablet 7.5 mg PO DAILY 10/14/23 10/14/23 History omeprazole 20 mg capsule,delayed 20 mg PO DAILYBB 10/14/23 10/14/23 History release ondansetron HCl 4 mg tablet 4 mg PO Q8H PRN NAUSEA/VOMITING 10/14/23 10/14/23 History pregabalin 25 mg capsule See Rx Instructions .Route .COMPLEX 10/14/23 10/14/23 History sennosides 8.6 mg-docusate sodium 1 tab-cap PO QAM 10/14/23 10/14/23 History 50 mg tablet (Colace 2-In-1) tiotropium bromide 1.25 2 puff inhalation QPM 10/14/23 10/14/23 History mcg/actuation mist for inhalation (Spiriva Respimat) prednisone 20 mg tablet 40 mg (2 x 20 mg) PO DAILY #10 tabs 10/16/23 Rx Hospital Stay Data Consultations 10/14/23 18:34 ED Decision to Admit Stat Diagnostic Imagining Performed Chest X-Ray 10/14/23 17:23 XR chest 1V portable HISTORY: Dyspnea COMPARISON: Chest 04/05/2023. FINDINGS: No pneumothorax. No pleural effusions. No focal lung consolidations to suggest a pneumonia. Mild interstitial thickening. This is likely chronic. No evidence for pulmonary edema. The cardiac silhouette is top normal in size. There is a large hiatus hernia again noted. No acute fractures. IMPRESSION: 1. No acute process within the chest. 2. Large hiatus hernia, unchanged. ACT 112: Negative or not required by law. Electronically signed by: Kuldip Tuttle M.D. 10/14/2023 6:09 PM Discharge Instructions Given to Patient (Per Discharging Provider) Ms. Woodson, G[place] were admitted and treated for an acute exacerbation of your COPD. We treated you with 3 days of antibiotics and you completed treatment with that. We also treated you with IV steroids and we are discharging you with 5 more days of oral prednisone to help. We strongly recommend that you keep close followup with your primary care provider after discharge as you will likely need to see a lung doctor to help keep your symptoms under control. Please continue to use your home oxygen as ordered. You never required more than your baseline 2L. Again, please keep close follow up with your primary care provider after discharge. Please do not hesitate to come back to the emergency room if your symptoms worsen or return. It was a pleasure taking care of you while you were here. Total Time Total Time Spent Total Time Spent (In Minutes): > 30 minutes
[2023-10-16 14:28] VITALS: BP 135/75
[2023-10-16] MEDS: AZITHROMYCIN 250 MG TAB PO ONE (14:36)
[2023-10-16 15:45] VITALS: PULSE 87; O2SAT 98
--- NOTE | 2023-10-17 08:49 | Electrocardiogram Report ---
Test Reason : Blood Pressure : / mmHG Vent. Rate : 106 BPM Atrial Rate : 106 BPM P-R Int : 136 ms QRS Dur : 062 ms QT Int : 340 ms P-R-T Axes : 088 099 066 degrees QTc Int : 451 ms Sinus tachycardia Possible Left atrial enlargement Rightward axis Anterior infarct (cited on or before 01-APR-2022) Abnormal ECG When compared with ECG of 04-APR-2023 18:50, Nonspecific T wave abnormality no longer evident in Lateral leads Confirmed by Lyle Waters ([id number]) on 10/17/2023 8:49:30 AM Referred By: REFERRED SELF Confirmed By:Lyle Waters
== END 2023-10-16 16:38 | disposition home or self-care (01) | DRG 191 ==
LOC: ED 17:13 → SUATTDRO 19:54 → 2N 19:54

== ENCOUNTER 2024-02-23 16:34 | Inpatient (IN) ==
--- NOTE | 2024-02-23 17:14 | XRay Report ---
XR chest 1V not portable CLINICAL HISTORY: Chest pain, nonspecific TECHNIQUE: Single frontal radiograph of the chest was obtained. Comparison: Comparison is made to chest radiograph 10/14/2023 FINDINGS: No lines and tubes are seen. A hiatal hernia is seen. The lungs are clear. No evidence of pleural eff usion or pneumothorax. IMPRESSION: No acute chest disease. ACT 112: Negative or not required by law. Electronically signed by: Sukhjinder Ledezma M.D. 02/23/2024 5:13 PM
[2024-02-23] MEDS: methylPREDNISolone 125 MG/2 ML VIAL IV STA (17:29)
[2024-02-23] MEDS: ALBUT/IPRATROP 3MG/0.5MG NEB 3 ML VIAL NEB STA ×3 (17:31→18:18)
[2024-02-23 17:36] LABS: Albumin Globulin Ratio 1.4 (0.9-2); Albumin Level 4.4 gm/dl (3.4-5.0); Globulin 3.1 gm/dl (2.5-4.0); Potassium 4.4 mmol/L (3.5-5.1)
[2024-02-23 17:37] LABS: Bilirubin,Total 0.5 mg/dl (0.2-1.0); Calcium 9.3 mg/dl (8.6-10.3); Creatinine Clr Calc Pharmacy 81.4 ml/min; Est GFR (African American) 107.8 ml/min; Total Protein 7.5 gm/dl (6.0-8.3)
[2024-02-23 17:42] LABS: Basophils # (auto) 0.01 K/uL (0.00-0.20); Basophils % (auto) 0.1 %; Hematocrit (blood only) 59.1 % (37.0-47.0); Hemoglobin 19.3 g/dl (12.0-16.0); Immature Granulocytes # (auto) 0.04 K/uL (0.01-0.20); Immature Granulocytes % (auto) 0.5 %; Lymphocytes # (auto) 0.59 K/uL (1.20-3.40); Lymphocytes % (auto) 7.6 %; Mean Corpuscular Hemoglobin 35.2 pg (25.0-34.0); Mean Corpuscular Hgb Conc 32.7 g/dL (32.0-36.0); Mean Corpuscular Volume 107.7 fL (80.0-100.0); Mean Platelet Volume 10.1 fL (9.4-12.4); Monocytes # (auto) 0.27 K/uL (0.11-0.59); Monocytes % (auto) 3.5 %; Neutrophils # (auto) 6.89 K/uL (1.40-6.50); Neutrophils % (auto) 88.3 %; Platelet Count 114 K/uL (130-400); RDW Coefficient of Variation 12.7 % (11.5-14.5); RDW Standard Deviation 51.6 fL (36.4-46.3); Red Blood Count 5.49 M/uL (4.20-5.40)
[2024-02-23 17:46] LABS: Base Excess VBG 13.8 mEq/L; HCO3 VBG 44 mmol/L; Oxygen Saturation VBG 88.1 %; PCO2 VBG 88 mmHg (38-50); PO2 VBG 54 mmHg; pH VBG 7.31 (7.36-7.41)
[2024-02-23] MEDS: AZITHROMYCIN 250 MG TAB PO ONE (18:17)
[2024-02-23 18:20] LABS: Influenza A virus by PCR Negative (Neg); Influenza B virus by PCR Negative (Neg); RSV by PCR Negative (Neg); SARS CoV2 RNA(COVID-19) Ceph NEGATIVE (Negative)
[2024-02-23] MEDS ORDERED: ALUMINUM/MAGNESIUM SUSP 30 ML UDC PO PRN (18:41)
[2024-02-23] MEDS ORDERED: ONDANSETRON INJ 2 MG/ML 2 ML VIAL IV PRN (18:41)
[2024-02-23] MEDS ORDERED: MAGNESIUM HYDROXIDE SUSP 30 ML UDC PO PRN (18:41)
[2024-02-23] MEDS ORDERED: POLYETHYLENE (MIRALAX) 17 GM PACK PO PRN (18:41)
--- NOTE | 2024-02-23 18:55 | History & Physical Report ---
Date of Service February 23, 2024 Assessment & Plan (1) COPD exacerbation: (2) SOB (shortness of breath): (3) Chronic back pain: (4) Mood disorder: (5) Tobacco abuse: Plan Ms. Woodson is a 68 year old female that presents to the ED today from [facility] with SOB x2 days. She tested negative for Flu/Covid there. She wears oxygen 24/7 at baseline 2 L NC. She follows with Pulmonary at [facility]. She has been a smoker x50 years and continues to smoke 1/2 ppd. She reports that she had a thick clear cough. Her throat is sore and dry. She usually can take her oxygen off to take a shower but was unable to take a deep breath. She feels like she has chest tightness. She does have inhalers but does not take them routinely. She has been using her rescue inhaler 3-4 times a day. She had a recent admission to the [facility] 09/16 to 10/15 for COPD exacerb ation. Here in the ED chest x-ray negative for acute cardiopulmonary process. No leukocytosis and patient does not appear toxic. Platelet levels low at 114. VBG revealed compensated respiratory acidosis with pH 7.31, CO2 88, bicarb 44. Additional past medical history includes COPD, peripheral neuropathy, depression mood disorder, and GERD.No history of CVA or AMI. Patient was prescribed amoxic illin and prednisone in the outpatient setting at acute care. Here in the ED she was started on IV steroids and given a nebulizer treatment.Patient will be admitted for further evaluation and management of his COPD exacerbation and will continue IV steroids, nebulizer treatments, flutter valve and incentive spirometry and consider pulmonary consultation if no improvement. COPD exacerbation: Shortness of breath: Acute Recent admission 09/16 to 10/15 for COPD exacerbation Chest x-ray negative for acute cardiopulmonary disease Wear supplemental oxygen 2 L nasal cannula at baseline Was seen at urgent care today and prescribed amoxicillin plus prednisone. Solu-Medrol 40 mg administered in ED; continue 40 mg IV TID Continue nebs 4 times daily plus every 2 as needed Flutter valve plus incentive spirometry Continue Spiriva and fluticasone as prescribed Will prescribe Doxy and adjust as needed Chlorseptic spray PRN for sore throat Will start IV NS @ 80mL/hour as appears intervascularly dry; reevaluate after 2L Consider pulmonary consultation if no improvement Chronic back pain: Chronic Takes meloxicam and Lyrica; continue Mood disorder: Chronic Takes buproprion; continue GERD: Chronic takes omeprazole;continue Disposition: PCP: Dr. Alejo Code Status: Full Code VTE Prophylaxis: Heparin SQ I spent a total of 78 minutes coordinating, documenting, and providing care for this patient excluding time spent in the performance of separately billed services. All of the aforementioned completed while collaborating with the assigned attending physician for a full treatment plan. Please see their addendum for further details. History of Present Illness Chief Complaint: SOB Primary Care Provider: Rubi Alejo MD Ms. Woodson is a 68 year old female that presents to the ED today from [facility] with SOB x2 days. She tested negative for Flu/Covid there. She wears oxygen 24/7 at baseline 2 L NC. She follows with Pulmonary at [facility]. She has been a smoker x50 years and continues to smoke 1/2 ppd. She reports that she had a thick clear cough. Her throat is sore and dry. She usually can take her oxygen off to take a shower but was unable to take a deep breath. She feels like she has chest tightness. She does have inhalers but does not take them routinely . She has been using her rescue inhaler 3-4 times a day. She had a recent admission to the [facility] 09/16 to 10/15 for COPD exacerbation. Here in the ED chest x-ray negative for acute cardiopulmonary process. No leukocytosis and patient does not appear toxic. Platelet levels low at 114. VBG revealed compensated respiratory acidosis with pH 7.31, CO2 88, bicarb 44. Additional past medical history includes COPD, peripheral neuropathy, depression mood disorder, and GERD.No history of CVA or AMI. Patient was prescribed amoxicillin and prednisone in the outpatient setting at acute care. Here in the ED she was started on IV steroids and given a nebulizer treatment. Pt denies DYE, chest pain, palpitations, N/V/D, recent falls or trauma. No known sick contacts. No recent travel. Attending physician performed physical examination and stated patient has insp/expiratory wheezes. Patient will be admitted for further evaluation and management of his COPD exacerbation and will continue IV steroids, nebulizer treatments, flutter valve and incentive spirometry and consider pulmonary consultation if no improvement. Allergies Allergy/AdvReac Type Severity Reaction Status Date / Time gluten AdvReac Severe GI Verified 10/14/23 18:27 problems from celiac disease Home Medications Medication Instructions Recorded Confirmed Type cyclobenzaprine 10 mg tablet 10 mg PO AMHS 04/04/23 02/23/24 History ipratropium 0.5 mg-albuterol 3 mg 3 ml inhalation TID PRN COPD FLARE 04/04/23 02/23/24 History (2.5 mg base)/3 mL nebulization UPS soln acetaminophen 500 mg tablet 1,000 mg PO BID 10/14/23 02/23/24 History (Tylenol Extra Strength) albuterol sulfate 90 mcg/actuation 2 puff inhalation Q6H PRN 10/14/23 02/23/24 History aerosol inhaler Shortness Of Breath Or Wheezing bupropion HCl 150 mg tablet,12 hr 100 mg PO BID 10/14/23 02/23/24 History sustained-release cholecalciferol (vitamin D3) 25 50 mcg PO BID 10/14/23 02/23/24 History mcg (1,000 unit) capsule (Vitamin D3) ferrous sulfate 325 mg (65 mg 325 mg PO BID 10/14/23 02/23/24 History iron) tablet (iron) fluticasone 250 mcg-salmeterol 50 1 inh inhalation BID 10/14/23 02/23/24 History mcg/dose blistr powdr for inhalation lidocaine HCl 4 %-menthol 1 % 1 applic topical BID PRN Pain 10/14/23 02/23/24 History topical cream (Icy Hot Max (lidocaine HCl-menthol)) meloxicam 7.5 mg tablet 7.5 mg PO DAILY 10/14/23 02/23/24 History omeprazole 20 mg capsule,delayed 20 mg PO DAILYBB 10/14/23 02/23/24 History release ondansetron HCl 4 mg tablet 4 mg PO Q8H PRN NAUSEA/VOMITING 10/14/23 02/23/24 History pregabalin 25 mg capsule See Rx Instructions .Route .COMPLEX 10/14/23 02/23/24 History sennosides 8.6 mg-docusate sodium 1 tab-cap PO QAM 10/14/23 02/23/24 History 50 mg tablet (Colace 2-In-1) tiotropium bromide 1.25 2 puff inhalation QPM 10/14/23 02/23/24 History mcg/actuation mist for inhalation (Spiriva Respimat) prednisone 20 mg tablet 40 mg (2 x 20 mg) PO DAILY #10 tabs 10/16/23 02/23/24 Rx Past Med/Surg History Problem List Acute bronchitis (Acute) MARTINEZ (dyspnea on exertion) (Acute) COPD exacerbation (Acute) SOB (shortness of breath) (Acute) Tobacco use Chronic back pain Mood disorder Medical non-compliance Chronic respiratory failure with hypoxia and hypercapnia Cor pulmonale Abnormal EKG Elevated troponin Shortness of breath (Acute) COVID-19 (Acute) Acute pericardial effusion (Acute) Obesity Acute exacerbation of chronic obstructive pulmonary disease (COPD) (Acute) Acute hypoxemic respiratory failure (Acute) History of esophagogastroduodenoscopy (EGD) (Chronic) Hypokalemia COPD exacerbation Hypoxia (Acute) Bronchitis (Acute) Gastroparesis (Chronic) Tobacco abuse (Chronic) History of cholecystectomy (Chronic) Hx of appendectomy (Chronic) S/P removal of right ovary (Chronic) H/O colonoscopy (Chronic) "2007, patient reports normal findings" 10/2013: poor prep, grossly normal exam Anemia (Chronic) Medical History COPD (chronic obstructive pulmonary disease) Family History Other Cancer Depression Social History Smoking Status: Current every day smoker Tobacco Type: Cigarettes packs per day: 1; Cigarettes Per Day: 10; Second Hand Exposure: No; Do You Dip or Chew Tobacco: No; Hx Alcohol Use: No Hx Substance Use: No Preferred Language: Haitian Communication Ability: Effective 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 Steel's addendum for physical examination findings Results & Data Results & Data Vital Signs (Past 12 Hours) Vital Signs Temp Pulse Pulse Resp BP BP Pulse Ox 02/23/24 17:58 102 H 21 141/75 H 95 02/23/24 17:13 107 H 02/23/24 17:12 02/23/24 17:12 19 137/115 H 94 02/23/24 17:11 02/23/24 17:11 94 02/23/24 16:37 36.6 C 106 H 20 135/66 92 O2 Del Method O2 Flow Rate 02/23/24 17:58 Nasal Cannula, Nebulizer 4 02/23/24 17:13 02/23/24 17:12 Nasal Cannula 02/23/24 17:12 Nasal Cannula 4 02/23/24 17:11 Nasal Cannula 02/23/24 17:11 Nasal Cannula 02/23/24 16:37 Nasal Cannula 3 Laboratory Results Short CBC 02/23/24 Range/Units 16:48 WBC 7.80 (4.8-10.8) K/ul Hgb 19.3 H (12.0-16.0) g/dl Hct 59.1 H (37.0-47.0) % Plt Count 114 L (130-400) K/uL BMP 02/23/24 16:48 Sodium 138 Potassium 4.4 Chloride 91 L Carbon Dioxide 40 H BUN 16 Creatinine 0.64 Glucose 157 H Calcium 9.3 Liver Function 02/23/24 Range/Units 16:48 Total Bilirubin 0.5 (0.2-1.0) mg/dl AST 16 (13-39) U/L ALT 11 (7-52) U/L Alkaline Phosphatase 83 (34-104) U/L Albumin 4.4 (3.4-5.0) gm/dl Diagnostic Findings Chest X-Ray 02/23/24 16:41 XR chest 1V not portable CLINICAL HISTORY: Chest pain, nonspecific TECHNIQUE: Single frontal radiograph of the chest was obtained. Comparison: Comparison is made to chest radiograph 10/14/2023 FINDINGS: No lines and tubes are seen. A hiatal hernia is seen. The lungs are clear. No evidence of pleural effusion or pneumothorax. IMPRESSION: No acute chest disease. ACT 112: Negative or not required by law. Electronically signed by: Sukhjinder Ledezma M.D. 02/23/2024 5:13 PM Code Status & VTE Plan Code Status Full Code in the event of cardiac or respiratory arrest VTE Prophylaxis Plan VTE Prophylaxis will be ordered: Yes Supervising Physician Co-Signing Physician Notes Patient is a 68-year-old female with history of COPD on chronic supplemental oxygen at baseline, tobacco use disorder, mood disorder, cor pulmonale and other medical problems presents with history of worsening shortness of breath associated with cough, clear expectoration especially since last 2 days duration. She admits to continued to smoke but states that she did not smoke yesterday. She has been using her rescue inhaler more frequently. Also reports chest tightness. She had to increase her supplemental oxygen from 2 to 3 L to help with her symptoms. Please review HPI for complete details of presentation. I personally reviewed blood work, imaging studies. Chest x-ray showed no acute process. Serology for COVID, influenza, RSV negative. EKG showed sinus tachycardia, left posterior fascicular block, QTc 442. Also noted nonspecific T wave changes in inferior leads. Physical Exam: Vitals signs as noted above General Appearance:Moderately built and nourished, no apparent distress Head: normocephalic, Atraumatic Eyes: normal inspection, EOMI Neck: supple, Trachea midline Respiratory/Chest: Decreased coarse breath sounds, B/L wheezing, No accessory muscle use Cardiovascular: S1, S2, No murmur, + tachycardia Abdomen/GI:Soft, Non tender, Bowel sounds present Extremities/Musculoskeletal:normal inspection, no edema Neurologic/Psych:AAOX3, grossly no focal neurological deficits Skin: normal color, warm Acute on chronic respiratory failure with hypoxia and hypercarbia Acute COPD exacerbation Chronic oxygen dependency Ongoing tobacco use disorder Chronic thrombocytopenia Dehydration Agree with IV Solu-Medrol, nebs, doxycycline Pulmonary hygiene Counseled to quit smoking Consider pulmonary evaluation if no improvement Monitor platelet count Titrate oxygen to keep saturation 88 to 92% given COPD I personally interviewed and examined at bedside. Patient's care is coordinated with Lissy LOZADA. I have reviewed the advanced practitioner's documentation, and I agree with plan of care. Please refer to the documentation above for details of patient's presentation and for discussion of other issues. I spent a total [id number] coordinating, documenting, and providing care for this patient excluding time spent in the performance of separately billed services.
[2024-02-23 18:56] LABS: Partial Thromboplastin Ratio 0.9; Partial Thromboplastin Time 25 Seconds (21-31); Prothrombin Time 10.7 Seconds (9.0-12.0)
--- NOTE | 2024-02-23 19:22 | Emergency Department Note ---
History of Present Illness General Chief Complaint: Shortness of Breath/Dyspnea Time Seen by Provider: 02/23/24 16:58 History of Present Illness Provider Complaint: shortness of breath Onset (ago): day(s) (4) Severity: severe Consistency/Duration: + progressively worsening Relieved By: + oxygen and + bronchodilators Exacerbated By: + exertion and + coughing Known history of: COPD and congestive heart failure Associated symptoms: + wheezing; no chest pain, no fever, no sputum production, no palpitations, no hemoptysis or no chest congestion Treatment prior to arrival: bronchodilator HPI Narrative: Patient states she was started on antibiotics and prednisone 4 days ago by an urgent care after she had a negative COVID swab Related Data Home oxygen amount: 2 liters Home Medications Medication Instructions Recorded Confirmed Type cyclobenzaprine 10 mg tablet 10 mg PO AMHS 04/04/23 02/23/24 History ipratropium 0.5 mg-albuterol 3 mg 3 ml inhalation TID PRN COPD FLARE 04/04/23 02/23/24 History (2.5 mg base)/3 mL nebulization UPS soln acetaminophen 500 mg tablet 1,000 mg PO BID 10/14/23 10/14/23 History (Tylenol Extra Strength) albuterol sulfate 90 mcg/actuation 2 puff inhalation Q6H PRN 10/14/23 02/23/24 History aerosol inhaler Shortness Of Breath Or Wheezing bupropion HCl 150 mg tablet,12 hr 100 mg PO BID 10/14/23 02/23/24 History sustained-release cholecalciferol (vitamin D3) 25 50 mcg PO BID 10/14/23 02/23/24 History mcg (1,000 unit) capsule (Vitamin D3) ferrous sulfate 325 mg (65 mg 325 mg PO BID 10/14/23 02/23/24 History iron) tablet (iron) fluticasone 250 mcg-salmeterol 50 1 inh inhalation BID 10/14/23 02/23/24 History mcg/dose blistr powdr for inhalation lidocaine HCl 4 %-menthol 1 % 1 applic topical BID PRN Pain 10/14/23 02/23/24 History topical cream (Icy Hot Max (lidocaine HCl-menthol)) meloxicam 7.5 mg tablet 7.5 mg PO DAILY 10/14/23 02/23/24 History omeprazole 20 mg capsule,delayed 20 mg PO DAILYBB 10/14/23 02/23/24 History release ondansetron HCl 4 mg tablet 4 mg PO Q8H PRN NAUSEA/VOMITING 10/14/23 02/23/24 History pregabalin 25 mg capsule See Rx Instructions .Route .COMPLEX 10/14/23 02/23/24 History sennosides 8.6 mg-docusate sodium 1 tab-cap PO QAM 10/14/23 02/23/24 History 50 mg tablet (Colace 2-In-1) tiotropium bromide 1.25 2 puff inhalation QPM 10/14/23 02/23/24 History mcg/actuation mist for inhalation (Spiriva Respimat) prednisone 20 mg tablet 40 mg (2 x 20 mg) PO DAILY #10 tabs 10/16/23 02/23/24 Rx Allergies Allergy/AdvReac Type Severity Reaction Status Date / Time gluten AdvReac Severe GI Verified 10/14/23 18:27 problems from celiac disease Past Med/Surg History Problem List (Updated 02/23/24 @ 19:22 by Giorgio Agarwal MD) Acute bronchitis (Acute) MARTINEZ (dyspnea on exertion) (Acute) COPD exacerbation (Acute) SOB (shortness of breath) (Acute) Tobacco use Chronic back pain Mood disorder Medical non-compliance Chronic respiratory failure with hypoxia and hypercapnia Cor pulmonale Abnormal EKG Elevated troponin Shortness of breath (Acute) COVID-19 (Acute) Acute pericardial effusion (Acute) Obesity Acute exacerbation of chronic obstructive pulmonary disease (COPD) (Acute) Acute hypoxemic respiratory failure (Acute) History of esophagogastroduodenoscopy (EGD) (Chronic) Hypokalemia COPD exacerbation Hypoxia (Acute) Bronchitis (Acute) Gastroparesis (Chronic) Tobacco abuse (Chronic) History of cholecystectomy (Chronic) Hx of appendectomy (Chronic) S/P removal of right ovary (Chronic) H/O colonoscopy (Chronic) "2007, patient reports normal findings" 10/2013: poor prep, grossly normal exam Anemia (Chronic) Medical History COPD (chronic obstructive pulmonary disease) Family History Other Cancer Depression Social History Smoking Status: Current every day smoker Tobacco Type: Cigarettes packs per day: 1; Cigarettes Per Day: 1 PPD; Second Hand Exposure: No; Do You Dip or Chew Tobacco: No; Hx Alcohol Use: No Hx Substance Use: No Preferred Language: Macedonian Communication Ability: Effective Electrical Superintendent Required: No Beliefs That Will Affect Care: None Current Living Situation: Other Current Living Situation Comment: Patient has a tenant living with her Feels Safe at Home: Yes Assistive Devices: Glasses and Oxygen - Continuous Physical Exam 2 Vital Signs: Vital Signs - 24 hr 02/23/24 16:37 02/23/24 17:11 02/23/24 17:11 Temperature 36.6 C Temperature Source Temporal Artery Sc an Pulse Rate 106 H Pulse Rate [Apical ] Pulse Rate from Sp O2 Sensor Pulse Rhythm Regular Respiratory Rate 20 Respiratory Effort / Characteristics Non-Labored Sponta neous Respiratory Depth Normal Respiratory Patter n Regular Blood Pressure 135/66 Blood Pressure [Ri ght Arm] Blood Pressure Vielka n 89 Blood Pressure Vielka n [Right Arm] Blood Pressure Pos ition Sitting Pulse Oximetry 92 94 Oxygen Delivery Me thod Nasal Cannula Nasal Cannula Nasal Cannula Oxygen Flow Rate 3 Sepsis Recent Feve r Within 48 Hours No Sepsis New/Unexpla ined Change in Men jack Status No Sepsis Action Take n by Nursing No Action Required Oxygen Flow Rate - Titration 4 02/23/24 17:12 02/23/24 17:12 02/23/24 17:13 Temperature Temperature Source Pulse Rate 107 H Pulse Rate [Apical ] Pulse Rate from Sp O2 Sensor Pulse Rhythm Respiratory Rate 19 Respiratory Effort / Characteristics Respiratory Depth Respiratory Patter n Blood Pressure Blood Pressure [Ri ght Arm] 137/115 H Blood Pressure Vielka n Blood Pressure Vielka n [Right Arm] 122 Blood Pressure Pos ition Pulse Oximetry 94 Oxygen Delivery Me thod Nasal Cannula Nasal Cannula Oxygen Flow Rate 4 Sepsis Recent Feve r Within 48 Hours Sepsis New/Unexpla ined Change in Men jack Status Sepsis Action Take n by Nursing Oxygen Flow Rate - Titration 02/23/24 17:15 02/23/24 17:57 02/23/24 17:58 Temperature Temperature Source Pulse Rate 106 H 95 H Pulse Rate [Apical ] 102 H Pulse Rate from Sp O2 Sensor 108 H 104 H Pulse Rhythm Respiratory Rate 20 21 21 Respiratory Effort / Characteristics Respiratory Depth Respiratory Patter n Blood Pressure 137/115 H 141/75 H Blood Pressure [Ri ght Arm] 141/75 H Blood Pressure Vielka n 122 97 Blood Pressure Vielak n [Right Arm] 97 Blood Pressure Pos ition Pulse Oximetry 96 96 95 Oxygen Delivery Me thod Nasal Cannula Nasal Cannula Nasal Cannula Nebu lizer Oxygen Flow Rate 4 4 4 Sepsis Recent Feve r Within 48 Hours Sepsis New/Unexpla ined Change in Men jack Status Sepsis Action Take n by Nursing Oxygen Flow Rate - Titration Physical Exam: Physical Exam GENERAL: oriented to person, place, and time. appears well-developed and well- nourished. HENT: Exam performed. - Head: Normocephalic and atraumatic. EYES: Conjunctivae and EOM are normal. Right eye exhibits no discharge. Left eye exhibits no discharge. No scleral icterus. NECK: Normal range of motion. Neck supple. No JVD present. CV: Normal rate, regular rhythm, normal heart sounds and intact distal pulses. There is no peripheral edema. Palpable radial pulses bue. PULM/CHEST: Diffuse expiratory wheezes bilaterally. ABD: The abdomen is soft. There is no tenderness. NEURO: Motor and sensation grossly intact. SKIN: Skin is warm and dry. He is not diaphoretic. PSYCH: normal mood and affect. Behavior is normal. Judgment and thought content normal. Course Course 1657: The patient was evaluated in room D3. A complete history and physical exam was performed Cardiac monitoring: An order was placed for continuous cardiac monitoring. The monitor shows a rate of 100 with sinus rhythm interpreted by me 1800: Vital signs stable. Chest x-ray negative. White blood cell count is 7.8. VBG shows a venous pH of 7.31 with a venous pCO2 of 88. External medical records reviewed and in September the patient had a venous pH of 7.38 with a venous pCO2 of 56. Patient appears to be in a compensated respiratory acidosis with a bicarb of 40. Patient was given multiple DuoNebs in addition to IV steroids and oral azithromycin for COPD exacerbation will be admitted to the [facility] hospitalist team. Administered Medications Discontinued Medications Albuterol (Albut/Ipratrop 3mg/0.5mg Neb 3 Ml Vial) 3 ml NEB NOW STA; Protocol Stop: 02/23/24 17:18 Last Admin: 02/23/24 17:31 Dose: 3 ml Documented By: RUPERTO Albuterol (Albut/Ipratrop 3mg/0.5mg Neb 3 Ml Vial) 3 ml NEB NOW STA; Protocol Stop: 02/23/24 17:19 Last Admin: 02/23/24 17:31 Dose: 3 ml Documented By: RUPERTO Albuterol (Albut/Ipratrop 3mg/0.5mg Neb 3 Ml Vial) 3 ml NEB NOW STA; Protocol Stop: 02/23/24 17:55 Last Admin: 02/23/24 18:18 Dose: 3 ml Documented By: ARTHUR Azithromycin (Azithromycin 250 Mg Tab) 500 mg PO NOW ONE Stop: 02/23/24 17:58 Last Admin: 02/23/24 18:17 Dose: 500 mg Documented By: ARTHUR Methylprednisolone (Methylprednisolone 125 Mg/2 Ml Vial) 125 mg IV NOW STA Stop: 02/23/24 17:18 Last Admin: 02/23/24 17:29 Dose: 125 mg Documented By: RUPERTO Medical Decision Making Medical Records Attestation: I reviewed the patient's medical records. External medical records reviewed and in September the patient had a venous pH of 7.38 with a venous pCO2 of 56. Laboratory Data Attestation: I reviewed the patient's lab results. 02/23/24 16:48 02/23/24 16:48 Lab Results 02/23/24 02/23/24 02/23/24 Range/Units 16:48 17:33 18:24 WBC 7.80 (4.8-10.8) K/ul RBC 5.49 H (4.20-5.40) M/uL Hgb 19.3 H (12.0-16.0) g/dl Hct 59.1 H (37.0-47.0) % MCV 107.7 H (80.0-100.0) fL MCH 35.2 H (25.0-34.0) pg MCHC 32.7 (32.0-36.0) g/dL RDW Std Deviation 51.6 H (36.4-46.3) fL RDW Coeff of Liz 12.7 (11.5-14.5) % Plt Count 114 L (130-400) K/uL MPV 10.1 (9.4-12.4) fL Immature Gran % (Auto) 0.5 % Neut % (Auto) 88.3 % Lymph % (Auto) 7.6 % [place] % (Auto) 3.5 % Eos % (Auto) 0.0 % Baso % (Auto) 0.1 % Neut # (Auto) 6.89 H (1.40-6.50) K/uL Lymph # (Auto) 0.59 L (1.20-3.40) K/uL [place] # (Auto) 0.27 (0.11-0.59) K/uL Eos # (Auto) 0.00 (0.00-0.50) K/uL Baso # (Auto) 0.01 (0.00-0.20) K/uL Immature Gran # (Auto) 0.04 (0.01-0.20) K/uL PT Cancelled 10.7 INR Cancelled 1.0 APTT Cancelled 25 PTT Ratio Cancelled 0.9 VBG pH 7.31 L (7.36-7.41) VBG pCO2 88 H (38-50) mmHg VBG pO2 54 mmHg VBG HCO3 44 mmol/L VBG O2 Saturation 88.1 % VBG Base Excess 13.8 mEq/L Sodium 138 (136-145) mmol/L Potassium 4.4 (3.5-5.1) mmol/L Chloride 91 L (98-107) mmol/L Carbon Dioxide 40 H (21-32) mmol/L Anion Gap 7 (3-11) BUN 16 (6-23) mg/dl Creatinine 0.64 (0.6-1.2) mg/dl Est Cr Clr Drug Dosing 81.4 ml/min Est GFR ( Amer) 107.8 ml/min Est GFR (Non-Af Amer) 93.0 ml/min BUN/Creatinine Ratio 25.0 H (10-20) Glucose 157 H (70-99(Fasting)) mg/dl Calcium 9.3 (8.6-10.3) mg/dl Total Bilirubin 0.5 (0.2-1.0) mg/dl AST 16 (13-39) U/L ALT 11 (7-52) U/L Alkaline Phosphatase 83 (34-104) U/L Troponin I High Sens Cancelled Total Protein 7.5 (6.0-8.3) gm/dl Albumin 4.4 (3.4-5.0) gm/dl Globulin 3.1 (2.5-4.0) gm/dl Albumin/Globulin Ratio 1.4 (0.9-2) SARS-CoV-2 (PCR) NEGATIVE (Negative) Influenza Type A (PCR) Negative (Neg) Influenza Type B (PCR) Negative (Neg) RSV (RT-PCR) Negative (Neg) Imaging Data Radiologist's Impression: Chest X-Ray 02/23/24 16:41 XR chest 1V not portable CLINICAL HISTORY: Chest pain, nonspecific TECHNIQUE: Single frontal radiograph of the chest was obtained. Comparison: Comparison is made to chest radiograph 10/14/2023 FINDINGS: No lines and tubes are seen. A hiatal hernia is seen. The lungs are clear. No evidence of pleural effusion or pneumothorax. IMPRESSION: No acute chest disease. ACT 112: Negative or not required by law. Electronically signed by: Sukhjinder Ledezma M.D. 02/23/2024 5:13 PM ECG Data Attestation: I personally reviewed and interpreted this ECG as follows: Interpretation: Sinus rhythm with a rate of 103. IA 132 QRS [address] elevation or ST depression. S1Q3T3 pattern. No change in the EKG since March 2023. [facility] Narrative 1658: The patient was evaluated in room D3. A complete history and physical exam was performed Cardiac monitoring: An order was placed for continuous cardiac monitoring. The monitor shows a rate of 100 with sinus rhythm interpreted by 1800: Vital signs stable. Chest x-ray negative. White blood cell count is 7.8. VBG shows a venous pH of 7.31 with a venous pCO2 of 88. External medical records reviewed and in September the patient had a venous pH of 7.38 with a venous pCO2 of 56. Patient appears to be in a compensated respiratory acidosis with a bicarb of 40. Patient was given multiple DuoNebs in addition to IV steroids and oral azithromycin for COPD exacerbation will be admitted to the [facility] hospitalist team. Impression & Plan COPD exacerbation Discharge Plan Visit Data Chief Complaint: Shortness of Breath/Dyspnea ED Provider: Giorgio Agarwal Discharge Problem: COPD exacerbation Patient Disposition: Being Evaluated by Hospitalist Forms Stand Alone Forms: My [facility] Prescriptions Prescriptions: No Action cyclobenzaprine 10 mg tablet 10 mg PO AMHS ipratropium-albuterol 0.5 mg-3 mg(2.5 mg base)/3 mL solution for nebulization 3 ml INHALATION TID PRN (Reason: COPD FLARE UPS) Rx Instructions: TAKE INSTEAD OF SPIRIVA WHEN COPD FLARES UP. bupropion HCl 150 mg tablet sustained-release 12 hr 100 mg PO BID fluticasone propion-salmeterol 250-50 mcg/dose blister with device 1 inh INHALATION BID ondansetron HCl 4 mg tablet 4 mg PO Q8H PRN (Reason: NAUSEA/VOMITING) sennosides-docusate sodium [Colace 2-In-1] 8.6-50 mg Tablet 1 tab-cap PO QAM acetaminophen [Tylenol Extra Strength] 500 mg Tablet 1,000 mg PO BID meloxicam 7.5 mg tablet 7.5 mg PO DAILY ferrous sulfate [iron] 325 mg (65 mg iron) Tablet 325 mg PO BID omeprazole 20 mg capsule,delayed release(DR/EC) 20 mg PO DAILYBB albuterol sulfate 90 mcg/actuation HFA aerosol inhaler 2 puff inhalation Q6H PRN (Reason: Shortness Of Breath Or Wheezing) cholecalciferol (vitamin D3) [Vitamin D3] 25 mcg (1,000 unit) Capsule 50 mcg PO BID pregabalin 25 mg capsule See Rx Instructions .ROUTE .COMPLEX Rx Instructions: TAKES 25 MG QAM, THEN 50 MG QHS. Icy Hot Max (lido HCl-menthol) 4-1 % Cream 1 applic TOPICAL BID PRN (Reason: Pain) Spiriva Respimat 1.25 mcg/actuation mist 2 puff INHALATION QPM prednisone 20 mg tablet 40 mg PO DAILY Qty: 10 0RF Referrals Referrals: Rubi Alejo MD [Primary Care Provider] -
[2024-02-23] MEDS ORDERED: CHLORASEPTIC (PHENOL) 1.4% SOLN 180 ML BTL PO PRN (19:58)
[2024-02-23] MEDS: SODIUM CHLORIDE 0.9% 1,000 ML IV SCH (20:28)
[2024-02-23] MEDS: AZITHROMYCIN 500 MG in DEXTROSE 5% 250 ML IV SCH (20:28)
[2024-02-23] MEDS: ALBUT/IPRATROP 3MG/0.5MG NEB 3 ML VIAL NEB SCH (20:34)
[2024-02-23] MEDS: HEPARIN SOD 5,000 UNIT/0.5 ML VIAL SQ SCH (20:35)
[2024-02-23] MEDS ORDERED: CHLORASEPTIC (PHENOL) 1.4% SOLN 180 ML BTL MT PRN (21:41)
[2024-02-23] MEDS ORDERED: LEVALBUTEROL HCL 0.63 MG/3 ML NEB NEB PRN (21:41)
[2024-02-23] MEDS ORDERED: [UNRECOGNIZED DRUG - OTHER] TOP PRN (21:41)
[2024-02-23] MEDS ORDERED: methylPREDNISolone 1000 MG/16 ML IV SCH (21:41)
[2024-02-23] MEDS: LACTATED RINGER'S 1,000 ML IV ONE (22:03)
[2024-02-23] MEDS: buPROPion SR 100 MG TABCR PO SCH (22:56)
[2024-02-23] MEDS: FERROUS SULFATE 325 MG TAB PO SCH (22:56)
[2024-02-23] MEDS: CHOLECALCIFEROL 25 MCG (1000 UNITS) TAB PO SCH (22:56)
[2024-02-23] MEDS: DOXYCYCLINE HYCLATE 100 MG CAP PO SCH (22:56)
[2024-02-23] MEDS: CYCLOBENZAPRINE HCL 10 MG TAB PO SCH (22:56)
[2024-02-23] MEDS: guaiFENesin 600 MG TABCR PO SCH (22:56)
[2024-02-23] MEDS: PREGABALIN 25 MG CAP PO SCH ×2 (22:56→23:05)
[2024-02-23] MEDS: methylPREDNISolone 40 MG in SYRINGE 0 ML IV SCH (23:02)
--- OUTSIDE RECORDS SUMMARY | 2024-02-24 01:55 | External Medical Summary | Summary of Care ---
Author Name Unknown Organization [facility] Address [address] [place] [address] Phone [phone] Care Team Providers Care Central Sterile Technician Name Role Phone Rubi Alejo MD Primary Care Provider [phone] Reason for Visit * Reason Onset Date Comments Test Results 02/10/2024 Encounter Details Date Type Department Care Team (Late st Contact Info) Description 02/10/2024 Telephone Thoracic Surg [facility] [address] [place] [address] Lynette Coleman, RN Test Results Allergies Active Allergy Reactions Criticality Noted Date Comments Gluten Meal 05/25/2014 Celiac disease documented as of this encounter (statuses as of 02/11/2024) Medications Medication Sig Dispensed Refills Start Date End Date Status NEBULIZER COMPRESSOR MISCIndications:COPD , 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 Active Vitamin D3 1.25 MG (75643 UT) Oral CapsuleIndications:V itamin D deficiency TAKE 1 CAPSULE BY MOUTH ONE TIME PER WEEK 12 Capsule 06/17/2023 Active Tiotropium Dragoon Monohydrate 1.25 MCG/ACT Inhalation Aerosol Solution (Spiriva Respimat) Inhale 2 Puffs by mouth every evening. 4 g 5 07/25/2023 Active Fluticasone-Salmeter ol 250-50 MCG/ACT Inhalation Aerosol Powder Breath Activated (Advair Diskus) Inhale 1 Puff by mouth in the morning and 1 Puff before bedtime. 1 Each 5 07/25/2023 Active Ipratropium-Albutero l 0.5-2.5 (3) MG/3ML Inhalation Solution (Duoneb)Indications: COPD, moderate (HCC) Inhale 3 mL via nebulizer in the morning and 3 mL at noon and 3 mL in the evening and 3 mL before bedtime. Take instead of spiriva when COPD flares up. 07/25/2023 Active Sennosides-Docusate Sodium 8.6-50 MG Oral Tablet (Colace 2-IN-1)Indications:O ther constipation Take 1 Tablet by mouth in the morning. 09/05/2023 Active Acetaminophen 500 MG Oral Tablet (Tylenol Extra Strength) Take 2 Tablets by mouth 2 times a day. Active Meloxicam 7.5 MG Oral TabletIndications:Ch ronic right-sided low back pain without sciatica,Acute left-sided low back pain without sciatica Take 1 Tablet by mouth in the morning and 1 Tablet before bedtime. With food for pain for 2 weeks then once daily.. 40 Tablet 3 10/08/2023 Active Omeprazole Magnesium 10 MG Oral Packet (PriLOSEC) Take 20 mg by mouth in the morning and 20 mg before bedtime. 10/14/2023 Active Ondansetron HCl 4 MG Oral TabletIndications:Na usea Take 1 Tablet by mouth every 8 hours as needed for Nausea. 30 Tablet 10/22/2023 Active Albuterol Sulfate HFA 108 (90 Base) MCG/ACT Inhalation Aerosol Solution INHALE 2 PUFFS BY MOUTH EVERY 6 HOURS NEEDED FOR SHORTNESS OF BREATH OR WHEEZING. 18 g 5 11/20/2023 Active Cyclobenzaprine HCl 10 MG Oral Tablet (Flexeril)Indication s:Myositis of right shoulder, unspecified myositis type TAKE 1 TABLET BY MOUTH AT BEDTIME NEEDED FOR PAIN OR MUSCLE SPASMS. 30 Tablet 1 12/11/2023 Active Pregabalin 25 MG Oral Capsule (Lyrica)Indications: Chronic right-sided low back pain without sciatica Take 1 Capsule by mouth every morning AND 2 Capsules at bedtime. 90 Capsule 1 01/09/2024 Active Atorvastatin Calcium 20 MG Oral Tablet (Lipitor)Indications :Atherosclerosis of [place] coronary artery of [place] heart without angina pectoris Take 0.5 Tablets by mouth in the morning. In 2 weeks increase to 1 tab daily. 30 Tablet 5 02/11/2024 Active Hospital, Clinic, or Other Facility Administered Medication Ordered Dose Route Frequency Start Date End Date Status Albuterol Sulfate (Proventil) (2.5 MG/3ML) 0.083% inhalation solution 2.5 mgIndications:COPD, moderate (HCC) 2.5 mg NEBULIZER PRN 10/22/2023 10/21/2024 Active albuterol (VENTOLIN HFA/PROVENTIL HFA) inhalerIndications:COPD , moderate (HCC) 3 Puff IN PRN 10/22/2023 10/21/2024 Active documented as of this encounter (statuses as of 02/11/2024) Active Problems Problem Noted Date Diagnosed Date COPD, group D, by GOLD 2017 classification 12/21 Overview: Per COPD GOLD Classification Cor pulmonale, chronic 09/05/2023 DDD (degenerative disc disease), lumbar 02/12/20 23 Chronic right-sided low back pain without sciati ca 02/11/2023 Chronic hypoxemic respiratory failure 11/29/2022 Incidental lung nodule, less than or equal to 3m m 02/28/2021 On supplemental oxygen by nasal cannula 01/02/20 21 Hiatal hernia 01/01/2021 Iron deficiency anemia 10/20/2018 Tobacco use disorder 09/17/2007 ADVANCE DIRECTIVE INFORMATION 03/18/2007 Overview: No, Advance Directive brochure given to patient. Gastroparesis 10/10/2004 documented as of this encounter (statuses as of 02/11/2024) Resolved Problems Problem Noted Date Diagnosed Date Resolved Date COPD, group C, by GOLD 2017 classification 10/27/2023 12/25/2023 Overview: Per COPD GOLD Classification COPD, moderate 01/01/2021 10/29/2023 Overview: Per COPD GOLD Classification Prediabetes 01/01/2021 07/31/2023 COPD exacerbation 03/28/2014 01/01/2021 Alcohol dependence 04/14/2008 Overview: ICD-10 update of inactive term documented as of this encounter (statuses as of 02/11/2024) Immunizations Name Administration Dates Next Due Pneumococcal Polysaccharide PPV23 (Pneumovax) documented as of this encounter Social History Tobacco Use Types Packs/Day Years Used Date Smoking Tobacco: Every Day Cigarettes 2 53 Smokeless Tobacco: Never Comments:Currently smokes 1 ppd. Less than 1 ppd. 01/28/24 Alcohol Use Standard Drinks/Week Comments Not Currently 0 (1 standard drink = 0.6 oz pure alcohol) DRINKING HEAVILY/quit drinking 1 yr ago PHQ-2 Answer Date Recorded PHQ-2 Score -1 10/20/2018 Utilities Answer Date Recorded Do you have trouble paying y our heating, water, or electric bill? (Adult - for ages 18 years and over) Not on file 12/02/2023 Is your family able to pay t he heat, water, or electric bill? (Household - for ages 0-17 years) Not on file 12/02/2023 Does your family have access to good internet? (Household - for ages 0-17 years) Not on file 12/02/2023 Social Connections Answer Date Recorded How often do you feel lonely or isolated from those around you? (Adult - for ages 18 years and over) Not on file 12/02/2023 Sex and Gender Information Value Date Recorded Sex Assigned at Not on file Gender Identity Not on file Sexual Orientation Not on file Job Start Date Occupation Industry Not on file Not on file Not on file documented as of this encounter Miscellaneous Notes * Telephone Encounter - Rubi Alejo MD - 02/11/2024 1:54 PM EDT Done * Telephone Encounter - Katie Johnston MED ASSIST - 02/11/2024 1:21 PM EDT Spoke with patient's granddaughter, Renate. They will start the Lipitor but asks that detailed instructions be placed on the bottle. She asks that it be sent [facility] * Telephone Encounter - Rbui Alejo MD - 02/10/2024 3:[address] chest - Incidental finding of Calcified atherosclerotic changes meaning cholesterol plaques in the coronaryarteries and aorta. This puts her at risk for heart attack and suggest to consider statins like lipitor 20- mg - 1/2 tab daily for 2 weeks followed by 1 tab daily . * Telephone Encounter - Lynette Coleman RN - 02/10/2024 2:08 PM EDT Lung Cancer Screening Program ([facility]) Results Call Summary 02/10/2024 Rubi Alejo MD - Your patient had an abnormal incidental finding on Low Dose CT Scan (LDCT). Please review the LDCT scan EPIC Chart Review: Imaging and follow through with evaluation of the incidental finding as clinically indicated. Management of the significant incidental finding is deferred to the primary care provider. Lynette Coleman DEAN Lung Cancer Screening Rn Surgical [phone]) documented in this encounter Plan of Treatment Upcoming Encounters Date Type Department Care Team (Late st Contact Info) Description 03/22/2024 11:00 AM EDT Office Visit Interventional Pain Center, [facility] [address] [place] [address] Derrek Vela DO [address] [place] [phone] 03/24/2024 12:00 PM EDT Office Visit General Internal Medicine [facility] [address] [facility] [place] [address] Rubi Alejo MD [address] [facility] [place] [address] 08/09/2024 2:00 PM EST Office Visit Pulmonary Medicine, [facility] [address] [facility] [place] [id number] Pasha Bowman MD [address] [facility] [place] [phone] Health Maintenance Due Date Last Done Comments DISCUSS TOBACCO CESSATION (REFER TO SMARTSET #0323) 1955 Alpha-1 Antitrypsin 11/13/1975 Hepatitis C Screening 11/13/1975 DTap/Tdap Vaccines (1 - Tdap) 1976 Cologuard 2002 Sigmoidoscopy 2002 Fecal Occult Blood Test 09/19/2005 09/19/2004 Zoster Vaccines (1 of 2) 11/13/2007 Pneumococcal Vaccine: 65+ Years (2 of 2 - PCV) 08/14/2008 08/15/2007 Depression Screening 10/21/2019 10/20/2018 COVID-19 Vaccine ( - 2022- season) 2023 Colonoscopy 10/30/2023 10/29/2013 Colorectal Cancer Screening 10/30/2023 Adult Wellness Visit 11/13/2023 Mammogram 12/05/2023 12/04/2022, 06/2 06/2022, 08/31/2008, Additional history exists DXA Scan 12/09/2023 12/08/2013 Influenza Vaccine (FLU shot) (#1) 2024 O2 ASSESSMENT COMPLETED IN PAST YEAR FOR COPD 02/04/2025 02/05/2024 Diabetes Screening 07/10/2026 07/10/2023, 0 07/10/2023, 04/03/2023, Additional history exists Lipid Panel 04/03/2028 04/03/2023, 11/14, 12/26/2020, Additional history exists Pap Smear Discontinued 08/26/2008, 08/14, 10/24/2004, Additional history exists Lung Cancer Screening Completed 02/06/2024 , 02/05/2023, 01/10/2021 HPV (Gardasil) Vaccine Aged Out No lo nger eligible based on patient's age to complete this topic Hepatitis B Vaccine Aged Out No longe r eligible based on patient's age to complete this topic MENINGOCOCCAL (MENACTRA/MENVEO) Aged Out No longer eligible based on patient's age to complete this topic documented as of this encounter Medical Devices Not on filedocumented as of this encounter Visit Diagnoses Diagnosis Atherosclerosis of [place] coronary artery of [place] heart without angina pectoris- Primary documented in this encounter Care Teams Central Sterile Technician Relationship Specialty Start Date End Date Rubi Alejo MD [address] [place] [address] PCP - General Internal Medicine 04/03/23 documented as of this encounter
--- OUTSIDE RECORDS SUMMARY | 2024-02-24 01:55 | External Medical Summary | Summary of Care ---
Author Name Unknown Organization [facility] Address [address] [place] [address] Phone [phone] Care Team Providers Care Editorial Writer Name Role Phone Rubi Alejo MD Primary Care Provider [phone] Reason for Visit * Auth/Cert Specialty Diagnoses / Procedures Referred By Lizet slater Referred To Contact Diagnoses Myalgia Myalgia [M79.10] Procedures INJECTION NERVE BLOCK; INTERCOSTAL NERVE, SINGLE INJECTION NERVE BLOCK; INTERCOSTAL NERVES, MULTIPLE, REGIONAL BLOCK INJECT ANESTHETIC AND/OR STEROID INTERCOSTAL NERVE INJECT ANESTHETIC AND/OR STEROID INTERCOSTAL MULTIPLE NERVES Derrek Vela DO [address] [place] [address] [address] [facility] [address] [place] [phone] Referral ID Status Reason Start Date Expiration Date Visits Re quested Visits Authorized [id number] Encounter Details Date Type Department Care Team (Latest Contact Info) Description 02/05/2024 9:21 AM EDT - 02/05/2024 10:23 AM EDT Hospital Encounter [facility], Operating Room [facility] [address] [place] [phone] Derrek Vela, [address] [place] [address] Discharge Disposition: Home - Self Care Allergies Active Allergy Reactions Criticality Noted Date Comments Gluten Meal 05/25/2014 Celiac disease documented as of this encounter (statuses as of 02/05/2024) Medications Medication Sig Dispensed Refills Start Date End Date Status NEBULIZER COMPRESSOR MISCIndications:COPD , 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 Active Vitamin D3 1.25 MG (90409 UT) Oral CapsuleIndications:V itamin D deficiency TAKE 1 CAPSULE BY MOUTH ONE TIME PER WEEK 12 Capsule 06/17/2023 Active Tiotropium [place] Monohydrate 1.25 MCG/ACT Inhalation Aerosol Solution (Spiriva [...] at bedtime. 90 Capsule 1 01/09/2024 Active documented as of this encounter (statuses as of 02/05/2024) Active Problems Problem Noted Date Diagnosed Date [...] as of this encounter (statuses as of 02/05/2024) Resolved Problems Problem Noted Date Diagnosed Date Resolved Date COPD, group C, by GOLD 2017 classification 10/27/2023 12/25/2023 Overview: Per COPD GOLD Classification COPD, moderate 01/01/2021 10/29/2023 Overview: Per COPD GOLD Classification Prediabetes 01/01/2021 07/31/2023 COPD exacerbation 03/28/2014 01/01/2021 Alcohol dependence 04/14/2008 Overview: ICD-10 update of inactive term documented as of this encounter (statuses as of 02/05/2024) Immunizations Name Administration Dates Next Due Pneumococcal [...] Sign Reading Time Taken Comments Blood Pressure 156/99 02/05/2024 10:11 AM EDT Pulse 94 02/05/2024 10:11 AM EDT Temperature 36.9 C (98.4 F) 02/05/2024 10:11 AM E DT Respiratory Rate 16 02/05/2024 10:11 AM EDT Oxygen Saturation 97% 02/05/2024 10:11 AM EDT Inhaled Oxygen Concentration - - Weight 70.8 kg (156 lb) 02/05/2024 9:26 AM EDT Height 157.5 cm (5' 2") 02/05/2024 9:26 AM EDT Body Mass Index 28.53 02/05/2024 9:26 AM EDT documented in this encounter Discharge Instructions * Discharge Instr - AVS* Derrek Vela DO - 02/05/2024 9:40 AM EDT Discharge Date: 02/05/2024 Check your Patient Education Brochure for further information. If you have any further questions call your physician at [phone]. The information below provides you with the instructions and the list of medications you need to betaking following discharge from the hospital. If you have any questions, please ask before leaving.If you have questions after you leave, you can reach us at the number above. You had the following procedure performed: Intercostal Nerve Block, right ribs 8-10 Wound Care: You may shower normally, but be sure to keep the injection site clean and dry. No soaking in a bathfor 48 hours. Activity: You may resume your regular diet as tolerated. Return to normal activities slowly as tolerated. Walking is very important for healing and your rehabilitation. Initially, you should walk at least two to three times daily. Then slowly and gradually increase your distance as your tolerance for physical activity increases. You may go up and down stairs carefully. You may resume home medications. If you received sedation, for the next 24 hours, you should NOT: Drive a vehicle, operate power machinery or power equipment Drink alcoholic beverages, including beer Make important decisions, such as signing contracts, etc. Notify physician for: Temperature greater than 101 degrees F. Increased pain. Calf swelling or tenderness. Drainage or redness of the incision. Chest pain or shortness of breath (and go to the Emergency Department) Date you may return to work or school: tomorrow documented in this encounter H&P Notes * Derrek Vela DO - 02/05/2024 9:38 AM EDT Subjective: Presents with ongoing right thoracic flank rib pain refractory to all other measures. Providers: PCP: Rubi Alejo MD Referring provider: Rubi Alejo MD Investigations performed: XR Thoracic spine MRI T-spine (report only) reviewed in media US of thoracic: FINDINGS: Patient has a history of prior surgery at patient directed location of symptoms with some irregularsoft tissue present compatible with post treatment scar at the skin surface and subcutaneous tissue. At the patient directed location of symptoms medial to the aforementioned area of presumed scar is an elliptical well-defined structure wider than tall without associated vascularity. Internal striations appear parallel to the soft tissue parenchymal planes. Additionally, a 2nd similar area is seen proximally 10 cm superior or cranial to the 1st. These respectively measure: 2.6 cm x 0.6 cm x 3.1 cm and 1.3 cm x 0.4 cm x 1.5 cm The appearance/etiology of these lesions is nonspecific but given ultrasound characteristics are suspect to be lipomas. If there has been recent enlargement or symptoms such as pain/tenderness the possibility of sarcomatous transformation can be considered. In correct clinical setting inflammatory/i nfectious etiology or hematoma/chronic hematoma can be considered. Other neoplastic lesion such as of neurogenic basis can also be considered. Please correlate with clinical exam. Otherwise, in the patient directed location imaged there is no additional ultrasound demonstrated mass, mass effect, fluid collection or cyst. The soft tissue parenchymal planes are otherwise maintained without ultrasound evidence of additional architectural asymmetry disruption or distortion. IMPRESSION IMPRESSION: Probable lipomas as discussed. Please correlate with clinical exam. Non-interventional techniques: Physical Therapy: 2 months Massage: Chiropractic/Acupuncture: Interventional Pain techniques: Injections: none Surgeries: none for pain Medications and Allergies: Current Outpatient Medications Medication Instructions Acetaminophen (TYLENOL EXTRA STRENGTH) 1,000 mg, Oral, BID(Non-Specified) Albuterol Sulfate HFA 108 (90 Base) MCG/ACT Inhalation Aerosol Solution 2 Puffs, Inhalation, Q6H PRN Cyclobenzaprine HCl 10 MG Oral Tablet (Flexeril) TAKE 1 TABLET BY MOUTH AT BEDTIME NEEDED FOR PAIN OR MUSCLE SPASMS. Fluticasone-Salmeterol 250-50 MCG/ACT Inhalation Aerosol Powder Breath Activated (Advair Diskus) 1 Puff, Inhalation, BID (.AM/PM) Ipratropium-Albuterol 0.5-2.5 (3) MG/3ML Inhalation Solution (Duoneb) 3 mL, Nebulizer, QID(AM/NOON/PM/HS), Take instead of spiriva when COPD flares up Meloxicam (MOBIC) 7.5 mg, Oral, BID (.AM/PM), With food for pain for 2 weeks then once daily. NEBULIZER COMPRESSOR MISC Use as directed Omeprazole Magnesium (PRILOSEC) 20 mg, Oral, BID (.AM/PM) ondansetron (ZOFRAN) 4 mg, Oral, Q8H PRN oxygen GAS Nasal cannula Pregabalin (LYRICA) 25 mg, Oral, BID (.AM/PM), In 1 week can increase 1 in am and 2 tab at night Sennosides-Docusate Sodium 8.6-50 MG Oral Tablet (Colace 2-IN-1) 1 Tablet, Oral, Daily(AM) Tiotropium [place] Monohydrate 1.25 MCG/ACT Inhalation Aerosol Solution (Spiriva Respimat) 2 Puffs,Inhalation, DAILY(1900) Vitamin D3 1.25 MG (02710 UT) Oral Capsule TAKE 1 CAPSULE BY MOUTH ONE TIME PER WEEK Review of patient's allergies indicates: Allergen Reactions Gluten Meal Celiac disease Past Medical History: Past Medical History: Diagnosis Date Gastroparesis 2004 T 1/=144 minutes Peptic ulcer Past Surgical History: Past Surgical History: Procedure Laterality Date COLONOSCOPY 08/15/07 [facility]. COLONOSCOPY, DIAGNOSTIC (RECTUM) 10/29/2013 poor prep/inpt @ [facility] ECHO (2-D COMPLETE) 04/23 LVEF 55%, normal chambers EGD, FLEXIBLE, DIAGNOSTIC 10/29/2013 lg HH/inpt @ [facility] REMOVAL OF APPENDIX REMOVAL OF OVARY(S) rt REMOVE GALLBLADDER 1977 Family History: Family History Problem Relation Name Age of Onset Heart Disorder Father Other (Depression [Other]) Brother Cancer Grandmother (Maternal) in bone Breast Cancer Grandmother (Paternal) Cancer Grandmother (Paternal) breast Social History: Social History Socioeconomic History Marital status: Spouse name: Not on file Number of children: 4 Years of education: Not on file Highest education level: Not on file Occupational History 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 Tobacco Use Smoking status: Every Day Current packs/day: 1.00 Average packs/day: 1 pack/day for 53.0 years (53.0 ttl pk-yrs) Types: Cigarettes Smokeless tobacco: Never Tobacco comments: used to be 2.5ppd, down to 7 cigarettes per day Substance and Sexual Activity Alcohol use: Yes Comment: DRINKING HEAVILY/quit drinking 1 yr ago Drug use: No Comment: Marijuana yrs ago Sexual activity: Not on file Other Topics Concern Not on file Social History Narrative Not on file Social Determinants of Health Financial Resource Strain: Not on file Food Insecurity: Not on file Transportation Needs: Not on file Physical Activity: Not on file Stress: Not on file Social Connections: Not on file Intimate Partner Violence: Not on file Housing Stability: Not on file ROS: A comprehensive ROS was peformed and negative except as stated above. Objective: Filed Vitals: 11/28/23 1103 BP: 134/87 Pulse: 86 Temp: 36.4 C (97.5 F) TempSrc: Tympanic SpO2: 96% GENERAL APPEARANCE: Well-developed, well-nourished, in no acute distress. EXTREMITIES: No cyanosis, clubbing, or edema. NEUROLOGIC: Gait is normal. SKIN: thoracic spine with mottling see with heat pad use in excess, hoizontal incision of R paraspinal thoracic spine approx T11 with a firm mobile mass just to supermedial aspect of incision. No allodynia over scar. Scar is well approximated. There is firm non mobile soft tissue with exquisite tenderness extending to appxoimatley T6 level. There is hyperesthesia MSK:upper extremities with full ROM, thoracic spine with full ROM, no pain illicited with movement Assessment: Proceed with right rib 8-10 intercostal nerve block documented in this encounter OR Notes * OR Surgeon - Derrek Vela DO - 02/05/2024 9:40 AM EDT .Procedure Date: 02/05/2024 Demi Woodson 1955 PREOPERATIVE DIAGNOSIS: Intercostal neuralgia on the right. 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 PROCEDURE AND FINDINGS: The patient was greeted in the pre procedure holding area. The risk, benefits and alternatives to the procedure were again reviewed with the patient and written informed consent was placed in the chart. Prior to the procedure a time out was completed, verifying correct patient, procedure, site, positioning, and implants and/or special equipment. An IV line was not placed. The patient was taken to the exam room and positioned prone on the table. The patient was prepped and draped in the usual sterile fashion. At this point, fluoroscopy was used in AP view to confirm starting position of rib 10. The subcutaneous tissue and the skin was anesthetized using about 3 cc of 1% lidocaine at each level. This was accomplished with a 1-1/2 inch needle. Os was contacted in each case and the tissue infiltration was done under direct ultrasound guidance. Then a 50mm Pajunk ultrasound needle was used and advanced in a tract that was anesthetized. At each level mentioned above, os was contacted and again this was done under live ultrasound. Startingat rib 10, the tip of the needle was walked off the inferior aspect of the rib and at that point, 3milligrams of dexamethasone was injected with 3 cc of 0.5% bupivacine after negative aspiration forblood and air. The needle was flushed and removed. The procedure was again repeated at the rib 9 and 8 levels in an identical fashion to that stated above. The needle was again flushed and removed atthe end of that procedure after depositing the steroid and local anesthetic. The patient tolerated the procedure well. The patient was taken to the recovery room where they were monitored for a brief period of time. She tolerated the procedure well and were discharged home in stable condition with post procedural instructions. The patient had no questions prior to discharge. She was instructed to go to the emergency room should she develop sudden shortness of breath, coughing or difficulty with breathing. documented in this encounter Plan of Treatment Upcoming Encounters Date Type Department Care Team (Late st Contact Info) Description 02/06/2024 12:30 PM EDT Imaging Radiology [facility] [address] [place] [address] 03/22/2024 11:00 AM EDT Office Visit Interventional Pain Center, [address] [place] [address] Derrek Vela DO [address] [place], [place] [address], [place] [address] 03/24/2024 12:00 PM EDT Office Visit General Internal Medicine [facility] [address] [facility] [place], [place] [address] Rubi Alejo MD [address] [place] [address] 08/09/2024 2:00 PM EST Office Visit Pulmonary Medicine, [facility] [address] [place] [address] Pasha Bowman MD [address] [facility] [place] [address] Scheduled Procedures Name Priority Associated Diagnoses Date/Ti me INJECT ANESTHETIC AND/OR [place] INTERCOSTAL NERVE Myalgia 02/05/2024 9:52 AM EDT INJECT ANESTHETIC AND/OR [place] INTERCOSTAL MULTIPLE NERVES Myalgia 02/05/2024 9:52 AM EDT Health Maintenance Due Date Last Done Comments DISCUSS TOBACCO CESSATION (REFER TO SMARTSET #9740) 1955 Alpha-1 Antitrypsin 11/13/1975 Hepatitis C Screening 11/13/1975 DTaP,Tdap,and Td Vaccines (1 - Tdap) 1976 Cologuard 2002 Sigmoidoscopy 2002 Fecal Occult Blood Test 09/19/2005 09/19/2004 Zoster Vaccines (1 of 2) 11/13/2007 Pneumococcal Vaccine: 65+ Years (2 of 2 - PCV) 08/14/2008 08/15/2007 Depression Screening 10/21/2019 10/20/2018 COVID-19 Vaccine (1 - 2022-24 season) 2023 Colonoscopy 10/30/2023 10/29/2013 Colorectal Cancer Screening 10/30/2023 Adult Wellness Visit 11/13/2023 Mammogram 12/05/2023 12/04/2022, 11/15, 08/31/2008, Additional history exists DXA Scan 12/09/2023 12/08/2013 Influenza Vaccine (FLU shot) (#1) 2024 O2 ASSESSMENT COMPLETED IN PAST YEAR FOR COPD 02/04/2025 02/05/2024 Diabetes Screening 07/10/2026 07/10/2023, 0 07/10/2023, 04/03/2023, Additional history exists Lipid Panel 04/03/2028 04/03/2023, 11/14, 12/26/2020, Additional history exists Pap Smear Discontinued 08/26/2008, 08/14, 10/24/2004, Additional history exists Lung Cancer Screening Completed 02/05/2023, 021 HPV (Gardasil) Vaccine Aged Out No lo nger eligible based on patient's age to complete this topic Hepatitis B Vaccine Aged Out No longe r eligible based on patient's age to complete this topic MENINGOCOCCAL (MENACTRA/MENVEO) Aged Out No longer eligible based on patient's age to complete this topic documented as of this encounter Medical Devices Not on filedocumented as of this encounter Procedures Procedure Name Priority Date/Time Associated Diagnosis Comments FLUORO INTERVENTIONAL PAIN PROCEDURE NONBILLABLE Routine 02/05/2024 10:05 AM EDT documented in this encounter Results * FLUORO INTERVENTIONAL PAIN PROCEDURE NONBILLABLE (02/05/2024 10:05 AM EDT) Narrative Scheduling, Silent - 02/05/2024 10:05 AM EDT This procedure will not be read by a Radiologist. Please see operative note. Derrek TOMLINSON FLUOROSCOPY documented in this encounter Active and Recently Administered Medications Times are shown in EDT. PRN Medication Order 02/03/2024 02/04/2024 02/05/2024 buffered lidocaine 1 % inj (CANCELED) ONCE PRN INTRA PROCEDURE, Starting on Vivian 02/05/24 at 1003, Until Vivian 02/05/24 at 1009, Intra-Op 1003 (Given - Provid er: Derrek Vela DO) bupivacaine 3 mL, dexAMETHasone Sodium Phosphate 10 mg inj (CANCELED) ONCE PRN INTRA PROCEDURE, Starting on Vivian 02/05/24 at 1003, Until Vivian 8/22/24 at 1009, Intra-Op 1003 (Given - Provid er: Derrek Vela DO) documented in this encounter Care Teams Editorial Writer Relationship Specialty Start Date End Date Rubi Alejo MD [address] [facility] [place], [place] [phone] PCP - General Internal Medicine 04/03/23 documented as of this encounter
--- OUTSIDE RECORDS SUMMARY | 2024-02-24 01:56 | External Medical Summary | Summary of Care ---
Author Name Unknown Organization [facility] Address [address] [place] [address] Phone [phone] Care Team Providers Care Autistic Teacher Name Role Phone Rubi Alejo MD Primary Care Provider [phone] Reason for Visit * Reason Comments Outpatient Testing Encounter Details Date Type Department Care Team (Late st Contact Info) Description 12/13/2023 12:30 PM EDT Laboratory Laboratory, [facility] [address] [place] [phone] [facility] [address] [place] [address] Pain in thoracic spine Allergies Active Allergy Reactions Criticality Noted Date Comments Gluten Meal 05/25/2014 Celiac disease documented as of this encounter (statuses as of 12/13/2023) Medications Medication Sig Dispensed Refills Start Date End Date Status NEBULIZER COMPRESSOR MISCIndications:EYEGLASS CUTTER D, 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 Active Vitamin D3 1.25 MG (50362 UT) Oral CapsuleIndications: Vitamin D deficiency TAKE 1 CAPSULE BY MOUTH ONE TIME PER WEEK 12 Capsule 06/17/2023 Active Tiotropium [place] Monohydrate 1.25 MCG/ACT Inhalation Aerosol Solution (Spiriva Respimat) Inhale 2 Puffs by mouth every evening. 4 g 5 07/25/2023 Active Fluticasone-[place]mete rol 250-50 MCG/ACT Inhalation Aerosol Powder Breath Activated (Advair Diskus) Inhale 1 Puff by mouth in the morning and 1 Puff before bedtime. 1 Each 5 07/25/2023 Active Ipratropium-Albuter ol 0.5-2.5 (3) MG/3ML Inhalation Solution (Duoneb)Indications :COPD, moderate (HCC) Inhale 3 mL via nebulizer in the morning and 3 mL at noon and 3 mL in the evening and 3 mL before bedtime. Take instead of spiriva when COPD flares up. 07/25/2023 Active Sennosides-Docusate Sodium 8.6-50 MG Oral Tablet (Colace 2-IN-1)Indications: Other constipation Take 1 Tablet by mouth in the morning. 09/05/2023 Active Acetaminophen 500 MG Oral Tablet (Tylenol Extra Strength) Take 2 Tablets by mouth 2 times a day. Active Pregabalin 25 MG Oral Capsule (Lyrica)Indications :Chronic right-sided low back pain without sciatica Take 1 Capsule by mouth in the morning and 1 Capsule before bedtime. In 1 week can increase 1 in am and 2 tab at night. 90 Capsule 1 10/01/2023 Active Meloxicam 7.5 MG Oral TabletIndications:C hronic right-sided low back pain without sciatica,Acute left-sided [...] 10/14/2023 Active Ondansetron HCl 4 MG Oral TabletIndications:N ausea Take 1 Tablet by mouth every 8 hours as needed for Nausea. 30 Tablet 10/22/2023 Active Albuterol Sulfate HFA 108 (90 Base) MCG/ACT Inhalation Aerosol Solution INHALE 2 PUFFS BY MOUTH EVERY 6 HOURS NEEDED FOR SHORTNESS OF BREATH OR WHEEZING. 18 g 5 11/20/2023 Active Albuterol Sulfate 0.63 MG/3ML Inhalation Nebulization Solution (Accuneb) Inhale 1 Vial via nebulizer every 6 hours as needed for Wheezing or Shortness of Breath. 360 mL 12/10/2023 01/09/2024 Active Cyclobenzaprine HCl 10 MG Oral Tablet (Flexeril)Indicatio ns:Myositis of right shoulder, unspecified myositis type TAKE 1 TABLET BY MOUTH AT BEDTIME NEEDED FOR PAIN OR MUSCLE SPASMS. 30 Tablet 1 12/11/2023 Active Hospital, Clinic, or Other Facility Administered Medication Ordered Dose Route Frequency Start Date End Date Status Albuterol Sulfate (Proventil) (2.5 MG/3ML) 0.083% inhalation solution 2.5 mgIndications:COPD, moderate (HCC) 2.5 mg NEBULIZER PRN 10/22/2023 10/21/2024 Active albuterol (VENTOLIN HFA/PROVENTIL HFA) inhalerIndications:COPD , moderate (HCC) 3 Puff IN PRN 10/22/2023 10/21/2024 Active documented as of this encounter (statuses as of 12/13/2023) Active Problems Problem Noted Date Diagnosed Date COPD, group C, by GOLD 2017 classification 10/26 Overview: Per COPD GOLD Classification Cor pulmonale, [...] as of this encounter (statuses as of 12/13/2023) Resolved Problems Problem Noted Date Diagnosed Date Resolved Date COPD, moderate 01/01/2021 10/29/2023 Overview: Per COPD GOLD Classification Prediabetes 01/01/2021 07/31/2023 COPD exacerbation 03/28/2014 01/01/2021 Alcohol dependence 04/14/2008 Overview: ICD-10 update of inactive term documented as of this encounter (statuses as of 12/13/2023) Immunizations Name Administration Dates Next Due Pneumococcal Polysaccharide PPV23 (Pneumovax) documented as of this encounter Social History Tobacco Use Types Packs/Day Years Used Date Smoking Tobacco: Every Day Cigarettes 2 53 Smokeless Tobacco: Never Comments:Currently smokes 1 ppd. Alcohol Use Standard Drinks/Week Comments Yes 0 [...] on file documented as of this encounter Plan of Treatment Upcoming Encounters Date Type Department Care Team (Late st Contact Info) Description 12/13/2023 2:30 PM EDT Imaging Radiology [address] [place] [address] 12/23/2023 11:00 AM EDT Office Visit Interventional Pain Center, [facility] [address] [place] [address] Derrek Vela, [address] [place] [phone] 02/06/2024 12:30 PM EDT Imaging Radiology [address] [place] [address] 03/24/2024 12:00 PM EDT Office Visit General Internal Medicine [facility] [place] [address] [facility] [place] [address] Rubi Alejo MD [address] [facility] [place] [address] Pending Results Name Type Priority Associated Diagnoses Date /Time BUN Lab STAT Pain in thoracic spine 12/13/2023 12:32 PM EDT CREATININE Lab STAT Pain in thoracic spine 12/13/2023 12:32 PM EDT Health Maintenance Due Date Last Done Comments DISCUSS TOBACCO CESSATION (REFER TO SMARTSET #3292) 1955 Alpha-1 Antitrypsin 11/13/1975 Hepatitis C Screening [...] ASSESSMENT COMPLETED IN PAST YEAR FOR COPD 12/09/2024 12/10/2023 Diabetes Screening 07/10/2026 07/10/2023, 0 07/10/2023, 04/03/2023, [...] as of this encounter Visit Diagnoses Diagnosis Pain in thoracic spine documented in this encounter Care Teams Autistic Teacher Relationship Specialty Start Date End Date Rubi Alejo MD [address] [place] [address] PCP - General Internal Medicine 04/03/23 documented as of this encounter
--- OUTSIDE RECORDS SUMMARY | 2024-02-24 01:56 | External Medical Summary | Summary of Care ---
Author Name Unknown Organization [facility] Address [address] [place] [address] Phone [phone] Care Team Providers Care Plating Department Helper Name Role Phone Rubi Alejo MD Primary Care Provider [phone] Reason for Referral * Precert (Within 10 days (routine)) - Pending Review Specialty Diagnoses / Procedures Referred By Lizet slater Referred To Contact Radiology Diagnoses Pain in thoracic spine History of lipoma Procedures MRI T SPINE WO CONTRAST Derrek Anaya DO [address] [place] [address] Referral ID Status Reason Start Date Expiration Date V isits Requested Visits Authorized [id number] Pending Review 12/05/[phone] Reason for Visit * Reason Comments NEW PATIENT Chronic R-Sided Thor acic Back Pain Back Pain R-Sided Upper Thorac ic Pain. radiates into cervical and lumbar region. constant throbbing pain. denies trauma. Onset: 2 yrs ago. * Evaluate & Treat - Unlimited Visits (Within 10 days (routine)) - Authorized Specialty Diagnoses / Procedures Referred By Lizet slater Referred To Contact Pain Management / Pain Medicine Diagnoses Chronic right-sided low back pain without sciatica Rubi Alejo MD [address] [place] [address] Referral ID Status Reason Start Date Expiration Date Visits Requested Visits Authorized [id number] Authorized Specialty Services Required 10/30/[phone] Encounter Details Date Type Department Care Team (Late st Contact Info) Description 11/28/2023 10:30 AM EDT Office Visit Interventional Pain Center, [facility] [address] [place] [address] Derrek Anaya, DO [address] [place] [phone] History of lipoma*; Pain in thoracic spine Allergies Active Allergy Reactions Criticality Noted Date Comments Gluten Meal 05/25/2014 Celiac disease documented as of this encounter (statuses as of 12/12/2023) Medications Medication Sig Dispensed Refills Start Date End Date Status NEBULIZER COMPRESSOR MISCIndications:CO PD, 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 Active Vitamin D3 1.25 MG (53712 UT) Oral CapsuleIndications :Vitamin D deficiency TAKE 1 CAPSULE BY MOUTH ONE TIME PER WEEK 12 Capsule 06/17/2023 Active Tiotropium [place] Monohydrate 1.25 MCG/ACT Inhalation Aerosol Solution (Spiriva [...] spiriva when COPD flares up. 07/25/2023 Active Sennosides-Docusat e Sodium 8.6-50 MG Oral Tablet (Colace 2-IN-1)Indications :Other constipation Take 1 Tablet by mouth in the morning. 09/05/2023 Active Acetaminophen 500 MG Oral Tablet (Tylenol Extra Strength) Take 2 Tablets by mouth 2 times a day. Active Pregabalin 25 MG Oral Capsule (Lyrica)Indication [...] 10/14/2023 Active Ondansetron HCl 4 MG Oral TabletIndications: Nausea Take 1 Tablet by mouth every 8 [...] PAIN OR MUSCLE SPASMS. 30 Tablet 1 10/27/2023 4 Discontinued Hospital, Clinic, or Other Facility Administered Medication Ordered Dose Route Frequency Start Date End Date Status Albuterol Sulfate (Proventil) (2.5 MG/3ML) 0.083% inhalation solution 2.5 mgIndications:COPD, moderate (HCC) 2.5 mg NEBULIZER PRN 10/22/2023 10/21/2024 Active albuterol (VENTOLIN HFA/PROVENTIL HFA) inhalerIndications:COPD , moderate (HCC) 3 Puff IN PRN 10/22/2023 10/21/2024 Active documented as of this encounter (statuses as of 12/12/2023) Active Problems Problem Noted Date Diagnosed Date [...] as of this encounter (statuses as of 12/12/2023) Resolved Problems Problem Noted Date Diagnosed Date Resolved Date COPD, moderate 01/01/2021 10/29/2023 Overview: Per COPD GOLD Classification Prediabetes 01/01/2021 07/31/2023 COPD exacerbation 03/28/2014 01/01/2021 Alcohol dependence 04/14/2008 Overview: ICD-10 update of inactive term documented as of this encounter (statuses as of 12/12/2023) Immunizations Name Administration Dates Next Due Pneumococcal Polysaccharide PPV23 (Pneumovax) documented as of this encounter Social History Tobacco Use Types Packs/Day Years Used Date Smoking Tobacco: Every Day Cigarettes 1 53 Smokeless Tobacco: Never Tobacco Cessation:Ready to Q uit: No; Counseling Given: No Comments:used to be 2.5ppd, down to 7 [...] Sign Reading Time Taken Comments Blood Pressure 134/87 11/28/2023 11:03 AM EDT Pulse 86 11/28/2023 11:03 AM EDT Temperature 36.4 C (97.5 F) 11/28/2023 11:03 AM E DT Respiratory Rate - - Oxygen Saturation 96% 11/28/2023 11:03 AM EDT Inhaled Oxygen Concentration - - Weight - - Height - - Body Mass Index - - documented in this encounter Patient Instructions * Patient Instructions* Derrek Anaya DO - 11/28/2023 11:29 AM EDT - We will get a CT scan of your thoracic area to assure this isn't anything more than muscle spasm,I am wanting to assure there is nothing concerning about the remaining lipoma in the area - If the CT scan is not concerning we will bring you back to do trigger point injections documented in this encounter Progress Notes * Derrek Anaya DO - 11/28/2023 12:06 PM EDT Subjective: Thank you for the opportunity to see your patient. Demi Woodson is a 68 year old female who presents to our clinic with a chief complaint of NEW PATIENT (Chronic R-Sided Thoracic Back Pain ) and Back Pain (R-Sided Upper Thoracic Pain. radiates into cervical and lumbar region. constant throbbing pain. denies trauma. Onset: 2 yrs ago. ) 68 year old female, severe 10/10 rated right dorsal thoracic pain, present about 2 years. 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 Pain extends from appxoimatley T11 (locaiton of incision) to T5. Constant. 2 months PT did not help. Wears heating pad ATC with minimalimprovement. Has tried muscle relaxant, tylenol, ibuprofen. Does not worsen with movement. Feels better to 'strike' the area, but direct pressure is painful (such as with massage hook). Providers: PCP: Rubi Alejo MD Referring provider: [...] (Colace 2-IN-1) 1 Tablet, Oral, Daily(AM) Tiotropium [place] Monohydrate 1.25 MCG/ACT Inhalation Aerosol Solution (Spiriva Respimat) 2 Puffs,Inhalation, DAILY(1900) Vitamin D3 1.25 MG (49496 UT) Oral Capsule TAKE 1 CAPSULE BY MOUTH ONE TIME PER WEEK Review of patient's allergies indicates: Allergen Reactions Gluten Meal Celiac disease Past Medical History: Past Medical History: Diagnosis Date Gastroparesis 2004 T 1/2=144 minutes Peptic ulcer Past Surgical History: Past Surgical History: Procedure Laterality Date COLONOSCOPY 08/15/07 [facility]. COLONOSCOPY, DIAGNOSTIC (RECTUM) 10/29/2013 poor prep/inpt @ [facility] ECHO (2-D COMPLETE) 04/23 LVEF 55%, normal chambers EGD, FLEXIBLE, DIAGNOSTIC 10/29/2013 lg HH/inpt @ [facility] REMOVAL OF APPENDIX REMOVAL OF OVARY(S) rt [...] ROM, no pain illicited with movement Assessment: 68 year old year-old female presents with: (M54.6) Pain in thoracic spine (primary encounter diagnosis) Plan: CT T SPINE WO CONTRAST (Z86.018) History of lipoma Plan: CT T SPINE WO CONTRAST 1-2 years of constant non-mechanical severely rated thoracic pain over area of prior lipoma excision and what I suspect is existing lipoma based of ultrasound performed 03/24/2023. Her pain is out of proportion from what I would expect resulting from muscle spasm. Pain is somatic in character, not neuropathic. Patient is unsure if it has increased since lipoma excision 01/2023. Thoracic spine MRI report in media is not helpful, I also doubt it captured the area in question (no images/disc available). I reviewed CT scans from 01/2023 but they do not comment on the area as they were low dose and done for lung CA screening. I will order a CT T-spine (but have specific comments regarding area of inquiry) but have also reached out to radiolody dept to discuss optimal imaging choice, I am awaiting response. If imaging does not note any concerning findings we can trial trigger point injections. Thank you for you allowing us to participate in the care of your patient. If you have any questions, please feel free to contact us. Greater than 55 minutes was spent in career development counselor with patient, reviewing imaging, and coordinating care. documented in this encounter Nursing Notes * Janette Colbert MA - 11/28/2023 11:01 AM EDT Chief Complaint Patient presents with NEW PATIENT Chronic R-Sided Thoracic Back Pain Back Pain R-Sided Upper Thoracic Pain. radiates into cervical and lumbar region. constant throbbing pain. denies trauma. Onset: 2 yrs ago. Imagin03/27/23 MRI T-Spine, 03/22/23 XR T-Spine, 11/29/22 XR L-Spine. Previous Surgeries: no neck/back surg Previous Injections: none PT: 2023 Lucia Aggravating Factors/Limitations: Standing/Sitting for Prolonged Periods, Washing Dishes, Cooking Alleviating factors: Nothing Specific Disability Score Questionnaire- see attachment Blood Thinners: none Pain medications: Flexeril, Meloxciam, Tylenol, Pregabalin. Diabetic: No Consults: none. Referred By: Dr. Alejo (PCP). documented in this encounter Miscellaneous Notes * Addendum Note - Derrek Anaya DO - 11/28/2023 1:03 PM EDTAddended by: DERREK ANAYA on: 11/28/2023 01:03 PM Modules accepted: Orders documented in this encounter Plan of Treatment Upcoming Encounters Date Type Department Care Team (Late st Contact Info) Description 12/13/2023 2:30 PM EDT Imaging Radiology [facility] 1st [facility], [address] [place] [address] 12/23/2023 11:00 AM EDT Office Visit Interventional Pain Center, [address] [place] [address] Derrek Anaya DO [address] [place] [address], [place] [address] 02/06/2024 12:30 PM EDT Imaging Radiology [facility] 1st [facility] [address] [place] [address] 03/24/2024 12:00 PM EDT Office Visit [facility] [address] [facility] [place] [address] Rubi Alejo MD [address] [facility] [place] [address] Scheduled Orders Name Type Priority Associated Diagnoses Orde r Schedule MRI T SPINE WO CONTRAST Medical Imaging Routine Pain in thoracic spine History of lipoma Expected: 12/05/2023, Expires: 12/27/2024 Health Maintenance Due Date Last Done Comments DISCUSS TOBACCO CESSATION (REFER TO SMARTSET #9203) 1955 Alpha-1 Antitrypsin 11/13/1975 Hepatitis C Screening 11/13/1975 DTaP,Tdap,and Td Vaccines (1 - Tdap) 1976 Cologuard 2002 Sigmoidoscopy 2002 Fecal Occult Blood Test 09/19/2005 09/19/2004 Zoster Vaccines (1 of 2) 11/13/2007 Pneumococcal Vaccine: 65+ Years (2 of 2 - PCV) 08/14/2008 08/15/2007 Depression Screening 10/21/2019 10/20/2018 COVID-19 Vaccine ( - season) 2023 Colonoscopy 10/30/2023 10/29/2013 Colorectal Cancer Screening 10/30/2023 Mammogram 12/05/2023 12/04/2022, 06/06/2022, 08/31/2008, Additional history exists DXA Scan 12/09/2023 [...] as of this encounter Visit Diagnoses Diagnosis History of lipoma- Primary Personal history of other specified diseases Pain in thoracic spine documented in this encounter Care Teams Plating Department Helper Relationship Specialty Start Date End Date Rubi Alejo MD [address] [place] [address] PCP - General Internal Medicine 04/03/23 documented as of this encounter
--- OUTSIDE RECORDS SUMMARY | 2024-02-24 01:56 | External Medical Summary | Summary of Care ---
Author Name Unknown Organization [facility] Address [address] [place] [address] Phone [phone] Care Team Providers Care Food Service Aide Name Role Phone Rubi Alejo MD Primary Care Provider [phone] Reason for Visit * Reason Comments Procedure Right thoracic TPI Back Pain Right thoracic back pain constant sharp does not radiate. Denies numbness/tingling/burning Encounter Details Date Type Department Care Team (Late st Contact Info) Description 12/26/2023 2:30 PM EDT Office Visit Interventional Pain Center, [facility] [address] [place] [address] Derrek Vela, [address] [place] [address] Myalgia* Allergies Active Allergy Reactions Criticality Noted Date Comments Gluten Meal 05/25/2014 Celiac disease documented as of this encounter (statuses as of 01/21/2024) Medications Medication Sig Dispensed Refills Start Date End Date Status NEBULIZER COMPRESSOR MISCIndications:CO PD, 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 Active Vitamin D3 1.25 MG (74937 UT) Oral CapsuleIndications :Vitamin D deficiency TAKE 1 CAPSULE BY MOUTH ONE TIME PER WEEK 12 Capsule 06/17/2023 Active Tiotropium [place] Monohydrate 1.25 MCG/ACT Inhalation Aerosol Solution (Spiriva [...] a day. Active Meloxicam 7.5 MG Oral TabletIndications: Chronic [...] 12/11/2023 Active Pregabalin 25 MG Oral Capsule (Lyrica)Indication s:Chronic right-sided low back pain without sciatica Take 1 Capsule by mouth in the morning and 1 Capsule before bedtime. In 1 week can increase 1 in am and 2 tab at night. 90 Capsule 1 10/01/2023 4 Discontinued Albuterol Sulfate 0.63 MG/3ML Inhalation Nebulization Solution (Accuneb) Inhale 1 Vial via nebulizer every 6 hours as needed for Wheezing or Shortness of Breath. 360 mL 12/10/2023 4 Hospital, Clinic, or Other Facility Administered Medication Ordered Dose Route Frequency Start Date End Date Status Albuterol Sulfate (Proventil) (2.5 MG/3ML) 0.083% inhalation solution 2.5 mgIndications:COPD, moderate (HCC) 2.5 mg NEBULIZER PRN 10/22/2023 10/21/2024 Active albuterol (VENTOLIN HFA/PROVENTIL HFA) inhalerIndications:COPD , moderate (HCC) 3 Puff IN PRN 10/22/2023 10/21/2024 Active Triamcinolone Acetonide (Kenalog) 40 MG/ML inj 40 mgIndications:Myalgia 40 mg IM ONCE 12/26/2023 12/26/2023 End ed bupivacaine HCl (Sensorcaine) 0.25 % (PF) inj 17.5 mgIndications:Myalgia 17.5 mg IJ ONCE 12/26/2023 12/26/2023 End ed documented as of this encounter (statuses as of 01/21/2024) Active Problems Problem Noted Date Diagnosed Date [...] as of this encounter (statuses as of 01/21/2024) Resolved Problems Problem Noted Date Diagnosed Date Resolved Date COPD, group C, by GOLD 2017 classification 10/27/2023 12/25/2023 Overview: Per COPD GOLD Classification COPD, moderate 01/01/2021 10/29/2023 Overview: Per COPD GOLD Classification Prediabetes 01/01/2021 07/31/2023 COPD exacerbation 03/28/2014 01/01/2021 Alcohol dependence 04/14/2008 Overview: ICD-10 update of inactive term documented as of this encounter (statuses as of 01/21/2024) Immunizations Name Administration Dates Next Due Pneumococcal Polysaccharide PPV23 (Pneumovax) documented as of this encounter Social History Tobacco Use Types Packs/Day Years Used Date Smoking Tobacco: Every Day Cigarettes 2 53 Smokeless Tobacco: Never Tobacco Cessation:Ready to Q uit: Not Asked; Counseling Given: Not Answered Comments:Currently smokes 1 ppd. Alcohol Use Standard [...] Sign Reading Time Taken Comments Blood Pressure 166/89 12/26/2023 2:54 PM EDT Pulse 87 12/26/2023 2:54 PM EDT Temperature 36.6 C (97.9 F) 12/26/2023 2:39 PM ED T Respiratory Rate - - Oxygen Saturation 93% 12/26/2023 2:54 PM EDT 2 LPM Inhaled Oxygen Concentration - - Weight - - Height - - Body Mass Index - - documented in this encounter Progress Notes * Derrek Vela DO - 12/26/2023 3:01 PM EDT MRI reviewed with patient, no significant findings suggestive of malignancy around lipoma/excision bed, safe to proceed with trigger point injection of paraspinal mm in that area. [facility] PROCEDURE NOTE Name: Demi Woodson Procedure Date: 12/26/23 Location: [facility] Outpatient Office Service: Pain Management Diagnosis: Myofascial Pain Provider: Derrek Vela DO Procedure: Trigger Points Injections - Local Anesthetic Estimated Blood Loss: Negligible Urine output: None Drains/Implants: None Technique: Today, we discussed alternative plans, benefits and potential risks which include, but not limited to bleeding, infections, nerve damage, pneumothorax, or failure of the procedure. The patient agreedto proceed with this procedure and an informed written consent was obtained. The patient was brought to the procedure room. The patient was identified using two (2) methods of identification (full name and date of ) as per [facility] protocol. The area to be injected was cleaned with alcohol. At this juncture, a TIMEOUT was observed during which all the salient details of theprocedure to be performed including the correct procedure, patients's allergies, position and site/side confirmation were verified and agreed upon by all the members of the team. Multiple trigger points over thoracic spine involving right lateral paraspinal muscles were injected with a solution containing 7 mL 0.25% Bupivacaine and 40 mg of Kenalog. The patient's recovery area was observed. Patient tolerated the procedure well. The procedure was performed in an atraumatic fashion. Vital signs remained stable and neurovascular condition remain the same throughout the procedure. The patient recovered uneventfully in the recovery area and was discharged to home in stable condition with standard discharge instructions. Disposition: The patient will follow up via nurse phone call Complications: None documented in this encounter Nursing Notes * Yanira Shah LPN - 12/26/2023 2:37 PM EDT Chief Complaint Patient presents with Procedure Right thoracic TPI Back Pain Right thoracic back pain constant sharp does not radiate. Denies numbness/tingling/burning Aggravating factors / limitations: nothing specific Alleviating factors: laying on heating pad, tylenol Imagin03/27/23 MRI T-Spine, 03/22/23 XR T-Spine, 11/29/22 XR L-Spine. Previous Injections: none Neck/spine Surgery: none Joint replacement Surgery: none Pain medications: Flexeril, Meloxicam, Tylenol, Lyrica Blood thinners: none Diabetic: No Physical Therapy: 2023 Lucia Consults: none Referred by: Dr. Alejo- PCP documented in this encounter Plan of Treatment Upcoming Encounters Date Type Department Care Team (Latest Contact Info) Description 01/28/2024 2:00 PM EDT Office Visit Pulmonary Medicine, [facility] 132 [facility] [place] [address] Pasha Bowman MD [address] [facility] [address] 02/05/2024 10:37 AM EDT Hospital Encounter OR [facility], Operating Room [facility] [address] [place] [address] [place] [phone] Derrek Vela DO [address] [facility] [place] [address] 02/05/2024 10:37 AM EDT - 02/05/2024 11:02 AM EDT Surgery OR [facility], Operating Room [facility] [address] [place], [place] [address], [place] [address] Derrek Vela, [address] [place] [address] INJECT ANESTHETIC AND/OR STEROID INTERCOSTAL NERVE 02/06/2024 12:30 PM EDT Imaging Radiology [facility] 1st [facility] [place] [address] [place] [address] 03/22/2024 11:00 AM EDT Office Visit Interventional Pain Center, [facility] [address] [place] [address] Derrek Vela, [address] [facility] [place] [address] 03/24/2024 12:00 PM EDT Office Visit General Internal Medicine [facility] 200 [facility] [place] [address] Rubi Alejo MD 200 [facility] [place] [address] Scheduled Procedures Name Priority Associated Diagnoses Date/Ti me INJECT ANESTHETIC AND/OR STEROID INTERCOSTAL NERVE Myalgia 02/05/2024 10:37 AM EDT INJECT ANESTHETIC AND/OR STEROID INTERCOSTAL MULTIPLE NERVES Myalgia 02/05/2024 10:37 AM EDT Health Maintenance Due Date Last Done Comments DISCUSS TOBACCO CESSATION (REFER TO SMARTSET #6470) 1955 Alpha-1 Antitrypsin 11/13/1975 Hepatitis C Screening [...] ASSESSMENT COMPLETED IN PAST YEAR FOR COPD 12/25/2024 12/26/2023 Diabetes Screening 07/10/2026 07/10/2023, 0 07/10/2023, 04/03/2023, [...] as of this encounter Visit Diagnoses Diagnosis Myalgia- Primary Mylagia and myositis, unspecified Myalgia Mylagia and myositis, unspecified documented in this encounter Administered Medications Inactive Administered Medications - up to 3 most recent administrations Medication Order MAR Action Action Date Dose Rate Site bupivacaine HCl (Sensorcaine) 0.25 % (PF) inj 17.5 mg 17.5 mg (7 mL), Injection, ONCE, On Fri12/26/23 at 1545, For 1 dose Given 12/26/2023 3:06 PM EDT 17.5 mg Triamcinolone Acetonide (Kenalog) 40 MG/ML inj 40 mg 40 mg, Intramuscular, ONCE, On Fri12/26/23 at 1545, For 1 dose Given 12/26/2023 3:07 PM EDT 40 mg Other-Specify documented in this encounter Care Teams Food Service Aide Relationship Specialty Start Date End Date Rubi Alejo MD 200 [place] [address] PCP - General Internal Medicine 04/03/23 documented as of this encounter
--- OUTSIDE RECORDS SUMMARY | 2024-02-24 01:56 | External Medical Summary | Summary of Care ---
Author Name Unknown Organization [facility] Address [address] [place] [address] Phone [phone] Care Team Providers Care Chief Deputy Sheriff Name Role Phone Rubi Alejo MD Primary Care Provider [phone] Reason for Visit * Reason Comments Procedure Right thoracic TPI Back Pain Right thoracic back pain constant sharp does not radiate. Denies numbness/tingling/burning Encounter Details Date Type Department Care Team (Late st Contact Info) Description 12/26/2023 2:30 PM EDT Office Visit Interventional Pain Center, [facility] [address] [place] [address] Derrek Vela, [address] [place] [address] Myalgia* Allergies Active Allergy Reactions Criticality Noted Date Comments Gluten Meal 05/25/2014 Celiac disease documented as of this encounter (statuses as of 01/21/2024) Medications Medication Sig Dispensed Refills Start Date End Date Status NEBULIZER COMPRESSOR MISCIndications:CO PD, 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 Active Vitamin D3 1.25 MG (75069 UT) Oral CapsuleIndications :Vitamin D deficiency TAKE 1 CAPSULE BY MOUTH ONE TIME PER WEEK 12 Capsule 06/17/2023 Active Tiotropium [place] Monohydrate 1.25 MCG/ACT Inhalation Aerosol Solution (Spiriva [...] Name: Demi Woodson Procedure Date: 12/26/23 Location: [facility] Outpatient Office Service: Pain Management [...] name and date of ) as per [facility] protocol. The area to be [...] 2:00 PM EDT Office Visit Pulmonary Medicine, [facility] 132 [facility] [place] [address] Pasha Bowman MD [address] [facility] [address] 02/05/2024 10:37 AM EDT Hospital Encounter OR [facility], Operating Room [facility] [address] [place] [address] [place] [phone] Derrek Vela DO 400 [facility] [place] [phone] 02/05/2024 10:37 AM EDT - 02/05/2024 11:02 AM EDT Surgery OR [facility], Operating Room [facility] [address] [place], [place] [address], [place] [address] Derrek Vela, [address] [place] [address] INJECT ANESTHETIC AND/OR STEROID INTERCOSTAL NERVE 02/06/2024 12:30 PM EDT Imaging Radiology [facility] 1st [facility] [place] [address] [place] [address] 03/22/2024 11:00 AM EDT Office Visit Interventional Pain Center, [facility] [address] [place] [address] Derrek Vela, 400 [facility] [place] [address] 03/24/2024 12:00 PM EDT Office Visit General Internal Medicine [facility] 200 [facility] [place] [address] Rubi Alejo MD 200 [facility] [place] [address] Scheduled Procedures Name Priority Associated Diagnoses Date/Ti me INJECT ANESTHETIC AND/OR STEROID INTERCOSTAL NERVE Myalgia 02/05/2024 10:37 AM EDT INJECT ANESTHETIC AND/OR STEROID INTERCOSTAL MULTIPLE NERVES Myalgia 02/05/2024 10:37 AM EDT Health Maintenance Due Date Last Done Comments DISCUSS TOBACCO CESSATION (REFER TO SMARTSET #8725) 1955 Alpha-1 Antitrypsin 11/13/1975 Hepatitis C Screening [...] Other-Specify documented in this encounter Care Teams Chief Deputy Sheriff Relationship Specialty Start Date End Date Rubi Alejo MD 200 [place] [address] PCP - General Internal Medicine 04/03/23 documented as of this encounter
--- OUTSIDE RECORDS SUMMARY | 2024-02-24 01:56 | External Medical Summary | Summary of Care ---
Author Name Unknown Organization [facility] Address [address] [place] [address] Phone [phone] Care Team Providers Care Electronic Engraver Name Role Phone Rubi Alejo MD Primary Care Provider Reason for Visit * Reason Onset Date Comments Appointment 12/17/2023 Encounter Details Date Type Department Care Team (Late st Contact Info) Description 12/17/2023 Telephone Interventional Pain Center, [facility] [address] [place] [address] Derrek Vela, [address] [place] [address] Appointment Allergies Active Allergy Reactions Criticality Noted Date Comments Gluten Meal 05/25/2014 Celiac disease documented as of this encounter (statuses as of 12/17/2023) Medications Medication Sig Dispensed Refills Start Date End Date Status NEBULIZER COMPRESSOR MISCIndications:PARKING OFFICER D, 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 Active Vitamin D3 1.25 MG (80114 UT) Oral CapsuleIndications: Vitamin D deficiency TAKE 1 CAPSULE BY MOUTH ONE TIME PER WEEK 12 Capsule 06/17/2023 Active Tiotropium [place] Monohydrate 1.25 MCG/ACT Inhalation Aerosol Solution (Spiriva [...] as of this encounter (statuses as of 12/17/2023) Active Problems Problem Noted Date Diagnosed Date [...] as of this encounter (statuses as of 12/17/2023) Resolved Problems Problem Noted Date Diagnosed Date Resolved Date COPD, moderate 01/01/2021 10/29/2023 Overview: Per COPD GOLD Classification Prediabetes 01/01/2021 07/31/2023 COPD exacerbation 03/28/2014 01/01/2021 Alcohol dependence 04/14/2008 Overview: ICD-10 update of inactive term documented as of this encounter (statuses as of 12/17/2023) Immunizations Name Administration Dates Next Due Pneumococcal [...] encounter Miscellaneous Notes * Telephone Encounter - Yanira Shah LPN - 12/17/2023 2:50 PM EDT Spoke with patient results reviewed and patient agreeable to scheduling thoracic TPIs. Granddaughter contacted per patient to scheduled. Patient scheduled 12/26/23 * Telephone Encounter - Yanira Shah LPN - 12/17/2023 2:18 PM EDT Attempted to contact patient. No answer, left message for patient to return call. Patient will need to be scheduled for thoracic TPIS. MRI results will need reviewed as well. * Telephone Encounter - Yanira Shah LPN - 12/17/2023 2:18 PM EDT ----- Message from Derrek Vela DO sent at 12/17/2023 7:36 AM EDT ----- Regarding: MRI results-->TPI Can we let patient know the MRI didn't show anything concerning or other explanation for her pain in the thoracic spine and we can schedule her for R thoracic TPI. Thanks ----- Message ----- From: Andreas Michelle In Sent: 12/16/2023 1:20 PM EDT To: Derrek Vela DO documented in this encounter Plan of Treatment Upcoming Encounters Date Type Department Care Team (Late st Contact Info) Description 12/23/2023 11:00 AM EDT Office Visit [facility] Center, [address] [place] [address] Derrek Vela DO [address] [place], [place] [address] [phone] 12/26/2023 2:30 PM EDT Office Visit Interventional Pain Center, [address] [place] [address] Derrek Vela DO [address] [place], [place] [address] [phone] 01/28/2024 2:00 PM EDT Office Visit Pulmonary Medicine, [facility] 132 [facility] [place] [address] Pasha Bowman MD [address] [place] [address] 02/06/2024 12:30 PM EDT [facility] 1st [facility] [address] [place] [address] 03/24/2024 12:00 PM EDT Office Visit General Internal Medicine [facility] [address] [place] [address] [place] [address] Rubi Alejo MD [address] [facility] [place] [address] Health Maintenance Due Date Last Done Comments DISCUSS TOBACCO CESSATION (REFER TO SMARTSET #[id number]) 1955 Alpha-1 Antitrypsin 11/13/1975 Hepatitis C Screening [...] Not on filedocumented as of this encounter Care Teams Electronic Engraver Relationship Specialty Start Date End Date Rubi Alejo MD [address] [place] [address] PCP - General Internal Medicine 04/03/23 documented as of this encounter
--- OUTSIDE RECORDS SUMMARY | 2024-02-24 01:56 | External Medical Summary | Summary of Care ---
Author Name Unknown Organization [facility] Address [address] [place] [address] Phone [phone] Care Team Providers Care Wood Router Hand Name Role Phone Rubi Alejo MD Primary Care Provider [phone] Reason for Visit * Reason Onset Date Comments Information 10/23/2023 Encounter Details Date Type Department Care Team (Late st Contact Info) Description 10/23/2023 Telephone General Internal Medicine [facility] [address] [place] [address] Rubi Alejo MD [address] [place] [address] Information Allergies Active Allergy Reactions Criticality Noted Date Comments Gluten Meal 05/25/2014 Celiac disease documented as of this encounter (statuses as of 01/22/2024) Medications Medication Sig Dispensed Refills Start Date End Date Status NEBULIZER COMPRESSOR MISCIndications:CO PD, 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 Active Vitamin D3 1.25 MG (74106 UT) Oral CapsuleIndications :Vitamin D deficiency TAKE 1 CAPSULE BY MOUTH ONE TIME PER WEEK 12 Capsule 06/17/2023 Active Tiotropium [place] Monohydrate 1.25 MCG/ACT Inhalation Aerosol Solution (Spiriva [...] Breath or Wheezing. 18 g 5 04/18/2023 4 Discontinued Cyclobenzaprine HCl 10 MG Oral Tablet (Flexeril)Indicati ons:Myositis of right shoulder, unspecified myositis type TAKE 1 TABLET BY MOUTH IN THE MORNING AND BEFORE BEDTIME 20 Tablet 1 09/19/2023 4 Discontinued Pregabalin 25 MG Oral Capsule (Lyrica)Indication s:Chronic right-sided low back pain without sciatica Take 1 Capsule by mouth in the morning and 1 Capsule before bedtime. In 1 week can increase 1 in am and 2 tab at night. 90 Capsule 1 10/01/2023 4 Discontinued Hospital, Clinic, or Other Facility Administered Medication Ordered Dose Route Frequency Start Date End Date Status Albuterol Sulfate (Proventil) (2.5 MG/3ML) 0.083% inhalation solution 2.5 mgIndications:COPD, moderate (HCC) 2.5 mg NEBULIZER PRN 10/22/2023 10/21/2024 Active albuterol (VENTOLIN HFA/PROVENTIL HFA) inhalerIndications:COPD , moderate (HCC) 3 Puff IN PRN 10/22/2023 10/21/2024 Active documented as of this encounter (statuses as of 01/22/2024) Active Problems Problem Noted Date Diagnosed Date [...] as of this encounter (statuses as of 01/22/2024) Resolved Problems Problem Noted Date Diagnosed Date Resolved Date COPD, group C, by GOLD 2017 classification 10/27/2023 12/25/2023 Overview: Per COPD GOLD Classification COPD, moderate 01/01/2021 10/29/2023 Overview: Per COPD GOLD Classification Prediabetes 01/01/2021 07/31/2023 COPD exacerbation 03/28/2014 01/01/2021 Alcohol dependence 04/14/2008 Overview: ICD-10 update of inactive term documented as of this encounter (statuses as of 01/22/2024) Immunizations Name Administration Dates Next Due Pneumococcal [...] encounter Miscellaneous Notes * Telephone Encounter - Nisha Isbell LPN - 10/23/2023 1:41 PM EDT Ok for mouth rinse, please advise. * Telephone Encounter - Claus Carroll CPhT - 10/23/2023 11:21 AM EDT Pt's granddaughter calling to check on status of Rx for Mouth Rinse used for Thrush for the pt. Advised pt's granddaughter that I saw no new Rx called in, nor did I see any mention of it within the latest office visit. Pt's granddaughter did not want to be transferred at this time and is asking to be called back with this info at [phone]. Thank you, Claus Carroll Electrical Installation Supervisor [facility] ([facility]) (Formerly Telepharm[facility]) 10/23/2023,11:25 AM documented in this encounter Plan of Treatment Upcoming Encounters Date Type Department Care Team (Latest Contact Info) Description 01/28/2024 2:00 PM EDT Office Visit Pulmonary Medicine, [facility] 132 [facility] [place] [address] Pasha Bowman MD [address] [place] [address] 02/05/2024 10:37 AM EDT Hospital Encounter [facility], Operating Room [facility] [address] [place] [phone] Derrek Vela, DO [address] [place] [phone] 02/05/2024 10:37 AM EDT - 02/05/2024 11:02 AM EDT Surgery OR [facility], Operating Room [facility] [address] [place] [phone] Derrek Vela, DO [facility] [phone] INJECT ANESTHETIC AND/OR STEROID INTERCOSTAL NERVE 02/06/2024 12:30 PM EDT Imaging Radiology [facility] 1st [facility] 132 [facility] [place] [address] 03/22/2024 11:00 AM EDT Office Visit Interventional Pain Center, [address] [place] [address] Derrek Vela, DO [facility] [phone] 03/24/2024 12:00 PM EDT Office Visit General Internal Medicine [facility] [address] [place] [address] Rubi Alejo MD 200 [facility] [place] [address] Scheduled Procedures Name Priority Associated Diagnoses Date/Ti me INJECT ANESTHETIC AND/OR STEROID INTERCOSTAL NERVE Myalgia 02/05/2024 10:37 AM EDT INJECT ANESTHETIC AND/OR STEROID INTERCOSTAL MULTIPLE NERVES Myalgia 02/05/2024 10:37 AM EDT Health Maintenance Due Date Last Done Comments DISCUSS TOBACCO CESSATION (REFER TO SMARTSET #[id number]) 1955 Alpha-1 Antitrypsin 11/13/1975 Hepatitis C Screening [...] filedocumented as of this encounter Care Teams Wood Router Hand Relationship Specialty Start Date End Date Rubi Alejo MD 200 [place] [address] PCP - General Internal Medicine 04/03/23 documented as of this encounter
--- OUTSIDE RECORDS SUMMARY | 2024-02-24 01:56 | External Medical Summary ---
Author Name Unknown Address Unknown Organization [facility] [address] [place] [address] Laboratory Report Ordering Provider Test Date Status HÉCTOR JOSUE 12/13/2023 12:32:50 Final Observation Date Value Abnormality Reference (Units ) Status Creatinine 12/13/2023 12:32:50 0.7 0.5-1.0 (mg/dL) Final Glomerular filtration rate/1.73 sq M.predicted [Volume Rate/Area] in Serum, Plasma or Blood by Creatinine-based formula (CKD-EPI) 12/13/2023 12:32:50 >90 >=60 (mL/min) Final eGFR is calculated based on the CKD-EPI 2020 equation [facility] [address] [place] [address]
--- OUTSIDE RECORDS SUMMARY | 2024-02-24 01:56 | External Medical Summary ---
Author Name Unknown Address Unknown Organization [facility] [place] [address] Laboratory Report Ordering Provider Test Date Status HÉCTOR JOSUE 12/13/2023 12:32:50 Final Observation Date Value Abnormality Reference (Units ) Status BUN 12/13/2023 12:32:50 7 6-20 (mg/d L) Final Performing Location [facility] [place] [address]
--- OUTSIDE RECORDS SUMMARY | 2024-02-24 01:56 | External Medical Summary | Summary of Care ---
Author Name Unknown Organization [facility] Address [address] [facility] [place] [address] Phone [phone] Care Team Providers Care Hand Stonecutter Name Role Phone Rubi Alejo MD Primary Care Provider [phone] Reason for Referral * Precert (Within 10 days (routine)) - Pending Review Specialty Diagnoses / Procedures Referred By Lizet slater Referred To Contact Radiology Diagnoses Pain in thoracic spine Procedures MRI T SPINE W WO CONTRAST Derrek Anaya DO [address] [place] [address] Referral ID Status Reason Start Date Expiration Date Visits Requested Visits Authorized [id number] Pending Review Specialty Services Required 12/19/[phone] Reason for Visit * Reason Onset Date Comments Order Request 12/12/2023 Encounter Details Date Type Department Care Team (Late st Contact Info) Description 12/12/2023 Telephone [address] 132 [facility] [place] [address] Derrek Anaya DO [address] [place] [phone] Order Request Allergies Active Allergy Reactions Criticality Noted Date Comments Gluten Meal 05/25/2014 Celiac disease documented as of this encounter (statuses as of 12/12/2023) Medications Medication Sig Dispensed Refills Start Date End Date Status NEBULIZER COMPRESSOR MISCIndications:AREA FIELD PERSON D, 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 Active Vitamin D3 1.25 MG (16762 UT) Oral CapsuleIndications: Vitamin D deficiency TAKE 1 CAPSULE BY MOUTH ONE TIME PER WEEK 12 Capsule 06/17/2023 Active Tiotropium [place] Monohydrate 1.25 MCG/ACT Inhalation Aerosol Solution (Spiriva [...] encounter Miscellaneous Notes * Telephone Encounter - Jacy Hill OSA - 12/12/2023 11:30 AM EDT 12-13-23 MRI T-Spine appt rech'd to the w/wo contrast order. Call to pt and granddaughter JORDYN Dewitt on voicemail, informing them of the new order and the need for stat BUN & Creatinine labs at least one hour prior to the MRI. Advised them to call the IPM clinic with any questions. * Addendum Note - Derrek Anaya DO - 12/12/2023 10:45 AM EDTAddended by: DERREK ANAYA on: 12/12/2023 10:45 AM Modules accepted: Orders * Addendum Note - Derrek Anaya DO - 12/12/2023 8:16 AM EDTAddended by: DERREK ANAYA on: 12/12/2023 08:16 AM Modules accepted: Orders * Telephone Encounter - Brooks Davison RT (R) - 12/12/2023 7:13 AM EDT Radiologist is requesting that the MRI Thoracic spine be done with and without contrast to "evaluate for possible malignant or neurocompressive etiology beyond solely muscle spasm". Please put in corrected order if agreeable. Thanks, [facility] documented in this encounter Plan of Treatment Upcoming Encounters Date Type Department Care Team (Late st Contact Info) Description 12/13/2023 2:30 PM EDT Imaging Radiology [facility] 1st [facility], [address] [place] [address] 12/23/2023 11:00 AM EDT Office Visit Interventional Pain Center, [facility] [address] [place] [address] Derrek Anaya DO [address] [place] [phone] 02/06/2024 12:30 PM EDT Imaging Radiology [address] [place] [place] [address] 03/24/2024 12:00 PM EDT Office Visit General Internal Medicine [facility] 200 [facility] [place] [address] Rubi Alejo MD [address] [place] [address] Scheduled Orders Name Type Priority Associated Diagnoses Orde r Schedule MRI T SPINE W WO CONTRAST Medical Imaging Routine Pain in thoracic spine Expected: 12/19/2023, Expires: 01/10/2025 BUN Lab STAT Pain in thoracic spine Expected: 12/13/2023, Expires: 12/11/2024 CREATININE Lab STAT Pain in thoracic spine Expected: 12/13/2023, Expires: 12/11/2024 Health Maintenance Due Date Last Done Comments DISCUSS TOBACCO CESSATION (REFER TO SMARTSET #[id number]) 1955 Alpha-1 Antitrypsin 11/13/1975 Hepatitis C Screening 11/13/1975 DTaP,Tdap,and Td Vaccines (1 - Tdap) 1976 Cologuard 2002 Sigmoidoscopy 2002 Fecal Occult Blood Test 09/19/2005 09/19/2004 Zoster Vaccines (1 of 2) 11/13/2007 Pneumococcal Vaccine: 65+ Years (2 of 2 - PCV) 08/14/2008 08/15/2007 Depression Screening 10/21/2019 10/20/2018 COVID-19 Vaccine (1 - 2022- season) 2023 Colonoscopy 10/30/2023 10/29/2013 [...] encounter Visit Diagnoses Diagnosis Pain in thoracic spine- Primary documented in this encounter Care Teams Hand Stonecutter Relationship Specialty Start Date End Date Rubi Alejo MD [address] [place] [address] PCP - General Internal Medicine 04/03/23 documented as of this encounter
--- OUTSIDE RECORDS SUMMARY | 2024-02-24 01:56 | External Medical Summary | Summary of Care ---
Author Name Unknown Organization [facility] Address [address] [place] [address] Phone [phone] Care Team Providers Care Platen Press Feeder Name Role Phone Rubi Alejo MD Primary Care Provider [phone] Reason for Visit * Reason Onset Date Comments Follow Up 01/09/2024 12/26/23 Right Th oracic Trigger Point Injection with Dr. Vela Encounter Details Date Type Department Care Team (Late st Contact Info) Description 01/09/2024 3:00 PM EDT Scheduled Telephone Interventional Pain Center, [facility] [address] [place] [address] [facility], Nurse Pain Medicine [address] [place] [address] Allergies Active Allergy Reactions Criticality Noted Date Comments Gluten Meal 05/25/2014 Celiac disease documented as of this encounter (statuses as of 01/12/2024) Medications Medication Sig Dispensed Refills Start Date End Date Status NEBULIZER COMPRESSOR MISCIndications:DUAL RATE DEALER D, 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 Active Vitamin D3 1.25 MG (75092 UT) Oral CapsuleIndications: Vitamin D deficiency TAKE 1 CAPSULE BY MOUTH ONE TIME PER WEEK 12 Capsule 06/17/2023 Active Tiotropium [place] Monohydrate 1.25 MCG/ACT Inhalation Aerosol Solution (Spiriva [...] a day. Active Meloxicam 7.5 MG Oral TabletIndications:C hronic [...] 12/11/2023 Active Pregabalin 25 MG Oral Capsule (Lyrica)Indications :Chronic right-sided low back pain without sciatica Take 1 Capsule by mouth every morning AND 2 Capsules at bedtime. 90 Capsule 1 01/09/2024 Active Albuterol Sulfate 0.63 MG/3ML Inhalation Nebulization Solution (Accuneb) Inhale 1 Vial via nebulizer every 6 hours as needed for Wheezing or Shortness of Breath. 360 mL 12/10/2023 01/09/2024 Hospital, Clinic, or Other Facility Administered Medication Ordered Dose Route Frequency Start Date End Date Status Albuterol Sulfate (Proventil) (2.5 MG/3ML) 0.083% inhalation solution 2.5 mgIndications:COPD, moderate (HCC) 2.5 mg NEBULIZER PRN 10/22/2023 10/21/2024 Active albuterol (VENTOLIN HFA/PROVENTIL HFA) inhalerIndications:COPD , moderate (HCC) 3 Puff IN PRN 10/22/2023 10/21/2024 Active documented as of this encounter (statuses as of 01/12/2024) Active Problems Problem Noted Date Diagnosed Date [...] as of this encounter (statuses as of 01/12/2024) Resolved Problems Problem Noted Date Diagnosed Date Resolved Date COPD, group C, by GOLD 2017 classification 10/27/2023 12/25/2023 Overview: Per COPD GOLD Classification COPD, moderate 01/01/2021 10/29/2023 Overview: Per COPD GOLD Classification Prediabetes 01/01/2021 07/31/2023 COPD exacerbation 03/28/2014 01/01/2021 Alcohol dependence 04/14/2008 Overview: ICD-10 update of inactive term documented as of this encounter (statuses as of 01/12/2024) Immunizations Name Administration Dates Next Due Pneumococcal [...] encounter Miscellaneous Notes * Telephone Encounter - Janette Colbert MA - 01/12/2024 1:52 PM EDT Made patient aware, verbs understanding Agreeable to proceed with the R-Sided Intercostal NB T8-10. Patient requested Renate be called for scheduling. * Telephone Encounter - Janette Colbert MA - 01/12/2024 1:40 PM EDT LM to CB Unable to Reach * Telephone Encounter - Ximena Dumont RN - 01/09/2024 2:53 PM EDT Ximena Dumont RN [facility] Interventional Pain Clinic spoke with Demi Harris's Granddaughter (per patient request) for follow up to her procedure- 12/26/23 Right Thoracic Trigger Point Injection withDr. Vela. Per Kimberly, her grandmother got 0% pain relief. She had no improvement. Pain is 7-8 out of 10 during the day, and 10 out of 10 at night. Demi's pain is so bad that she is crying and burning herself with a heating pad per Kimberly. Pain is on the right side- middle of back up to her neck. Made Kimberly aware that Dr. Vela is not here today. I will send a message to him for recommendations. We will get back to her as soon as we can early next week. I encouraged them to send us a MyG message or call [facility] Pain Clinic with any additional questions and/or concerns in the mean time. documented in this encounter Plan of Treatment Upcoming Encounters Date Type Department Care Team (Late st Contact Info) Description 01/28/2024 2:00 PM EDT Office Visit Pulmonary Medicine, [facility] [address] [facility] [place] [address] Pasha Bowman MD [address] [place] [address] 02/06/2024 12:30 PM EDT Imaging Radiology [facility] 1st [facility] 132 [facility] [place] [address] 03/24/2024 12:00 PM EDT Office Visit General Internal Medicine [facility] 200 [facility] [place] [address] Rubi Alejo MD 200 [facility] [place] [address] Health Maintenance Due Date Last Done Comments DISCUSS TOBACCO CESSATION (REFER TO SMARTSET #[id number]) 1955 Alpha-1 Antitrypsin 11/13/1975 Hepatitis C Screening [...] Additional history exists DXA Scan 12/09/2023 12/08/2013 *CXR OR CT FOR COPD EVER 12/28/2023 Influenza Vaccine (FLU shot) (#1) 2024 O2 [...] filedocumented as of this encounter Care Teams Platen Press Feeder Relationship Specialty Start Date End Date Rubi Alejo MD 200 [facility] [place] [facility] [address] PCP - General Internal Medicine 04/03/23 documented as of this encounter
--- OUTSIDE RECORDS SUMMARY | 2024-02-24 01:56 | External Medical Summary | Summary of Care ---
Author Name Unknown Organization [facility] Address [address] [place] [address] Phone [phone] Care Team Providers Care Chocolate Production Machine Operator Name Role Phone Rubi Alejo MD Primary Care Provider [phone] Reason for Visit * Reason Comments Procedure Right thoracic TPI Back Pain Right thoracic back pain constant sharp does not radiate. Denies numbness/tingling/burning Encounter Details Date Type Department Care Team (Late st Contact Info) Description 12/26/2023 2:30 PM EDT Office Visit Interventional Pain Center, [facility] [address] [place] [address] Derrek Vela, [address] [place] [address] Myalgia* Allergies Active Allergy Reactions Criticality Noted Date Comments Gluten Meal 05/25/2014 Celiac disease documented as of this encounter (statuses as of 12/26/2023) Medications Medication Sig Dispensed Refills Start Date End Date Status NEBULIZER COMPRESSOR MISCIndications:EQUIPMENT SCHEDULER D, 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 Active Vitamin D3 1.25 MG (42422 UT) Oral CapsuleIndications: Vitamin D deficiency TAKE 1 CAPSULE BY MOUTH ONE TIME PER WEEK 12 Capsule 06/17/2023 Active Tiotropium [place] Monohydrate 1.25 MCG/ACT Inhalation Aerosol Solution (Spiriva [...] as of this encounter (statuses as of 12/26/2023) Active Problems Problem Noted Date Diagnosed Date [...] as of this encounter (statuses as of 12/26/2023) Resolved Problems Problem Noted Date Diagnosed Date Resolved Date COPD, group C, by GOLD 2017 classification 10/27/2023 12/25/2023 Overview: Per COPD GOLD Classification COPD, moderate 01/01/2021 10/29/2023 Overview: Per COPD GOLD Classification Prediabetes 01/01/2021 07/31/2023 COPD exacerbation 03/28/2014 01/01/2021 Alcohol dependence 04/14/2008 Overview: ICD-10 update of inactive term documented as of this encounter (statuses as of 12/26/2023) Immunizations Name Administration Dates Next Due Pneumococcal [...] Name: Demi Woodson Procedure Date: 12/26/23 Location: [facility] Outpatient Office Service: Pain Management [...] name and date of ) as per [facility] protocol. The area to be injected was [...] PM EDT Scheduled Telephone Interventional Pain Center, [facility] [address] [facility] [address] [facility], Nurse Pain Medicine [address] [facility] [address] 01/28/2024 2:00 PM EDT Office Visit Pulmonary Medicine, [facility] [address] [facility] [place] [address] Pasha Bowman MD [address] [place] [address] [address] 02/06/2024 12:30 PM EDT Imaging Radiology [facility] [place] [address] [place] [address] 03/24/2024 12:00 PM EDT Office Visit General Internal Medicine [place] [facility] [place] [address] [place] [address] Rubi Alejo MD [address] [place] [address] Health Maintenance Due Date Last Done Comments DISCUSS TOBACCO CESSATION (REFER TO SMARTSET #3331) 1955 Alpha-1 Antitrypsin 11/13/1975 Hepatitis C Screening [...] Diagnosis Myalgia- Primary Mylagia and myositis, unspecified documented in this [...] Other-Specify documented in this encounter Care Teams Chocolate Production Machine Operator Relationship Specialty Start Date End Date Rubi lAejo MD [address] [place] [address] PCP - General Internal Medicine 04/03/23 documented as of this encounter
--- OUTSIDE RECORDS SUMMARY | 2024-02-24 01:56 | External Medical Summary | Summary of Care ---
Author Name Unknown Organization [facility] Address [address] [facility] [place] [address] Phone [phone] Care Team Providers Care Hard Hat Diver Name Role Phone Rubi Alejo MD Primary Care Provider [phone] Reason for Referral * Precert (Within 10 days (routine)) - Pending Review Specialty Diagnoses / Procedures Referred By Lizet slater Referred To Contact Radiology Diagnoses Pain in thoracic spine Procedures MRI T SPINE W WO CONTRAST Derrek Anaya DO [address] [place] [address] Referral ID Status Reason Start Date Expiration Date Visits Requested Visits Authorized [id number] Pending Review Specialty Services Required 12/19/[phone] Reason for Visit * Reason Onset Date Comments Order Request 12/12/2023 Encounter Details Date Type Department Care Team (Late st Contact Info) Description 12/12/2023 Telephone Radiology [address] 132 [facility] [place] [address] Derrek Anaya DO [address] [place] [phone] Order Request Allergies Active Allergy Reactions Criticality Noted Date Comments Gluten Meal 05/25/2014 Celiac disease documented as of this encounter (statuses as of 12/12/2023) Medications Medication Sig Dispensed Refills Start Date End Date Status NEBULIZER COMPRESSOR MISCIndications:RADIOSONDE OPERATOR D, 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 Active Vitamin D3 1.25 MG (27681 UT) Oral CapsuleIndications: Vitamin D deficiency TAKE 1 CAPSULE BY MOUTH ONE TIME PER WEEK 12 Capsule 06/17/2023 Active Tiotropium [place] Monohydrate 1.25 MCG/ACT Inhalation Aerosol Solution (Spiriva [...] as of this encounter Miscellaneous Notes * Addendum Note - Derrek Anaya, DO - 12/12/2023 10:45 AM EDTAddended by: [...] Description 12/13/2023 2:30 PM EDT Imaging Radiology [address] 132 [facility] [place] [address] 12/23/2023 11:00 AM EDT Office Visit Interventional Pain Center, [facility] [address] [facility] [place] [address] Derrek Anaya DO [address] [facility] [place] [address] 02/06/2024 12:30 PM EDT Imaging Radiology [address] 132 [facility] [place] [address] 03/24/2024 12:00 PM EDT Office Visit General Internal Medicine [place] [address] [place] [address] [place] [address] Rubi Alejo MD 200 [facility] [place] [address] Scheduled Orders Name Type Priority Associated Diagnoses Orde r Schedule MRI T SPINE W WO CONTRAST Medical Imaging Routine Pain in thoracic spine Expected: 12/19/2023, Expires: 01/10/2025 BUN Lab STAT Pain in thoracic spine Expected: 12/13/2023, Expires: 12/11/2024 CREATININE Lab STAT Pain in thoracic spine Expected: 12/13/2023, Expires: 12/11/2024 Health Maintenance Due Date Last Done Comments DISCUSS TOBACCO CESSATION (REFER TO SMARTSET #0132) 1955 Alpha-1 Antitrypsin 11/13/1975 Hepatitis C Screening [...] Primary documented in this encounter Care Teams Hard Hat Diver Relationship Specialty Start Date End Date Rubi Alejo MD [address] [place] [address] PCP - General Internal Medicine 04/03/23 documented as of this encounter
--- OUTSIDE RECORDS SUMMARY | 2024-02-24 01:56 | External Medical Summary | Summary of Care ---
Author Name Unknown Organization [facility] Address [address] [place] [address] Phone [phone] Care Team Providers Care Yarn Weight And Strength Tester Name Role Phone Rubi Alejo MD Primary Care Provider [phone] Reason for Visit * Reason Comments Follow Up Here return pulm. [place] . Encounter Details Date Type Department Care Team (Late st Contact Info) Description 01/28/2024 2:00 PM EDT Office Visit Pulmonary Medicine, [facility] 132 [facility] [place] [phone] Pasha Bowman MD [address] [facility] [address] Mixed simple and mucopurulent chronic bronchitis (HCC)*; History of tobacco abuse Allergies Active Allergy Reactions Criticality Noted Date Comments Gluten Meal 05/25/2014 Celiac disease documented as of this encounter (statuses as of 01/28/2024) Medications Medication Sig Dispensed Refills Start Date End Date Status NEBULIZER COMPRESSOR MISCIndications:COPD , 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 Active Vitamin D3 1.25 MG (65549 UT) Oral CapsuleIndications:V itamin D deficiency TAKE 1 CAPSULE BY MOUTH ONE TIME PER WEEK 12 Capsule 06/17/2023 Active Tiotropium [place] Monohydrate 1.25 MCG/ACT Inhalation Aerosol Solution (Spiriva [...] at bedtime. 90 Capsule 1 01/09/2024 Active Hospital, Clinic, or Other Facility Administered Medication Ordered Dose Route Frequency Start Date End Date Status Albuterol Sulfate (Proventil) (2.5 MG/3ML) 0.083% inhalation solution 2.5 mgIndications:COPD, moderate (HCC) 2.5 mg NEBULIZER PRN 10/22/2023 10/21/2024 Active albuterol (VENTOLIN HFA/PROVENTIL HFA) inhalerIndications:COPD , moderate (HCC) 3 Puff IN PRN 10/22/2023 10/21/2024 Active documented as of this encounter (statuses as of 01/28/2024) Active Problems Problem Noted Date Diagnosed Date [...] as of this encounter (statuses as of 01/28/2024) Resolved Problems Problem Noted Date Diagnosed Date Resolved Date COPD, group C, by GOLD 2017 classification 10/27/2023 12/25/2023 Overview: Per COPD GOLD Classification COPD, moderate 01/01/2021 10/29/2023 Overview: Per COPD GOLD Classification Prediabetes 01/01/2021 07/31/2023 COPD exacerbation 03/28/2014 01/01/2021 Alcohol dependence 04/14/2008 Overview: ICD-10 update of inactive term documented as of this encounter (statuses as of 01/28/2024) Immunizations Name Administration Dates Next Due Pneumococcal Polysaccharide PPV23 (Pneumovax) documented as of this encounter Social History Tobacco Use Types Packs/Day Years Used Date Smoking Tobacco: Every Day Cigarettes 2 53 Smokeless Tobacco: Never Tobacco Cessation:Ready to Q uit: Not Asked; Counseling Given: Not Answered Comments:Currently smokes 1 ppd. Less than 1 [...] Sign Reading Time Taken Comments Blood Pressure 110/82 01/28/2024 2:14 PM EDT Pulse - - Temperature 35.9 C (96.7 F) 01/28/2024 2:14 PM ED T Respiratory Rate 16 01/28/2024 2:14 PM EDT Oxygen Saturation 97% 01/28/2024 2:14 PM EDT O2 2L-amb Inhaled Oxygen Concentration - - Weight 70.8 kg (156 lb) 01/28/2024 2:14 PM EDT Height 157.5 cm (5' 2") 01/28/2024 2:14 PM EDT Body Mass Index 28.53 01/28/2024 2:14 PM EDT documented in this encounter Progress Notes * Pasha Bowman MD - 01/28/2024 2:33 PM EDT Images from the original note were not included. 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 Since last evaluation, patient describes steady respiratory symptoms status, compliant with currentbronchodilator regimen and 2 L nasal cannula continuous home oxygen therapy. Describes episodic nocturnal awakening due to respiratory symptoms. Current bronchodilator regimenincludes Advair, Spiriva and albuterol inhaler/nebulizer therapy. CT chest January 2023 showed a large hiatal hernia along with bilateral evidence of air trapping along with scattered parenchymal infiltrates. Physical examination significant for class 2 throat with dry oral mucosa, no JVD, adequate air entry bilaterally with scattered rhonchi and scattered coarse wheezing, regular cardiac rhythm, no dullness, no lower extremity edema, nonlateralizing Neuro examination noted. CT scan chest findings were discussed with the patient. Pulmonary function testing showed severe obstructive ventilatory pattern with positive bronchodilator response. Evidence of air trapping was noted. PFT 11/2023 revealed mixed severe obstructive and severe restrictive ventilatory pattern. Smoking cessation counseling was provided. Available management options were discussed. Patient is not ready to quit at present. Current bronchodilator regimen will be continued. Importance of maintaining physical activity status and contact in the office with any change in respiratory symptoms status was discussed. LDCT referral was placed. Aspiration related precautions were discussed. Pulmonary clinic follow-up is recommended in 6 weeks to reassess respiratory symptoms status, review results of LDCT protocol CT scan and discuss further management plan. Data Review: XR CHEST 2 VIEWS DATE TIME: 07/10/2023 - 07/10/2023 11:09 am FINDINGS: Redemonstration of a large hiatal hernia. No focal consolidation, pleural effusion, or pneumothorax. Cardiac silhouette is normal in size. Degenerative changes of the spine. IMPRESSION IMPRESSION: 1. No focal consolidation. 2. Redemonstration of a large hiatal hernia. 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 C/w 2 LPM cont oxygen Smoking Cessation counseling provided Role of rescue pack therapy was dicussed F/u 6 months Follow Up: Return in about 6 months (around 07/30/2024) for Clinic Visit. 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 C/w 2 LPM cont oxygen Smoking Cessation counseling provided Role of rescue pack therapy was dicussed F/u 6 months Pasha Bowman MD Subjective CC: Chief Complaint Patient presents with Follow Up Here return pulm. COPD . HPI: Nursing Notes: Lyla Sarmiento LPN 01/28/24 1419 Signed Chief Complaint Patient presents with Follow Up Here return pulm. COPD . Interm History/Respiratory Symptoms Cough: yes-clear phlegm Hemoptysis: no Sinus Symptoms: post nasal drainage Hospitalizations: no ED Trips: no Triggers: perfume, cologne. Nocturnal: sleeps with head elevated -one pillow CPAP/BiPAP/O2: O2 2L DME Supplier: [employer] Flu Vaccine: none Pneumovax: 2008 Prevnar: none COVID 19: none. MMRC Dyspnea Scale = 4 (I am too breathless to leave the house or I am breathless when dressing) [facility]rc Cat Question 01/28/2024 2:10 PM EDT - Filed by Lyla Sarmiento LPN When do you become breathless? (4) I am too breathless to leave the house or I am breathless when dressing How frequently do you cough? (4) Do you have phlegm in your chest? (3) Is your chest tight? (3) How breathless do you become when walking up a hill or steps? (5) - When I walk up a hill or one flight of stairs I am very breathless How limited are you doing activities at home? (4) How confident are you leaving home with your lung condition? (0) - I am confident leaving my home despite my condition How soundly do you sleep? (4) How much energy do you have? (4) Total MMRC Score (range: 0 - 4) 4 Total CAT Score (range: 0 - 40) 27 Objective Filed Vitals: 01/28/24 1414 BP: 110/82 Resp: 16 Temp: 35.9 C (96.7 F) TempSrc: Tympanic SpO2: 97% Weight: 70.8 kg (156 lb) Height: 1.575 m (5' 2") Exam: Const: No signs of acute distress present. Head/Face: Normal on inspection. Eyes: Conjunctivae clear. Pupils equal round and reactive to light. ENMT: Oropharynx: No erythema, exudate or masses. Posterior pharynx is normal. Neck: Supple and symmetric. Resp: Respiratory examination as outlined above CV: Rate is regular. Rhythm is regular. No heart murmur appreciated. Extremities: No edema of the lower limbs bilaterally. Skin: Skin is warm and dry. Neuro: Coordination normal. No involuntary movement. Psych: Patient's attitude is cooperative. Mood is normal. Affect is normal. Tests reviewed with the patient: MRI T SPINE W WO CONTRAST Result Date: 12/16/2023 IMPRESSION: Motion limited study. 1. Evidence of prior lipoma excision posteriorly and to the rightof midline as described above. There is a small amount of encapsulated fat in this region, potentially on account of residual lipoma versus normal subcutaneous fat. However, there are no suspicious en hancing components nor any involvement of any surrounding structures. 2. No acute abnormality of the thoracic spine. 3. Large hiatal hernia. Available Radiologic data was reviewed by me in PACS. The images were shown to the patient and findings were discussed with the patient. HOME MEDICATIONS: Pregabalin 25 MG Oral Capsule (Lyrica) Cyclobenzaprine HCl 10 MG Oral Tablet (Flexeril) Albuterol Sulfate HFA 108 (90 Base) MCG/ACT Inhalation Aerosol Solution Omeprazole Magnesium 10 MG Oral Packet (PriLOSEC) Ondansetron HCl 4 MG Oral Tablet Meloxicam 7.5 MG Oral Tablet Acetaminophen 500 MG Oral Tablet (Tylenol Extra Strength) Sennosides-Docusate Sodium 8.6-50 MG Oral Tablet (Colace 2-IN-1) Fluticasone-Salmeterol 250-50 MCG/ACT Inhalation Aerosol Powder Breath Activated (Advair Diskus) Ipratropium-Albuterol 0.5-2.5 (3) MG/3ML Inhalation Solution (Duoneb) Tiotropium [place] Monohydrate 1.25 MCG/ACT Inhalation Aerosol Solution (Spiriva Respimat) Vitamin D3 1.25 MG (01158 UT) Oral Capsule oxygen GAS NEBULIZER COMPRESSOR MISC albuterol (VENTOLIN HFA/PROVENTIL HFA) inhaler Albuterol Sulfate (Proventil) (2.5 MG/3ML) 0.083% inhalation solution 2.5 mg ROS: No reported history of Hemoptysis, Hematemesis, Melena No reported history of Dysuria, Hematuria, Flank Pain No reported history of chronic headache, seizures No reported history of Fall or trauma . No reported history of recent change in weight or appetite. Past Medical History: Diagnosis Date Gastroparesis 2004 T 1/=144 minutes Peptic ulcer Past Surgical History: Procedure Laterality Date COLONOSCOPY 08/15/07 [facility]. 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 Less than 1 ppd. 01/28/24 Vaping Use Vaping status: Never Used Substance and Sexual Activity Alcohol use: Not Currently Comment: DRINKING HEAVILY/quit drinking 1 yr ago Drug use: No Comment: Marijuana yrs ago Social Determinants of Health Social Connections Family History Problem Relation Name Age of Onset Heart Disorder Father Other (Depression [Other]) Brother Cancer Grandmother (Maternal) in bone Breast Cancer Grandmother (Paternal) Cancer Grandmother (Paternal) breast Review of patient's allergies indicates: Allergen Reactions Gluten Meal Celiac disease documented in this encounter Nursing Notes * Lyla Sarmiento LPN - 01/28/2024 2:15 PM EDT Chief Complaint Patient presents with Follow Up Here return pulm. COPD . Interm History/Respiratory Symptoms Cough: yes-clear phlegm Hemoptysis: no Sinus Symptoms: post nasal drainage Hospitalizations: no ED Trips: no Triggers: perfume, cologne. Nocturnal: sleeps with head elevated -one pillow CPAP/BiPAP/O2: O2 2L DME Supplier: [employer] Flu Vaccine: none Pneumovax: 2008 Prevnar: none COVID 19: none. MMRC Dyspnea Scale = 4 (I am too breathless to leave the house or I am breathless when dressing) [facility]rc Cat Question 01/28/2024 2:10 PM EDT - Filed by Lyla Sarmiento LPN When do you become breathless? (4) I am too breathless to leave the house or I am breathless when dressing How frequently do you cough? (4) Do you have phlegm in your chest? (3) Is your chest tight? (3) How breathless do you become when walking up a hill or steps? (5) - When I walk up a hill or one flight of stairs I am very breathless How limited are you doing activities at home? (4) How confident are you leaving home with your lung condition? (0) - I am confident leaving my home despite my condition How soundly do you sleep? (4) How much energy do you have? (4) Total MMRC Score (range: 0 - 4) 4 Total CAT Score (range: 0 - 40) 27 documented in this encounter Plan of Treatment Upcoming Encounters Date Type Department Care Team (Latest Contact Info) Description 02/05/2024 10:37 AM EDT Hospital Encounter [facility], Operating Room [facility] [address] [place] [phone] Derrek Vela, DO [address] [place] [phone] 02/05/2024 10:37 AM EDT - 02/05/2024 11:02 AM EDT Surgery OR [facility], Operating Room [facility] [address] [place] [phone] Derrek Vela, DO [address] [place] [phone] INJECT ANESTHETIC AND/OR STEROID INTERCOSTAL NERVE 02/06/2024 12:30 PM EDT Imaging Radiology [address] [facility] [place] [address] 03/22/2024 11:00 AM EDT Office Visit Interventional Pain Center, [address] [address] Derrek Vela, DO [address] [place] [phone] 03/24/2024 12:00 PM EDT Office Visit General Internal Medicine [address]ierno [address]t [place] [address] [place] [address] Rubi Alejo MD [address] [place] [address] [address] 08/09/2024 2:00 PM EST Office Visit Pulmonary Medicine, [facility] [place] [address] Pasha Bowman MD [address] [place] [address] Scheduled Procedures Name Priority Associated Diagnoses Date/Ti me INJECT ANESTHETIC AND/OR STEROID INTERCOSTAL NERVE Myalgia 02/05/2024 10:37 AM EDT INJECT ANESTHETIC AND/OR STEROID INTERCOSTAL MULTIPLE NERVES Myalgia 02/05/2024 10:37 AM EDT Health Maintenance Due Date Last Done Comments DISCUSS TOBACCO CESSATION (REFER TO SMARTSET #2180) 1955 Alpha-1 Antitrypsin 11/13/1975 Hepatitis C Screening [...] ASSESSMENT COMPLETED IN PAST YEAR FOR COPD 01/27/2025 01/28/2024 Diabetes Screening 07/10/2026 07/10/2023, 0 07/10/2023, 04/03/2023, [...] as of this encounter Visit Diagnoses Diagnosis Mixed simple and mucopurulent chronic bronchitis (HCC)- Primary Other chronic bronchitis History of tobacco abuse Personal history of tobacco use, presenting hazards to health Myalgia Mylagia and myositis, unspecified documented in this encounter Care Teams Yarn Weight And Strength Tester Relationship Specialty Start Date End Date Rubi Alejo MD 200 [facility] [address] PCP - General Internal Medicine 04/03/23 documented as of this encounter
--- OUTSIDE RECORDS SUMMARY | 2024-02-24 01:56 | External Medical Summary | Summary of Care ---
Author Name Unknown Organization [facility] Address [address] [place] [address] Phone [phone] Care Team Providers Care Manager Erp Name Role Phone Rubi Alejo MD Primary Care Provider [phone] Reason for Visit * Reason Onset Date Comments Follow Up 01/09/2024 12/26/23 Right Th oracic Trigger Point Injection with Dr. 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 Active Vitamin D3 1.25 MG (52165 UT) Oral CapsuleIndications: Vitamin D deficiency TAKE 1 CAPSULE BY MOUTH ONE TIME PER WEEK 12 Capsule 06/17/2023 Active Tiotropium [place] Monohydrate 1.25 MCG/ACT Inhalation Aerosol Solution (Spiriva [...] Encounter - Janette Colbert MA - 01/12/2024 2:02 PM EDT Spoke with Renate Procedure scheduled for 02/05/24 R-Sided Intercostal NB T8-10 Meloxicam Hold- 5 Day Last Dose: 01/30/24 Pre-Procedure Instructions reviewed verbally, Renate verbalized understanding. Copy sent via mail. * Telephone Encounter - Janette Colbert MA [...] 01/09/2024 2:53 PM EDT Ximena Dumont RN [facility] Interventional Pain Clinic spoke with Demi [...] send us a MyG message or call [facility] Pain Clinic with any additional questions and/or concerns in the mean time. documented in this encounter Plan of Treatment Upcoming Encounters Date Type Department Care Team (Late st Contact Info) Description 01/28/2024 2:00 PM EDT Office Visit Pulmonary Medicine, [address] [place] [address] Pasha Bowman MD [address] [place] [address] 02/06/2024 12:30 PM EDT Imaging Radiology [facility] [address] [place] [address] 03/22/2024 11:00 AM EDT Office Visit Interventional Pain Center, [facility] [address] [place] [address] Derrek Vela, DO [address] [place] [address] 03/24/2024 12:00 PM EDT Office Visit General Internal Medicine [facility] 200 [place] [address] Rubi Alejo MD 200 [place] [address] Health Maintenance Due Date Last Done Comments DISCUSS TOBACCO CESSATION (REFER TO SMARTSET #8583) 1955 Alpha-1 Antitrypsin 11/13/1975 Hepatitis C Screening 11/13/1975 DTaP,Tdap,and Td Vaccines (1 - Tdap) 1976 Cologuard 2002 Sigmoidoscopy 2002 Fecal Occult Blood Test 09/19/2005 09/19/2004 Zoster Vaccines (1 of 2) 11/13/2007 Pneumococcal Vaccine: 65+ Years (2 of 2 - PCV) 08/14/2008 08/15/2007 Depression Screening 10/21/2019 10/20/2018 COVID-19 Vaccine ( - 2022-24 season) 2023 Colonoscopy 10/30/2023 10/29/2013 [...] filedocumented as of this encounter Care Teams Manager Erp Relationship Specialty Start Date End Date Rubi Alejo MD [address] [place] [address] PCP - General Internal Medicine 04/03/23 documented as of this encounter
--- OUTSIDE RECORDS SUMMARY | 2024-02-24 01:56 | External Medical Summary | Summary of Care ---
Author Name Unknown Organization [facility] Address [address] [place] [address] Phone [phone] Care Team Providers Care Hairspring Adjuster Name Role Phone Rubi Alejo MD Primary Care Provider [phone] Reason for Visit * Reason Onset Date Comments Follow Up 01/09/2024 12/26/23 Right Th oracic Trigger Point Injection with Dr. 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 Active Vitamin D3 1.25 MG (90375 UT) Oral CapsuleIndications: Vitamin D deficiency TAKE 1 CAPSULE BY MOUTH ONE TIME PER WEEK 12 Capsule 06/17/2023 Active Tiotropium [place] Monohydrate 1.25 MCG/ACT Inhalation Aerosol Solution (Spiriva [...] Patient requested Renate be called for scheduling. Patient requesting granddaughter (Renate) be listed as primary contact number. * Telephone Encounter - Janette Colbert MA - 01/12/2024 1:40 PM EDT LM to CB Unable to Reach * Telephone Encounter - Ximena Dumont RN - 01/09/2024 2:53 PM EDT Ximena Dumont RN [facility] Interventional Pain Clinic spoke with Demi Harris's [...] I encouraged them to send us a Impriv[employer] message or call [facility] Pain Clinic with any additional questions and/or concerns in the mean time. documented in this encounter Plan of Treatment Upcoming Encounters Date Type Department Care Team (Late st Contact Info) Description 01/28/2024 2:00 PM EDT Office Visit Pulmonary Medicine, [facility] [address] [place] [address] Pasha Bowman MD [address] [place] [facility] [address] 02/05/2024 Hospital Encounter OR [facility], Operating Room [facility] [address] [place] [phone] Derrek Vela, DO [address] [place] [phone] 02/06/2024 12:30 PM EDT Imaging Radiology [address], [place] 132 [facility] [place] [address] 03/22/2024 11:00 AM EDT Office Visit Interventional Pain Center, [address] [address] Derrek Vela, [address] [place] [phone] 03/24/2024 12:00 PM EDT Office Visit General Internal Medicine [facility] 200 [facility] [place] [address] Rubi Alejo MD 200 [facility] [place] [address] Scheduled Procedures Name Priority Associated Diagnoses Date/Ti me INJECT ANESTHETIC AND/OR [place] INTERCOSTAL NERVE Myalgia INJECT ANESTHETIC AND/OR [place] INTERCOSTAL MULTIPLE NERVES Myalgia Health Maintenance Due Date Last Done Comments DISCUSS TOBACCO CESSATION (REFER TO SMARTSET #[id number]) 1955 Alpha-1 Antitrypsin 11/13/1975 Hepatitis C Screening [...] filedocumented as of this encounter Care Teams Hairspring Adjuster Relationship Specialty Start Date End Date Rubi Alejo MD [address] [place] [address] PCP - General Internal Medicine 04/03/23 documented as of this encounter
--- OUTSIDE RECORDS SUMMARY | 2024-02-24 01:56 | External Medical Summary | Summary of Care ---
Author Name Unknown Organization [facility] Address [address] [place] [address] Phone [phone] Care Team Providers Care Export Manager Name Role Phone Genesis Alejo MD Primary Care Provider [phone] Reason for Visit * Reason Comments eRx-Medication Refill Encounter Details Date Type Department Care Team (Late st Contact Info) Description 01/08/2024 Refill General Internal Medicine [facility] 200 [place] [address] Genesis Alejo MD [address] [place] [address] Chronic right-sided low back pain without sciatica Allergies Active Allergy Reactions Criticality Noted Date Comments Gluten Meal 05/25/2014 Celiac disease documented as of this encounter (statuses as of 01/09/2024) Medications Medication Sig Dispensed Refills Start Date End Date Status NEBULIZER COMPRESSOR MISCIndications:CO PD, 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 Active Vitamin D3 1.25 MG (41293 UT) Oral CapsuleIndications :Vitamin D deficiency TAKE 1 CAPSULE BY MOUTH ONE TIME PER WEEK 12 Capsule 06/17/2023 Active Tiotropium [place] Monohydrate 1.25 MCG/ACT Inhalation Aerosol Solution (Spiriva [...] or Shortness of Breath. 360 mL 12/10/2023 Active Cyclobenzaprine HCl 10 MG Oral Tablet (Flexeril)Indicati ons:Myositis of right shoulder, unspecified myositis type TAKE 1 TABLET BY MOUTH AT BEDTIME NEEDED FOR PAIN OR MUSCLE SPASMS. 30 Tablet 1 12/11/2023 Active Pregabalin 25 MG Oral Capsule (Lyrica)Indication s:Chronic right-sided low back pain without sciatica Take 1 Capsule by mouth every morning AND 2 Capsules at bedtime. 90 Capsule 1 01/09/2024 Active Pregabalin 25 MG Oral Capsule (Lyrica)Indication s:Chronic right-sided low back pain without sciatica Take 1 Capsule by mouth in the morning and 1 Capsule before bedtime. In 1 week can increase 1 in am and 2 tab at night. 90 Capsule 1 10/01/2023 Discontinued Hospital, Clinic, or Other Facility Administered Medication Ordered Dose Route Frequency Start Date End Date Status Albuterol Sulfate (Proventil) (2.5 MG/3ML) 0.083% inhalation solution 2.5 mgIndications:COPD, moderate (HCC) 2.5 mg NEBULIZER PRN 10/22/2023 10/21/2024 Active albuterol (VENTOLIN HFA/PROVENTIL HFA) inhalerIndications:COPD , moderate (HCC) 3 Puff IN PRN 10/22/2023 10/21/2024 Active documented as of this encounter (statuses as of 01/09/2024) Active Problems Problem Noted Date Diagnosed Date [...] as of this encounter (statuses as of 01/09/2024) Resolved Problems Problem Noted Date Diagnosed Date Resolved Date COPD, group C, by GOLD 2017 classification 10/27/2023 12/25/2023 Overview: Per COPD GOLD Classification COPD, moderate 01/01/2021 10/29/2023 Overview: Per COPD GOLD Classification Prediabetes 01/01/2021 07/31/2023 COPD exacerbation 03/28/2014 01/01/2021 Alcohol dependence 04/14/2008 Overview: ICD-10 update of inactive term documented as of this encounter (statuses as of 01/09/2024) Immunizations Name Administration Dates Next Due Pneumococcal [...] Telephone Encounter - Genesis Alejo MD - 01/09/2024 8:38 AM EDTSigned Prescriptions: Disp Refills Pregabalin 25 MG Oral Capsule (Lyrica) 90 Cap*1 Sig: Take 1 Capsule by mouth every morning AND 2 Capsules at bedtime. Authorizing Provider: GENESIS ALEJO * Telephone Encounter - Glenda Stewart [facility] - 01/09/2024 7:52 AM EDTPending Prescriptions: Disp Refills Pregabalin 25 MG Oral Capsule [Pharmacy Me*90 Cap*1 Sig: TAKE 1 CAPSULE BY MOUTH IN THE MORNING AND BEFORE BEDTIME FOR 1 WEEK. CAN INCREASE TO 1 TAB IN THE MORNING AND 2 TABS AT NIGHT * Telephone Encounter - Glenda Stewart [facility] - 01/09/2024 7:51 AM EDT I have reviewed the patients controlled substance dispensing history in the Prescription Drug Monitoring Program in compliance with the [facility] regulations before prescribing a controlled substance. PDMP checked on 01/09/2024. Pending Prescriptions: Disp Refills Pregabalin 25 MG Oral Capsule (Lyrica) [P*90 Cap*1 Sig: TAKE 1 CAPSULE BY MOUTH IN THE MORNING AND BEFORE BEDTIME FOR 1 WEEK. CAN INCREASE TO 1 TAB IN THE MORNING AND 2 TABS AT NIGHT Last Visit: 10/22/2023 (in office), 10/01/2023 (telemedicine) Next Visit: 03/24/2024 Date medication was last filled: 11/17/23 Date medication is due for refill: 12/16/23 Pharmacy: [id number] [id number] [facility] Is this request for a controlled substance? Yes and Urine Drug Screen Not completed Toxicology results: No results found for this or any previous visit. Please approve if appropriate. Thank You, Glenda Stewart [facility] Clinical Pharmacist [facility] ([facility]) [phone] [id number] 01/09/2024, 7:51 AM documented in this encounter Plan of Treatment Upcoming Encounters Date Type Department Care Team (Late st Contact Info) Description 01/09/2024 3:00 PM EDT Scheduled Telephone Interventional Pain Center, [facility] [address] [place] [address] [facility], Nurse Pain Medicine [address] [place] [address] Arrived 01/28/2024 2:00 PM EDT Office Visit Pulmonary Medicine, [facility] 132 [facility] [place] [address] Pasha Bowman MD [address] [place] [facility] [place] [address] 02/06/2024 12:30 PM EDT Imaging Radiology [address] 132 [facility] [place] [address] 03/24/2024 12:00 PM EDT Office Visit General Internal Medicine [facility] 200 [place] [address] Genesis Alejo MD 200 [place] [address] Health Maintenance Due Date Last Done Comments DISCUSS TOBACCO CESSATION (REFER TO SMARTSET #5012) 1955 Alpha-1 Antitrypsin 11/13/1975 Hepatitis C Screening 11/13/1975 DTaP,Tdap,and Td Vaccines (1 - Tdap) 1976 Cologuard 2002 Sigmoidoscopy 2002 Fecal Occult Blood Test 09/19/2005 09/19/2004 Zoster Vaccines (1 of 2) 11/13/2007 Pneumococcal Vaccine: 65+ Years (2 of 2 - PCV) 08/14/2008 08/15/2007 Depression Screening 10/21/2019 10/20/2018 COVID-19 Vaccine ( season) 2023 Colonoscopy 10/30/2023 10/29/2013 Colorectal Cancer [...] Chronic right-sided low back pain without sciatica documented in this encounter Care Teams Export Manager Relationship Specialty Start Date End Date Genesis Alejo MD [address] [place] [address] PCP - General Internal Medicine 04/03/23 documented as of this encounter
--- OUTSIDE RECORDS SUMMARY | 2024-02-24 01:56 | External Medical Summary | Summary of Care ---
Author Name Unknown Organization [facility] Address [address] [place] [address] Phone [phone] Care Team Providers Care Architectural Coating Finisher Name Role Phone Rubi Alejo MD Primary Care Provider [phone] Reason for Visit * Reason Onset Date Comments FYI 10/15/2023 Encounter Details Date Type Department Care Team (Late st Contact Info) Description 10/15/2023 Telephone General Internal Medicine [facility] 200 [place] [address] Rubi Alejo MD 200 [place] [address] FYI Allergies Active Allergy Reactions Criticality Noted Date Comments Gluten Meal 05/25/2014 Celiac disease documented as of this encounter (statuses as of 01/14/2024) Medications Medication Sig Dispensed Refills Start Date End Date Status NEBULIZER COMPRESSOR MISCIndications:COPD , 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 Active Vitamin D3 1.25 MG (52421 UT) Oral CapsuleIndications:V itamin D deficiency TAKE 1 CAPSULE BY MOUTH ONE TIME PER WEEK 12 Capsule 06/17/2023 Active Tiotropium [place] Monohydrate 1.25 MCG/ACT Inhalation Aerosol Solution (Spiriva [...] once daily.. 40 Tablet 3 10/08/2023 Active documented as of this encounter (statuses as of 01/14/2024) Active Problems Problem Noted Date Diagnosed Date [...] as of this encounter (statuses as of 01/14/2024) Resolved Problems Problem Noted Date Diagnosed Date Resolved Date COPD, group C, by GOLD 2017 classification 10/27/2023 12/25/2023 Overview: Per COPD GOLD Classification COPD, moderate 01/01/2021 10/29/2023 Overview: Per COPD GOLD Classification Prediabetes 01/01/2021 07/31/2023 COPD exacerbation 03/28/2014 01/01/2021 Alcohol dependence 04/14/2008 Overview: ICD-10 update of inactive term documented as of this encounter (statuses as of 01/14/2024) Immunizations Name Administration Dates Next Due Pneumococcal [...] Telephone Encounter - Rubi Alejo MD - 10/15/2023 12:23 PM EDT Noted * Telephone Encounter - Tawana Yanez OSA - 10/15/2023 9:44 AM EDT Patient's granddaughter, Renate, called to advise patient is admitted to [facility] [place] yesterday. documented in this encounter Plan of Treatment Upcoming Encounters Date Type Department Care Team (Latest Contact Info) Description 01/28/2024 2:00 PM EDT Office Visit Pulmonary Medicine, [facility] 132 [facility] [place] [address] Pasha Bowman MD [address] [place] [address] 02/05/2024 11:10 AM EDT Hospital Encounter OR [facility], Operating Room [facility] [address] [place] [phone] Derrek Vela, DO [facility] [phone] 02/05/2024 11:10 AM EDT - 02/05/2024 11:35 AM EDT Surgery OR [facility], Operating Room [facility] [address] [place] [phone] Derrek Vela, DO 400 [facility] [phone] INJECT ANESTHETIC AND/OR STEROID INTERCOSTAL NERVE 02/06/2024 12:30 PM EDT Imaging Radiology [address] 132 [facility] [place] [address] 03/22/2024 11:00 AM EDT Office Visit Interventional Pain Center, [address] [place] [address] Derrek Vela, DO [address] [place] [phone] 03/24/2024 12:00 PM EDT Office Visit General Internal Medicine [employer] 200 [facility] [place] [address] Rubi Alejo MD 200 [facility] [place] [address] Scheduled Procedures Name Priority Associated Diagnoses Date/Ti me INJECT ANESTHETIC AND/OR STEROID INTERCOSTAL NERVE Myalgia 02/05/2024 11:10 AM EDT INJECT ANESTHETIC AND/OR STEROID INTERCOSTAL MULTIPLE NERVES Myalgia 02/05/2024 11:10 AM EDT Health Maintenance Due Date Last Done Comments DISCUSS TOBACCO CESSATION (REFER TO SMARTSET #9531) 1955 Alpha-1 Antitrypsin 11/13/1975 Hepatitis C Screening [...] filedocumented as of this encounter Care Teams Architectural Coating Finisher Relationship Specialty Start Date End Date Rubi Alejo MD 200 [place] [address] PCP - General Internal Medicine 04/03/23 documented as of this encounter
--- OUTSIDE RECORDS SUMMARY | 2024-02-24 01:57 | External Medical Summary | Summary of Care ---
Author Name Unknown Organization [facility] Address [address] [place] [address] Phone [phone] Care Team Providers Care Web Marketing Strategist Name Role Phone Rubi Alejo MD Primary Care Provider [phone] Reason for Referral * Precert (Within 10 days (routine)) - Pending Review Specialty Diagnoses / Procedures Referred By Lizet slater Referred To Contact Radiology Diagnoses Pain in thoracic spine History of lipoma Procedures MRI T SPINE WO CONTRAST Derrek Anaya DO [address] [place] [address] Referral ID Status Reason Start Date Expiration Date V isits Requested Visits Authorized [id number] Pending Review 12/05/2023 999 999 * Precert (Within 10 days (routine)) - Pending Review Specialty Diagnoses / Procedures Referred By Lizet slater Referred To Contact Radiology Diagnoses Pain in thoracic spine History of lipoma Procedures CT T SPINE WO CONTRAST Derrek Anaya DO [address] [place] [address] Referral ID Status Reason Start Date Expiration Date V isits Requested Visits Authorized [id number] Pending Review 12/05/2023 999 999 Reason for [...] pain without sciatica Rubi Alejo MD [address] [place] [facility] [place] [address] Referral ID Status Reason Start Date Expiration Date Visits Requested Visits Authorized [id number] Authorized Specialty Services Required 10/30/2023 999 999 Encounter Details Date Type Department Care Team (Late st Contact Info) Description 11/28/2023 10:30 AM EDT Office Visit Interventional Pain Center, [facility] [address] [place] [address] Derrek Anaya, [address] [place] [phone] History of lipoma*; Pain in thoracic spine Allergies Active Allergy Reactions Criticality Noted Date Comments Gluten Meal 05/25/2014 Celiac disease documented as of this encounter (statuses as of 11/28/2023) Medications Medication Sig Dispensed Refills Start Date End Date Status NEBULIZER COMPRESSOR MISCIndications:COPD , 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 Active Vitamin D3 1.25 MG (02937 UT) Oral CapsuleIndications:V itamin D deficiency TAKE 1 CAPSULE BY MOUTH ONE TIME PER WEEK 12 Capsule 06/17/2023 Active Tiotropium [place] Monohydrate 1.25 MCG/ACT Inhalation Aerosol Solution (Spiriva [...] day. Active Pregabalin 25 MG Oral Capsule (Lyrica)Indications: Chronic right-sided low back pain without sciatica Take 1 Capsule by mouth in the morning and 1 Capsule before bedtime. In 1 week can increase 1 in am and 2 tab at night. 90 Capsule 1 10/01/2023 Active Meloxicam 7.5 MG Oral TabletIndications:Ch ronic [...] needed for Nausea. 30 Tablet 10/22/2023 Active Cyclobenzaprine HCl 10 MG Oral Tablet (Flexeril)Indication s:Myositis of right shoulder, unspecified myositis type TAKE 1 TABLET BY MOUTH AT BEDTIME NEEDED FOR PAIN OR MUSCLE SPASMS. 30 Tablet 1 10/27/2023 Active Albuterol Sulfate HFA 108 (90 Base) MCG/ACT Inhalation Aerosol Solution INHALE 2 PUFFS BY MOUTH EVERY 6 HOURS NEEDED FOR SHORTNESS OF BREATH OR WHEEZING. 18 g 5 11/20/2023 Active Hospital, Clinic, or Other Facility Administered Medication Ordered Dose Route Frequency Start Date End Date Status Albuterol Sulfate (Proventil) (2.5 MG/3ML) 0.083% inhalation solution 2.5 mgIndications:COPD, moderate (HCC) 2.5 mg NEBULIZER PRN 10/22/2023 10/21/2024 Active albuterol (VENTOLIN HFA/PROVENTIL HFA) inhalerIndications:COPD , moderate (HCC) 3 Puff IN PRN 10/22/2023 10/21/2024 Active documented as of this encounter (statuses as of 11/28/2023) Active Problems Problem Noted Date Diagnosed Date [...] as of this encounter (statuses as of 11/28/2023) Resolved Problems Problem Noted Date Diagnosed Date Resolved Date COPD, moderate 01/01/2021 10/29/2023 Overview: Per COPD GOLD Classification Prediabetes 01/01/2021 07/31/2023 COPD exacerbation 03/28/2014 01/01/2021 Alcohol dependence 04/14/2008 Overview: ICD-10 update of inactive term documented as of this encounter (statuses as of 11/28/2023) Immunizations Name Administration Dates Next Due Pneumococcal [...] 2 years. 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 Pain extends [...] (Colace 2-IN-1) 1 Tablet, Oral, Daily(AM) Tiotropium [place] Monohydrate 1.25 MCG/ACT Inhalation Aerosol Solution (Spiriva Respimat) 2 Puffs,Inhalation, DAILY(1900) Vitamin D3 1.25 MG (10793 UT) Oral Capsule TAKE 1 CAPSULE BY MOUTH ONE TIME PER WEEK Review of patient's allergies indicates: Allergen Reactions Gluten Meal Celiac disease Past Medical History: Past Medical History: Diagnosis Date Gastroparesis 2004 T 1/2=144 minutes Peptic ulcer Past Surgical History: Past Surgical History: Procedure Laterality Date COLONOSCOPY 08/15/07 [facility]. COLONOSCOPY, DIAGNOSTIC (RECTUM) 10/29/2013 poor prep/inpt @ [facility] ECHO (2-D COMPLETE) 04/23 LVEF 55%, normal chambers EGD, FLEXIBLE, DIAGNOSTIC 10/29/2013 lg HH/inpt @ [facility] REMOVAL OF APPENDIX REMOVAL OF [...] Greater than 55 minutes was spent in travel counselor with patient, reviewing imaging, and coordinating [...] Care Team (Late st Contact Info) Description 12/05/2023 11:00 AM EDT PulmDiagnostic Pulmonary Function Lab, [facility] 132 [facility] [place] [address] [address], [address] 132 [facility] [place] [address] 12/05/2023 12:45 PM EDT Imaging Radiology [address] 132 [facility] [place] [address] 12/10/2023 1:00 PM EDT Office Visit Pulmonary Medicine, [facility] 132 [facility] [place] [address] Pasha Bowman MD [address] [facility] [address] 12/12/2023 10:00 AM EDT Office Visit Interventional Pain Center, [facility] [address] [place] [address] Derrek Anaya, DO [address] [place] [address] 02/06/2024 12:30 PM EDT Imaging Radiology [address] 132 [facility] [place] [address] 03/24/2024 12:00 PM EDT Office Visit General Internal Medicine [address] [place] [address] [place] [address] Rubi Alejo MD [address] [facility] [place] [address] Scheduled Orders Name Type Priority Associated Diagnoses Orde r Schedule CT T SPINE WO CONTRAST Medical Imaging Routine Pain in thoracic spine History of lipoma Expected: 12/05/2023, Expires: 12/27/2024 MRI T SPINE WO CONTRAST Medical Imaging Routine Pain in thoracic spine History of lipoma Expected: 12/05/2023, Expires: 12/27/2024 Health Maintenance Due Date Last Done Comments DISCUSS TOBACCO CESSATION (REFER TO SMARTSET #[id number]) 1955 Alpha-1 Antitrypsin 11/13/1975 Hepatitis C Screening [...] ASSESSMENT COMPLETED IN PAST YEAR FOR COPD 11/27/2024 11/28/2023 Diabetes Screening 07/10/2026 07/10/2023, 0 07/10/2023, 04/03/2023, [...] spine documented in this encounter Care Teams Web Marketing Strategist Relationship Specialty Start Date End Date Rubi Alejo MD 200 [place] [address] PCP - General Internal Medicine 04/03/23 documented as of this encounter
--- OUTSIDE RECORDS SUMMARY | 2024-02-24 01:57 | External Medical Summary | Summary of Care ---
Author Name Unknown Organization [facility] Address [address] [place] [address] Phone [phone] Care Team Providers Care Training Generalist Name Role Phone Rubi Alejo MD Primary Care Provider [phone] Reason for Visit * Reason Onset Date Comments Advice 10/06/2023 Encounter Details Date Type Department Care Team (Late st Contact Info) Description 10/06/2023 Telephone General Internal Medicine [facility] [address] [place] [address] Rubi Alejo MD [address] [place] [address] Advice Allergies Active Allergy Reactions Criticality Noted Date Comments Gluten Meal 05/25/2014 Celiac disease documented as of this encounter (statuses as of 11/05/2023) Medications Medication Sig Dispensed Refills Start Date End Date Status NEBULIZER COMPRESSOR MISCIndications:COPD , 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 Active Albuterol Sulfate HFA 108 (90 Base) MCG/ACT Inhalation Aerosol Solution Inhale 2 Puffs by mouth every 6 hours as needed for Shortness of Breath or Wheezing. 18 g 5 04/18/2023 Active Vitamin D3 1.25 MG (70688 UT) Oral CapsuleIndications:V itamin D deficiency TAKE 1 CAPSULE BY MOUTH ONE TIME PER WEEK 12 Capsule 06/17/2023 Active Tiotropium [place] Monohydrate 1.25 MCG/ACT Inhalation Aerosol Solution (Spiriva [...] at night. 90 Capsule 1 10/01/2023 Active documented as of this encounter (statuses as of 11/05/2023) Active Problems Problem Noted Date Diagnosed Date [...] as of this encounter (statuses as of 11/05/2023) Resolved Problems Problem Noted Date Diagnosed Date Resolved Date COPD, moderate 01/01/2021 10/29/2023 Overview: Per COPD GOLD Classification Prediabetes 01/01/2021 07/31/2023 COPD exacerbation 03/28/2014 01/01/2021 Alcohol dependence 04/14/2008 Overview: ICD-10 update of inactive term documented as of this encounter (statuses as of 11/05/2023) Immunizations Name Administration Dates Next Due Pneumococcal [...] encounter Miscellaneous Notes * Telephone Encounter - Amy Baez LPN - 11/05/2023 5:25 PM EDT Was seen in office 10/21. * Telephone Encounter - Trina Quintanilla LPN - 10/07/2023 1:09 PM EDT Left message for patient to call back * Telephone Encounter - Yanick Arnold OSA - 10/06/2023 10:27 AM EDT Med Question - Spoke with Demi patient request call back [phone] for Med Question/ Advice , Pregabalin 25 MG (Lyrica) Thanks documented in this encounter Plan of Treatment Upcoming Encounters Date Type Department Care Team (Late st Contact Info) Description 12/02/2023 8:30 AM EDT Office Visit Interventional Pain Center, [facility] [address] Derrek Vela, DO [address] [facility] [address] 12/05/2023 11:00 AM EDT PulmDiagnostic Pulmonary Function Lab, [facility] 132 [facility] [place] [address] [address], [address] [facility] [place] [address] 12/10/2023 1:00 PM EDT Office Visit Pulmonary Medicine, [facility] 132 [facility] [place] [address] Pasha Bowman MD [address] [place] [address] 02/06/2024 12:30 PM EDT Imaging Radiology [facility] 132 [facility] [place] [address] 03/24/2024 12:00 PM EDT Office Visit General Internal Medicine [address] [place] [address] [place] [address] Rubi Alejo MD [address] [facility] [place] [address] Health Maintenance Due Date Last Done Comments DISCUSS TOBACCO CESSATION (REFER TO SMARTSET #[id number]) 1955 HIV Screening 1972 Alpha-1 Antitrypsin 11/13/1975 [...] ASSESSMENT COMPLETED IN PAST YEAR FOR COPD 10/21/2024 10/22/2023 Diabetes Screening 07/10/2026 07/10/2023, 0 07/10/2023, 04/03/2023, [...] filedocumented as of this encounter Care Teams Training Generalist Relationship Specialty Start Date End Date Rubi Alejo MD [address] [place] [address] PCP - General Internal Medicine 04/03/23 documented as of this encounter
--- OUTSIDE RECORDS SUMMARY | 2024-02-24 01:57 | External Medical Summary | Summary of Care ---
Author Name Unknown Organization [facility] Address [address] [place] [address] Phone [phone] Care Team Providers Care Paraeducator Name Role Phone Rubi Alejo MD Primary Care Provider [phone] Reason for Visit * Reason Onset Date Comments Appointment 10/31/2023 Encounter Details Date Type Department Care Team (Late st Contact Info) Description 10/31/2023 Telephone General Internal Medicine [facility] [address] [place] [address] Rubi Alejo MD [address] [place] [address] Appointment Allergies Active Allergy Reactions Criticality Noted Date Comments Gluten Meal 05/25/2014 Celiac disease documented as of this encounter (statuses as of 10/31/2023) Medications Medication Sig Dispensed Refills Start Date End Date Status NEBULIZER COMPRESSOR MISCIndications:ERP ANALYST D, 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 0 Active Albuterol Sulfate HFA 108 (90 Base) MCG/ACT Inhalation Aerosol Solution Inhale 2 Puffs by mouth every 6 hours as needed for Shortness of Breath or Wheezing. 18 g 5 04/18/2023 Active Vitamin D3 1.25 MG (71805 UT) Oral CapsuleIndications: Vitamin D deficiency TAKE 1 CAPSULE BY MOUTH ONE TIME PER WEEK 12 Capsule 0 06/17/2023 Active Tiotropium [place] Monohydrate 1.25 MCG/ACT Inhalation Aerosol Solution (Spiriva [...] when COPD flares up. 0 07/25/2023 Active Sennosides-Docusate Sodium 8.6-50 MG Oral Tablet (Colace 2-IN-1)Indications: Other constipation Take 1 Tablet by mouth in the morning. 0 09/05/2023 Active Acetaminophen 500 MG Oral Tablet (Tylenol Extra Strength) Take 2 Tablets by mouth 2 times a day. 0 Active Pregabalin 25 MG Oral Capsule (Lyrica)Indications [...] the morning and 20 mg before bedtime. 0 10/14/2023 Active Ondansetron HCl 4 MG Oral TabletIndications:N ausea Take 1 Tablet by mouth every 8 hours as needed for Nausea. 30 Tablet 0 10/22/2023 Active Nystatin 163586 UNIT/ML Mouth/Throat SuspensionIndicatio ns:Thrush Swish and swallow 5 mL in the morning and 5 mL at noon and 5 mL in the evening and 5 mL before bedtime. For thrush.. 240 mL 1 10/23/2023 11/22/2023 Active Cyclobenzaprine HCl 10 MG Oral Tablet (Flexeril)Indicatio ns:Myositis of right shoulder, unspecified myositis type TAKE 1 TABLET BY MOUTH AT BEDTIME NEEDED FOR PAIN OR MUSCLE SPASMS. 30 Tablet 1 10/27/2023 Active Hospital, Clinic, or Other Facility Administered Medication Ordered Dose Route Frequency Start Date End Date Status Albuterol Sulfate (Proventil) (2.5 MG/3ML) 0.083% inhalation solution 2.5 mgIndications:COPD, moderate (HCC) 2.5 mg NEBULIZER PRN 10/22/2023 10/21/2024 Active albuterol (VENTOLIN HFA/PROVENTIL HFA) inhalerIndications:COPD , moderate (HCC) 3 Puff IN PRN 10/22/2023 10/21/2024 Active documented as of this encounter (statuses as of 10/31/2023) Active Problems Problem Noted Date Diagnosed Date [...] as of this encounter (statuses as of 10/31/2023) Resolved Problems Problem Noted Date Diagnosed Date Resolved Date COPD, moderate 01/01/2021 10/29/2023 Overview: Per COPD GOLD Classification Prediabetes 01/01/2021 07/31/2023 COPD exacerbation 03/28/2014 01/01/2021 Alcohol dependence 04/14/2008 Overview: ICD-10 update of inactive term documented as of this encounter (statuses as of 10/31/2023) Immunizations Name Administration Dates Next Due Pneumococcal [...] encounter Miscellaneous Notes * Telephone Encounter - Dany Jean OSA - 10/31/2023 3:42 PM EDT Pt needs to be scheduled for PAIN MEDICINE Associated Diagnoses Chronic right-sided low back pain without sciatica [M54.50, G89.29] Spoke to pt. She will have her granddaughter call back to schedule. documented in this encounter Plan of Treatment Upcoming Encounters Date Type Department Care Team (Late st Contact Info) Description 12/05/2023 11:00 AM EDT PulmDiagnostic Pulmonary Function Lab, [facility] 132 [facility] [place] [address] [address], [address] [place] [address] 12/10/2023 1:00 PM EDT Office Visit Pulmonary Medicine, [facility] 132 [facility] [place] [address] Pasha Bowman MD [address] [place] [address] 02/06/2024 12:30 PM EDT Imaging Radiology [address] [place] [address] 03/24/2024 12:00 PM EDT Office Visit General Internal Medicine [facility] [address] [place] [address] Rubi Alejo MD 200 [facility] [place] [address] Health Maintenance Due Date Last Done Comments DISCUSS TOBACCO CESSATION (REFER TO SMARTSET #3505) 1955 HIV Screening 1972 Alpha-1 Antitrypsin 11/13/1975 [...] filedocumented as of this encounter Care Teams Paraeducator Relationship Specialty Start Date End Date Rubi Alejo MD 200 [facility] [place] [address] PCP - General Internal Medicine 04/03/23 documented as of this encounter
--- OUTSIDE RECORDS SUMMARY | 2024-02-24 01:57 | External Medical Summary | Summary of Care ---
Author Name Unknown Organization [facility] Address [address] [place] [address] Phone [phone] Care Team Providers Care Fax Machine Operator Name Role Phone Rubi Alejo MD Primary Care Provider [phone] Reason for Visit * Reason Onset Date Comments Advice 08/13/2023 Encounter Details Date Type Department Care Team (Late st Contact Info) Description 08/13/2023 Telephone General Internal Medicine [facility] [address] [place] [address] Rubi Alejo MD [address] [place] [address] Advice Allergies Active Allergy Reactions Criticality Noted Date Comments Gluten Meal 05/25/2014 Celiac disease documented as of this encounter (statuses as of 2023) Medications Medication Sig Dispensed Refills Start Date [...] 5 04/18/2023 Active Vitamin D3 1.25 MG (07421 UT) Oral CapsuleIndications:V itamin D deficiency TAKE 1 CAPSULE BY MOUTH ONE TIME PER WEEK 12 Capsule 06/17/2023 Active Tiotropium [place] Monohydrate 1.25 MCG/ACT Inhalation Aerosol Solution (Spiriva [...] spiriva when COPD flares up. 07/25/2023 Active documented as of this encounter (statuses as of 2023) Active Problems Problem Noted Date Diagnosed Date [...] as of this encounter (statuses as of 2023) Resolved Problems Problem Noted Date Diagnosed Date Resolved Date COPD, moderate 01/01/2021 10/29/2023 Overview: Per COPD GOLD Classification Prediabetes 01/01/2021 07/31/2023 COPD exacerbation 03/28/2014 01/01/2021 Alcohol dependence 04/14/2008 Overview: ICD-10 update of inactive term documented as of this encounter (statuses as of 2023) Immunizations Name Administration Dates Next Due Pneumococcal [...] encounter Miscellaneous Notes * Telephone Encounter - Sheela Lord MED ASSIST - 08/13/2023 2:19 PM EST Spoke with patient, reviewed symptoms already stated from prior phone call. Pt mentioned symptoms began last and she has puked twice. Suggested an office visit. Agreeable to being seen. Please assist with scheduling. * Telephone Encounter - Sarah Patrick OSA - 08/13/2023 1:40 PM EST Pt called stating she has flu-like symptoms for a week. Nausea, Chills, Sweating, and lack of appetite. Pt declined appt suggestion. She's requesting a call to further discuss. documented in this encounter Plan of Treatment Upcoming Encounters Date Type Department Care Team (Late st Contact Info) Description 11/28/2023 10:30 AM EDT Office Visit Interventional Pain Center, [facility] [address] [place] [address] Derrek Vela, DO [address] [place] [address] 12/05/2023 11:00 AM EDT PulmDiagnostic Pulmonary Function Lab, [facility] 132 [facility] [place] [address] [address], [address] [facility] [place] [address] 12/10/2023 1:00 PM EDT Office Visit Pulmonary Medicine, [facility] [address] [facility] [place] [address] Pasha Bowman MD [address] [place] [address] 02/06/2024 12:30 PM EDT Imaging Rad[facility] [address] [facility] [place] [address] 03/24/2024 12:00 PM EDT Office Visit General Internal Medicine [facility] 200 [place] [address] Rubi Alejo MD 200 [facility] [place], [place] [address] Health Maintenance Due Date Last Done Comments DISCUSS TOBACCO CESSATION (REFER TO SMARTSET #9112) 1955 HIV Screening 1972 Alpha-1 Antitrypsin 11/13/1975 [...] filedocumented as of this encounter Care Teams Fax Machine Operator Relationship Specialty Start Date End Date Rubi Alejo MD [address] [facility] [place] [address] PCP - General Internal Medicine 04/03/23 documented as of this encounter
--- OUTSIDE RECORDS SUMMARY | 2024-02-24 01:57 | External Medical Summary | Summary of Care ---
Author Name Unknown Organization [facility] Address [address] [place] [address] Phone [phone] Care Team Providers Care Mechanical Test Engineer Name Role Phone Rubi Alejo MD Primary Care Provider [phone] Reason for Visit * Reason Onset Date Comments Order Request 12/12/2023 Encounter Details Date Type Department Care Team (Late st Contact Info) Description 12/12/2023 Telephone Radiology [address] 132 [facility] [place] [address] Derrek Vela, DO [address] [facility] [place] [address] Order Request Allergies Active Allergy Reactions Criticality Noted Date Comments Gluten Meal 05/25/2014 Celiac disease documented as of this encounter (statuses as of 12/12/2023) Medications Medication Sig Dispensed Refills Start Date End Date Status NEBULIZER COMPRESSOR MISCIndications:MECHANICAL MAINTENANCE TECHNICIAN D, 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 Active Vitamin D3 1.25 MG (05642 UT) Oral CapsuleIndications: Vitamin D deficiency TAKE 1 CAPSULE BY MOUTH ONE TIME PER WEEK 12 Capsule 06/17/2023 Active Tiotropium [place] Monohydrate 1.25 MCG/ACT Inhalation Aerosol Solution (Spiriva [...] encounter Miscellaneous Notes * Telephone Encounter - Brooks Davison RT [...] Description 12/13/2023 2:30 PM EDT Imaging Radiology [address], [place] [address] [place] [address] 12/23/2023 11:00 AM EDT Office Visit Interventional Pain Center, [facility] [address] [place] [address] Derrek Vela DO [address] [place] [address] 02/06/2024 12:30 PM EDT Imaging Radiology [facility] 1st [facility], [place] [address] [place] [address] 03/24/2024 12:00 PM EDT Office Visit General Internal Medicine [facility] 200 [facility] [place] [address] Rubi Alejo MD 200 [facility] [place] [address] Health Maintenance Due Date Last Done Comments DISCUSS TOBACCO CESSATION (REFER TO SMARTSET #9620) 1955 Alpha-1 Antitrypsin 11/13/1975 Hepatitis C Screening [...] filedocumented as of this encounter Care Teams Mechanical Test Engineer Relationship Specialty Start Date End Date Rubi Alejo MD 200 [facility] [place] [address] PCP - General Internal Medicine 04/03/23 documented as of this encounter
--- OUTSIDE RECORDS SUMMARY | 2024-02-24 01:57 | External Medical Summary | Summary of Care ---
Author Name Unknown Organization [facility] Address [address] [place] [address] Phone [phone] Care Team Providers Care Bartender Helper Name Role Phone Rubi Alejo MD Primary Care Provider [phone] Reason for Visit * Reason Comments eRx-Medication Refill Encounter Details Date Type Department Care Team (Late st Contact Info) Description 11/19/2023 Refill Family Medicine [address] [phone] Rubi Alejo MD [address] [place] [id number] Allergies Active Allergy Reactions Criticality Noted Date Comments Gluten Meal 05/25/2014 Celiac disease documented as of this encounter (statuses as of 11/20/2023) Medications Medication Sig Dispensed Refills Start Date End Date Status NEBULIZER COMPRESSOR MISCIndications:CO PD, 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 Active Vitamin D3 1.25 MG (69385 UT) Oral CapsuleIndications :Vitamin D deficiency TAKE 1 CAPSULE BY MOUTH ONE TIME PER WEEK 12 Capsule 06/17/2023 Active Tiotropium [place] Monohydrate 1.25 MCG/ACT Inhalation Aerosol Solution (Spiriva [...] needed for Nausea. 30 Tablet 10/22/2023 Active Nystatin 972126 UNIT/ML Mouth/Throat SuspensionIndicati ons:Thrush Swish and swallow 5 mL in the morning and 5 mL at noon and 5 mL in the evening and 5 mL before bedtime. For thrush.. 240 mL 1 10/23/2023 Active Cyclobenzaprine HCl 10 MG Oral Tablet [...] 18 g 5 11/20/2023 Active Albuterol Sulfate HFA 108 (90 Base) MCG/ACT Inhalation Aerosol Solution Inhale 2 Puffs by mouth every 6 hours as needed for Shortness of Breath or Wheezing. 18 g 5 04/18/2023 Discontinued Hospital, Clinic, or Other Facility Administered Medication Ordered Dose Route Frequency Start Date End Date Status Albuterol Sulfate (Proventil) (2.5 MG/3ML) 0.083% inhalation solution 2.5 mgIndications:COPD, moderate (HCC) 2.5 mg NEBULIZER PRN 10/22/2023 10/21/2024 Active albuterol (VENTOLIN HFA/PROVENTIL HFA) inhalerIndications:COPD , moderate (HCC) 3 Puff IN PRN 10/22/2023 10/21/2024 Active documented as of this encounter (statuses as of 11/20/2023) Active Problems Problem Noted Date Diagnosed Date [...] as of this encounter (statuses as of 11/20/2023) Resolved Problems Problem Noted Date Diagnosed Date Resolved Date COPD, moderate 01/01/2021 10/29/2023 Overview: Per COPD GOLD Classification Prediabetes 01/01/2021 07/31/2023 COPD exacerbation 03/28/2014 01/01/2021 Alcohol dependence 04/14/2008 Overview: ICD-10 update of inactive term documented as of this encounter (statuses as of 11/20/2023) Immunizations Name Administration Dates Next Due Pneumococcal [...] encounter Miscellaneous Notes * Telephone Encounter - Lara Corrigan [facility] - 11/20/2023 6:47 AM EDTSigned Prescriptions: Disp Refills Albuterol Sulfate HFA 108 (90 Base) MCG/AC*18 g 5 Sig: INHALE 2 PUFFS BY MOUTH EVERY 6 HOURS NEEDED FOR SHORTNESS OF BREATH OR WHEEZING.Authorizing Provider: Evelyn ALEJO User: LARA CORRIGAN documented in this encounter Plan of Treatment Upcoming Encounters Date Type Department Care Team (Late st Contact Info) Description 11/28/2023 10:30 AM EDT Office Visit [facility], [address] [address] Derrek Vela, [address] [place] [address] Ave [place] [phone] 12/05/2023 11:00 AM EDT PulmDiagnostic Pulmonary Function Lab, [facility] [address] [facility] [place] [address] [address], [address] [facility] [place] [address] 12/10/2023 1:00 PM EDT Office Visit Pulmonary Medicine, [facility] [address] [facility] [place] [address] Pasha Bowman MD [address] [place] [address] 02/06/2024 12:30 PM EDT Imaging Radiology [facility] 1st Floor, [place] [address] [facility] [place] [address] 03/24/2024 12:00 PM EDT Office Visit General Internal Medicine [facility] [address] [facility] [place] [address] Rubi Alejo MD [address] [facility] [place], [place] [address] Health Maintenance Due Date Last Done Comments DISCUSS TOBACCO CESSATION (REFER TO SMARTSET #[id number]) 1955 Alpha-1 Antitrypsin 11/13/1975 Hepatitis C Screening [...] filedocumented as of this encounter Care Teams Bartender Helper Relationship Specialty Start Date End Date Rubi Alejo MD [address] [place] [address] PCP - General Internal Medicine 04/03/23 documented as of this encounter
--- OUTSIDE RECORDS SUMMARY | 2024-02-24 01:57 | External Medical Summary | Summary of Care ---
Author Name Unknown Organization [facility] Address [address] [place] [address] Phone [phone] Care Team Providers Care Vat Cleaner Name Role Phone Rubi Alejo MD Primary Care Provider [phone] Reason for Referral * Evaluate & Treat - Unlimited Visits (Within 30 days (routine)) - Authorized Specialty Diagnoses / Procedures Referred By Lizet slater Referred To Contact Pulmonary Diseases / Pulmonary Diagnoses COPD, moderate (HCC) COPD exacerbation (HCC) Rubi Alejo MD [address] [place] [address] Referral ID Status Reason Start Date Expiration Date Visits Requested Visits Authorized [id number] Authorized Specialty Services Required 10/22/2023 999 999 Question Answer Referral Priority Within 30 days (routine) Where should this appointment be scheduled? [facility] Reason for Referral? Asthma/COPD Comments COPD with frequent flare up , last time 1 week ago Reason for Visit * Reason Onset Date Comments Hospital Follow-Up Patient was i n the hospital for shortness of breath reports feeling well today. Lots of energy. Did not sleep very much last night. medication change Patient wants do discuss getting zofran because she is spitting up in car rids. Hospital Follow-Up 10/22/2023 Encounter Details Date Type Department Care Team (Late st Contact Info) Description 10/22/2023 11:00 AM EDT [facility] [address] [place] [address] Rubi Alejo MD [address] [facility] [place] [address] COPD exacerbation (HCC)*; Tobacco use disorder; Hospital discharge follow-up; COPD, moderate (HCC); Chronic hypoxemic respiratory failure (HCC); Chronic right-sided low back pain without sciatica; Nausea; On supplemental oxygen by nasal cannula; Cor pulmonale, chronic (HCC); DDD (degenerative disc disease), lumbar; Gastroparesis; Hiatal hernia; Incidental lung nodule, less than or equal to 3mm; Iron deficiency anemia, unspecified iron deficiency anemia type; Thrush Allergies Active Allergy Reactions Criticality Noted Date Comments Gluten Meal 05/25/2014 Celiac disease documented as of this encounter (statuses as of 10/24/2023) Medications Medication Sig Dispensed Refills Start Date End Date Status NEBULIZER COMPRESSOR MISCIndications:CO PD, severity to be determined ([facility]) Use as directed 1 Each 0 03/28/2014 Active oxygen GAS Use as directed. 0 Active Albuterol Sulfate HFA 108 (90 Base) MCG/ACT Inhalation Aerosol Solution Inhale 2 Puffs by mouth every 6 hours as needed for Shortness of Breath or Wheezing. 18 g 5 04/18/2023 Active Vitamin D3 1.25 MG (87144 UT) Oral CapsuleIndications :Vitamin D deficiency TAKE 1 CAPSULE BY MOUTH ONE TIME PER WEEK 12 Capsule 0 06/17/2023 Active Tiotropium [facility] Monohydrate 1.25 MCG/ACT Inhalation Aerosol Solution (Spiriva [...] when COPD flares up. 0 07/25/2023 Active Sennosides-Docusat e Sodium 8.6-50 MG [...] 0 Active Pregabalin 25 MG Oral Capsule (Lyrica)Indication [...] Nausea. 30 Tablet 0 10/22/2023 Active Nystatin 450481 UNIT/ML Mouth/Throat SuspensionIndicati ons:Thrush Swish and swallow 5 mL in the morning and 5 mL at noon and 5 mL in the evening and 5 mL before bedtime. For thrush.. 240 mL 1 10/23/2023 4 Active Ondansetron HCl 4 MG Oral TabletIndications: Nausea and vomiting, unspecified vomiting type Take 1 Tablet by mouth every 8 hours as needed for Nausea. 30 Tablet 1 09/05/2023 4 Discontinue d(Medicatio n List Clean Up) Icy Hot Max Lidocaine 4-1 % External Cream (Lidocaine-Menthol ) Apply topically to affected area. Apply to back 0 4 Discontinue d(Medicatio n List Clean Up) buPROPion HCl ER (SR) 150 MG Oral Tablet Extended Release 12 Hour (Wellbutrin SR)Indications:Tob acco use disorder Take 1 Tablet by mouth in the morning and 1 Tablet before bedtime. 60 Tablet 5 10/01/2023 4 Discontinue d(Medicatio n List Clean Up) Hospital, Clinic, or Other Facility Administered Medication Ordered Dose Route Frequency Start Date End Date Status Albuterol Sulfate (Proventil) (2.5 MG/3ML) 0.083% inhalation solution 2.5 mgIndications:COPD, moderate (HCC) 2.5 mg NEBULIZER PRN 10/22/2023 10/21/2024 Active albuterol (VENTOLIN HFA/PROVENTIL HFA) inhalerIndications:COPD , moderate (HCC) 3 Puff IN PRN 10/22/2023 10/21/2024 Active documented as of this encounter (statuses as of 10/24/2023) Active Problems Problem Noted Date Diagnosed Date [...] as of this encounter (statuses as of 10/24/2023) Resolved Problems Problem Noted Date Diagnosed Date Resolved Date Prediabetes 01/01/2021 07/31/2023 COPD exacerbation 03/28/2014 01/01/2021 Alcohol dependence 04/14/2008 Overview: ICD-10 update of inactive term documented as of this encounter (statuses as of 10/24/2023) Immunizations Name Administration Dates Next Due Pneumococcal [...] Sign Reading Time Taken Comments Blood Pressure 146/90 10/22/2023 11:56 AM EDT Pulse 102 10/22/2023 11:56 AM EDT Temperature 36.7 C (98 F) 10/22/2023 11:56 AM EDT Respiratory Rate 16 10/22/2023 11:56 AM EDT Oxygen Saturation 96% 10/22/2023 11:56 AM EDT Inhaled Oxygen Concentration - - Weight 69.5 kg (153 lb 3.4 oz) 10/22/2023 11:56 AM EDT Height - - Body Mass Index 28.02 07/10/2023 10:00 AM EST documented in this encounter Progress Notes * Rubi Alejo MD - 10/22/2023 2:38 PM EDT SUBJECTIVE: Demi Woodson is a 67 year old female. Chief Complaint Patient presents with Hospital Follow-Up Patient was in the hospital for shortness of breath reports feeling well today. Lots of energy. Didnot sleep very much last night. medication change Patient wants do discuss getting zofran because she is spitting up in car rids. Hospital Follow-Up HPI: 67 year oldYOfemale with PMH significant for COPD on oxygen continues, hiatal hernia, tobacco abuse, lumbar DDD and gastroparesis presents here for hospital follow up. Pt was having cough, congestion, weakness and worsening breathing for couple days, was also having nausea and vomiting, patient called 911 and was taken to emergency for evaluation . Presented to hospital on October 14, 2023 . She was found to have changes of COPD and large hiatal hernia but no pneumonia on x-ray and PCR was negative. She was then admitted and treated with IV steroid and regular nebulizer and Wellbutrin was stopped as was suspected to cause nausea/vomiting . Labs were overall normal and Imaging as above. She improved with the treatment and rest of the hospital course unremarkable . She was sent home on October 16, 2023 on prednisone 40 mg daily for 5 days and rest of her home medications except Wellbutrin. Since discharge feeling much better . Hospital records reviewed and updated. The patient's medication list was reviewed and updated as needed. Current issues now- -Lots of energy. Did not sleep very much last night likely from prednisone -Patient wants do discuss getting zofran because she is spitting up in car rids. I encouraged to get Dramamine for those incident but will provide Zofran for as needed - continues to smoke 1 pack a day and planning to quit but getting harder. - Lyrica helping little bit but hard to say since it has not been that long Patient Active Problem List Diagnosis Code Gastroparesis [...] low back pain without sciatica M54.50, G89.29 Cor pulmonale, chronic ([facility]) I27.81 Current Outpatient Medications Medication Sig Dispense Refill [facility] Use as directed 1 Each 0 oxygen GAS Use as directed. Albuterol Sulfate HFA 108 (90 Base) MCG/ACT Inhalation Aerosol Solution Inhale 2 Puffs by mouth every 6 hours as needed for Shortness of Breath or Wheezing. 18 g 5 Vitamin D3 1.25 MG (59855 UT) Oral Capsule TAKE 1 CAPSULE BY MOUTH ONE TIME PER WEEK 12 Capsule 0 T[address] [facility] Monohydrate 1.25 MCG/ACT Inhalation Aerosol Solution (Spiriva [...] instead of spiriva when COPD flares up. Sennosides-Docusate Sodium 8.6-50 MG Oral Tablet (Colace 2-IN-1) Take 1 Tablet by mouth in the morning. Cyclobenzaprine HCl 10 MG Oral Tablet (Flexeril) TAKE 1 TABLET BY MOUTH IN THE MORNING AND BEFORE BEDTIME 20 Tablet 1 Acetaminophen 500 MG Oral Tablet (Tylenol Extra Strength) Take 2 Tablets by mouth 2 times a day. Pregabalin 25 MG Oral Capsule (Lyrica) Take 1 Capsule by mouth in the morning and 1 Capsule before bedtime. In 1 week can increase 1 in am and 2 tab at night. 90 Capsule 1 Meloxicam 7.5 MG Oral Tablet Take 1 Tablet by mouth in the morning and 1 Tablet before bedtime. With food for pain for 2 weeks then once daily.. 40 Tablet 3 Omeprazole Magnesium 10 MG Oral Packet (PriLOSEC) Take 20 mg by mouth in the morning and 20 mg before bedtime. Ondansetron HCl 4 MG Oral Tablet Take 1 Tablet by mouth every 8 hours as needed for Nausea. 30 Tablet 0 Current Facility-Administered Medications Medication Dose Route Frequency Provider Last Rate Last Admin Albuterol Sulfate (Proventil) (2.5 MG/3ML) 0.083% inhalation solution 2.5 mg 2.5 mg Nebulizer PRN Rubi Alejo MD albuterol (VENTOLIN HFA/PROVENTIL HFA) inhaler 3 Puff Inhalation PRN Rubi Alejo MD Review of patient's allergies indicates: Allergen Reactions Gluten Meal Celiac disease Past Medical History: Diagnosis Date Gastroparesis 2004 T 1/2=144 minutes Peptic ulcer Past Surgical History: Procedure Laterality Date COLONOSCOPY 08/15/07 [facility]. COLONOSCOPY, DIAGNOSTIC (RECTUM) 10/29/2013 poor prep/inpt @ [facility] ECHO (2-D COMPLETE) 11/08 LVEF 55%, normal chambers EGD, FLEXIBLE, DIAGNOSTIC 10/29/2013 lg HH/inpt @ [facility] REMOVAL OF APPENDIX REMOVAL OF OVARY(S) rt REMOVE GALLBLADDER 1977 Family History Problem Relation Age of Onset Heart Disorder Father Other (Depression [Other]) Brother Cancer Grandmother (Maternal) in bone Breast Cancer Grandmother (Paternal) Cancer Grandmother (Paternal) breast Social History Socioeconomic History Marital status: Number [...] Drug use: No Comment: Marijuana yrs ago Family History Problem Relation Age of Onset Heart Disorder Father Other (Depression [Other]) Brother Cancer Grandmother (Maternal) in bone Breast Cancer Grandmother (Paternal) Cancer Grandmother (Paternal) breast REVIEW OF SYSTEMS: All 10 systems reviewed and negative except mentioned in HPI OBJECTIVE: BP 146/90 | Pulse 102 | Temp 36.7 C (98 F) (Tympanic) | Resp 16 | Wt 69.5 kg (153 lb 3.4 oz) |LMP 03/16/2004 | SpO2 96% | BMI 28.02 kg/m | BSA 1.74 m PHYSICAL EXAM: General: alert, healthy, and no distress Head: Normocephalic, No masses, lesions, tenderness or abnormalities Oropharynx: no exudate, no erythema, lips, buccal mucosa, and tongue normal, and mucous membranes are moist Neck: supple, no adenopathy, no bruits, thyroid normal size, non-tender, without nodularity Heart: no murmur, no gallops, and tachycardia Lungs: chest symmetric with normal AP diameter, no chest deformities noted, no chest wall tenderness, decreased breath sounds Abdomen: abdomen soft, non-tender, normal bowel sounds, and no masses or organomegaly Extremities: less than 2 second capillary refill, no joint deformities, effusion, or inflammation ASSESSMENT AND PLAN COPD exacerbation (HCC) (Primary) - PULMONARY REFERRAL OP Complete prednisone as given Continue DuoNeb or albuterol inhaler every 4 hours as needed and continue other preventive medications Tobacco use disorder - DISCH MED RECON CUR MED LIS Counseling done for smoking cessation Hospital discharge follow-up - DISCH MED RECON CUR MED LIS COPD, moderate (HCC) - DISCH MED RECON CUR MED LIS - SPIROMETRY B/A BRONCHODILATOR; Future; Expected date: 10/22/2023 - LUNG VOLUMES (PLETHYSMOGRAPHY); Future; Expected date: 10/22/2023 - DIFFUSION CAPACITY (DLCO); Future; Expected date: 10/22/2023 - Albuterol Sulfate (Proventil) (2.5 MG/3ML) 0.083% inhalation solution 2.5 mg - albuterol (VENTOLIN HFA/PROVENTIL HFA) inhaler - PULMONARY REFERRAL OP Chronic hypoxemic respiratory failure (HCC) Chronic right-sided low back pain without sciatica Lyrica was increased to 1 in the morning and 2 tablets at night- she will call for refill Nausea - Ondansetron HCl 4 MG Oral Tablet; Take 1 Tablet by mouth every 8 hours as needed for Nausea. On supplemental oxygen by nasal cannula Cor pulmonale, chronic (HCC) DDD (degenerative disc disease), lumbar Gastroparesis Hiatal hernia Incidental lung nodule, less than or equal to 3mm Iron deficiency anemia, unspecified iron deficiency anemia type Thrush - Nystatin 934365 UNIT/ML Mouth/Throat Suspension; Swish and swallow 5 mL in the morning and 5 mL at noon and 5 mL in the evening and 5 mL before bedtime. For thrush.. Follow Up: Return in about 3 months (around 01/22/2024) for recheck. | For: recheck Treatment and plan was discussed with patient and was given opportunity to ask questions which wereanswered appropriately. Patient verbalizing understanding. This note was prepared with the help of fluency and if there is any mis-spelled words , sentences or something which doesn't represent the content of the subject that could be technical error and please refer to the author for clarification. Rubi Alejo MD 2:38 PM 10/22/2023 documented in this encounter Nursing Notes * Aquilino Egan, MED ASSIST - 10/22/2023 11:48 AM EDT The patient has been properly identified by confirmation of name and date of . Chief Complaint Patient presents with Hospital Follow-Up Patient was in the hospital for shortness of breath reports feeling well today. Lots of energy. Didnot sleep very much last night. documented in this encounter Plan of Treatment Upcoming Encounters Date Type Department Care Team (Late st Contact Info) Description 12/05/2023 11:00 AM EDT PulmDiagnostic Pulmonary Function Lab, [facility] [address] [facility] [place] [address] [address], [address] [facility] [place] [address] 12/10/2023 1:00 PM EDT Office Visit Pulmonary Medicine, [facility] [address] [facility] [place] [address] Pasha Bowman MD [facility] [place] [address] 02/06/2024 12:30 PM EDT Imaging Radiology [facility] [facility] [address] [facility] [place] [address] 03/24/2024 12:00 PM EDT Office Visit General Internal Medicine [facility] [address] [facility] [address] [place] [address] Rubi Alejo MD [address] [facility] [place] [address] Scheduled Orders Name Type Priority Associated Diagnoses Orde r Schedule SPIROMETRY B/A BRONCHODILATOR Procedures Routine COPD, moderate (HCC) Expected: 10/22/2023, Expires: 11/21/2024 LUNG VOLUMES (PLETHYSMOGRAPHY) Procedures Routine COPD, moderate (HCC) Expected: 10/22/2023, Expires: 11/21/2024 DIFFUSION CAPACITY (DLCO) Procedures Routine COPD, moderate (HCC) Expected: 10/22/2023, Expires: 11/21/2024 Scheduled Referrals Name Type Priority Associated Diagnoses Orde r Schedule PULMONARY REFERRAL OP Referral Within 30 days (routine) COPD, moderate (HCC) COPD exacerbation (HCC) Ordered: 10/22/2023 Health Maintenance Due Date Last Done Comments DISCUSS TOBACCO CESSATION (REFER TO SMARTSET #1080) 1955 HIV Screening 1972 Alpha-1 Antitrypsin 11/13/1975 [...] as of this encounter Visit Diagnoses Diagnosis COPD exacerbation (HCC)- Primary Obstructive chronic bronchitis with exacerbation Tobacco use disorder Hospital discharge follow-up Other follow-up examination COPD, moderate (HCC) Chronic airway obstruction, not elsewhere classified Chronic hypoxemic respiratory failure (HCC) Chronic respiratory failure Chronic right-sided low back pain without sciatica Nausea Nausea alone On supplemental oxygen by nasal cannula Cor pulmonale, chronic (HCC) Chronic pulmonary heart disease, unspecified DDD (degenerative disc disease), lumbar Degeneration of lumbar or lumbosacral intervertebral disc Gastroparesis Hiatal hernia Diaphragmatic hernia without mention of obstruction or gangrene Incidental lung nodule, less than or equal to 3mm Solitary pulmonary nodule Iron deficiency anemia, unspecified iron deficiency anemia type Thrush Candidiasis of mouth documented in this encounter Care Teams Vat Cleaner Relationship Specialty Start Date End Date Rubi Alejo MD [address] [facility] [place] [address] PCP - General Internal Medicine 04/03/23 documented as of this encounter"
--- OUTSIDE RECORDS SUMMARY | 2024-02-24 01:57 | External Medical Summary | Summary of Care ---
Author Name Unknown Organization [facility] Address [address] [place] [address] Phone [phone] Care Team Providers Care Spiral Gear Generator Name Role Phone Rubi Alejo MD Primary Care Provider [phone] Reason for Referral * Precert (Within 10 days (routine)) - Pending Review Specialty Diagnoses / Procedures Referred By Lizet slater Referred To Contact Radiology Diagnoses Pain in thoracic spine History of lipoma Procedures CT T SPINE WO CONTRAST Derrek Vela DO [address] [place] [address] Referral ID Status Reason Start Date Expiration Date V isits Requested Visits Authorized [id number] Pending Review 12/05/2023 999 999 Reason for [...] pain without sciatica Rubi Alejo MD [address] [place] [address] Referral ID Status Reason Start Date Expiration Date Visits Requested Visits Authorized [id number] Authorized Specialty Services Required 10/30/[phone] Encounter Details Date Type Department Care Team (Late st Contact Info) Description 11/28/2023 10:30 AM EDT Office Visit Interventional Pain Center, [facility] [address] [place] [address] Derrek Vela, [address] [place] [phone] Pain in thoracic spine*; History of lipoma Allergies Active Allergy Reactions Criticality Noted Date Comments Gluten Meal 05/25/2014 Celiac disease documented as of this encounter (statuses as of 11/28/2023) Medications Medication Sig Dispensed Refills Start Date End Date Status NEBULIZER COMPRESSOR MISCIndications:COPD , 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 Active Vitamin D3 1.25 MG (09172 UT) Oral CapsuleIndications:V itamin D deficiency TAKE 1 CAPSULE BY MOUTH ONE TIME PER WEEK 12 Capsule 06/17/2023 Active Tiotropium [place] Monohydrate 1.25 MCG/ACT Inhalation Aerosol Solution (Spiriva [...] encounter Patient Instructions * Patient Instructions* Derrek Vela DO - 11/28/2023 11:29 AM EDT - [...] Progress Notes * Derrek Vela DO - 11/28/2023 12:06 PM EDT Subjective: [...] 2 years. 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 Pain extends [...] (Colace 2-IN-1) 1 Tablet, Oral, Daily(AM) Tiotropium [place] Monohydrate 1.25 MCG/ACT Inhalation Aerosol Solution (Spiriva Respimat) 2 Puffs,Inhalation, DAILY(1900) Vitamin D3 1.25 MG (79296 UT) Oral Capsule TAKE 1 CAPSULE BY MOUTH ONE TIME PER WEEK Review of patient's allergies indicates: Allergen Reactions Gluten Meal Celiac disease Past Medical History: Past Medical History: Diagnosis Date Gastroparesis 2004 T 1/=144 minutes Peptic ulcer Past Surgical History: Past Surgical History: Procedure Laterality Date COLONOSCOPY 08/15/07 [facility]. COLONOSCOPY, DIAGNOSTIC (RECTUM) 10/29/2013 poor prep/inpt @ [facility] ECHO (2-D COMPLETE) 04/23 LVEF 55%, normal chambers EGD, FLEXIBLE, DIAGNOSTIC 10/29/2013 lg HH/inpt @ [facility] REMOVAL OF APPENDIX REMOVAL OF OVARY(S) rt [...] Greater than 55 minutes was spent in guidance counselor with patient, reviewing imaging, and coordinating [...] Dr. Alejo (PCP). documented in this encounter Plan of Treatment Upcoming Encounters Date Type Department Care Team (Late st Contact Info) Description 12/05/2023 11:00 AM EDT PulmDiagnostic Pulmonary Function Lab, [facility] [address] [facility] [place] [address] [address], [address] [facility] [place] [address] 12/05/2023 12:45 PM EDT Imaging Radiology [facility] 1st Floor, [place] [address] [facility] [place] [address] 12/10/2023 1:00 PM EDT Office Visit Pulmonary Medicine, [facility] [address] [facility] [place] [address] Pasha Bowman MD [address] [facility] [place] [address] 12/12/2023 10:00 AM EDT Office Visit Inter[facility] Center, [facility] 400 [facility] [place], [place] [address] Derrek Vela, DO 400 [place] [address] 02/06/2024 12:30 PM EDT Imaging Radiology [facility] 1st [facility], [place] [address] [facility] [place] [address] 03/24/2024 12:00 PM EDT Office Visit General Internal Medicine [facility] [address] [facility] [place] [address] Rubi Alejo MD [address] [place] [address] Scheduled Orders Name Type Priority Associated Diagnoses Orde r Schedule CT T SPINE WO CONTRAST Medical Imaging Routine Pain in thoracic spine History of lipoma Expected: 12/05/2023, Expires: 12/27/2024 Health Maintenance Due Date Last Done Comments DISCUSS TOBACCO CESSATION (REFER TO SMARTSET #2010) 1955 Alpha-1 Antitrypsin 11/13/1975 Hepatitis C Screening [...] Diagnoses Diagnosis Pain in thoracic spine- Primary History of lipoma Personal history of other specified diseases documented in this encounter Care Teams Spiral Gear Generator Relationship Specialty Start Date End Date Rubi Alejo MD [address] [facility] [place] [address] PCP - General Internal Medicine 04/03/23 documented as of this encounter
--- OUTSIDE RECORDS SUMMARY | 2024-02-24 01:57 | External Medical Summary | Summary of Care ---
Author Name Unknown Organization [facility] Address [address] [facility] [place] [address] Phone [phone] Care Team Providers Care Mobile Application Engineer Name Role Phone Rubi Alejo MD Primary Care Provider Reason for Visit * Reason Comments Pulmonary Function Test PFT with broncho dilator Encounter Details Date Type Department Care Team (Latest Contact Info) Description 12/05/2023 11:00 AM EDT PulmDiagnostic Pulmonary Function Lab, [facility] [address] [facility] [place] [address] [address], [address] [facility] [place] [address] COPD, moderate (HCC)* Allergies Active Allergy Reactions Criticality Noted Date Comments Gluten Meal 05/25/2014 Celiac disease documented as of this encounter (statuses as of 12/05/2023) Medications Medication Sig Dispensed Refills Start Date End Date Status NEBULIZER COMPRESSOR MISCIndications:COPD , 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 Active Vitamin D3 1.25 MG (10833 UT) Oral CapsuleIndications:V itamin D deficiency TAKE 1 CAPSULE BY MOUTH ONE TIME PER WEEK 12 Capsule 06/17/2023 Active Tiotropium [place] Monohydrate 1.25 MCG/ACT Inhalation Aerosol Solution (Spiriva [...] as of this encounter (statuses as of 12/05/2023) Active Problems Problem Noted Date Diagnosed Date COPD, group C, by GOLD 2017 classification 10/26 Overview: Per COPD GOLD Classification Cor pulmonale, chronic 09/05/2023 DDD (degenerative disc disease), lumbar 02/12/20 Chronic right-sided low back pain without sciati [...] as of this encounter (statuses as of 12/05/2023) Resolved Problems Problem Noted Date Diagnosed Date Resolved Date COPD, moderate 01/01/2021 10/29/2023 Overview: Per COPD GOLD Classification Prediabetes 01/01/2021 07/31/2023 COPD exacerbation 03/28/2014 01/01/2021 Alcohol dependence 04/14/2008 Overview: ICD-10 update of inactive term documented as of this encounter (statuses as of 12/05/2023) Immunizations Name Administration Dates Next Due Pneumococcal [...] on file documented as of this encounter Nursing Notes * Nettie Lopez, EVER - 12/05/2023 11:36 AM EDT Demi Woodson was identified by name, Date of : (1955), and . Vitals wereobtained for testing from chart. Pt has a 2 ppd for 53 years smoking history and currently smokes 1ppd. Pt wears 2 liters of oxygen at rest and at night and 3 liters wth exertion. 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 Spirometry, DLCO, RAW, and TGV performed. A slow volume nebulizer treatment of 0.5ml of albuterol in 3 ml of NSS was given. The proper method of use, as well as anticipated side effects, of this svn are discussed and demonstrated to the patient. Patient demonstrates adequate delivery. Administrations This Visit Albuterol Sulfate (Proventil) (2.5 MG/3ML) 0.083% inhalation solution 2.5 mg Admin Date 12/05/2023 Action Given Dose 2.5 mg Route Nebulizer Documented By Nettie Lopez RRT documented in this encounter Plan of Treatment Upcoming Encounters Date Type Department Care Team (Late st Contact Info) Description 12/10/2023 1:00 PM EDT Office Visit Pulmonary Medicine, [facility] [address] [facility] [place] [address] Pasha Bowman MD [address] [place] [address] 12/13/2023 2:30 PM EDT Imaging Radiology [address] [place] [address] 12/23/2023 11:00 AM EDT Office Visit Interventional Pain Center, [facility] 400 [place] [address] Derrek Vela, DO 400 [place] [address] 02/06/2024 12:30 PM EDT Imaging Radiology [address] [facility] [place] [address] 03/24/2024 12:00 PM EDT Office Visit General Internal Medicine [place] [address] [place] [address] Rubi Alejo MD 200 [facility] [place] [address] Pending Results Name Type Priority Associated Diagnoses Date /Time SPIROMETRY B/A BRONCHODILATOR Procedures Routine COPD, moderate (HCC) 12/05/2023 11:17 AM EDT LUNG VOLUMES (PLETHYSMOGRAPHY) Procedures Routine COPD, moderate (HCC) 12/05/2023 11:17 AM EDT DIFFUSION CAPACITY (DLCO) Procedures Routine COPD, moderate (HCC) 12/05/2023 11:17 AM EDT Health Maintenance Due Date Last Done Comments DISCUSS TOBACCO CESSATION (REFER TO SMARTSET #9140) 1955 Alpha-1 Antitrypsin 11/13/1975 Hepatitis C Screening [...] Procedure Name Priority Date/Time Associated Diagnosis Comments DIFFUSION CAPACITY (DLCO) Routine 2023 11:17 AM EDT COPD, moderate (HCC) LUNG VOLUMES (PLETHYSMOGRAPHY) Routine 12/05/2023 11:17 AM EDT COPD, moderate (HCC) SPIROMETRY B/A BRONCHODILATOR Routine 12/05/2023 11:17 AM EDT COPD, moderate (HCC) documented in this encounter Visit Diagnoses Diagnosis COPD, moderate (HCC)- Primary Chronic airway obstruction, not elsewhere classified documented in this encounter Administered Medications Active Administered Medications - up to 3 most recent administrations Medication Order MAR Action Action Date Dose Rate Site Albuterol Sulfate (Proventil) (2.5 MG/3ML) 0.083% inhalation solution 2.5 mg 2.5 mg, Nebulizer, PRN Other, Starting on Fri10/22/23 at 1210, Until Fri10/21/24 at 1209, For 365 days, Only one type of albuterol product should be administered (Nebulizer or Inhaler). Please select and document on the appropriate albuterol product order. Given 12/05/2023 10:44 AM EDT 2.5 mg documented in this encounter Care Teams Mobile Application Engineer Relationship Specialty Start Date End Date Rubi Alejo MD 200 [facility] [place] [address] PCP - General Internal Medicine 04/03/23 documented as of this encounter
--- OUTSIDE RECORDS SUMMARY | 2024-02-24 01:57 | External Medical Summary | Summary of Care ---
Author Name Unknown Organization [facility] Address [address] [place] [address] Phone [phone] Care Team Providers Care Mat Weaver Name Role Phone Rubi Alejo MD Primary Care Provider [phone] Reason for Referral * Precert (Within 10 days (routine)) - Pending Review Specialty Diagnoses / Procedures Referred By Lizet slater Referred To Contact Radiology Diagnoses Pain in thoracic spine History of lipoma Procedures MRI T SPINE WO CONTRAST Derrek Anaya DO [address] [place] [address] Referral ID Status Reason Start Date Expiration Date V isits Requested Visits Authorized [id number] Pending Review 12/05/2023 999 999 Reason for [...] pain without sciatica Rubi Alejo MD [address] [place] [address] Referral ID Status Reason Start Date Expiration Date Visits Requested Visits Authorized [id number] Authorized Specialty Services Required 10/30/[phone] Encounter Details Date Type Department Care Team (Late st Contact Info) Description 11/28/2023 10:30 AM EDT Office Visit Interventional Pain Center, [facility] [address] [place] [address] Derrek Anaya, [address] [place] [phone] History of lipoma*; Pain in thoracic spine [...] as directed. Active Vitamin D3 1.25 MG (56837 UT) Oral CapsuleIndications:V itamin D deficiency TAKE 1 CAPSULE BY MOUTH ONE TIME PER WEEK 12 Capsule 06/17/2023 Active Tiotropium [place] Monohydrate 1.25 MCG/ACT Inhalation Aerosol Solution (Spiriva [...] 2 years. 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 Pain extends [...] (Colace 2-IN-1) 1 Tablet, Oral, Daily(AM) Tiotropium [place] Monohydrate 1.25 MCG/ACT Inhalation Aerosol Solution (Spiriva Respimat) 2 Puffs,Inhalation, DAILY(1900) Vitamin D3 1.25 MG (61283 UT) Oral Capsule TAKE 1 CAPSULE BY MOUTH ONE TIME PER WEEK Review of patient's allergies indicates: Allergen Reactions Gluten Meal Celiac disease Past Medical History: Past Medical History: Diagnosis Date Gastroparesis 2004 T 1/=144 minutes Peptic ulcer Past Surgical History: Past Surgical History: Procedure Laterality Date COLONOSCOPY 08/15/07 [facility]. COLONOSCOPY, DIAGNOSTIC (RECTUM) 10/29/2013 poor prep/inpt @ [facility] ECHO (2-D COMPLETE) 04/23 LVEF 55%, normal chambers EGD, FLEXIBLE, DIAGNOSTIC 10/29/2013 lg HH/inpt @ [facility] REMOVAL OF APPENDIX REMOVAL OF OVARY(S) rt [...] Greater than 55 minutes was spent in certified lactation counselor with patient, reviewing imaging, and coordinating [...] 11:00 AM EDT PulmDiagnostic Pulmonary Function Lab, [facility] 132 [facility] [place] [address] [address], [address] [facility] [place] [address] 12/05/2023 12:45 PM EDT Imaging Radiology [place] [facility] [place] [address] 12/10/2023 1:00 PM EDT Office Visit Pulmonary Medicine, [facility] 132 [facility] [place] [address] Pasha Bowman MD [address] [place] [address] 12/12/2023 10:00 AM EDT Office Visit Interventional Pain Center, [facility] 400 [place] [address] Derrek Anaya DO 400 [place] [phone] 02/06/2024 12:30 PM EDT Imaging Radiology [address] 132 [facility] [place] [address] 03/24/2024 12:00 PM EDT Office Visit General Internal Medicine [facility] 200 [facility] [place] [address] Rubi Alejo MD 200 [facility] [place] [address] Scheduled Orders Name Type Priority Associated Diagnoses Orde r Schedule MRI T SPINE WO CONTRAST Medical Imaging Routine Pain in thoracic spine History of lipoma Expected: 12/05/2023, Expires: 12/27/2024 Health Maintenance Due Date Last Done Comments DISCUSS TOBACCO CESSATION (REFER TO SMARTSET #1952) 1955 Alpha-1 Antitrypsin 11/13/1975 Hepatitis C Screening [...] spine documented in this encounter Care Teams Mat Weaver Relationship Specialty Start Date End Date Rubi Alejo MD [address] [place] [address] PCP - General Internal Medicine 04/03/23 documented as of this encounter
--- OUTSIDE RECORDS SUMMARY | 2024-02-24 01:57 | External Medical Summary | Summary of Care ---
Author Name Unknown Organization [facility] Address [address] [facility] [place] [address] Phone [phone] Care Team Providers Care Rubber Goods Repairer Name Role Phone Rbui Alejo MD Primary Care Provider [phone] Reason for Visit * Reason Comments Pulmonary Function Test PFT with broncho dilator Encounter Details Date Type Department Care Team (Latest Contact Info) Description 12/05/2023 11:00 AM EDT PulmDiagnostic Pulmonary Function Lab, [facility] [address] [facility] [place] [address] [address], [address] 132 [facility] [place] [address] COPD, moderate (HCC)* Allergies Active Allergy Reactions Criticality Noted Date Comments Gluten Meal 05/25/2014 Celiac disease documented as of this encounter (statuses as of 12/05/2023) Medications Medication Sig Dispensed Refills Start Date End Date Status NEBULIZER COMPRESSOR MISCIndications:COPD , 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 Active Vitamin D3 1.25 MG (99406 UT) Oral CapsuleIndications:V itamin D deficiency TAKE 1 CAPSULE BY MOUTH ONE TIME PER WEEK 12 Capsule 06/17/2023 Active Tiotropium [place] Monohydrate 1.25 MCG/ACT Inhalation Aerosol Solution (Spiriva [...] liters wth exertion. 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 Spirometry, DLCO, RAW, and TGV performed. A [...] 1:00 PM EDT Office Visit Pulmonary Medicine, [facility] [address] [facility] [place] [address] Pasha Bowman MD [address] [place] [address] 12/13/2023 2:30 PM EDT Imaging Radiology [address] [place] [address] 12/23/2023 11:00 AM EDT Office Visit Interventional Pain Center, [facility] [address] [place] [address] Derrek Vela, DO [address] [place] [phone] 02/06/2024 12:30 PM EDT Imaging Radiology [address] 132 [facility] [place] [address] 03/24/2024 12:00 PM EDT Office Visit General Internal Medicine [place] [address] [place] [address] Rubi Alejo MD [address] [place] [address] Health Maintenance Due Date Last Done Comments DISCUSS TOBACCO CESSATION (REFER TO SMARTSET #5640) 1955 Alpha-1 Antitrypsin 11/13/1975 Hepatitis C Screening [...] as of this encounter Visit Diagnoses Diagnosis COPD, moderate [...] mg documented in this encounter Care Teams Rubber Goods Repairer Relationship Specialty Start Date End Date Rubi Alejo MD 200 [facility] [place] [address] PCP - General Internal Medicine 04/03/23 documented as of this encounter
--- OUTSIDE RECORDS SUMMARY | 2024-02-24 01:57 | External Medical Summary | Summary of Care ---
Author Name Unknown Organization [facility] Address [address] [place] [address] Phone [phone] Care Team Providers Care Customer Assistance Representative Name Role Phone Rubi Alejo MD Primary Care Provider [phone] Reason for Visit * Reason Comments Follow Up COPD Lung Nodule Chronic Resp Failure On supplemental O2 * Evaluate & Treat - Unlimited Visits (Within 30 days (routine)) - Authorized Specialty Diagnoses / Procedures Referred By Lizet slater Referred To Contact Pulmonary Diseases / Pulmonary Diagnoses COPD, moderate (HCC) COPD exacerbation (HCC) Rubi Alejo MD [address] [place] [address] Referral ID Status Reason Start Date Expiration Date Visits Requested Visits Authorized [id number] Authorized Specialty Services Required 10/22/[phone] Encounter Details Date Type Department Care Team (Late st Contact Info) Description 12/10/2023 1:00 PM EDT Office Visit Pulmonary Medicine, [facility] [address] [facility] [place] [address] Pasha Bowman MD [address] [facility] [place] [address] History of tobacco abuse* Allergies Active Allergy Reactions Criticality Noted Date Comments Gluten Meal 05/25/2014 Celiac disease documented as of this encounter (statuses as of 12/10/2023) Medications Medication Sig Dispensed Refills Start Date End Date Status NEBULIZER COMPRESSOR MISCIndications:STAGE DRIVER D, 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 Active Vitamin D3 1.25 MG (20978 UT) Oral CapsuleIndications: Vitamin D deficiency TAKE 1 CAPSULE BY MOUTH ONE TIME PER WEEK 12 Capsule 06/17/2023 Active Tiotropium [place] Monohydrate 1.25 MCG/ACT Inhalation Aerosol Solution (Spiriva [...] of Breath. 360 mL 12/10/2023 01/09/2024 Active Hospital, Clinic, or Other Facility Administered Medication Ordered Dose Route Frequency Start Date End Date Status Albuterol Sulfate (Proventil) (2.5 MG/3ML) 0.083% inhalation solution 2.5 mgIndications:COPD, moderate (HCC) 2.5 mg NEBULIZER PRN 10/22/2023 10/21/2024 Active albuterol (VENTOLIN HFA/PROVENTIL HFA) inhalerIndications:COPD , moderate (HCC) 3 Puff IN PRN 10/22/2023 10/21/2024 Active documented as of this encounter (statuses as of 12/10/2023) Active Problems Problem Noted Date Diagnosed Date [...] as of this encounter (statuses as of 12/10/2023) Resolved Problems Problem Noted Date Diagnosed Date Resolved Date COPD, moderate 01/01/2021 10/29/2023 Overview: Per COPD GOLD Classification Prediabetes 01/01/2021 07/31/2023 COPD exacerbation 03/28/2014 01/01/2021 Alcohol dependence 04/14/2008 Overview: ICD-10 update of inactive term documented as of this encounter (statuses as of 12/10/2023) Immunizations Name Administration Dates Next Due Pneumococcal [...] Sign Reading Time Taken Comments Blood Pressure 132/80 12/10/2023 12:59 PM EDT Pulse 92 12/10/2023 12:59 PM EDT Temperature 35.7 C (96.2 F) 12/10/2023 12:59 PM E DT Respiratory Rate 16 12/10/2023 12:59 PM EDT Oxygen Saturation 94% 12/10/2023 12:59 PM EDT Inhaled Oxygen Concentration - - Weight 69.4 kg (153 lb) 12/10/2023 12:59 PM EDT Height 157.5 cm (5' 2") 12/10/2023 12:59 PM EDT Body Mass Index 27.98 12/10/2023 12:59 PM EDT documented in this encounter Patient Instructions * Patient Instructions* Pasha Bowman MD - 12/10/2023 1:30 PM EDT Demi Woodson [id number] Benefits of Quitting Smoking Why should I quit smoking? Smoking is bad for you and bad for others around you. Smoking causes cancer, heart attacks, hardening of the arteries, bronchitis, emphysema, cough, shortness of breath, wrinkles, and premature aging. It stains teeth and fingers, irritates the eyes, furs the tongue, and causes bad breath. People are living longer today than their parents did, so it makes sense to work on staying healthy and independent. One of the best ways to do this is to quit smoking. Benefits of quitting smoking It takes time to reverse many years' worth of smoking damage to your body, but some benefits of quitting smoking begin immediately. For example, you're financially better off on day one. Your health starts to improve right away, too, because you remove a former constant source of irritation from your lungs. People may comment that you no longer cough. Your blood circulation is likely to improve, so your hands and feet may feel warmer. Your teeth, breath, and fingers are no longer a turn-off. Benefits that you're less aware of also begin to occur. These include better resistance to colds and respiratory infections, less likelihood of major heart and circulation problems, less risk of high blood pressure or stroke, and less risk of developing cancer. The following arguments are often presented by smokers as justifications for their continuing to smoke: "I have to sometime, so I might as well enjoy life until then." True, but as a smoker you're much more likely to of a heart attack or cancer - neither of whichare very pleasant ways to go. "I'm only hurting myself." True, if you don't count the heartache and grief you may cause your loved ones by your early or permanent disability, or the damage of your smoke to others. "Lots of people who smoke live to ripe old ages in perfect health." True, but this is rare. Nearly all smokers have significant health problems. "Smoking is one of my pleasures. I don't want to quit." Smoking is associated with pleasure because the nicotine in tobacco is an addictive drug. Your bodywill continue to crave a regular supply until you can overcome the habit. Smoking is always a disadvantage to your health and that of your loved ones. "It's my choice and I choose to smoke." True. It is your choice. In a survey of older former smokers, more than 90% quit on their own because they decided to do so. The main reasons they gave for quitting were wanting to stay healthy, following health care provider's advice, regaining control of their lives, and making a loved one happy . [place] Department of Health Quit Line [employer] Free Quitline 0-208 QUIT NOW ( ) Your insurance company may also have more information and helpful programs to help you quit. Some may even help cover some of the costs. For example, [facility] members can call to find out about their smoking cessation program and medication coverage. Developed by Maia Gonzalez MD, for [employer]. Published by [employer]. Last modified: 2005-10-25 Last reviewed: 2005-08-14 This content is reviewed periodically and is subject to change as new health information becomes available. The information is intended to inform and educate and is not a replacement for medical evaluation, advice, diagnosis or treatment by a healthcare professional. Adult Health Advisor 2006.4 Index Adult Health Advisor 2006.4 Credits Copyright 2006 [employer] and/or one of its subsidiaries. All Rights Reserved. documented in this encounter Progress Notes * Pasha Bowman MD - 12/10/2023 1:09 PM EDT Images from the original note were not included. 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 Patient describes smoker's cough with mucoid expectoration. Denies hemoptysis. Sedentary lifestyle with limited exercise tolerance. Describes episodic nocturnal awakening due to respiratory symptoms.Current bronchodilator regimen includes Advair, Spiriva and albuterol inhaler/nebulizer therapy. CTchest January 2023 showed a large hiatal hernia [...] hiatal hernia. 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 99 py active smoker Severe GOLD III COPD Chronic Hypoxic resp Failure Home Oxygen 2 L cont Advair + Spiriva + Albuterol neb/Rescue Chronic Pain Syndrome Large Hiatal hernia Recent [facility] admission for AECOPD 10/2023 Plan LDCT protocol GERD Smoking Cessation counseling provided F/u 6 weeks Pasha Bowman MD Subjective CC: Chief Complaint Patient presents with Follow Up COPD Lung Nodule Chronic Resp Failure On supplemental O2 HPI: Nursing Notes: Fallon Guevara LPN 12/10/23 1321 Signed Chief Complaint Patient presents with Follow Up COPD Lung Nodule Chronic Resp Failure On supplemental O2 Interm History/Respiratory Symptoms Cough: productive-white Hemoptysis: no Sinus Symptoms: PND Hospitalizations: approx month ago ED Trips: approx month ago Triggers: exertion,scents Nocturnal: cough,SOB CPAP/BiPAP/O2: O2 @ 2 lpm HS DME Supplier: [employer] Travel Screening Question 12/10/2023 12:49 PM EDT - Filed by Patient Do you have any of the following new or worsening symptoms? None of these Have you recently been in contact with someone who was sick? No / Unsure Myc Visit Accident Related Question Question 12/10/2023 12:49 PM EDT - Filed by Patient Is this visit related to an accident? (i.e work, motor vehicle) No Mmrc Cat Question 12/10/2023 1:07 PM EDT - Filed by Fallon Guevara LPN When do you become breathless? (2) On level ground, I walk slower than people of the same age because of breathlessness or have to stop for breath when walking at my own pace How frequently do you cough? (4) Do you have phlegm in your chest? (4) Is your chest tight? (4) How breathless do you become when walking up a hill or steps? (5) - When I walk up a hill or one flight of stairs I am very breathless How limited are you doing activities at home? (5) - I am very limited doing activities at home How confident are you leaving home with your lung condition? (0) - I am confident leaving my home despite my condition How soundly do you sleep? (2) How much energy do you have? (5) - I have no energy at all Total MMRC Score (range: 0 - 4) 2 Total CAT Score (range: 0 - 40) 29 Objective Filed Vitals: 12/10/23 1259 BP: 132/80 Pulse: 92 Resp: 16 Temp: 35.7 C (96.2 F) TempSrc: Tympanic SpO2: 94% Weight: 69.4 kg (153 lb) Height: 1.575 m (5' 2") Exam: [...] is normal. Tests reviewed with the patient: XR CHEST 2 VIEWS Result Date: 07/10/2023 IMPRESSION: 1. No focal consolidation. 2. Redemonstration of a large hiatal hernia. Available Radiologic data was reviewed by me in PACS. The images were shown to the patient and findings were discussed with the patient. HOME MEDICATIONS: Albuterol Sulfate 0.63 MG/3ML Inhalation Nebulization Solution (Accuneb) Albuterol Sulfate HFA 108 (90 Base) MCG/ACT Inhalation Aerosol Solution Cyclobenzaprine HCl 10 MG Oral Tablet (Flexeril) Omeprazole Magnesium 10 MG Oral Packet (PriLOSEC) Ondansetron HCl 4 MG Oral Tablet Meloxicam 7.5 MG Oral Tablet Acetaminophen 500 MG Oral Tablet (Tylenol Extra Strength) Pregabalin 25 MG Oral Capsule (Lyrica) Sennosides-Docusate Sodium 8.6-50 MG Oral Tablet (Colace 2-IN-1) Fluticasone-Salmeterol 250-50 MCG/ACT Inhalation Aerosol Powder Breath Activated (Advair Diskus) Ipratropium-Albuterol 0.5-2.5 (3) MG/3ML Inhalation Solution (Duoneb) Tiotropium [place]mond Monohydrate 1.25 MCG/ACT Inhalation Aerosol Solution (Spiriva Respimat) Vitamin D3 1.25 MG (88418 UT) Oral Capsule oxygen GAS NEBULIZER COMPRESSOR [...] History: Procedure Laterality Date COLONOSCOPY 08/15/07 [facility]. 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 Substance and Sexual Activity Alcohol use: Yes [...] indicates: Allergen Reactions Gluten Meal Celiac disease The following information was reviewed/discussed with the patient: Benefits & harms of screening Potential indications for follow-up testing, if/when necessary Risk of over-diagnosis, false positive findings, and radiation exposure Importance of cigarette smoking abstinence, if applicable Annual adherence to lung cancer screening Impact of comorbidities and ability or willingness to undergo diagnostic testing and/or treatment if something concerning is identified during screening. documented in this encounter Nursing Notes * Fallon Guevara LPN - 12/10/2023 1:03 PM EDT Chief Complaint Patient presents with Follow Up COPD Lung Nodule Chronic Resp Failure On supplemental O2 Interm History/Respiratory Symptoms Cough: productive-white Hemoptysis: no Sinus Symptoms: PND Hospitalizations: approx month ago ED Trips: approx month ago Triggers: exertion,scents Nocturnal: cough,SOB CPAP/BiPAP/O2: O2 @ 2 lpm HS DME Supplier: [employer] Travel Screening Question 12/10/2023 12:49 PM EDT - Filed by Patient Do you have any of the following new or worsening symptoms? None of these Have you recently been in contact with someone who was sick? No / Unsure Myc Visit Accident Related Question Question 12/10/2023 12:49 PM EDT - Filed by Patient Is this visit related to an accident? (i.e work, motor vehicle) No Mmrc Cat Question 12/10/2023 1:07 PM EDT - Filed by Fallon Guevara LPN When do you become breathless? (2) On level ground, I walk slower than people of the same age because of breathlessness or have to stop for breath when walking at my own pace How frequently do you cough? (4) Do you have phlegm in your chest? (4) Is your chest tight? (4) How breathless do you become when walking up a hill or steps? (5) - When I walk up a hill or one flight of stairs I am very breathless How limited are you doing activities at home? (5) - I am very limited doing activities at home How confident are you leaving home with your lung condition? (0) - I am confident leaving my home despite my condition How soundly do you sleep? (2) How much energy do you have? (5) - I have no energy at all Total MMRC Score (range: 0 - 4) 2 Total CAT Score (range: 0 - 40) 29 documented in this encounter Plan of Treatment Upcoming Encounters Date Type Department Care Team (Late st Contact Info) Description 12/13/2023 2:30 PM EDT Imaging Radiology [address] [facility] [place] [address] 12/23/2023 11:00 AM EDT Office Visit [facility] [address] Derrek Vela DO [facility] [address] 02/06/2024 12:30 PM EDT Imaging Radiology [address] [facility] [place] [address] 03/24/2024 12:00 PM EDT Office Visit General Internal Medicine Thierno [place]t [place] [address] [place] [address] Rbui Alejo MD 200 [facility] [place] [address] Health Maintenance Due Date Last Done Comments DISCUSS TOBACCO CESSATION (REFER TO SMARTSET #[id number]) 1955 Alpha-1 Antitrypsin 11/13/1975 Hepatitis C Screening [...] this encounter Visit Diagnoses Diagnosis History of tobacco abuse- Primary Personal history of tobacco use, presenting hazards to health documented in this encounter Care Teams Customer Assistance Representative Relationship Specialty Start Date End Date Rubi Alejo MD [address] [facility] [place] [address] PCP - General Internal Medicine 04/03/23 documented as of this encounter
--- OUTSIDE RECORDS SUMMARY | 2024-02-24 01:57 | External Medical Summary | Summary of Care ---
Author Name Unknown Organization [facility] Address [address] [place] [address] Phone [phone] Care Team Providers Care Black Top Paver Operator Name Role Phone Rubi Alejo MD Primary Care Provider [phone] Reason for Visit * Reason Comments eRx-Medication Refill Encounter Details Date Type Department Care Team (Late st Contact Info) Description 12/11/2023 Refill Family Medicine [address] [phone] Rubi Alejo MD [address] [place] [address] Myositis of right shoulder, unspecified myositis type Allergies Active Allergy Reactions Criticality Noted Date Comments Gluten Meal 05/25/2014 Celiac disease documented as of this encounter (statuses as of 12/11/2023) Medications Medication Sig Dispensed Refills Start Date End Date Status NEBULIZER COMPRESSOR MISCIndications:CO PD, 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 Active Vitamin D3 1.25 MG (61584 UT) Oral CapsuleIndications :Vitamin D deficiency TAKE 1 CAPSULE BY MOUTH ONE TIME PER WEEK 12 Capsule 06/17/2023 Active Tiotropium [place] Monohydrate 1.25 MCG/ACT Inhalation Aerosol Solution (Spiriva [...] MUSCLE SPASMS. 30 Tablet 1 12/11/2023 Active Cyclobenzaprine HCl 10 MG Oral Tablet (Flexeril)Indicati ons:Myositis of right shoulder, unspecified myositis type TAKE 1 TABLET BY MOUTH AT BEDTIME NEEDED FOR PAIN OR MUSCLE SPASMS. 30 Tablet 1 10/27/2023 Discontinued Hospital, Clinic, or Other Facility Administered Medication Ordered Dose Route Frequency Start Date End Date Status Albuterol Sulfate (Proventil) (2.5 MG/3ML) 0.083% inhalation solution 2.5 mgIndications:COPD, moderate (HCC) 2.5 mg NEBULIZER PRN 10/22/2023 10/21/2024 Active albuterol (VENTOLIN HFA/PROVENTIL HFA) inhalerIndications:COPD , moderate (HCC) 3 Puff IN PRN 10/22/2023 10/21/2024 Active documented as of this encounter (statuses as of 12/11/2023) Active Problems Problem Noted Date Diagnosed Date [...] as of this encounter (statuses as of 12/11/2023) Resolved Problems Problem Noted Date Diagnosed Date Resolved Date COPD, moderate 01/01/2021 10/29/2023 Overview: Per COPD GOLD Classification Prediabetes 01/01/2021 07/31/2023 COPD exacerbation 03/28/2014 01/01/2021 Alcohol dependence 04/14/2008 Overview: ICD-10 update of inactive term documented as of this encounter (statuses as of 12/11/2023) Immunizations Name Administration Dates Next Due Pneumococcal [...] encounter Miscellaneous Notes * Telephone Encounter - Evy Dozier MD - 12/11/2023 1:30 PM EDTSigned Prescriptions: Disp Refills Cyclobenzaprine HCl 10 MG Oral Tablet (Fle*30 Tab*1 Sig: TAKE 1 TABLET BY MOUTH AT BEDTIME NEEDED FOR PAIN OR MUSCLE SPASMS. Authorizing Provider: EVY DOZIER * Telephone Encounter - Luci Hernandes [facility] - 12/11/2023 12:25 PM EDTPending Prescriptions: Disp Refills Cyclobenzaprine HCl 10 MG Oral Tablet [Pha*30 Tab*1 Sig: TAKE 1 TABLET BY MOUTH AT BEDTIME NEEDED FOR PAIN OR MUSCLE SPASMS. * Telephone Encounter - Luci Hernandes [facility] - 12/11/2023 12:25 PM EDT Did you pend patient's preferred pharmacy and medication before forwarding?yes Pharmacy: [id number] Pending Prescriptions: Disp Refills Cyclobenzaprine HCl 10 MG Oral Tablet (Fl*30 Tab*1 Sig: TAKE 1 TABLET BY MOUTH AT BEDTIME NEEDED FOR PAIN OR MUSCLE SPASMS. Last Visit: 03/12/2023 (in office), Visit date not found (telemedicine) Next Visit: Visit date not found If no future appointments scheduled, and last appointment is greater than a year ago, please schedule patient for a follow-up appointment Last date the medication was ordered: 10/27/23 Is this request for a controlled substance?No [...] Description 12/13/2023 2:30 PM EDT Imaging Radiology [address] 132 [facility] [place] [address] 12/23/2023 11:00 AM EDT Office Visit Interventional Pain Center, [facility] [address] [place] [address] Derrek Vela, 400 [place] [address] 02/06/2024 12:30 PM EDT Imaging Radiology [address] [place] [address] 03/24/2024 12:00 PM EDT Office Visit General Internal Medicine Thierno Butt [place] [address] [place] [address] Rubi Alejo MD [address] [facility] [place] [address] Health Maintenance Due Date Last Done Comments DISCUSS TOBACCO CESSATION (REFER TO SMARTSET #[id number]) 1955 Alpha-1 Antitrypsin 11/13/1975 Hepatitis C Screening [...] type documented in this encounter Care Teams Black Top Paver Operator Relationship Specialty Start Date End Date Rubi Alejo MD [address] [facility] [place] [address] PCP - General Internal Medicine 04/03/23 documented as of this encounter
--- OUTSIDE RECORDS SUMMARY | 2024-02-24 01:57 | External Medical Summary | Summary of Care ---
Author Name Unknown Organization [facility] Address [address] [place] [address] Phone [phone] Care Team Providers Care Geodetic Technician Name Role Phone Genesis Alejo MD Primary Care Provider [phone] Reason for Visit * Reason Comments eRx-Medication Refill Encounter Details Date Type Department Care Team (Late st Contact Info) Description 10/24/2023 Refill Family Medicine [address] [place] [id number] William Iraheta MD [address] [place] [address] [place] [address] Myositis of right shoulder, unspecified myositis type Allergies Active Allergy Reactions Criticality Noted Date Comments Gluten Meal 05/25/2014 Celiac disease documented as of this encounter (statuses as of 10/27/2023) Medications Medication Sig Dispensed Refills Start Date [...] 5 04/18/2023 Active Vitamin D3 1.25 MG (10659 UT) Oral CapsuleIndications :Vitamin D deficiency TAKE 1 CAPSULE BY MOUTH ONE TIME PER WEEK 12 Capsule 0 06/17/2023 Active Tiotropium [place] Monohydrate 1.25 MCG/ACT Inhalation Aerosol Solution (Spiriva [...] Nausea. 30 Tablet 0 10/22/2023 Active Nystatin 129481 UNIT/ML Mouth/Throat SuspensionIndicati ons:Thrush Swish and swallow 5 mL in the morning and 5 mL at noon and 5 mL in the evening and 5 mL before bedtime. For thrush.. 240 mL 1 10/23/2023 4 Active Cyclobenzaprine HCl 10 MG Oral Tablet (Flexeril)Indicati ons:Myositis of right shoulder, unspecified myositis type TAKE 1 TABLET BY MOUTH AT BEDTIME NEEDED FOR PAIN OR MUSCLE SPASMS. 30 Tablet 1 10/27/2023 Active Cyclobenzaprine HCl 10 MG Oral Tablet (Flexeril)Indicati ons:Myositis of right shoulder, unspecified myositis type TAKE 1 TABLET BY MOUTH IN THE MORNING AND BEFORE BEDTIME 20 Tablet 1 09/19/2023 Discontinued Hospital, Clinic, or Other Facility Administered Medication Ordered Dose Route Frequency Start Date End Date Status Albuterol Sulfate (Proventil) (2.5 MG/3ML) 0.083% inhalation solution 2.5 mgIndications:COPD, moderate (HCC) 2.5 mg NEBULIZER PRN 10/22/2023 10/21/2024 Active albuterol (VENTOLIN HFA/PROVENTIL HFA) inhalerIndications:COPD , moderate (HCC) 3 Puff IN PRN 10/22/2023 10/21/2024 Active documented as of this encounter (statuses as of 10/27/2023) Active Problems Problem Noted Date Diagnosed Date [...] as of this encounter (statuses as of 10/27/2023) Resolved Problems Problem Noted Date Diagnosed Date Resolved Date Prediabetes 01/01/2021 07/31/2023 COPD exacerbation 03/28/2014 01/01/2021 Alcohol dependence 04/14/2008 Overview: ICD-10 update of inactive term documented as of this encounter (statuses as of 10/27/2023) Immunizations Name Administration Dates Next Due Pneumococcal [...] Telephone Encounter - Genesis Alejo MD - 10/27/2023 10:40 AM EDTSigned Prescriptions: Disp Refills Cyclobenzaprine HCl 10 MG Oral Tablet (Fle*30 Tab*1 Sig: TAKE 1 TABLET BY MOUTH AT BEDTIME NEEDED FOR PAIN OR MUSCLE SPASMS. Authorizing Provider: GENESIS ALEJO * Telephone Encounter - Nisha Isbell LPN - 10/27/2023 8:44 AM EDT Pending Prescriptions: Disp Refills Cyclobenzaprine HCl 10 MG Oral Tablet [Pha*20 Tab*1 Sig: TAKE 1 TABLET BY MOUTH AT BEDTIME NEEDED FOR PAIN OR MUSCLE SPASMS. * Telephone Encounter - Nisha Isbell LPN - 10/27/2023 8:44 AM EDT Pending Prescriptions: Disp Refills Cyclobenzaprine HCl 10 MG Oral Tablet (Fl*20 Tab*1 Sig: TAKE 1 TABLET BY MOUTH AT BEDTIME NEEDED FOR PAIN OR MUSCLE SPASMS. Last Visit: 03/12/2023 (in office), Visit date not found (telemedicine) Next Visit: Visit date not found Last date the medication was ordered: 09/19/2023 Patient Active Problem List Diagnosis Code Gastroparesis [...] without sciatica M54.50, G89.29 Cor pulmonale, chronic (HCC) I27.81 Labs: Lab Results Component Value Date/Time CREATININE - [facility] 0.6 07/10/2023 11:09 AM CREATININE - [facility] 0.6 10/26/2013 02:38 PM CREATININE, RANDOM URINE - [facility] 102 11/29/2022 02:03 PM CREATININE-OUTSIDE LAB 0.43 (A) 12/26/2020 12:00 AM Lab Results Component Value Date/Time POTASSIUM - [facility] 4.2 07/10/2023 11:09 AM POTASSIUM - [facility] 3.9 10/26/2013 02:38 PM POTASSIUM-OUTSIDE LAB 4.5 12/26/2020 12:00 AM Lab Results Component Value Date/Time TSH - [facility] 1.28 07/10/2023 11:09 AM TSH - [facility] 1.20 10/26/2013 02:38 PM Lab Results Component Value Date/Time LDL (CALCULATED)-[facility] 93 12/26/2020 12:00 AM LDL CHOLESTEROL (CALCULATED) - [facility] 66 04/03/2023 12:04 PM LDL CHOLESTEROL (CALCULATED) - [facility] 92 11/29/2022 02:03 PM LDL CHOLESTEROL (CALCULATED) - [facility] 96 12/14/2008 12:57 PM LDL CHOLESTEROL (CALCULATED) - [facility] 71 03/20/2007 10:13 AM Lab Results Component Value Date/Time ALT - [facility] 9 (L) 07/10/2023 11:09 AM ALT - [facility] 9 (L) 12/14/2008 12:57 PM Hemoglobin AIC Results: Lab Results Component Value Date/Time HEMOGLOBIN A1C - [facility] 5.2 07/10/2023 11:09 AM HEMOGLOBIN A1C - [facility] 6.2 (H) 04/03/2023 12:04 PM HEMOGLOBIN A1C - [facility] 5.5 11/29/2022 02:03 PM * Telephone Encounter - Vinny Louis - 10/25/2023 5:12 AM EDTPending Prescriptions: Disp Refills Cyclobenzaprine HCl 10 MG Oral Tablet [Pha*20 Tab*1 Sig: TAKE 1TABLET BY MOUTH AT BEDTIME NEEDED FOR PAIN OR MUSCLE SPASMS. documented in this encounter Plan of Treatment Upcoming Encounters Date Type Department Care Team (Late st Contact Info) Description 12/05/2023 11:00 AM EDT PulmDiagnostic Pulmonary Function Lab, [facility] [address] [facility] [place] [address] [place], [address] [place] [address] 12/10/2023 1:00 PM EDT Office Visit Pulmonary Medicine, [facility] [address] [place] [address] Pasha Bowman MD [address] [place] [address] 02/06/2024 12:30 PM EDT Imaging Radiology [address] [place] [address] 03/24/2024 12:00 PM EDT Office Visit General Internal Medicine [facility] 200 [facility] [place] [address] Genesis Alejo MD 200 [facility] [place] [address] Health Maintenance Due Date Last Done Comments DISCUSS TOBACCO CESSATION (REFER TO SMARTSET #[id number]) 1955 HIV Screening 1972 Alpha-1 Antitrypsin 11/13/1975 [...] type documented in this encounter Care Teams Geodetic Technician Relationship Specialty Start Date End Date Genesis Alejo MD [address] [place] [address] PCP - General Internal Medicine 04/03/23 documented as of this encounter
--- OUTSIDE RECORDS SUMMARY | 2024-02-24 01:57 | External Medical Summary | Summary of Care ---
Author Name Unknown Organization [facility] Address [address] [place] [address] Phone [phone] Care Team Providers Care Sales Floor Manager Name Role Phone Rubi Alejo MD Primary Care Provider [phone] Reason for Visit * Reason Onset Date Comments Order Request 12/12/2023 Encounter Details Date Type Department Care Team (Late st Contact Info) Description 12/12/2023 Telephone Rad[address] 132 [facility] [place] [address] Derrek Vela, DO [address] [place] [facility] [place] [address] Order Request Allergies Active Allergy Reactions Criticality Noted Date Comments Gluten Meal 05/25/2014 Celiac disease documented as of this encounter (statuses as of 12/12/2023) Medications Medication Sig Dispensed Refills Start Date End Date Status NEBULIZER COMPRESSOR 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 Active Vitamin D3 1.25 MG (81464 UT) Oral CapsuleIndications: Vitamin D deficiency TAKE 1 CAPSULE BY MOUTH ONE TIME PER WEEK 12 Capsule 06/17/2023 Active Tiotropium [place] Monohydrate 1.25 MCG/ACT Inhalation Aerosol Solution (Spiriva [...] Description 12/13/2023 2:30 PM EDT Imaging Radiology [address], [place] [address] [place] [address] 12/23/2023 11:00 AM EDT Office Visit Interventional Pain Center, [facility] [address] [place] [address] Derrek Vela DO [address] [place] [address] 02/06/2024 12:30 PM EDT Imaging Radiology [facility] [place] [address] [place] [address] 03/24/2024 12:00 PM EDT Office Visit General Internal Medicine [facility] 200 [facility] [place] [address] Rubi Alejo MD 200 [facility] [place] [address] Health Maintenance Due Date Last Done Comments DISCUSS TOBACCO CESSATION (REFER TO SMARTSET #[id number]) 1955 Alpha-1 Antitrypsin 11/13/1975 Hepatitis C Screening [...] filedocumented as of this encounter Care Teams Sales Floor Manager Relationship Specialty Start Date End Date Rubi Alejo MD 200 [place] [address] PCP - General Internal Medicine 04/03/23 documented as of this encounter
--- OUTSIDE RECORDS SUMMARY | 2024-02-24 01:57 | External Medical Summary | Summary of Care ---
Author Name Unknown Organization [facility] Address [address] [facility] [place] [address] Phone [phone] Care Team Providers Care Design Assembler Name Role Phone Rubi Alejo MD Primary Care Provider Reason for Referral * Precert (Within 10 days (routine)) - Pending Review Specialty Diagnoses / Procedures Referred By Contac t Referred To Contact Radiology Diagnoses Pain in thoracic spine Procedures MRI T SPINE W WO CONTRAST Derrek Anaya DO [address] [place] [address] Referral ID Status Reason Start Date Expiration Date V isits Requested Visits Authorized [id number] Pending Review 12/19/2023 999 999 Reason for Visit * Reason Onset Date Comments Order Request 12/12/2023 Encounter Details Date Type Department Care Team (Late st Contact Info) Description 12/12/2023 Telephone Radiology [address] 132 [facility] [place] [address] Derrek Anaya DO [facility] [place] [address] Order Request Allergies Active Allergy Reactions Criticality Noted Date Comments Gluten Meal 05/25/2014 Celiac disease documented as of this encounter (statuses as of 12/12/2023) Medications Medication Sig Dispensed Refills Start Date End Date Status NEBULIZER COMPRESSOR 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 Active Vitamin D3 1.25 MG (20324 UT) Oral CapsuleIndications: Vitamin D deficiency TAKE 1 CAPSULE BY MOUTH ONE TIME PER WEEK 12 Capsule 06/17/2023 Active Tiotropium [place] Monohydrate 1.25 MCG/ACT Inhalation Aerosol Solution (Spiriva [...] Note - Derrek Anaya, DO - 12/12/2023 8:16 AM EDTAddended by: [...] Description 12/13/2023 2:30 PM EDT Imaging Radiology [address] [place] [address] 12/23/2023 11:00 AM EDT Office Visit Interventional Pain Center, [facility] [address] [place] [address] Derrek Anaya DO [address] [place] [address] 02/06/2024 12:30 PM EDT Imaging Radiology [address] 132 [facility] [place] [address] 03/24/2024 12:00 PM EDT Office Visit General Internal Medicine [facility] [address] [place] [address] Rubi Alejo MD [address] [place] [address] Scheduled Orders Name Type Priority Associated Diagnoses Orde r Schedule MRI T SPINE W WO CONTRAST Medical Imaging Routine Pain in thoracic spine Expected: 12/19/2023, Expires: 01/10/2025 Health Maintenance Due Date Last Done Comments DISCUSS TOBACCO CESSATION (REFER TO SMARTSET #[id number]) 1955 Alpha-1 Antitrypsin 11/13/1975 Hepatitis C Screening [...] Primary documented in this encounter Care Teams Design Assembler Relationship Specialty Start Date End Date Rubi Alejo MD [address] [place] [address] PCP - General Internal Medicine 04/03/23 documented as of this encounter
--- OUTSIDE RECORDS SUMMARY | 2024-02-24 01:57 | External Medical Summary | Summary of Care ---
Author Name Unknown Organization [facility] Address [address] [place] [address] Phone [phone] Care Team Providers Care Butter Production Supervisor Name Role Phone Rubi Alejo MD Primary Care Provider [phone] Reason for Referral * Evaluate & Treat - Unlimited Visits (Within 10 days (routine)) - Authorized Specialty Diagnoses / Procedures Referred By Lizet slater Referred To Contact Pain Management / Pain Medicine Diagnoses Chronic right-sided low back pain without sciatica Rubi Alejo MD [address] [place] [address] Referral ID Status Reason Start Date Expiration Date Visits Requested Visits Authorized [id number] Authorized Specialty Services Required 10/30/2023 999 999 Question Answer Referral Priority Within 10 days (routine) Where should this appointment be scheduled? External Reason for referral? Interventional Pain Management - (Injection) What condition is the patient being referred for? Lumbar Radiculopathy What is the preferred location to have this test performed? Non [facility] Site Comments Patient Name: Demi Woodson Date of : 1955 Department Phone Number: MRI or CT (if unable to have a MRI) is recommended if any of the following apply: 1. Patient has neck or back pain with radiation to extremities. A previous MRI will be accepted if symptoms unchanged since prior MRI. 2. Spinal surgery since last MRI. If yes, order a MRI with and without contrast. 3. Hx or ongoing cancer treatment. Patient will need spine x-ray (Ap/Lat) for axial neck or back pain if not done previously. Fax No. [facility] [phone] or contact front end drupal developer [phone] Fax No. [facility] [phone] or contact front end drupal developer [phone] Fax No. [facility] [phone] or contact front end drupal developer [phone] Reason for Visit * Reason Onset Date Comments Referral 10/29/2023 Encounter Details Date Type Department Care Team (Late st Contact Info) Description 10/29/2023 Telephone General Internal Medicine [facility] [address] [place] [address] Rubi Alejo MD 200 [place] [address] Referral Allergies Active Allergy Reactions Criticality Noted Date Comments Gluten Meal 05/25/2014 Celiac disease documented as of this encounter (statuses as of 11/04/2023) Medications Medication Sig Dispensed Refills Start Date End Date Status NEBULIZER COMPRESSOR MISCIndications:MOLECULAR SPECTROSCOPIST D, 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 Active Albuterol Sulfate HFA 108 (90 Base) MCG/ACT Inhalation Aerosol Solution Inhale 2 Puffs by mouth every 6 hours as needed for Shortness of Breath or Wheezing. 18 g 5 04/18/2023 Active Vitamin D3 1.25 MG (34081 UT) Oral CapsuleIndications: Vitamin D deficiency TAKE 1 CAPSULE BY MOUTH ONE TIME PER WEEK 12 Capsule 06/17/2023 Active Tiotropium [place] Monohydrate 1.25 MCG/ACT Inhalation Aerosol Solution (Spiriva [...] for Nausea. 30 Tablet 10/22/2023 Active Nystatin 287855 UNIT/ML Mouth/Throat SuspensionIndicatio ns:Thrush Swish and swallow [...] as of this encounter (statuses as of 11/04/2023) Active Problems Problem Noted Date Diagnosed Date [...] as of this encounter (statuses as of 11/04/2023) Resolved Problems Problem Noted Date Diagnosed Date Resolved Date COPD, moderate 01/01/2021 10/29/2023 Overview: Per COPD GOLD Classification Prediabetes 01/01/2021 07/31/2023 COPD exacerbation 03/28/2014 01/01/2021 Alcohol dependence 04/14/2008 Overview: ICD-10 update of inactive term documented as of this encounter (statuses as of 11/04/2023) Immunizations Name Administration Dates Next Due Pneumococcal [...] Telephone Encounter - Dany Jean OSA - 11/04/2023 3:28 PM EDT Appointment Scheduled 10/31/2023 16:33 Amy Hou OSA NEW INTERVENTIONAL PAIN on 12/02/2023 at 8:30 AM (Scheduled) * Telephone Encounter - Rubi Alejo MD - 10/30/2023 10:23 AM EDT Done * Telephone Encounter - Nisha Isbell LPN - 10/29/2023 2:56 PM EDT Pain Referral pended if agreeable. * Telephone Encounter - Argenis Johnson OSA - 10/29/2023 12:37 PM EDT Has the patient been seen for this problem? (Y/N)?: yes If No, an appt needs to be scheduled before a referral will be placed (exception: proceed with referral request if referral request is for a yearly routine appointment with speciality) Patient Name: Demi Woodson Patient Primary care provider: Rubi Alejo MD Does this need to be an insurance referral (Y/N)?: yes If Yes, does the insurance referral need [facility]? Name of preferred specialist: dr jimenez Type of specialist: pain management Location of specialist: [facility] Phone #: Specialist's Fax #: Reason for visit: extreme back pain everyday Date of visit: waiting on referral documented in this encounter Plan of Treatment Upcoming Encounters Date Type Department Care Team (Late st Contact Info) Description 12/02/2023 8:30 AM EDT Office Visit Interventional Pain Center, [facility] 400 [place] [address] Derrek Vela, DO 400 [place] [address] 12/05/2023 11:00 AM EDT PulmDiagnostic Pulmonary Function Lab, [facility] 132 [facility] [place] [address] [place], [address] [facility] [place] [address] 12/10/2023 1:00 PM EDT Office Visit Pulmonary Medicine, [facility] 132 [facility] [place] [address] Pasha Bowman MD [address] [facility] [address] 02/06/2024 12:30 PM EDT Imaging Radiology [facility] 1st [facility] 132 [facility] [place] [address] 03/24/2024 12:00 PM EDT Office Visit General Internal Medicine [address] [place] [address] [place] [address] Rubi Alejo MD [address] [facility] [place] [address] Scheduled Referrals Name Type Priority Associated Diagnoses Orde r Schedule PAIN MEDICINE REFERRAL OP Referral Within 10 days (routine) Chronic right-sided low back pain without sciatica Ordered: 10/30/2023 Health Maintenance Due Date Last Done Comments DISCUSS TOBACCO CESSATION (REFER TO SMARTSET #[id number]) 1955 HIV Screening 1972 Alpha-1 Antitrypsin 11/13/1975 [...] right-sided low back pain without sciatica- Primary documented in this encounter Care Teams Butter Production Supervisor Relationship Specialty Start Date End Date Mainali, Rubi, MD 200 [facility] [place] [address] PCP - General Internal Medicine 04/03/23 documented as of this encounter
--- OUTSIDE RECORDS SUMMARY | 2024-02-24 02:44 | External Medical Summary | Summary of Care ---
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 Name Role Phone Genesis Alejo MD Primary Care Provider [phone] Reason for Visit * Reason Comments eRx-Medication Refill Encounter Details Date Type Department Care Team (Late st Contact Info) Description 02/20/2024 Refill General Internal Medicine [facility] [address] [facility] [place] [address] Genesis Alejo MD [address] [place] [address] Chronic right-sided low back pain without sciatica; Acute left-sided low back pain without sciatica Allergies Active Allergy Reactions Criticality Noted Date Comments Gluten Meal 05/25/2014 Celiac disease documented as of this encounter (statuses as of 02/23/2024) Medications Medication Sig Dispensed Refills Start Date End Date Status NEBULIZER COMPRESSOR MISCIndications:CO PD, 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 Active Vitamin D3 1.25 MG (04682 UT) Oral CapsuleIndications :Vitamin D deficiency TAKE 1 CAPSULE BY MOUTH ONE TIME PER WEEK 12 Capsule 06/17/2023 Active Fluticasone-Salmet mignon 250-50 MCG/ACT Inhalation Aerosol [...] by mouth 2 times a day. Active Omeprazole Magnesium 10 MG Oral Packet [...] OR WHEEZING. 18 g 5 11/20/2023 Active Pregabalin 25 MG Oral Capsule (Lyrica)Indication s:Chronic right-sided low back pain without sciatica Take 1 Capsule by mouth every morning AND 2 Capsules at bedtime. 90 Capsule 1 01/09/2024 Active Atorvastatin Calcium 20 MG Oral Tablet (Lipitor)Indicatio ns:Atherosclerosis of [place] coronary artery of [place] heart without angina pectoris Take 0.5 Tablets by mouth in the morning. In 2 weeks increase to 1 tab daily. 30 Tablet 5 02/11/2024 Active Meloxicam 7.5 MG Oral Tablet (Mobic)Indications :Chronic right-sided low back pain without sciatica,Acute left-sided low back pain without sciatica Take 1 Tablet by mouth in the morning. With food. 30 Tablet 2 02/23/2024 Active Spiriva Respimat 1.25 MCG/ACT Inhalation Aerosol Solution (Tiotropium [place] Monohydrate) INHALE 2 PUFFS BY MOUTH EVERY EVENING. 4 g 5 02/23/2024 Active Tiotropium [place] Monohydrate 1.25 MCG/ACT Inhalation Aerosol Solution (Spiriva Respimat) Inhale 2 Puffs by mouth every evening. 4 g 5 07/25/2023 4 Discontinued Meloxicam 7.5 MG Oral TabletIndications: Chronic right-sided low back pain without sciatica,Acute left-sided low back pain without sciatica Take 1 Tablet by mouth in the morning and 1 Tablet before bedtime. With food for pain for 2 weeks then once daily.. 40 Tablet 3 10/08/2023 4 Discontinued Cyclobenzaprine HCl 10 MG Oral Tablet (Flexeril)Indicati ons:Myositis of right shoulder, unspecified myositis type TAKE 1 TABLET BY MOUTH AT BEDTIME NEEDED FOR PAIN OR MUSCLE SPASMS. 30 Tablet 1 12/11/2023 4 Discontinued Hospital, Clinic, or Other Facility Administered Medication Ordered Dose Route Frequency Start Date End Date Status Albuterol Sulfate (Proventil) (2.5 MG/3ML) 0.083% inhalation solution 2.5 mgIndications:COPD, moderate (HCC) 2.5 mg NEBULIZER PRN 10/22/2023 10/21/2024 Active albuterol (VENTOLIN HFA/PROVENTIL HFA) inhalerIndications:COPD , moderate (HCC) 3 Puff IN PRN 10/22/2023 10/21/2024 Active documented as of this encounter (statuses as of 02/23/2024) Active Problems Problem Noted Date Diagnosed Date [...] as of this encounter (statuses as of 02/23/2024) Resolved Problems Problem Noted Date Diagnosed Date Resolved Date COPD, group C, by GOLD 2017 classification 10/27/2023 12/25/2023 Overview: Per COPD GOLD Classification COPD, moderate 01/01/2021 10/29/2023 Overview: Per COPD GOLD Classification Prediabetes 01/01/2021 07/31/2023 COPD exacerbation 03/28/2014 01/01/2021 Alcohol dependence 04/14/2008 Overview: ICD-10 update of inactive term documented as of this encounter (statuses as of 02/23/2024) Immunizations Name Administration Dates Next Due Pneumococcal [...] Telephone Encounter - Genesis Alejo MD - 02/23/2024 12:26 PM EDTSigned Prescriptions: Disp Refills Meloxicam 7.5 MG Oral Tablet (Mobic) 30 Tab*2 Sig: Take 1 Tablet by mouth in the morning. With food. Authorizing Provider: GENESIS ALEJO Spiriva Respimat 1.25 MCG/ACT Inhalation A*4 g 5 Sig: INHALE 2 PUFFS BY MOUTH EVERY EVENING. Authorizing Provider: GENESIS ALEJO Ordering User: DUSTIN VITAL * Telephone Encounter - Dustin Vital [facility] - 02/23/2024 10:38 AM EDT Pending Prescriptions: Disp Refills Meloxicam 7.5 MG Oral Tablet (Mobic) 30 Tab*2 Sig: Take 1 Tablet by mouth in the morning. With food. Signed Prescriptions: Disp Refills Spiriva Respimat 1.25 MCG/ACT Inhalation A*4 g 5 Sig: INHALE 2 PUFFS BY MOUTH EVERY EVENING. Authorizing Provider: GENESIS ALEJO Ordering User: DUSTIN VITAL< BR> * Telephone Encounter - Dustin Vital [facility] - 02/23/2024 10:31 AM EDT Medication directions were changed 10/08/23 - "Take 1 Tablet by mouth in the morning and 1 Tablet before bedtime. With food for pain for 2 weeks then once daily" Pended Meloxicam back to once daily dosing. Please review and approve if appropriate. Pending Prescriptions: Disp Refills Meloxicam 7.5 MG Oral Tablet (Mobic) [Pha*30 Tab*2 Sig: Take 1 Tablet by mouth in the morning. With food. Signed Prescriptions: Disp Refills Spiriva Respimat 1.25 MCG/ACT Inhalation A*4 g 5 Sig: INHALE 2 PUFFS BY MOUTH EVERY EVENING. Authorizing Provider: GENESIS ALEJO Ordering User: DUSTIN VITAL Last Visit: 10/22/2023 (in office), 10/01/2023 (telemedicine) Next Visit: 03/24/2024 If no future appointments scheduled, and last appointment is greater than a year ago, please schedule patient for a follow-up appointment Last date the medication was ordered: 10/08/23 Pharmacy: [id number] [id number] [facility] Is this request for a controlled substance? No Urine Drug Screen:No results found for this or any previous visit. Patient Phone Numbers Labs: Lab Results Component Value Date/Time CREAT 0.7 12/13/2023 12:32 PM CREAT 0.43 (A) 12/26/2020 12:00 AM CREAT 0.6 10/26/2013 02:38 PM POTASSIUM 4.2 07/10/2023 11:09 AM POTASSIUM 4.5 12/26/2020 12:00 AM POTASSIUM 3.9 10/26/2013 02:38 PM TSH 1.28 07/10/2023 11:09 AM TSH 1.20 10/26/2013 02:38 PM LDL 66 04/03/2023 12:04 PM LDL 96 12/14/2008 12:57 PM LDLCALC 93 12/26/2020 12:00 AM ALT 9 (L) 07/10/2023 11:09 AM ALT 9 (L) 12/14/2008 12:57 PM HGBA1C 5.2 07/10/2023 11:09 AM HGBA1C 5.9 (A) 12/26/2020 12:00 AM documented in this encounter Plan of Treatment Upcoming Encounters Date Type Department Care Team (Late st Contact Info) Description 03/22/2024 11:00 AM EDT Office Visit Interventional Pain Center, [facility] [address] [place] [address] Derrek Vela, [address] [facility] [place] [address] 03/24/2024 12:00 PM EDT Office Visit General Internal Medicine [facility] [address] [place] [address] Genesis Alejo MD [address] [place] [address] 08/09/2024 2:00 PM EST Office Visit Pulmonary Medicine, [facility] [address] [facility] [place] [address] Pasha Bowman MD [address] [facility] [address] Health Maintenance Due Date Last Done Comments DISCUSS TOBACCO CESSATION (REFER TO SMARTSET #2559) 1955 Alpha-1 Antitrypsin 11/13/1975 Hepatitis C Screening 11/13/1975 DTap/Tdap Vaccines (1 - Tdap) 1976 Cologuard 2002 Sigmoidoscopy 2002 Fecal Occult Blood Test 09/19/2005 09/19/2004 Zoster Vaccines (1 of 2) 11/13/2007 Pneumococcal Vaccine: 65+ Years (2 of 2 - PCV) 08/14/2008 08/15/2007 Depression Screening 10/21/2019 10/20/2018 Colonoscopy 10/30/2023 10/29/2013 Colorectal Cancer Screening 10/30/2023 Adult Wellness Visit 11/13/2023 Mammogram 12/05/2023 12/04/2022, 11/15, 08/31/2008, Additional history exists DXA Scan 12/09/2023 12/08/2013 COVID-19 Vaccine ( - 2022- season) 2024 Influenza Vaccine (FLU shot) (#1) 2024 O2 [...] sciatica documented in this encounter Care Teams Gun Sealing Machine Operator Relationship Specialty Start Date End Date Genesis Alejo MD [address] [place] [address] PCP - General Internal Medicine 04/03/23 documented as of this encounter
--- OUTSIDE RECORDS SUMMARY | 2024-02-24 02:44 | External Medical Summary | Summary of Care ---
Author Name Unknown Organization [facility] Address [address] [place] [address] Phone [phone] Care Team Providers Care Human Resources Receptionist Name Role Phone Genesis Alejo MD Primary Care Provider [phone] Reason for Visit * Reason Comments eRx-Medication Refill Encounter Details Date Type Department Care Team (Late st Contact Info) Description 02/20/2024 Refill Family Medicine [address] [phone] Evy Dozier MD [address] [place] [phone] Myositis of right shoulder, unspecified myositis type [...] as directed. Active Vitamin D3 1.25 MG (12565 UT) Oral CapsuleIndications :Vitamin D deficiency TAKE [...] 20 MG Oral Tablet (Lipitor)Indicatio ns:Atherosclerosis of [place] coronary artery of [place] heart without angina pectoris Take 0.5 Tablets by mouth in the morning. In 2 weeks increase to 1 tab daily. 30 Tablet 5 02/11/2024 Active Spiriva Respimat 1.25 MCG/ACT Inhalation Aerosol Solution (Tiotropium [place] Monohydrate) INHALE 2 PUFFS BY MOUTH EVERY EVENING. 4 g 5 02/23/2024 Active Cyclobenzaprine HCl 10 MG Oral Tablet (Flexeril)Indicati ons:Myositis of right shoulder, unspecified myositis type TAKE 1 TABLET BY MOUTH AT BEDTIME NEEDED FOR PAIN OR MUSCLE SPASMS. 30 Tablet 1 02/23/2024 Active Meloxicam 7.5 MG Oral TabletIndications: Chronic [...] Encounter - Genesis Alejo MD - 02/23/2024 12:25 PM EDTSigned Prescriptions: Disp Refills Cyclobenzaprine HCl 10 MG Oral Tablet (Fle*30 Tab*1 Sig: TAKE 1 TABLET BY MOUTH AT BEDTIME NEEDED FOR PAIN OR MUSCLE SPASMS. Authorizing Provider: GENESIS ALEJO * Telephone Encounter - Dustin Harris [facility] - 02/23/2024 10:18 AM EDT Pending Prescriptions: Disp Refills Cyclobenzaprine HCl 10 MG Oral Tablet [Pha*30 Tab*1 Sig: TAKE 1 TABLET BY MOUTH AT BEDTIME NEEDED FOR PAIN OR MUSCLE SPASMS. * Telephone Encounter - Dustin Harris [facility] - 02/23/2024 10:18 AM EDT Pending Prescriptions: Disp Refills Cyclobenzaprine HCl 10 MG Oral Tablet [Pha*30 Tab*1 Sig: TAKE 1 TABLET BY MOUTH AT BEDTIME NEEDED FOR PAIN OR MUSCLE SPASMS. 03/12/2023 (in office), Visit date not found (telemedicine) Visit date not found If no future appointments scheduled, and last appointment is greater than a year ago, please schedule patient for a follow-up appointment Last date the medication was ordered: 12/11/23 Pharmacy: [id number] Is this request for a controlled substance?No [...] AM EDT Office Visit Interventional Pain Center, [facility] [address] [place] [address] Derrek Vela DO [address] [place] [address] 03/24/2024 12:00 PM EDT Office Visit General Internal Medicine [facility] [address] [facility] [place] [address] Genesis Alejo MD [address] [facility] [place], [place] [address] 08/09/2024 2:00 PM EST Office Visit Pulmonary Medicine, [facility] [address] [facility] [place] [address] Pasha Bowman MD [address] [place] [address] Health Maintenance Due Date Last Done Comments DISCUSS TOBACCO CESSATION (REFER TO SMARTSET #3291) 1955 Alpha-1 Antitrypsin 11/13/1975 Hepatitis C Screening [...] Scan 12/09/2023 12/08/2013 COVID-19 Vaccine ( - season) 2024 Influenza Vaccine (FLU shot) (#1) [...] type documented in this encounter Care Teams Human Resources Receptionist Relationship Specialty Start Date End Date Genesis Alejo MD [address] [place] [address] PCP - General Internal Medicine 04/03/23 documented as of this encounter
[2024-02-24] MEDS ORDERED: methylPREDNISolone 40 MG in SYRINGE 0 ML IV SCH (04:00)
[2024-02-24 05:57] LABS: Base Excess VBG 12.8 mEq/L; HCO3 VBG 40 mmol/L; Oxygen Saturation VBG 97.2 %; PCO2 VBG 60 mmHg (38-50); PO2 VBG 66 mmHg; pH VBG 7.43 (7.36-7.41)
[2024-02-24 06:10] LABS: Hematocrit (blood only) 53.3 % (37.0-47.0); Hemoglobin 17.7 g/dl (12.0-16.0); Mean Corpuscular Hemoglobin 34.7 pg (25.0-34.0); Mean Corpuscular Hgb Conc 33.2 g/dL (32.0-36.0); Mean Corpuscular Volume 104.5 fL (80.0-100.0); Platelet Count 102 K/uL (130-400); RDW Coefficient of Variation 12.1 % (11.5-14.5); RDW Standard Deviation 47.7 fL (36.4-46.3); White Blood Count 4.22 K/ul (4.8-10.8)
[2024-02-24 06:21] LABS: BUN Creatinine Ratio 22.6 (10-20); Calcium 9.1 mg/dl (8.6-10.3); Creatinine Clr Calc Pharmacy 82.6 ml/min; Est GFR (African American) 108.9 ml/min; Magnesium 1.7 mg/dl (1.7-2.4); Phosphorus 3.8 mg/dl (2.5-4.9); Potassium 4.7 mmol/L (3.5-5.1)
[2024-02-24] MEDS: PANTOprazole 40 MG TAB PO SCH (08:19)
[2024-02-24] MEDS: FLUTICASONE/VILANTEROL 200/25MCG 14 PUFFS/INHALER INH SCH (08:20)
[2024-02-24] MEDS: DOCUSATE SODIUM/SENNA 50/8.6MG TAB PO SCH (09:12)
--- NOTE | 2024-02-24 11:34 | Hospitalist Progress Note ---
Date of Service February 24, 2024 Assessment & Plan (1) COPD exacerbation: (2) SOB (shortness of breath): (3) Chronic back pain: (4) Mood disorder: (5) Tobacco abuse: Plan Ms. Woodson is a 68 year old female that presents to the ED today from [facility] with SOB x2 days. She tested negative for Flu/Covid there. She wears oxygen 24/7 at baseline 2 L NC. She follows with Pulmonary at [facility]. She has been a smoker x50 years and continues to smoke 1/2 ppd. She reports that she had a thick clear cough. Her throat is sore and dry. She usually can take her oxygen off to take a shower but was unable to take a deep breath. She feels like she has chest tightness. She does have inhalers but does not take them routinely. She has been using her rescue inhaler 3-4 times a day. She had a recent admission to the [facility] 09/16 to 10/15 for COPD exacer bation. Here in the ED chest x-ray negative for acute cardiopulmonary process. No leukocytosis and patient does not appear toxic. Platelet levels low at 114. VBG revealed compensated respiratory acidosis with pH 7.31, CO2 88, bicarb 44. Additional past medical history includes COPD, peripheral neuropathy, depression mood disorder, and GERD.No history of CVA or AMI. Patient was prescribed amoxi cillin and prednisone in the outpatient setting at acute care. Here in the ED she was started on IV steroids and given a nebulizer treatment.Patient will be admitted for further evaluation and management of his COPD exacerbation and will continue IV steroids, nebulizer treatments, flutter valve and incentive spirometry and consider pulmonary consultation if no improvement. COPD exacerbation: Shortness of breath: Acute Recent admission 09/16 to 10/15 for COPD exacerbation Chest x-ray negative for acute cardiopulmonary disease Wear supplemental oxygen 2 L nasal cannula at baseline Was seen at urgent care today and prescribed amoxicillin plus prednisone. Solu-Medrol 40 mg administered in ED; continue 40 mg IV TID Continue nebs 4 times daily plus every 2 as needed Flutter valve plus incentive spirometry Continue Spiriva and fluticasone as prescribed Will prescribe Doxy and adjust as needed Chlorseptic spray PRN for sore throat Will start IV NS @ 80mL/hour as appears intervascularly dry; reevaluate after 2L Consider pulmonary consultation if no improvement She has been feeling better since admission still has wheezing and requiring 2 L to maintain saturation Will continue current management Strongly advised to quit smoking Increase ambulation and likely discharge tomorrow if condition gets even better Chronic back pain: Chronic Takes meloxicam and Lyrica; continue Back pain is controlled Mood disorder: Chronic Takes buproprion; continue GERD: Chronic takes omeprazole;continue Disposition: PCP: Dr. Alejo Code Status: Full Code VTE Prophylaxis: Heparin SQ Admission and Anticipated Discharge Date Admission Date: February 23, 2024 Subjective 02/24/2024 Patient was seen and examined in medical telemetry unit She has been smoking and continuing her home oxygen which is 4 L continuously Was admitted with acute exacerbation and has been feeling little better Review of Systems Review of Systems: All systems reviewed and are unremarkable except as noted below Physical Exam Physical Exam: Lying in bed with moderate distress due to wheezing and shortness of breath Constitutional: well developed, well nourished, + ill appearing and + obese Eyes: PERRL, conjunctivae normal, anicteric sclerae ENMT: external ear and nose normal, oropharynx normal Neck: trachea midline, no thyromegaly Respiratory: + respiratory distress Auscultation: + diminished lung sounds, + crackles and + wheezes Cardiovascular: Rate/Rhythm: regular rate and regular rhythm; not tachycardic Heart Sounds: normal S1 and normal S2; no murmur Extremities: + edema Gastrointestinal (Abdomen): Inspection/Auscultation: normal bowel sounds; abdomen not distended Percussion/Palpation: abdomen soft; abdomen nontender Musculoskeletal: No acute arthritis involving any of the joint Neurologic: normal touch/pain/proprioception and moves all extremities; no focal motor deficits Psychiatric: A+Ox3, euthymic affect Lymphatic: no cervical or axillary lymphadenopathy Results & Data Results & Data Vital Signs (Past 12 Hours) Vital Signs Temp Pulse Pulse Resp BP Pulse Ox O2 Del Method 02/24/24 11:22 88 20 94 Nasal Cannula 02/24/24 11:19 36.8 C 99 H 20 137/90 91 Nasal Cannula 02/24/24 09:00 89 02/24/24 07:40 36.5 C 96 H 20 151/91 H 99 Nasal Cannula 02/24/24 07:30 101 H 20 99 Nasal Cannula 02/24/24 02:44 36.5 C 98 H 18 130/82 94 Nasal Cannula O2 Flow Rate 02/24/24 11:22 2 02/24/24 11:19 2 02/24/24 09:00 02/24/24 07:40 3 02/24/24 07:30 3 02/24/24 02:44 3 Laboratory Results Short CBC 02/23/24 02/24/24 Range/Units 16:48 05:43 WBC 7.80 4.22 L (4.8-10.8) K/ul Hgb 19.3 H 17.7 H (12.0-16.0) g/dl Hct 59.1 H 53.3 H (37.0-47.0) % Plt Count 114 L 102 L (130-400) K/uL BMP 02/23/24 02/24/24 16:48 05:43 Sodium 138 139 Potassium 4.4 4.7 Chloride 91 L 95 L Carbon Dioxide 40 H 40 H BUN 16 14 Creatinine 0.64 0.62 Glucose 157 H 142 H Calcium 9.3 9.1 Liver Function 02/23/24 Range/Units 16:48 Total Bilirubin 0.5 (0.2-1.0) mg/dl AST 16 (13-39) U/L ALT 11 (7-52) U/L Alkaline Phosphatase 83 (34-104) U/L Albumin 4.4 (3.4-5.0) gm/dl Medications Administered Current Inpatient Medications Acetaminophen (Acetaminophen 325 Mg Tab) 650 mg PO Q4H PRN PRN Reason: Pain or Fever Stop: 03/24/24 18:40 Al Hydrox/Mg Hydrox/Simethicone (Aluminum/Magnesium Susp 30 Ml Udc) 15 ml PO Q4H PRN PRN Reason: Dyspepsia Stop: 03/24/24 18:40 Albuterol (Albut/Ipratrop 3mg/0.5mg Neb 3 Ml Vial) 3 ml NEB QIDR NIDIA; Protocol Stop: 03/24/24 18:59 Last Admin: 02/24/24 11:18 Dose: 3 ml Bupropion HCl (Bupropion Sr 100 Mg Tabcr) 100 mg PO BID NIDIA Stop: 03/24/24 21:44 Last Admin: 02/24/24 08:19 Dose: 100 mg Cyclobenzaprine HCl (Cyclobenzaprine Hcl 10 Mg Tab) 10 mg PO [facility] Stop: 03/24/24 21:59 Last Admin: 02/24/24 08:19 Dose: 10 mg Doxycycline Hyclate (Doxycycline Hyclate 100 Mg Cap) 100 mg PO BID NIDIA Stop: 03/01/24 21:44 Last Admin: 02/24/24 08:20 Dose: 100 mg Ferrous Sulfate (Ferrous Sulfate 325 Mg Tab) 325 mg PO BID NIDIA Stop: 03/24/24 21:59 Last Admin: 02/24/24 08:19 Dose: 325 mg Fluticasone/Vilanterol (Fluticasone/Vilanterol 200/25mcg 14 Puffs/Inhaler) 1 puffs INH DAILY NIDIA Stop: 03/25/24 08:59 Last Admin: 02/24/24 08:20 Dose: 1 puffs Guaifenesin (Guaifenesin 600 Mg Tabcr) 1,200 mg PO Q12 NIDIA Stop: 03/24/24 21:40 Last Admin: 02/24/24 08:19 Dose: 1,200 mg Heparin Sodium (Porcine) (Heparin Sod 5,000 Unit/0.5 Ml Vial) 5,000 units SQ Q12 NIDIA Stop: 03/24/24 20:59 Last Admin: 02/24/24 09:12 Dose: 5,000 units Methylprednisolone 40 mg/ (Syringe) 0.64 mls @ 1.5 mls/min IV Q8H NIDIA Stop: 03/24/24 21:59 Last Admin: 02/24/24 05:54 Dose: 1.5 mls/min Levalbuterol HCl (Levalbuterol Hcl 0.63 Mg/3 Ml Neb) 0.63 mg NEB Q6H PRN; Protocol PRN Reason: Shortness Of Breath Or Wheezing Stop: 03/24/24 21:40 Magnesium Hydroxide (Magnesium Hydroxide Susp 30 Ml Udc) 30 ml PO Q12H PRN PRN Reason: Constipation Stop: 03/24/24 18:40 Ondansetron HCl (Ondansetron Inj 2 Mg/Ml 2 Ml Vial) 4 mg IV Q6H PRN PRN Reason: Nausea Stop: 03/24/24 18:40 Pantoprazole Sodium (Pantoprazole 40 Mg Tab) 40 mg PO DAILY NIDIA Stop: 03/25/24 08:59 Last Admin: 02/24/24 08:19 Dose: 40 mg Phenol (Chloraseptic (Phenol) 1.4% Soln 180 Ml Btl) 1 sprays PO Q4H PRN PRN Reason: Sore Throat Stop: 03/24/24 19:57 Polyethylene Glycol (Polyethylene (Miralax) 17 Gm Pack) 17 gm PO DAILY PRN PRN Reason: Constipation Stop: 03/24/24 18:40 Pregabalin (Pregabalin 25 Mg Cap) 25 mg PO BID [facility] Stop: 03/24/24 21:59 Last Admin: 02/24/24 09:12 Dose: 25 mg Senna/Docusate Sodium (Docusate Sodium/Senna 50/8.6mg Tab) 1 tab PO QAM [facility] Stop: 03/25/24 08:59 Last Admin: 02/24/24 09:12 Dose: 1 tab Vitamin D (Cholecalciferol 25 Mcg (1000 Units) Tab) 50 mcg PO BID [facility] Stop: 03/24/24 21:59 Last Admin: 02/24/24 08:18 Dose: 50 mcg
--- NOTE | 2024-02-24 11:40 | Electrocardiogram Report ---
Test Reason : Blood Pressure : */* mmHG Vent. Rate : 103 BPM Atrial Rate : 103 BPM P-R Int : 132 ms QRS Dur : 74 ms QT Int : 338 ms P-R-T Axes : 7 162 -12 degrees QTcB Int : 442 ms Sinus tachycardia Left posterior fascicular block Cannot rule out Anterior infarct (cited on or before 01-Apr-2022) Abnormal ECG When compared with ECG of 14-Oct-2023 17:27, QRS axis Shifted right ST no longer elevated in Inferior leads ST no longer depressed in Anterolateral leads Inverted T waves have replaced nonspecific T wave abnormality in Inferior leads T wave inversion no longer evident in Anterior leads Confirmed by Preston Sanchez [id number] on 02/24/2024 11:40:19 AM Referred By: REFERRED SELF Confirmed By: Preston Sanchez
[2024-02-24] MEDS: ACETAMINOPHEN 325 MG TAB PO PRN (13:37)
[2024-02-24] MEDS: LIDOCAINE 5% 1 PATCH TD SCH (15:25)
[2024-02-24] MEDS: KETOROLAC TROMETHAMINE 15 MG/ML VIAL IV PRN (15:27)
[2024-02-25 06:38] LABS: Basophils # (auto) 0.01 K/uL (0.00-0.20); Basophils % (auto) 0.2 %; Hematocrit (blood only) 51.5 % (37.0-47.0); Hemoglobin 17.2 g/dl (12.0-16.0); Immature Granulocytes # (auto) 0.03 K/uL (0.01-0.20); Immature Granulocytes % (auto) 0.6 %; Lymphocytes # (auto) 0.43 K/uL (1.20-3.40); Lymphocytes % (auto) 7.9 %; Mean Corpuscular Hgb Conc 33.4 g/dL (32.0-36.0); Mean Corpuscular Volume 104.7 fL (80.0-100.0); Mean Platelet Volume 10.4 fL (9.4-12.4); Monocytes # (auto) 0.35 K/uL (0.11-0.59); Monocytes % (auto) 6.4 %; Neutrophils # (auto) 4.63 K/uL (1.40-6.50); Neutrophils % (auto) 84.9 %; Platelet Count 100 K/uL (130-400); RDW Coefficient of Variation 12.7 % (11.5-14.5); RDW Standard Deviation 49.9 fL (36.4-46.3); Red Blood Count 4.92 M/uL (4.20-5.40); White Blood Count 5.45 K/ul (4.8-10.8)
[2024-02-25 07:11] LABS: BUN Creatinine Ratio 30.4 (10-20); Calcium 9.4 mg/dl (8.6-10.3); Creatinine Clr Calc Pharmacy 75.5 ml/min; Est GFR (African American) 105.1 ml/min; Est GFR (Non-African American) 90.7 ml/min; Magnesium 1.9 mg/dl (1.7-2.4); Phosphorus 2.8 mg/dl (2.5-4.9); Potassium 4.5 mmol/L (3.5-5.1)
--- NOTE | 2024-02-25 11:38 | Hospitalist Progress Note ---
Date of Service February 25, 2024 Assessment & Plan (1) COPD exacerbation: (2) SOB (shortness of breath): (3) Chronic back pain: (4) Mood disorder: (5) Tobacco abuse: Plan Ms. Woodson is a 68 year old female that presents to the ED today from [facility] with SOB x2 days. She tested negative for Flu/Covid there. She wears oxygen 24/7 at baseline 2 L NC. She follows with Pulmonary at [facility]. She has been a smoker x50 years and continues to smoke 1/2 ppd. She reports that she had a thick clear cough. Her throat is sore and dry. She usually can take her oxygen off to take a shower but was unable to take a deep breath. She feels like she has chest tightness. She does have inhalers but does not take them routinely. She has been using her rescue inhaler 3-4 times a day. She had a recent admission to the [facility] 09/16 to 10/15 for COPD exacer bation. Here in the ED chest x-ray negative for acute cardiopulmonary process. No leukocytosis and patient does not appear toxic. Platelet levels low at 114. VBG revealed compensated respiratory acidosis with pH 7.31, CO2 88, bicarb 44. Additional past medical history includes COPD, peripheral neuropathy, depression mood disorder, and GERD.No history of CVA or AMI. Patient was prescribed amoxi cillin and prednisone in the outpatient setting at acute care. Here in the ED she was started on IV steroids and given a nebulizer treatment.Patient will be admitted for further evaluation and management of his COPD exacerbation and will continue IV steroids, nebulizer treatments, flutter valve and incentive spirometry and consider pulmonary consultation if no improvement. COPD exacerbation: Shortness of breath: Acute on Chronic hypoxic and hypercapnic respiratory failure Acute Recent admission 09/16 to 10/15 for COPD exacerbation Chest x-ray negative for acute cardiopulmonary disease Wear supplemental oxygen 2 L nasal cannula at baseline Was seen at urgent care today and prescribed amoxicillin plus prednisone. Solu-Medrol 40 mg administered in ED; continue 40 mg IV TID Continue nebs 4 times daily plus every 2 as needed Flutter valve plus incentive spirometry Continue Spiriva and fluticasone as prescribed Will prescribe Doxy and adjust as needed Chlorseptic spray PRN for sore throat Will start IV NS @ 80mL/hour as appears intervascularly dry; reevaluate after 2L Consider pulmonary consultation if no improvement She has been feeling better since admission still has wheezing and requiring 2 L to maintain saturation Will continue current management Strongly advised to quit smoking Increase ambulation and likely discharge tomorrow if condition gets even better Noted to have high CO2 of 43 and the patient feels drowsy at home occasionally BiPAP ordered Still has significant decreased breath sounds on examination Will continue the current management and increase ambulation She will need to have a 2 steps O2 saturation test prior to discharge tomorrow to evaluate the requirements of oxygen She was advised to have a sleep study done through her PCP on discharge Chronic back pain: Chronic Takes meloxicam and Lyrica; continue Back pain is controlled-with local lidocaine and also occasional Toradol Mood disorder: Chronic Takes buproprion; continue GERD: Chronic takes omeprazole;continue Disposition: PCP: Dr. Alejo Code Status: Full Code VTE Prophylaxis: Heparin SQ Likely discharge tomorrow Admission and Anticipated Discharge Date Admission Date: February 23, 2024 Subjective 02/24/2024 Patient was seen and examined in medical telemetry unit She has been smoking and continuing her home oxygen which is 4 L continuously Was admitted with acute exacerbation and has been feeling little better 02/25/2024 The patient was seen and examined in medical telemetry unit She remains short of breath and has been saturating normally on 2 L She was noted to have high CO2 and was advised to have BiPAP Wanted to go home but seems to be clinically she is not yet ready Review of Systems Review of Systems: All systems reviewed and are unremarkable except as noted below Physical Exam Physical Exam: Lying in bed with moderate distress due to wheezing and shortness of breath Constitutional: well developed, well nourished, + ill appearing and + obese Eyes: PERRL, conjunctivae normal, anicteric sclerae ENMT: external ear and nose normal, oropharynx normal Neck: trachea midline, no thyromegaly Respiratory: + respiratory distress (Moderate distres s at rest) Auscultation: + diminished lung sounds, + crackles and + wheezes Cardiovascular: Rate/Rhythm: regular rate and regular rhythm; not tachycardic Heart Sounds: normal S1 and normal S2; no murmur Extremities: + edema Gastrointestinal (Abdomen): Inspection/Auscultation: normal bowel sounds; abdomen not distended Percussion/Palpation: abdomen soft; abdomen nontender Neurologic: normal touch/pain/proprioception and moves all extremities; no focal motor deficits Psychiatric: A+Ox3, euthymic affect Lymphatic: no cervical or axillary lymphadenopathy Results & Data Results & Data Vital Signs (Past 12 Hours) Vital Signs Temp Pulse Pulse Resp BP Pulse Ox O2 Del Method 02/25/24 11:27 37.1 C 102 H 16 159/89 H 94 Nasal Cannula 02/25/24 10:10 112 H 18 93 Nasal Cannula 02/25/24 08:03 70 02/25/24 07:53 36.3 C L 105 H 16 172/95 H 90 Nasal Cannula 02/25/24 07:21 Nasal Cannula 02/25/24 07:01 87 18 90 Nasal Cannula 02/25/24 02:11 37.1 C 96 H 16 122/69 92 Nasal Cannula 02/25/24 00:51 Nasal Cannula O2 Flow Rate 02/25/24 11:27 2 02/25/24 10:10 2 02/25/24 08:03 02/25/24 07:53 2 02/25/24 07:21 2 02/25/24 07:01 2 02/25/24 02:11 2 02/25/24 00:51 2 Laboratory Results Short CBC 02/25/24 Range/Units 05:57 WBC 5.45 (4.8-10.8) K/ul Hgb 17.2 H (12.0-16.0) g/dl Hct 51.5 H (37.0-47.0) % Plt Count 100 L (130-400) K/uL BMP 02/25/24 05:57 Sodium 139 Potassium 4.5 Chloride 94 L Carbon Dioxide 43 H* BUN 21 Creatinine 0.69 Glucose 141 H Calcium 9.4 Medications Administered Current Inpatient Medications Acetaminophen (Acetaminophen 325 Mg Tab) 650 mg PO Q4H PRN PRN Reason: Pain or Fever Stop: 03/24/24 18:40 Last Admin: 02/24/24 13:37 Dose: 650 mg Al Hydrox/Mg Hydrox/Simethicone (Aluminum/Magnesium Susp 30 Ml Udc) 15 ml PO Q4H PRN PRN Reason: Dyspepsia Stop: 03/24/24 18:40 Albuterol (Albut/Ipratrop 3mg/0.5mg Neb 3 Ml Vial) 3 ml NEB QIDR NIDIA; Protocol Stop: 03/24/24 18:59 Last Admin: 02/25/24 10:09 Dose: 3 ml Bupropion HCl (Bupropion Sr 100 Mg Tabcr) 100 mg PO BID NIDIA Stop: 03/24/24 21:44 Last Admin: 02/25/24 07:40 Dose: 100 mg Cyclobenzaprine HCl (Cyclobenzaprine Hcl 10 Mg Tab) 10 mg PO AMHS NIDIA Stop: 03/24/24 21:59 Last Admin: 02/25/24 07:40 Dose: 10 mg Doxycycline Hyclate (Doxycycline Hyclate 100 Mg Cap) 100 mg PO BID NIDIA Stop: 03/01/24 21:44 Last Admin: 02/25/24 07:41 Dose: 100 mg Ferrous Sulfate (Ferrous Sulfate 325 Mg Tab) 325 mg PO BID NIDIA Stop: 03/24/24 21:59 Last Admin: 02/25/24 07:41 Dose: 325 mg Fluticasone/Vilanterol (Fluticasone/Vilanterol 200/25mcg 14 Puffs/Inhaler) 1 puffs INH DAILY NIDIA Stop: 03/25/24 08:59 Last Admin: 02/25/24 07:41 Dose: 1 puffs Guaifenesin (Guaifenesin 600 Mg Tabcr) 1,200 mg PO Q12 NIDIA Stop: 03/24/24 21:40 Last Admin: 02/25/24 07:41 Dose: 1,200 mg Heparin Sodium (Porcine) (Heparin Sod 5,000 Unit/0.5 Ml Vial) 5,000 units SQ Q12 NIDIA Stop: 03/24/24 20:59 Last Admin: 02/25/24 07:41 Dose: 5,000 units Methylprednisolone 40 mg/ (Syringe) 0.64 mls @ 1.5 mls/min IV Q8H NIDIA Stop: 03/24/24 21:59 Last Admin: 02/25/24 06:27 Dose: 1.5 mls/min Ketorolac Tromethamine (Ketorolac Tromethamine 15 Mg/Ml Vial) 15 mg IV Q6H PRN PRN Reason: Pain Stop: 02/29/24 13:35 Last Admin: 02/24/24 15:27 Dose: 15 mg Levalbuterol HCl (Levalbuterol Hcl 0.63 Mg/3 Ml Neb) 0.63 mg NEB Q6H PRN; Protocol PRN Reason: Shortness Of Breath Or Wheezing Stop: 03/24/24 21:40 Lidocaine (Lidocaine 5% 1 Patch) 1 patch TD QAM PENDING SALE TO [facility] Stop: 03/25/24 13:59 Last Admin: 02/25/24 07:41 Dose: 1 patch Magnesium Hydroxide (Magnesium Hydroxide Susp 30 Ml Udc) 30 ml PO Q12H PRN PRN Reason: Constipation Stop: 03/24/24 18:40 Miscellaneous (Remove Lidoderm Patch) 1 each N/A DAILY@2100 PENDING SALE TO [facility] Stop: 03/25/24 22:59 Last Admin: 02/24/24 23:50 Dose: 1 each Ondansetron HCl (Ondansetron Inj 2 Mg/Ml 2 Ml Vial) 4 mg IV Q6H PRN PRN Reason: Nausea Stop: 03/24/24 18:40 Pantoprazole Sodium (Pantoprazole 40 Mg Tab) 40 mg PO DAILY PENDING SALE TO [facility] Stop: 03/25/24 08:59 Last Admin: 02/25/24 08:42 Dose: 40 mg Phenol (Chloraseptic (Phenol) 1.4% Soln 180 Ml Btl) 1 sprays PO Q4H PRN PRN Reason: Sore Throat Stop: 03/24/24 19:57 Polyethylene Glycol (Polyethylene (Miralax) 17 Gm Pack) 17 gm PO DAILY PRN PRN Reason: Constipation Stop: 03/24/24 18:40 Pregabalin (Pregabalin 25 Mg Cap) 25 mg PO BID PENDING SALE TO [facility] Stop: 03/24/24 21:59 Last Admin: 02/25/24 07:41 Dose: 25 mg Senna/Docusate Sodium (Docusate Sodium/Senna 50/8.6mg Tab) 1 tab PO QAM PENDING SALE TO [facility] Stop: 03/25/24 08:59 Last Admin: 02/25/24 07:41 Dose: 1 tab Vitamin D (Cholecalciferol 25 Mcg (1000 Units) Tab) 50 mcg PO BID PENDING SALE TO [facility] Stop: 03/24/24 21:59 Last Admin: 02/25/24 07:40 Dose: 50 mcg
[2024-02-26 08:15] VITALS: RESP 20; TEMP 97.4
[2024-02-26 08:46] LABS: BUN Creatinine Ratio 32.8 (10-20); Calcium 9.6 mg/dl (8.6-10.3); Creatinine Clr Calc Pharmacy 84.8 ml/min; Est GFR (African American) 109.5 ml/min; Est GFR (Non-African American) 94.5 ml/min; Potassium 4.7 mmol/L (3.5-5.1)
[2024-02-26] MEDS: predniSONE 20 MG TAB PO SCH (08:49)
[2024-02-26 11:37] VITALS: PULSE 98; O2SAT 93
--- NOTE | 2024-02-26 11:45 | Discharge Summary ---
Discharge Summary Date of Service February 26, 2024 Principal Dx & Hospital Course #1 = Principal Diagnosis (1) Acute on chronic respiratory failure with hypoxia and hypercapnia: (2) COPD exacerbation: (3) Chronic back pain: (4) Mood disorder: (5) Tobacco abuse: (6) Hypertension: Plan Patient presented to the emergency room with complaints of increasing shortness of breath. Evaluation in the emergency room was notable for exacerbation of COPD. Patient was admitted to the hospital. She was given additional oxygen as needed. She was treated with nebulizer treatments and IV steroids. Throughout the course of her hospitalization her shortness of breath and symptoms significantly improved. She was titrated down to her baseline oxygen flow. She was transition to oral steroids. She was empirically treated with doxycycline for her exacerbation of COPD. During hospitalization she was also noted to be hypertensive. Amlodipine was started for blood pressure control. Lidoderm patch was also started for management of her chronic back pain. Patient does follow regularly with outpatient pulmonary. With her overall respiratory condition it was suggested that she discuss possible outpatient sleep studies to be performed. Conversation with her granddaughter sounds like she has had testing in the remote past however she may benefit from some repeat testing to determine if any of her hypercapnia could be addressed with noninvasive respiratory support overnight. On the day of discharge that her baseline oxygen requirement. Her lung sounds have significantly improved. Her symptoms had significantly improved. She can be discharged home to complete a course of steroids and slight adjustment of her nebulizer treatments. At the time of discharge, patient's granddaughter was on the phone reviewed plans for discharge and need for follow-up outpatient care which she will assist in coordinating Notes For Next Care Provider Consider outpatient sleep study testing May need additional management of antihypertensive medications Medication Changes From Visit Norvas added for blood pressure control Prednisone taper DuoNeb 4 times daily Mucinex for mucus and cough control Lidoderm patch for chronic pain back pain Admission HPI Per Admitting Provider Ms. Woodson is a 68 year old female that presents to the ED today from [facility] with SOB x2 days. She tested negative for Flu/Covid there. She wears oxygen 24/7 at baseline 2 L NC. She follows with Pulmonary at [facility]. She has been a smoker x50 years and continues to smoke 1/2 ppd. She reports that she had a thick clear cough. Her throat is sore and dry. She usually can take her oxygen off to take a shower but was unable to take a deep breath. She feels like she has chest tightness. She does have inhalers but does not take them routinely. She has been using her rescue inhaler 3-4 times a day. She had a recent admission to the [facility] 09/16 to 10/15 for COPD exacerbation. Here in the ED chest x-ray negative for acute cardiopulmonary process. No leukocytosis and patient does not appear toxic. Platelet levels low at 114. VBG revealed compensated respiratory acidosis with pH 7.31, CO2 88, bicarb 44. Additional past medical history includes COPD, peripheral neuropathy, depression mood disorder, and GERD.No history of CVA or AMI. Patient was prescribed amoxicillin and prednisone in the outpatient setting at acute care. Here in the ED she was started on IV steroids and given a nebulizer treatment. Pt denies DYE, chest pain, palpitations, N/V/D, recent falls or trauma. No known sick contacts. No recent travel. Attending physician performed physical examination and stated patient has insp/expiratory wheezes. Patient will be admitted for further evaluation and management of his COPD exacerbation and will continue IV steroids, nebulizer treatments, flutter valve and incentive spirometry and consider pulmonary consultation if no improvement. Admission Exam Per Admitting Provider I refer you to the H&P Discharge Exam Constitutional: Alert, nontoxic, no distress HEENT: Mucous membranes moist. Lungs: Decreased breath sound, prolonged expiratory phase, no rhonchi, rare scattered wheeze CV: S1-S2, regular Abdomen: Soft, nontender, nondistended Extremities: No significant edema Neuro: No focal deficits Psych: Cooperative, normal mood Updated Medication List Medication Instructions Recorded Confirmed Type cyclobenzaprine 10 mg tablet 10 mg PO AMHS 04/04/23 02/23/24 History acetaminophen 500 mg tablet 1,000 mg PO BID 10/14/23 02/23/24 History (Tylenol Extra Strength) albuterol sulfate 90 mcg/actuation 2 puff inhalation Q6H PRN 10/14/23 02/23/24 History aerosol inhaler Shortness Of Breath Or Wheezing bupropion HCl 150 mg tablet,12 hr 100 mg PO BID 10/14/23 02/23/24 History sustained-release cholecalciferol (vitamin D3) 25 50 mcg PO BID 10/14/23 02/23/24 History mcg (1,000 unit) capsule (Vitamin D3) ferrous sulfate 325 mg (65 mg 325 mg PO BID 10/14/23 02/23/24 History iron) tablet (iron) fluticasone 250 mcg-salmeterol 50 1 inh inhalation BID 10/14/23 02/23/24 History mcg/dose blistr powdr for inhalation lidocaine HCl 4 %-menthol 1 % 1 applic topical BID PRN Pain 10/14/23 02/23/24 History topical cream (Icy Hot Max (lidocaine HCl-menthol)) meloxicam 7.5 mg tablet 7.5 mg PO DAILY 10/14/23 02/23/24 History omeprazole 20 mg capsule,delayed 20 mg PO DAILYBB 10/14/23 02/23/24 History release ondansetron HCl 4 mg tablet 4 mg PO Q8H PRN NAUSEA/VOMITING 10/14/23 02/23/24 History pregabalin 25 mg capsule See Rx Instructions .Route .COMPLEX 10/14/23 02/23/24 History sennosides 8.6 mg-docusate sodium 1 tab-cap PO QAM 10/14/23 02/23/24 History 50 mg tablet (Colace 2-In-1) tiotropium bromide 1.25 2 puff inhalation QPM 10/14/23 02/23/24 History mcg/actuation mist for inhalation (Spiriva Respimat) amlodipine 5 mg tablet (Norvasc) 5 mg PO DAILY #30 tabs 02/26/24 Rx doxycycline hyclate 100 mg capsule 100 mg PO BID 3 days #6 caps 02/26/24 Rx guaifenesin 600 mg tablet, 1,200 mg (2 x 600 mg) PO Q12 #60 02/26/24 Rx extended release 12 hr (Mucinex) tabs ipratropium 0.5 mg-albuterol 3 mg 3 ml inhalation QID COPD FLARE UPS 02/26/24 Rx (2.5 mg base)/3 mL nebulization 30 days #360 mL soln lidocaine 5 % topical patch 1 patch transdermal QAM #30 ea 02/26/24 Rx prednisone 20 mg tablet See Rx Instructions .Route 02/26/24 Rx .COMPLEX #20 tabs Hospital Stay Data Consultations 02/23/24 17:58 ED Decision to Admit Stat Diagnostic Imagining Performed Reviewed imaging, laboratory and diagnostic studies. Pertinent findings as below. Hemoglobin 17.2, chronically elevated in the setting of her COPD BMP stable, carbon dioxide 44 Pending Results Patient Have Any Pending Studies at Discharge: No Discharge Instructions Given to Patient (Per Discharging Provider) Follow-up with your labor relations supervisor Continue your usual home oxygen Discussed with your labor relations supervisor or PCP about outpatient sleep study testing Discussed with your PCP if you need additional treatment for your blood pressure Total Time Total Time Spent Total Time Spent (In Minutes): 36
[2024-02-26 11:46] VITALS: BP 161/84
[2024-02-26] MEDS: amLODIPine BESYLATE 5 MG TAB PO ONE (11:49)
== END 2024-02-26 12:23 | disposition home or self-care (01) | DRG 190 ==
LOC: ED 16:34 → 2N 18:41 → SUATTDRO 18:41 → 2N 21:15